=== PATIENT | male | born 1955 | race Caucasian/White ===

== ENCOUNTER → 2019-04-26 00:01 | Outpatient (RCR) | payer SELFPAY | LOC: ONCMED 04-11 09:57 | PROVIDERS: Family Provider Nurse Practitioner Family; Visit Provider Internal Medicine Medical Oncology | DX: Z51.12 Encounter for antineoplastic immunotherapy (principal); C18.4 Malignant neoplasm of transverse colon; C78.7 Secondary malignant neoplasm of liver and intrahepatic bile duct; Z90.49 Acquired absence of other specified parts of digestive tract; E78.5 Hyperlipidemia, unspecified; I25.10 Atherosclerotic heart disease of native coronary artery without angina pectoris; I25.2 Old myocardial infarction; Z95.5 Presence of coronary angioplasty implant and graft; Z95.1 Presence of aortocoronary bypass graft; Z80.0 Family history of malignant neoplasm of digestive organs; R97.0 Elevated carcinoembryonic antigen [CEA]; Z79.899 Other long term (current) drug therapy | CPT/HCPCS: 36591; 80053; 82306; 82378; 82728; 82977; 83615; 84443; 85025; 85651; 86141; 86301; 96367 ×3; 96413 ×3; 96417; 99214; J1642 ×4; J2930 ×3; J3490 ×3; J7050 ×3; J9055 ×2 ==

== ENCOUNTER → 2019-05-02 09:21 | Outpatient (BNVA) | payer SELFPAY | PROVIDERS: Family Provider Nurse Practitioner Family; PCP Nurse Practitioner Family; Visit Provider Internal Medicine Medical Oncology | DX: C18.4 Malignant neoplasm of transverse colon (principal); C78.7 Secondary malignant neoplasm of liver and intrahepatic bile duct | CPT/HCPCS: 36415; 80053; 82306; 82378; 82728; 82977; 83615; 85025; 85651; 86141; 86301 ==

== ENCOUNTER 2019-05-16 07:58 | Outpatient (CLI) | payer SELFPAY ==
--- NOTE | 2019-05-16 08:07 | US_ITS ---
WS: [id number] ULTRASOUND ABDOMEN LIMITED CLINICAL INFORMATION: COLON CANCER/ABNORMAL FINDING ON PET SCAN COMPARISON: PET/CT 05/07/[address] chest abdomen pelvis December 15, 2018 FINDINGS: Liver Size: Multiple hepatic metastatic lesions the largest measuring 4.0 x3.1 cm unchanged since the recen t PET/CT. Craniocaudal length: 17.3 cm. Echogenicity: Coarse Surface nodularity: None. Mass (size and location): None. Bile ducts Intrahepatic ducts: Normal. Common bile duct diameter: 4.2 mm. Gallbladder Normal. Gallstones: None. Gallbladder sludge: None. Gallbladder wall thickening: None. Pericholecystic fluid: None. Sonographic Joshi sign: Absent. Pancreas Enlarged pancreatic head consistent with pancreatitis versus metastatic disease. This is similar in a ppearance to the recent PET/CT. No visualized ductal dilatation. Right kidney: Normal. Hydronephrosis: None. Size: 13.0 cm x 5.7 cm x 6.0 cm. Abdominal aorta and IVC Visualized portions are normal. Ascites: None. US/US gall bladder [id number] IMPRESSION: 1. Multiple hepatic metastatic lesions appear unchanged since the recent PET/C T. 2. Enlarged heterogeneous pancreatic head appears unchanged since the PET/CT. Recommend contrast-enhanced CT abdomen pelvis if further evaluation of this are a is desired 3. No pancreatic ductal dilatation. 4. No hydronephrosis in right kidney.
== END 2019-05-16 07:59 | disposition home or self-care (01) ==
LOC: RAD 08:04
PROVIDERS: Family Provider Nurse Practitioner Family; PCP Nurse Practitioner Family; Visit Provider Internal Medicine Medical Oncology
DX: C18.9 Malignant neoplasm of colon, unspecified (principal); K76.9 Liver disease, unspecified
CPT/HCPCS: 76705

== ENCOUNTER → 2019-05-23 10:13 | Outpatient (BNVA) | payer SELFPAY | PROVIDERS: Family Provider Nurse Practitioner Family; PCP Nurse Practitioner Family; Visit Provider Internal Medicine Medical Oncology | DX: C18.4 Malignant neoplasm of transverse colon (principal) | CPT/HCPCS: 80053; 82306; 82378; 82728; 82977; 83615; 85025; 85651; 86141; 86301 ==

== ENCOUNTER 2019-05-25 05:47 | Outpatient (RCR) | payer SELFPAY ==
[2019-05-04] MEDS: sodium chloride 0.9% 250 ML 75 ML IV (10:46)
--- NOTE | 2019-05-09 10:49 | ONC FU_ITS ---
Steven Amador Patient Note Patient: Steven Arellano Unit #: [id number]: 1955 Dictated By: Efrain McintoshDate of Visit: May 04, 2019 Onc MED Follow-Up/Prog Note Chief Complaint: Colon cancer. 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 In February 2018 he was referred to Dr. Jay with a one-month history of hematochezia. His colonoscopy showed a mass in the transverse colon. Biopsy showed tubular adenoma with high-grade dysplasia, but the mass did appear malignant. Other findings were limited to an inflammatory type polyp in the proximal descending colon and hyperplastic polyps in the rectum. CT of the abdomen and pelvis showed circumferential thickening in the distal transverse colon proximal to the splenic flexure, suspicious for neoplasm. There were multiple low-attenuation lesions noted in the liver, the largest in the left hepatic lobe measuring 3.2 cm. An additional prominent lesion near the dome measured 2.8 cm. There were numerous low-attenuation circumferential lesions in the right hepatic lobe measuring 1-2 cm. The findings were consistent with metastatic disease. On 03/25/2018 he underwent exploratory laparotomy with partial transverse colectomy and biopsy of a right hepatic lobe lesion. Pathology showed grade 1-2/4 infiltrating adenocarcinoma measuring 3.0 x 2.7 cm. There was penetration through the muscularis propria into serosal connective tissues. There was involvement in one of 12 mesenteric lymph nodes. The liver biopsy showed metastatic adenocarcinoma. Dr Rabago had seen him initially on 04/13/2018. We had discussed the possibility of a trial of palliative chemotherapy with a FOLFOX-based regimen. He subsequently underwent evaluation at [facility] in [facility]. His evaluation there included a next generation sequencing study by liquid biopsy. 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 The KRAS, NRAS, and BRAF mutations were not detected. A trial of palliative chemotherapy was again recommended. Instead, he sought treatment through [facility] in [facility]. Based on their in vitro studies, he apparently then began initial course of chemotherapy with cyclophosphamide, epirubicin, and irinotecan dosed at 2-week intervals for 8 weeks. He also was administered a variety of vitamin and herbal supplements. On 06/11/2018 he underwent a chemoembolization procedure with Quadraspheres loaded with epirubicin. He received a dosage of 60 mg to the right hepatic lobe and 50 mg to the left hepatic lobe. In June he began treatment with pembrolizumab 200 mg by IV infusion every 3 weeks together with cetuximab 500 mg by IV infusion weekly. Thus far he has received only 2 infusions of cetuximab, which he completed with only minimal reaction. He received his most recent infusion of pembrolizumab on 08/27/2018. In addition, from 08/03/2018 through 08/05/2018 he underwent AAIT therapy in [place]. His follow-up laboratory studies have shown decline in the CEA level from 178.6 ng/mL on 05/07/2018 to 60.9 ng/mL on 07/26/2018. His restaging PET/CT on 07/28/2018 showed interval significant response to treatment with resolution of multiple foci of increased metabolic activity in the liver. His other medical illnesses have been limited to coronary artery disease and dyslipidemia. He had suffered an inferior wall myocardial infarction in February 2017, at which time he underwent angioplasty with stent placement of the right coronary artery. He had no further cardiac problems. He has had no other prior medical illnesses. He had smoked cigars in the past, but only for a few years. He had chewed tobacco for 20 years, but he quit at least 15 years ago. He does not drink alcohol. His family history is significant in that his mother and a brother have also been treated for colon cancer. INTERIM HISTORY: On 08/27/2018 he restarted treatment with pembrolizumab 200 mg IV every 3 weeks together with cetuximab 500 mg IV weekly. He returned here on 08/30/2018 so that he could continue his pembrolizumab and cetuximab infusions closer to home. He had experienced no adverse effects with the initial infusions, and he continued with his day 8 and day 15 cetuximab infusions, also with no adverse effects. His repeat CEA level on 09/08/2018 was down to 9.1 ng/mL compared to 60.9 ng/mL on 07/26/2018. During subsequent follow-up his CEA level continued to decline. As of 12/06/2018 it had stabilized at 1.0 ng/mL. Restaging CT scans of the chest, abdomen, and pelvis on 12/15/2018 showed no evidence of metastatic disease the lungs. A 4 mm left perifussural nodule appeared stable. Numerous hepatic metastatic lesions appeared stable compared to the PET/CT from 10/23/2018. The largest in the left hepatic lobe measured 2.7 x 3.8 cmwith those findings he continued treatment with cetuximab in combination with pembrolizumab. Restaging PET/CT on 02/05/2019 showed improved bilateral hilar lymph nodes compared to the prior PET/CT studies. Multiple hepatic lesions appeared to have resolved, but with unchanged left and right hepatic dome lesions. Overall the findings were consistent with a positive metabolic response. He continued treatment with cetuximab in combination with pembrolizumab. As of 03/23/2019 he began his 11th cycle of treatment. At that point there was a significant increase in the CEA level, 13.9 ng/mL compared to 10.7 ng/mL on 03/02/2019 and to 3.9 ng/mL on 01/17/2019. With that increased and with evidence of residual hepatic involvement in the liver by PET/CT, he was recommended to have a repeat TACE procedure, and that was just done last week. Mr. Arellano is here today for follow-up. He is due for cycle 13 cetuximab and pembrolizumab. He states overall he is feeling better since the TACE procedure that was performed early March 2019. He had some abdominal soreness following the procedure but that has greatly improved. His activity is back to his normal. 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 His appetite is good. He states overall he feels that he is doing well. He has had significant pustular like rash eruption since last visit. That would be to due to the cetuximab most likely. He is using his normal medications at home which consist of herbal solutions. He denies any fever or chills. He said no mouth sores, sore throat or difficulty swallowing. He denies any diarrhea or constipation. He has had no new pain. His ECOG is 0. Mr Arellano reports he had followup with Dr Gorman recently and his ultrasound did not report any changes. Mr. Arellano had DCGL Exacta Liquid Biopsy Panel via [employer] in [place], [place] on 04/06/2019. The purpose of this liquid biopsy panel was for comprehensive exosomal gene expression study, cell free nuclear acid analysis, Copy Number Variations (CNV's), micro-RNA expression profile, Circulating Tumor Cells (CTC's)detection, pharmacogenetics and chemosensitivity analysis. This was requested by his healthcare team to identify any potential benefit with FDA approved therapies in cancers and possible nonconventional drugs or clinical trials. The results are available in his chart and are too detailed to include in this followup visit documentation. Past Medical History: Coronary artery disease Dyslipidemia Past Surgical History: Portacather placement dr. gurrola in 2019 Exploratory laparotomy with partial transverse colectomy and liver biopsy in 2018 Colonoscopy in 2018 - performed by Dr. Jay Coronary angioplasty/stent placement in 2016 Amputation of the distal phalanx of the right middle finger in 2013 Allergies: No Known Allergies. Medications: Aspirin 1 Tablet (of 81 mg) Oral daily Nitroglycerin 1 (0.4 mg) Tablet, sublingual Sublingual PRN Family History: Mr. Arellano's mother is alive: colon cancer. Mr. Arellano's father at age 83: alzheimers, and colon mass, and myocardial infarction. His father had dementia and coronary artery disease. He at age 83, apparently from complications of bowel obstruction. His mother still living at age 83. She has been treated for colon cancer in one brother has also been treated for colon cancer. Another brother has coronary artery disease. 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 Mr. Arellano no longer smokes but had smoked for 15 years. He has no history of drinking. Mr. Arellano reports the following support systems: lives with spouse, significant other, family, or friends. He had smoked cigars in the past, but only for a few years. He chewed tobacco for 20 years, but quit at least 15 years ago. He does not drink alcohol. Review Of Symptoms: Constitutional Denies fevers, chills, night sweats, excessive fatigue or weight loss. Allergic/Immunologic No reactions. Eyes Denies significant visual changes. No diplopia. No amaurosis. ENMT Denies changes in hearing, sore throat, mouth sores, difficulty or changes in swallowing ability, and/or sinus drainage. Endocrine No diabetes, thyroid disease or hormone replacement. Denies hot flashes or night sweats. Hematologic/Lymphatic Denies easy bruising or bleeding. The patient denies any tender or palpable lymph nodes. Respiratory Denies dyspnea on exertion, chest pain, cough or hemoptysis. Denies orthopnea. Cardiovascular Denies anginal chest pain, palpitations or orthopnea. Gastrointestinal Denies nausea, vomiting, diarrhea, GI bleeding, or constipation. Denies change in bowel habits and/or stool color, no heartburn or early satiety. Genitourinary (M) Denies hematuria, dysuria, increased frequency, urgency, hesitancy or incontinence. Musculoskeletal Denies joint pain, swelling or redness. No decreased range of motion. Integumentary Has recurrent Erbitux rash but no inflammation, ulcerations or skin changes. Neurologic Denies headache, blurred vision, and no areas of focal weakness or numbness. Normal gait. No sensory problems. Psychiatric Denies insomnia, depression, becky or mood swings. Vital Signs: Performed on May 04, 2019 09:31 Height - 70.00 in Weight - 182.2 lbs (HIGH) BSA - 2.01 sq.m BMI - 26.14 Temperature - 98.4 F Pulse - 81 /min Respiration - 16 /min BP - 128/72 mm(hg) O2 Sat - 99 % Pain - 0 Fatigue - 2,0 - Fully active, able to carry on all predisease activities without restrictions. (ECOG) Physical Examination: Constitutional Alert, oriented, no acute distress. Skin pink, warm and dry. Head Normocephalic; atraumatic. Eyes Conjunctivae and sclerae are clear and without icterus. Pupils are reactive and equal. Neck Supple without masses or thyromegaly. No jugular venous distension. Hematologic/Lymphatic No petechiae or purpura. No tender or palpable lymph nodes in the cervical or supraclavicular areas. Respiratory Lungs are clear to auscultation without rhonchi or wheezing. Cardiovascular Regular rate and rhythm of heart without murmurs,clicks, gallops or rubs. Chest Left subclavian venous access device is unremarkable. Abdomen Non-tender, non-distended, no masses, ascites. Good bowel sounds noted in all quads. No guarding or rebound tenderness. No pulsatile masses. Back/Spine Non-tender to palpation. Extremities No visible deformities, no cyanosis, clubbing or edema. Pulses 4+ and equal bilaterally. Musculoskeletal No tenderness or swelling, normal range of motion without obvious weakness. Integumentary Classic Erbitux moderate rash on forehead, upper chest and back. Papules scattered with several showing pustules, but no signs of infection. Neurologic No sensory or motor deficits, normal cerebellar function, normal gait. Psychiatric Alert and oriented times three. Coherent speech. Verbalizes understanding of our discussions today. Laboratory:Test performed on May 02, 2019 10:34 Ferritin 216 ng/mL Glucose 85 mg/dL LDH, Total 235 IU/L Vitamin D (25-Hydroxy) 44 ng/mL BUN 15 mg/dL Creatinine 1.1 mg/dL Cr Clearance (Est) 75.48 mL/min Sodium 140 mmol/L Potassium 4.7 mmol/L Chloride 100 mmol/L CO2 26 mmol/L Calcium 10.3 mg/dL Protein, Total 6.4 g/dL Albumin 4.1 g/dL Globulin 2.3 g/dL Bilirubin, Total 0.2 mg/dL Alkaline Phosphatase 125 IU/L AST (SGOT) 26 IU/L ALT (SGPT) 26 IU/L WBC 10.8 10^9/L RBC 4.68 10^12/L HGB 13.1 g/dL HCT 41.4 % MCV 88.5 fl MCH 28.0 pg MCHC 31.6 g/dL RDW 12.6 % Platelet Count 327 10^9/L MPV 10.8 fL Neutrophils (Gran) 7.4 10^9/L Lymphocytes 1.5 10^9/L Monocytes 0.8 10^9/L Eosinophils 1.0 10^9/L Basophils 0.0 10^9/L Manual Lymphocytes 14.0 % Manual Monocytes 7.4 % Manual Eosinophils 9.1 % Manual Basophils 0.1 % C-Reactive Protein (mg/dL) 3.150 mg/dL CA 19-9 27.25 Units/mL CEA 13.1 ng/mL Impression: 1. 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 An extended K-sheila mutation analysis and MMR testing are in progress at this time. 2. He underwent exploratory laparotomy with partial transverse colectomy and liver biopsy on 03/25/2018. His other medical illnesses include: 3. Dyslipidemia. 4. Coronary artery disease with previous myocardial infarction and angioplasty/stent placement. 5. He has a significant family history of colon cancer. While in his initial visit here he was seen at [facility] and his next generation sequencing study did confirm that he had a wild-type KRAS mutation status. He then sought treatment through the [facility] in [facility]. Based on their and philipp studies he apparently began initial chemotherapy with cyclophosphamide, epirubicin, and irinotecan dosed every 2 weeks. On 06/11/2017 he underwent chemoembolization to both hepatic lobes utilizing Quadraspheres loaded with epirubicin. In June he began further treatment with pembrolizumab 200 mg by IV infusion every 3 weeks together with cetuximab 500 mg by IV infusion weekly. His follow-up laboratory studies had shown decline in the CEA level from 178.6 ng/mL on 05/07/2018 to 60.9 ng/mL on 07/26/2018. His restaging PET/CT on 07/28/2018 showed interval significant response to treatment with resolution of multiple foci of increased metabolic activity in the liver. He resumed the pembrolizumab/cetuximab infusions on 08/27/2018. He tolerated the treatment with no significant toxicity. He returned for day 8 and day 15 cetuximab infusions, which he also tolerated well. As of 09/08/2018 there was further decrease in the CEA level to 9.1 ng/mL. His restaging CT abdomen/pelvis did show residual metastatic lesions in the liver. During subsequent follow-up there was further decline in the CEA level. As of 12/06/2018 it had stabilized at 1.0 ng/mL. His restaging CT scans on 12/15/2018 showed numerous hepatic metastatic lesions, the largest in the left hepatic lobe measuring 2.7 x 3.8 cm. They appeared stable compared to the PET/CT from 10/23/2018. He has been showing gradual gradual worsening of his skin eruption, but he is not symptomatic with it, and he has otherwise been tolerating treatment well. Overall he has been feeling better generally. He has had a good response to his treatment, though he did have residual disease in the liver by CT scan. He then continued treatment with cetuximab in combination with pembrolizumab. His restaging PET/CT on 02/05/2019 showed evidence of positive metabolic response, though with residual involvement in the liver. During subsequent follow-up there was a continued increase in his CEA level, consistent with disease progression, and in conjunction with the PET/CT findings, he was recommended to have a repeat TACE procedure. It was done last month (March 2019). He has had some soreness in the upper abdomen following the procedure, but he has otherwise tolerated well. The abdominal soreness has now resolved. His CEA is stable at 13.1 today, but it is too early to evaluate for any response to the TACE procedure. He is scheduled for followup PET/CT later this month for followup evaluation. Plan: 1. Proceed with cycle 13 day 1 pembrolizumab and cetuximab today. He will proceed with weekly Cetuximab day 8 & 15 as well unless contraindications arise in the interim. 2. Supportive care as needed. 3. Labs from were reviewed in detail and discussed with and Mrs. Arellano and a copy was given to them. WBC 10.8, hemoglobin 13.1, platelets 327,000, absolute neutrophils are 7400. vitamin D 25 is normal at 44, creatinine 1.1 LFTs are normal potassium 4.3 ferritin 216 CEA is 13.1. 4. We will plan for repeat labs and followup in 3 weeks for consideration of cycle 14 cetuximab and pembrolizumab. 5. Mr Arellano was instructed to call us in the interim if questions or problems arise. 6. Encouraged sunscreen/protection to help control Erbitux rash. We may call in antibiotics if rash warrants further treatment. 7. Mr. Arellano had DCGL Exacta Liquid Biopsy Panel via [employer] [facility] in [place], [place] on 04/06/2019. The purpose of this liquid biopsy panel was for comprehensive exosomal gene expression study, cell free nuclear acid analysis, Copy Number Variations (CNV's), micro-RNA expression profile, Circulating Tumor Cells (CTC's)detection, pharmacogenetics and chemosensitivity analysis. This was requested by his healthcare team to identify any potential benefit with FDA approved therapies in cancers and possible nonconventional drugs or clinical trials. The results are available in his chart and are too detailed to include in this followup visit documentation. Signed By: Efrain Mcintosh-, AOCNP George Rabago MD <<Signature on File>>
[2019-05-11] MEDS: sodium chloride 0.9% 250 ML 75 ML IV (09:42)
[2019-05-18] MEDS: sodium chloride 0.9% 250 ML 75 ML IV (09:28)
[2019-05-25] MEDS: sodium chloride 0.9% 250 ML 75 ML IV (09:47)
== END 2019-05-27 23:59 | disposition home or self-care (01) ==
LOC: ONCMED 05:47
PROVIDERS: Family Provider Nurse Practitioner Family; PCP Nurse Practitioner Family; Visit Provider Nurse Practitioner
DX: Z51.12 Encounter for antineoplastic immunotherapy (principal); C18.4 Malignant neoplasm of transverse colon; C78.7 Secondary malignant neoplasm of liver and intrahepatic bile duct; C77.2 Secondary and unspecified malignant neoplasm of intra-abdominal lymph nodes; I25.10 Atherosclerotic heart disease of native coronary artery without angina pectoris; E78.5 Hyperlipidemia, unspecified; I25.2 Old myocardial infarction; Z79.82 Long term (current) use of aspirin; Z95.5 Presence of coronary angioplasty implant and graft; Z87.891 Personal history of nicotine dependence; Z90.49 Acquired absence of other specified parts of digestive tract; Z89.021 Acquired absence of right finger(s); Z80.0 Family history of malignant neoplasm of digestive organs
CPT/HCPCS: 96367; 96413; 96417; 99214; A4222; J1200; J2930; J3490; J7050; J9055; J9271

== ENCOUNTER 2019-05-27 13:26 | Inpatient (IN) | payer SELFPAY ==
[2019-05-27] VITALS (7 sets, daily range): BP systolic 161–168; BP diastolic 95–100; PULSE 66–87; RESP 16–18; TEMP 36.5–36.9; O2SAT 94–99; BMI 24.3
--- NOTE | 2019-05-27 13:51 | ED_ITS ---
Entered by Catherine Hightower, acting as scribe for Flaco Chandler MD, [facility] [place] - Abdominal Pain General: Chief Complaint: Abdominal Pain Stated Complaint: cancer pt n/v Time Seen by Provider: 05/27/19 13:50 Source: patient Mode of arrival: ambulatory Limitations: no limitations History of Present Illness: HPI narrative: 64 yo Male presents to ED with complaint of abdominal pain, nausea and vomiting. Pt states that he hasn't been able to hold anything down. Pt states that this has been going on since Thursday. Pt states that [facility] Pt is receiving immunotherapy treatments. Pt has colon cancer that has spread to his liver. MD elicited complaint: abdominal pain Onset (ago): day(s) Pain Consistency: intermittent Location: RUQ Pain scale (0-10): 1 Radiation: none Migration to: no migration Exacerbating factors: eating Relieving factors: vomiting Associated Symptoms: Reports belching, diarrhea, fever(s), nausea and vomiting; Denies dysuria Review of Systems General: Reports: 10 or more systems reviewed and unremarkable except in HPI and below Const: Reports: fever Eyes: Reports: blind spots; Denies: change in vision or blurry vision ENMT: Denies: throat pain, enlarged tonsils, painful swallowing, hoarseness, mouth pain or swelling of lips/tongue Card: Reports: chest pain; Denies: palpitations, irregular heart rhythm, edema or swelling of feet/ankles Resp: Denies: shortness of breath, productive cough or non-productive cough GI: Reports: nausea, vomiting, diarrhea and belching : Denies: flank pain, painful urination, urinary frequency, urinary urgency or urinary hesitancy Musc: Reports: extremity pain (left shoulder), joint pain (left shoulder) and limited range of motion; Denies: neck pain, back pain or extremity swelling Skin/Breast: Denies: rash, itching or redness Neuro: Denies: headache, numbness in extremities or weakness in extremities Endo: Denies: excessive urination, excessive thirst or tired all the time PFSH ED PFSH: Statuses (acute, chronic, etc) shown below reflect problem list status as previously entered and may not be historically accurate Social History Smoking and tobacco status: former smoker Physical Exam Const: COMMON NORMALS: no apparent distress, average body habitus, oriented x3, no limitations, healthy appearing, alert and well nourished HENMT: COMMON NORMALS: normocephalic, head/scalp atraumatic and moist oral mucous membranes HEAD & SCALP: normocephalic and atraumatic Eye: COMMON NORMALS: PERRL, EOMs intact bilaterally, conjunctivae normal and no scleral icterus CONJUNCTIVA: Yes conjunctivae normal PUPIL: Yes PERRL Neck/C-Spine: COMMON NORMALS: full ROM, supple, no meningeal signs, no JVD and no carotid bruits Chest: COMMONS NORMALS: inspection of chest normal and palpation of chest normal Resp: COMMON NORMALS: normal respiratory effort, no retractions, no use of accessory muscles, clear to auscultation bilaterally and percussion normal AUSCULTATION: clear to auscultation bilaterally PERCUSSION: percussion normal Cardio: COMMON NORMALS: no JVD, regular rate, regular rhythm, S1 normal heart sound, S2 normal heart sound, no gallops, no clicks, no murmurs, no rub and peripheral pulses 2+ throughout RATE: regular rate RHYTHM: regular rhythm HEART SOUNDS: S1 normal and S2 normal PERIPHERAL PULSES: pulses 2+ throughout GI: COMMON NORMALS: normal to inspection, nondistended, normoactive bowel sounds, soft to palpation, no hepatosplenomegaly, no masses and no bruits; negative for non-tender PALPATION: Yes soft, Yes tender (Epigastric), Yes guarding, No rigid and Yes no hepatosplenomegaly : COMMON NORMALS: Yes no CVA tenderness BLADDER/KIDNEY EXAM: Yes no CVA tenderness Back/Pelvis: COMMON NORMALS: no CVA tenderness Extremity: COMMON NORMALS: normal to inspection, full ROM, normal capillary refill, no calf tenderness and no pedal edema Neuro: COMMON NORMALS: oriented x3 SENSORIUM/ORIENTATION: Yes alert MENINGEAL SIGNS: Yes no meningeal signs Skin: COMMON NORMALS: no rashes or lesions noted, no wounds, skin turgor normal, no jaundice, no petechiae and no mottling GENERAL SKIN EXAM: no rashes or lesions noted and turgor normal Course Consultations: Consultation #1: Dr. Murguia, hospitalist. He kindly accepted the patient to his service. Vital Signs: Vital signs: Vital Signs Temperature 98.4 F 05/27/19 18:13 Pulse Rate 87 05/27/19 18:13 Respiratory Rate 18 05/27/19 18:13 Blood Pressure 163/100 05/27/19 18:13 Pulse Oximetry 97 05/27/19 18:07 MDM - Abdominal Pain MDM Narrative: Medical decision making narrative: 64-year-old gentleman with metastatic colon cancer. He presents to the emergency department with nausea vomiting and unable to keep anything down. He had epigastric pain and on evaluation he has acute pancreatitis. He is admitted to the hospital for further management and evaluation. Medical Records: Attestation: I reviewed the patient's medical records. Lab Data: Attestation: I reviewed the patient's lab results. Labs: Lab Results 05/27/19 05/27/19 05/27/19 Range/Units 14:36 14:36 14:42 WBC 11.9 H (4.0-10.0) 10^3/ uL RBC 5.70 H (4.1-5.3) 10^6/u L Hgb 15.3 (11.7-16.6) g/dL Hct 47.4 (42.0-52.0) % MCV 83.2 (80-94) fL MCH 26.8 L (28.0-34.0) pg MCHC 32.3 (30.0-36.0) g/dL RDW 13.1 (12.1-15.1) % Plt Count 344 (130-400) 10^3/c mm MPV 10.8 H (7.4-10.4) fL Neut % (Auto) 76.6 % Lymph % (Auto) 13.7 % Hinds % (Auto) 8.8 % Eos % (Auto) 0.4 % Baso % (Auto) 0.2 % Neut # (Auto) 9.1 H (1.8-7.7) 10^3/u L Lymph # (Auto) 1.6 (0.8-4.8) 10^3/u L Hinds # (Auto) 1.0 H (0.2-0.9) 10^3/u L Eos # (Auto) 0.1 (0.0-0.8) 10^3/u L Baso # (Auto) 0.0 (0.0-0.1) 10^3/u L Nucleated RBC % (a uto) 0 % Nucleated RBCs # 0.0 /100WBC Sodium 140 (136-145) mmol/L Potassium 3.7 (3.5-5.1) mmol/L Chloride 100 (98-107) mmol/L Carbon Dioxide 26 (22-29) mmol/L Anion Gap 17.7 (5-19) BUN 14 (8-23) mg/dL Creatinine 0.7 (0.7-1.2) mg/dL GFR Calculation 113.5 (90-130) mL/min Glucose 133 H (74-106) mg/dL Calcium 10.5 (8.5-10.5) mg/dL Total Bilirubin 0.6 (0.15-1.2) mg/dL AST 25 (0-40) U/L ALT 23 (0-41) U/L Alkaline Phosphata se 140 H (40-130) IU/L Total Protein 7.9 (6.6-8.7) g/dL Albumin 4.4 (3.5-5.2) g/dL Globulin 3.5 (1.3-4.6) g/dL Lipase 624 H (13-60) U/L Urine Color Yellow (Yellow) Urine Appearance Cloudy (CLEAR) Urine pH 7.0 (5-7) Ur Specific Gravit y 1.015 (1.005-1.030) Urine Protein Neg (Negative) Urine Glucose (UA) Norm (Normal) Urine Ketones 2+ H (Negative) Urine Occult Blood Neg (Negative) Urine Nitrate Negative (Negative) Urine Bilirubin Neg (NEGATIVE) Urine Urobilinogen 1 H (Negative) mg/dL Ur Leukocyte Krystal ase Negative (Negative) Urine RBC None (0-2) /hpf Urine WBC None (0-5) /hpf Ur Squamous Epith Cells 0-4 H (0-5) Amorphous Sediment 1+ Urine Bacteria 1+ H (NONE) Urine Mucus 1+ Influenza Type A A g (Negative) POC Influenza B Ag (Negative) 05/27/19 Range/Units 14:47 WBC (4.0-10.0) 10^3/ uL RBC (4.1-5.3) 10^6/u L Hgb (11.7-16.6) g/dL Hct (42.0-52.0) % MCV (80-94) fL MCH (28.0-34.0) pg MCHC (30.0-36.0) g/dL RDW (12.1-15.1) % Plt Count (130-400) 10^3/c mm MPV (7.4-10.4) fL Neut % (Auto) % Lymph % (Auto) % Hinds % (Auto) % Eos % (Auto) % Baso % (Auto) % Neut # (Auto) (1.8-7.7) 10^3/u L Lymph # (Auto) (0.8-4.8) 10^3/u L Hinds # (Auto) (0.2-0.9) 10^3/u L Eos # (Auto) (0.0-0.8) 10^3/u L Baso # (Auto) (0.0-0.1) 10^3/u L Nucleated RBC % (a uto) % Nucleated RBCs # /100WBC Sodium (136-145) mmol/L Potassium (3.5-5.1) mmol/L Chloride (98-107) mmol/L Carbon Dioxide (22-29) mmol/L Anion Gap (5-19) BUN (8-23) mg/dL Creatinine (0.7-1.2) mg/dL GFR Calculation (90-130) mL/min Glucose (74-106) mg/dL Calcium (8.5-10.5) mg/dL Total Bilirubin (0.15-1.2) mg/dL AST (0-40) U/L ALT (0-41) U/L Alkaline Phosphata se (40-130) IU/L Total Protein (6.6-8.7) g/dL Albumin (3.5-5.2) g/dL Globulin (1.3-4.6) g/dL Lipase (13-60) U/L Urine Color (Yellow) Urine Appearance (CLEAR) Urine pH (5-7) Ur Specific Gravit y (1.005-1.030) Urine Protein (Negative) Urine Glucose (UA) (Normal) Urine Ketones (Negative) Urine Occult Blood (Negative) Urine Nitrate (Negative) Urine Bilirubin (NEGATIVE) Urine Urobilinogen (Negative) mg/dL Ur Leukocyte Krystal ase (Negative) Urine RBC (0-2) /hpf Urine WBC (0-5) /hpf Ur Squamous Epith Cells (0-5) Amorphous Sediment Urine Bacteria (NONE) Urine Mucus Influenza Type A A g Negative (Negative) POC Influenza B Ag Negative (Negative) Imaging Data ^: CT Abd/Pel: Radiologist's impression: [facility] [address] [place] [address] CT Scan Report Signed Patient: Jaqueline Arellano #: [id number] : 5Acct#:[id number] Age/Sex: 64 / MADM Date: 05/27/19 Loc: ERRoom/Bed: Attending Dr: Ordering Provider/Ordering MD: Flaco Chandler MD, [facility] [place] Date of Service: 05/27/19 Procedure(s): CT abdomen pelvis w con* [id number] Accession Number(s): [id number] Report Number: [id number] WS: [id number] CT scan of the abdomen and pelvis with IV contrast. Additional two-dimensional coronal and sagittal reconstruction was performed. 05/27/2019 Clinical Data: Pancreatitis Comparison: CT abdomen and pelvis, 02/05/2019, gallbladder ultrasound, 05/16/2019. DLP: 676.[address] scans at [facility] use at least one of these dose optimization techniques: automated exposure control; mA and/or kV adjustment per patient size (includes targeted exams where dose is matched to clinical indication); or iterative reconstruction. Findings: The lower lungs show no nodules, masses or effusions. The liver demonstrates an increased number of low-density metastatic lesions. The previously noted lesions are also larger. The gallbladder is shrunken with calcification in the wall. The adrenal glands and spleen are unremarkable. The pancreas shows an increase in the size of the head of the pancreas with numerous low-density lesions. This could represent acute pancreatitis of the he ad of the pancreas. The body and tail of pancreas appear to be normal. The kidneys show equal bilateral contrast excretion with no cyst or masses. The abdominal aorta is normal in size with minimal calcification in the wall.. No appendicitis or diverticulitis is seen. Stomach is dilated. The small bowel demonstrates moderate fluid within but there is no dilatation. No abscess, adenopathy, ascites, mass, obstruction or free air is seen. The bladder is unremarkable. The prostate is enlarged with calcification in the gland. No inguinal hernia is seen. The the bones of the lower thorax, lumbar spine, pelvis, hips and sacrum show only osteoarthritic change.. CT/CT abdomen pelvis w con* [id number] Impression: 1. Increase in size of the head of the pancreas with multiple low density lesions which could represent acute pancreatitis in the head of the pancreas. 2. Multiple low-density lesions of the liver which have increased in size and number and may represent worsening metastatic disease. 3. Dilated stomach which may represent acute gastric retention. 4. Fluid within the small bowel which may represent a severe ileus. 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
[2019-05-27 14:41] LABS: Basophils % 0.2 %; Eosinophils # 0.1 10^3/uL (0.0-0.8); Eosinophils % 0.4 %; Hematocrit 47.4 % (42.0-52.0); Hemoglobin 15.3 g/dL (11.7-16.6); Lymphocytes # 1.6 10^3/uL (0.8-4.8); Lymphocytes % 13.7 %; Mean Corpuscular HGB Conc 32.3 g/dL (30.0-36.0); Mean Corpuscular Hemoglobin 26.8 pg (28.0-34.0); Mean Corpuscular Volume 83.2 fL (80-94); Mean Platelet Volume 10.8 fL (7.4-10.4); Monocytes % 8.8 %; Neutrophils # 9.1 10^3/uL (1.8-7.7); Neutrophils % 76.6 %; Nucleated Red Blood Cells % 0 %; Platelet Count 344 10^3/cmm (130-400); Red Cell Distribution Width 13.1 % (12.1-15.1); White Blood Count 11.9 10^3/uL (4.0-10.0)
[2019-05-27 14:59] LABS: Add Urine Microscopic? YES; Bilirubin Urine Neg (NEGATIVE); Blood Urine Neg (Negative); Glucose Urine UA Norm (Normal); Ketones Urine 2+ (Negative); Leukocyte Esterase Urine Negative (Negative); Nitrate Urine Negative (Negative); Protein Urine Neg (Negative); Specific Gravity, Urine 1.015 (1.005-1.030); Urine Appearance Cloudy (CLEAR); Urine Color Yellow (Yellow); Urobilinogen Urine 1 mg/dL (Negative)
[2019-05-27 15:09] LABS: Alanine Aminotransferase 23 U/L (0-41); Albumin Level 4.4 g/dL (3.5-5.2); Alkaline Phosphatase 140 IU/L (40-130); Anion Gap 17.7 (5-19); Aspartate Amino Transferase 25 U/L (0-40); Blood Urea Nitrogen 14 mg/dL (8-23); Calcium 10.5 mg/dL (8.5-10.5); Carbon Dioxide 26 mmol/L (22-29); Chloride 100 mmol/L (98-107); Globulin 3.5 g/dL (1.3-4.6); Glomerular Filtration Rate 113.5 mL/min (90-130); Glucose 133 mg/dL (74-106); Potassium 3.7 mmol/L (3.5-5.1); Sodium 140 mmol/L (136-145); Total Bilirubin 0.6 mg/dL (0.15-1.2); Total Protein 7.9 g/dL (6.6-8.7)
[2019-05-27 15:15] LABS: Influenza A by IFA Negative (Negative); Influenza B by IFA Negative (Negative)
[2019-05-27 15:16] LABS: Add Urine Culture? No; Amorphous Sediment Urine 1+; Bacteria Urine 1+; Mucus Urine 1+; Squamous Epithelial Cell Urine 0-4 (0-5)
[2019-05-27 15:24] LABS: Lipase 624 U/L (13-60)
--- NOTE | 2019-05-27 15:38 | CT_ITS ---
WS: [id number] CT scan of the abdomen and pelvis with IV contrast. Additional two-dimensional coronal and sagittal reconstruction was performed. 05/27/2019 Clinical Data: Pancreatitis Comparison: CT abdomen and pelvis, 02/05/2019, gallbladder ultrasound, 05/16/2019. DLP: 676.[address] scans at [facility] use at least one of these dose optimization techniques: automat ed exposure control; mA and/or kV adjustment per patient size (includes targeted exams where dose is matched to clinical indication); or iterative reconstruction. Findings: The lower lungs show no nodules, masses or effusions. The liver demonstrates an increased number of low-density metastatic lesions. The previously noted le sions are also larger. The gallbladder is shrunken with calcification in the wall. The adrenal glands and spleen are unremarkable. The pancreas shows an increase in the size of the head of the pancreas with numerous low-density lesi ons. This could represent acute pancreatitis of the head of the pancreas. The body and tail of pancre as appear to be normal. The kidneys show equal bilateral contrast excretion with no cyst or masses. The abdominal aorta is normal in size with minimal calcification in the wall.. No appendicitis or diverticulitis is seen. Stomach is dilated. The small bowel demonstrates moderate fluid within but there is no dilatation. No abscess, adenopathy, ascites, mass, obstruction or free a ir is seen. The bladder is unremarkable. The prostate is enlarged with calcification in the gland. No inguinal hernia is seen. The the bones of the lower thorax, lumbar spine, pelvis, hips and sacrum show only osteoarthritic thao nge.. CT/CT abdomen pelvis w con* [id number] Impression: 1. Increase in size of the head of the pancreas with multiple low density lesio ns which could represent acute pancreatitis in the head of the pancreas. 2. Multiple low-density lesions of the liver which have increased in size and n umber and may represent worsening metastatic disease. 3. Dilated stomach which may represent acute gastric retention. 4. Fluid within the small bowel which may represent a severe ileus.
[2019-05-27] MEDS: iohexol 300 mg/mL 100 mL Btl IV (15:57)
[2019-05-27] MEDS: ondansetron 2 mg/ML SDV 2 mL 4 MG IVP (17:29)
[2019-05-27] MEDS: sodium chloride 0.9% 1,000 ML 999 ML IV (17:30)
[2019-05-27 18:52] LABS: Lipase 683 U/L (13-60)
--- NOTE | 2019-05-27 19:51 | PM.HP ---
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 He initially sought treatment through [facility] in [facility] and began initial course of chemotherapy with cyclophosphamide, epirubicin, and irinotecan with chemoembolization procedure with Quadraspheres loaded with epirubicin into hepatic metastasis in 05/2018. He has since been on treatment with pembrolizumab every 3 weeks together with cetuximab. While he had good response until 01/2019 with reducing CEA level and reducing disease burden on restaging PETs, in Feb 2019 he again had increased CEA level and evidence of residual hepatic involvement in the liver. In March 2019, he returned to [place] to receive intrahepatic chemo with cyclophosphamide, gemcitabine and vinorelbine hepatospheres. He had a PET/CT recently in April after returning from [place] which showed evidence of pancreatic inflammation. It was thought that this may have resulted from some leak of chemotherapy into the pancreas at that time. However patient was asymptomatic. I do not see a lipase from this time. I am unable to find records of this PET/CT in our EMR at this time. 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 An ultrasound of the gallbladder was performed which showed enlarged heterogeneous pancreatic head multiple hepatic metastatic lesions no pancreatic ductal dilatation and no evidence of gallstones. This report compared to a PET/CT performed on 05/07/2019. Patient presented to the ER today with chief complaints of nausea vomiting poor appetite and one episode of diarrhea this morning. He states that all of the symptoms started on Thursday (today is Thursday.) He received his last immunotherapy on Thursday. He also reports that he has a dull achy type pain in the epigastric area which has somewhat worsened since Thursday. At this point he is unable to keep anything down. His symptoms have not significantly worsened since Thursday, however it is the persistence of symptoms that has brought him in this morning. This morning he was also unable to take any of his medications or keep even clear liquids down. He has previously tolerated his cycles of chemo well without any untoward side effects. He is not currently neutropenic. An abdomen pelvis CT was performed upon arrival in the ED which showed increase in the size of head of pancreas with multiple low-density lesions which could represent acute pancreatitis in the head of pancreas. Multiple low-density lesions of the liver were noted and noted to have increased in size consistent with worsening metastatic disease. Dilated stomach was also noted which presents acute gastric retention and fluid within the small bowel which may represent a severe ileus. Gallbladder is noted to be shrunken with calcification in the wall. He denies any complaints of fever. Labs notable for white blood cell count of 11.9. Review of prior labs show his white blood cell count to be ranging between 10.8-11.1. Lipase is elevated at greater than 600. Liver function is stable. Alkaline phosphatase is mildly elevated at 140. Blood sugar is currently at 133. Creatinine is at 0.7. Review of Systems General: Reports: 10 or more systems reviewed and unremarkable except in HPI and below Const: Denies: fever, chills or body aches Eyes: Denies: change in vision, blurry vision or photophobia ENMT: Reports: hoarseness; Denies: throat pain, enlarged tonsils, painful swallowing or nasal congestion Card: Denies: chest pain, palpitations, irregular heart rhythm, edema, swelling of feet/ankles, lightheadedness, pre-syncope, shortness of breath on exertion or shortness of breath when lying down Resp: Denies: shortness of breath, productive cough, non-productive cough, wheezing, stridor, pain on inspiration, change in phlegm color, coughing up blood or chest congestion GI: Reports: abdominal pain, nausea, vomiting and diarrhea; Denies: vomiting blood, coffee grounds in vomit, difficulty swallowing, heartburn/indigestion, constipation, cramping, change in stool character, blood in stool or black tarry stool : Denies: flank pain, painful urination, urinary frequency, urinary urgency, urinary hesitancy or blood in urine Musc: Denies: neck pain, back pain, extremity pain, joint swelling, joint warmth or deformity Neuro: Denies: headache, numbness in extremities, weakness in extremities, changes in sensation, difficulty walking, frequent falls, dizziness, vertigo, behavioral changes, slurred speech or seizure-like activity Psych: Denies: anxiety, depression, suicidal ideation or homicidal ideation Endo: Denies: excessive urination, excessive thirst, tired all the time, cold intolerance or hot flashes Jigar/Lymph: Denies: easy bruising or easy bleeding Medications/Allergies Home Medications Medication Instructions Recorded Confirmed Last Taken Type aspirin 81 mg PO DAILY 05/27/19 05/27/19 05/27/19 History Allergies Allergy/AdvReac Type Severity Reaction Status Date / Time No Known Allergies Allergy Verified 05/02/19 09:54 PFSH Acute PFSH: Statuses (acute, chronic, etc) shown below reflect problem list status as previously entered and may not be historically accurate Medical History (Updated 05/27/19 @ 20:12 by Becca Baires MD) CAD (coronary artery disease) (Acute) Ileus (Acute) Surgical History (Updated 05/27/19 @ 19:58 by Becca Baires MD) H/O colectomy (Acute) History of heart artery stent (Acute) Family History (Updated 05/27/19 @ 19:58 by Becca Baires MD) Other Cancer Social History (Updated 05/27/19 @ 19:58 by Becca Baires MD) Smoking and tobacco status: former smoker Alcohol intake: never Substance/Drug Use: never Vitals/I&O/Wt Last Vital Signs Temp 98.4 F 05/27/19 18:54 Pulse 80 05/27/19 19:28 Resp 17 05/27/19 19:28 BP 168/95 05/27/19 18:54 Pulse Ox 94 05/27/19 19:28 05/27/19 05/27/19 05/27/19 06:59 14:59 22:59 Intake Total 1000 / 1000 Balance 1000 / 1000 Weight last 48 hrs Weight 77.111 kg Physical Exam Narrative: EXAM NARRATIVE: GEN: Awake, alert and oriented, no acute distress CVS: S1S2 N RS: CTA B/L Abd: Soft, bowel sounds sluggish, no abdominal distention, mild tenderness to palpation in the epigastric area and right upper quadrant. PHARMACEUTICAL SERVICE REPRESENTATIVE: no focal neuro deficits Data : 05/27/19 14:36 05/27/19 14:36 A&P Assessment and plan (1) Pancreatitis: Status: Acute Qualifiers: Acute pancreatitis complication: no infection or necrosis Chronicity: acute Pancreatitis type: unspecified pancreatitis type Qualified Code(s): K85.90 - Acute pancreatitis without necrosis or infection, unspecified Code(s): K85.90 - Acute pancreatitis without necrosis or infection, unspecified (2) Metastatic colon cancer to liver: Status: Acute Code(s): C18.9 - Malignant neoplasm of colon, unspecified; C78.7 - Secondary malignant neoplasm of liver and intrahepatic bile duct (3) Ileus: Status: Acute Code(s): K56.7 - Ileus, unspecified Additional A&P Information Admit patient to MedSurg unit. Currently hemodynamically stable Keep patient NPO. IVF hydration with NS at a rate of 150 cc/hr Will use dilaudid prn for pain control PRN Zofran for nausea. strict I/O monitoring Check blood culture at baseline and repeat if fever >100.4F Accuchekcs q4h Hold off on antibiotics for now as no signs of sepsis currently, afebrile, leukocytosis appears to be at baseline. No signs of necrotizing pancreatitis or pancreatic abscess on CT scan performed today. Check triglycerides and ionized calcium. Patient does not report a history of alcohol intake. Will order MRCP for further evaluation of biliary tract. Possibility of gallstone pancreatitis is low given normal alkaline phosphatase and no noted biliary dilatation. Based on patient history it appears that the pancreatic head inflammation has been persisting at least since his last chemo and may in fact be related to his intrahepatic chemo recently. May be a progression of the same inflammatory process that has made him now symptomatic. I do not see a lipase from the time the original PET/CT was performed to see comparatively if it is trending up or down. Small bowel ileus. For now will require conservative management is likely result of pancreatitis. Conservative measures as above. Will hold off on NGT at the moment unless symptoms worsen. 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
[2019-05-27] MEDS: sodium chloride 0.9% 1,000 ML 150 ML IV (20:37)
[2019-05-27] MEDS: enoxaparin 40 mg/0.4 mL Syringe SUBCUT (20:37)
[2019-05-27 20:47] LABS: Thyroid Stimulating Hormone 1.54 uIU/mL (0.27-4.20)
[2019-05-27 21:10] LABS: Iron 44 ug/dL (59-158); Percent Saturation 14.7 % (20-50); Total Iron Binding Capacity 299 mcg/dl; Unsaturated Iron Binding 255 ug/dL (112-347)
[2019-05-27 21:35] LABS: Chol HDL Ratio 6.14 mg/dL (1.0-5.00); Cholesterol 172 mg/dL (0-200); HDL Cholesterol 28 mg/dL (60-100); LDL Cholesterol Calculated 132 mg/dL (50-129); LDL HDL Ratio 4.71 RATIO (0.00-3.22); Triglycerides 61 mg/dL (0-150)
[2019-05-28] VITALS: BP 133/88; PULSE 79; RESP 24; TEMP 37.2; O2SAT 97
[2019-05-28] MEDS: sodium chloride 0.9% 1,000 ML 150 ML IV ×3 (03:44→19:11)
[2019-05-28 04:00] VITALS: BP 129/80; PULSE 72; RESP 24; TEMP 37; O2SAT 97
[2019-05-28 05:26] LABS: Ionized Calcium 1.1 mmol/L (1.1-1.4)
[2019-05-28 06:33] LABS: Basophils % 0.2 %; Eosinophils # 0.1 10^3/uL (0.0-0.8); Eosinophils % 0.7 %; Hematocrit 43.3 % (42.0-52.0); Hemoglobin 13.6 g/dL (11.7-16.6); Lymphocytes # 1.6 10^3/uL (0.8-4.8); Lymphocytes % 14.2 %; Mean Corpuscular HGB Conc 31.4 g/dL (30.0-36.0); Mean Corpuscular Volume 89.3 fL (80-94); Mean Platelet Volume 11.5 fL (7.4-10.4); Monocytes % 8.9 %; Neutrophils # 8.7 10^3/uL (1.8-7.7); Neutrophils % 75.6 %; Nucleated Red Blood Cells % 0 %; Platelet Count 272 10^3/cmm (130-400); Red Blood Count 4.85 10^6/uL (4.1-5.3); Red Cell Distribution Width 13.3 % (12.1-15.1); White Blood Count 11.5 10^3/uL (4.0-10.0)
[2019-05-28 06:57] LABS: Estmated Average Glucose 117; Hemoglobin A1C 5.7 % (4.0-6.0)
[2019-05-28 07:02] LABS: Alanine Aminotransferase 19 U/L (0-41); Albumin Level 3.4 g/dL (3.5-5.2); Alkaline Phosphatase 111 IU/L (40-130); Anion Gap 16.2 (5-19); Blood Urea Nitrogen 14 mg/dL (8-23); Calcium 8.9 mg/dL (8.5-10.5); Carbon Dioxide 19 mmol/L (22-29); Chloride 109 mmol/L (98-107); Globulin 2.8 g/dL (1.3-4.6); Glomerular Filtration Rate 135.6 mL/min (90-130); Glucose 99 mg/dL (74-106); Lipase 291 U/L (13-60); Potassium 4.2 mmol/L (3.5-5.1); Sodium 140 mmol/L (136-145); Total Bilirubin 0.4 mg/dL (0.15-1.2); Total Protein 6.2 g/dL (6.6-8.7)
[2019-05-28 07:03] LABS: Aspartate Amino Transferase 28 U/L (0-40)
[2019-05-28 07:30] VITALS: BP 144/73; PULSE 56; RESP 18; TEMP 37.3; O2SAT 97
[2019-05-28 11:20] VITALS: BP 141/83; PULSE 68; RESP 18; TEMP 37; O2SAT 97
[2019-05-28 15:10] VITALS: BP 154/86; PULSE 78; RESP 18; TEMP 37.2; O2SAT 97
--- NOTE | 2019-05-28 15:16 | PC.CHAP ---
Pastoral Care Encounter/Spiritual Assessment Type of Contact [] Declined fish bin tender visit [] Patient/Family/Request visit [] Outpatient visit [] Follow-up visit [] Physician referral [] Code/Alert [x] Routine visit [] Staff referral [] Actively dying [] Patient sleeping [] Family support [] [] Out of room [] Palliative care [] [] Receiving care in room [] Pre-surgical visit [] Trauma [] Long length of stay [] ICU visit [] Other: Relational/Emotional Strength [] Patient feels connected with others/family/visitors/staff [] Distress [] Loneliness/isolation [] Abandonment Spirituality of Patient [] Person of Lillian [] Attends Uatsdin of their Lillian [] Believes in Prayer [] Reads Bible or Sikhism materials [] There are Spiritual issues to be addressed Repeat Chief Interventions [] Prayer [] Active listening [] Non-anxious presence [] Spiritual/emotional support [] Crisis/trauma care [] Spiritual counseling [] Bereavement support [] Provided bereavement packet [] Provided Bible/devotional materials [] Provided toy/stuffed animal, coloring book to patient or family member [] Provided Communion [] Anointing/[place] [] Salvation [] Completed spiritual assessment [] Other: Impact on Illness or Injury [] Angry [] Fearful [] Anxious [] Often cries [] Exhaustion [] Unable to work [] Unable to attend congregation [] Unable to walk/stand [] Unable to read [] Unable to drive [] Unable to eat/drink [] Unable to sleep [] Unable to be with family [] Patient intubated [] Other: Summary Time spent with patient
--- NOTE | 2019-05-28 16:38 | PM.PN ---
Subjective Subjective: Interval history: Feels improved. No c/o nausea, vomiting, diarrhea today. Mild soreness persisting in epigastric area, but improved Medications: Reviewed: Yes Vitals/I&O/Wt Last Vital Signs Temp 98.9 F 05/28/19 15:10 Pulse 78 05/28/19 15:10 Resp 18 05/28/19 15:10 BP 154/86 05/28/19 15:10 Pulse Ox 97 05/28/19 15:10 05/28/19 05/28/19 05/28/19 06:59 14:59 22:59 Intake Total 1000 / 2000 1000 / 1000 Output Total 600 / 1000 Balance 400 / 1000 1000 / 1000 Weight last 48 hrs Weight 79.107 kg Weight 77.111 kg Physical Exam Narrative: EXAM NARRATIVE: GEN: Awake, alert and oriented, no acute distress CVS: S1S2 N RS: CTA B/L Abd: Soft, non distended, mild discomfort to palpation epigastric area , bs+ 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 CARD WRITER: no focal neuro deficits Data : 05/28/19 04:51 05/28/19 04:51 A&P Assessment and plan (1) Pancreatitis: Status: Acute Qualifiers: Acute pancreatitis complication: no infection or necrosis Chronicity: acute Pancreatitis type: unspecified pancreatitis type Qualified Code(s): K85.90 - Acute pancreatitis without necrosis or infection, unspecified Code(s): K85.90 - Acute pancreatitis without necrosis or infection, unspecified (2) Metastatic colon cancer to liver: Status: Acute Code(s): C18.9 - Malignant neoplasm of colon, unspecified; C78.7 - Secondary malignant neoplasm of liver and intrahepatic bile duct (3) Ileus: Status: Acute Code(s): K56.7 - Ileus, unspecified Additional A&P Information Clinically improving. He looks better hydrated, no further episodes of nausea, reports that appetite is returning. Start on clear liquid diet given clinical improvement If tolerated, will advance to full liquid tomorrow Reduce NS to 100cc/hr Will use dilaudid prn for pain control PRN Zofran for nausea. Hold off on antibiotics for now as no signs of sepsis currently, afebrile, leukocytosis appears to be at baseline. No signs of necrotizing pancreatitis or pancreatic abscess on CT scan. triglycerides and ionized calcium WNL. Patient does not report a history of alcohol intake. MRCP was ordered yesterday. Possibility of gallstone pancreatitis is low given normal liver function and no noted biliary dilatation. 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 It is unlikely to happen over the weekend unfortunately. Based on patient history it appears that the pancreatic head inflammation has been persisting at least since his last chemo and may in fact be related to his intrahepatic chemo recently. May be a progression of the same inflammatory process that has made him now symptomatic. Small bowel ileus. For now will require conservative management is likely result of pancreatitis. Will hold off on NGT at the moment unless symptoms worsen. start clear liquid diet. 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
[2019-05-28 20:00] VITALS: BP 112/67; PULSE 72; RESP 18; TEMP 37.2; O2SAT 96
[2019-05-28] MEDS: enoxaparin 40 mg/0.4 mL Syringe SUBCUT (20:33)
[2019-05-29] VITALS (7 sets, daily range): BP systolic 106–157; BP diastolic 59–81; PULSE 56–61; RESP 18–20; TEMP 36.8–37.3; O2SAT 95–98
[2019-05-29] MEDS: sodium chloride 0.9% 1,000 ML 150 ML IV (05:08)
[2019-05-29 06:01] LABS: Basophils % 0.3 %; Eosinophils # 0.5 10^3/uL (0.0-0.8); Eosinophils % 6.5 %; Hematocrit 48.8 % (42.0-52.0); Hemoglobin 14.3 g/dL (11.7-16.6); Lymphocytes # 1.3 10^3/uL (0.8-4.8); Lymphocytes % 17.3 %; Mean Corpuscular HGB Conc 29.3 g/dL (30.0-36.0); Mean Corpuscular Hemoglobin 28.3 pg (28.0-34.0); Mean Corpuscular Volume 96.6 fL (80-94); Mean Platelet Volume 11.4 fL (7.4-10.4); Monocytes # 0.6 10^3/uL (0.2-0.9); Monocytes % 7.9 %; Neutrophils # 5.1 10^3/uL (1.8-7.7); Neutrophils % 67.7 %; Nucleated Red Blood Cells % 0 %; Platelet Count 184 10^3/cmm (130-400); Red Blood Count 5.05 10^6/uL (4.1-5.3); White Blood Count 7.6 10^3/uL (4.0-10.0)
[2019-05-29 06:14] LABS: Alanine Aminotransferase 18 U/L (0-41); Albumin Level 2.8 g/dL (3.5-5.2); Alkaline Phosphatase 105 IU/L (40-130); Anion Gap 16.1 (5-19); Aspartate Amino Transferase 30 U/L (0-40); Blood Urea Nitrogen 9 mg/dL (8-23); Calcium 8.8 mg/dL (8.5-10.5); Carbon Dioxide 16 mmol/L (22-29); Chloride 106 mmol/L (98-107); Globulin 3.1 g/dL (1.3-4.6); Glomerular Filtration Rate 167.4 mL/min (90-130); Glucose 79 mg/dL (74-106); Magnesium 2.3 mg/dL (1.7-2.3); Potassium 4.1 mmol/L (3.5-5.1); Sodium 134 mmol/L (136-145); Total Bilirubin 0.5 mg/dL (0.15-1.2); Total Protein 5.9 g/dL (6.6-8.7)
--- NOTE | 2019-05-29 14:31 | PM.DCS ---
Discharge Providers Date of Admission: 05/27/19 17:40 Date of Discharge: Date of Discharge: May 29, 2019 Attending Provider at Admission: Cody Petty MD Attending Provider at Discharge: Chandan Lee MD Primary Care Provider: ANKIT Smith Diagnoses at Discharge Discharge Diagnosis (1) Pancreatitis: Status: Acute Problem details: This suspected to be secondary to cancer related pancreatic duct obstruction. Immunotherapy could also play a role but felt unlikely. Qualifiers: Acute pancreatitis complication: no infection or necrosis Chronicity: acute Pancreatitis type: unspecified pancreatitis type Qualified Code(s): K85.90 - Acute pancreatitis without necrosis or infection, unspecified (2) Metastatic colon cancer to liver: Status: Acute (3) Ileus: Status: Acute (4) GERD (gastroesophageal reflux disease): Status: Acute Reason for Visit Reason for Visit: Reason For Visit: ACUTE PANCREATITIS Hospital Course Discharge Summary: Patient with metastatic colon cancer to liver and also suspected to pancreas presented with acute epigastric area abdominal pain secondary to acute pancreatitis. Pancreatitis felt to be related to obstruction by cancer. There was no evidence of acute cholecystitis or common bile duct obstruction on imaging or lab work. Patient is taking high-dose vitamin C and aspirin and reports that lately he has been having more heartburn. Small dose Protonix will be started. Patient was treated with fluids and tolerated clear liquid diet well. Today his diet was advanced to soft mechanical and patient did well. Patient is very adamant that he is going to leave today as he has court day tomorrow morning which he absolutely cannot miss. We have discussed that patient's symptoms potentially related to malignancy and that he needs to be further evaluated with EUS/EGD. Patient will try to arrange outpatient appointment to see GI specialist who performs procedures and was told to present back should his condition worsen. Patient voiced understanding. He is currently pain-free. I will give patient 7 tablets of Dilaudid to use as needed. Patient to hold any immunotherapy medications at this point until seen by Dr. Rabago. Physical Exam Resp: COMMON NORMALS: normal respiratory effort and clear to auscultation bilaterally AUSCULTATION: clear to auscultation bilaterally Cardio: COMMON NORMALS: regular rate, regular rhythm and S2 normal heart sound RATE: regular rate RHYTHM: regular rhythm HEART SOUNDS: S2 normal OTHER: No lower extremity swelling bilaterally. GI: COMMON NORMALS: normal to inspection, nondistended, normoactive bowel sounds, soft to palpation and non-tender PALPATION: Yes soft Discharge Data Data Completed and Pending: Completed Studies During Hospitalization Category Date Time Status CT abdomen pelvis w con* [id number] Stat Cat Scan 05/27/19 15:38 Completed Pending at discharge Category Date Time Status MR MRCP [id number] Laila you MRI 05/27/19 20:29 Ordered Labs from last 24 hours 05/29/19 05/29/19 05:15 05:15 WBC 7.6 RBC 5.05 Hgb 14.3 Hct 48.8 MCV 96.6 H MCH 28.3 MCHC 29.3 L RDW 13.0 Plt Count 184 MPV 11.4 H Neut % (Auto) 67.7 Lymph % (Auto) 17.3 Gregory % (Auto) 7.9 Eos % (Auto) 6.5 Baso % (Auto) 0.3 Neut # (Auto) 5.1 Lymph # (Auto) 1.3 Gregory # (Auto) 0.6 Eos # (Auto) 0.5 Baso # (Auto) 0.0 Nucleated RBC % (a uto) 0 Nucleated RBCs # 0.0 Sodium 134 L Potassium 4.1 Chloride 106 Carbon Dioxide 16 L Anion Gap 16.1 BUN 9 Creatinine 0.5 L GFR Calculation 167.4 H Glucose 79 Calcium 8.8 Magnesium 2.3 Total Bilirubin 0.5 AST 30 ALT 18 Alkaline Phosphata se 105 Total Protein 5.9 L Albumin 2.8 L Globulin 3.1 Vitals: Last Vital Signs Temp 99.0 F 05/29/19 11:10 Pulse 56 L 05/29/19 11:10 Resp 20 H 05/29/19 11:10 BP 129/73 05/29/19 11:10 Pulse Ox 98 05/29/19 11:10 Discharge Plan Discharge Patient Disposition: Home, Self-Care Condition: Stable Prescriptions: New Dilaudid 2 mg tablet 2 mg PO Q6H PRN (Reason: pain) Qty: 7 RF: 0 pantoprazole [Protonix] 20 mg tablet,delayed release (DR/EC) 20 mg PO DAILY Qty: 30 RF: 0 Continued aspirin 81 mg tablet,delayed release (DR/EC) 81 mg PO DAILY RF: 0 Referrals: Shiloh Sparks FNP [Primary Care Provider] - George Rabago MD [Hospitalist] - (Earliest possible) Discharge Diet: GI Soft Activity Restrictions/Additional Instructions: Please call your doctor or present to emergency department if your condition worsens or you develop diarrhea, lightheadedness, fatigue or see blood in your stool or black stool. Please discuss with your doctor to arrange outpatient follow-up with GI specialist for EUS procedure for further evaluation of pancreatitis which is suspected to be secondary to cancer related pancreatic duct obstruction. Discharge Attestations Time Spent in Discharge Care*: greater than 30 min Quality Metrics Clinical Quality Measures During this hospital stay, did patient experience: None Coding Level of Care Code Acute Combination Presser for [facility] Fwd Diagnoses Pancreatitis K85.90 Acute pancreatitis complication: no infection or necrosis Chronicity: acute Pancreatitis type: unspecified pancreatitis type Metastatic colon cancer to liver C18.9; C78.7 Ileus K56.7 GERD (gastroesophageal reflux disease) K21.9
== END 2019-05-29 16:33 | disposition home or self-care (01) | DRG 439 ==
LOC: ER 18:10 → MEDSURG 18:12
PROVIDERS: Student in an Organized Health Care Education/Training Program; Admitting Provider Student in an Organized Health Care Education/Training Program; Emergency Provider Family Medicine; Family Provider Nurse Practitioner Family; PCP Nurse Practitioner Family; Visit Provider Internal Medicine
DX: K85.90 Acute pancreatitis without necrosis or infection, unspecified (principal); K56.7 Ileus, unspecified; C78.7 Secondary malignant neoplasm of liver and intrahepatic bile duct; C78.89 Secondary malignant neoplasm of other digestive organs; C18.4 Malignant neoplasm of transverse colon; K21.9 Gastro-esophageal reflux disease without esophagitis; Z90.49 Acquired absence of other specified parts of digestive tract; Z79.82 Long term (current) use of aspirin; I25.10 Atherosclerotic heart disease of native coronary artery without angina pectoris; Z95.5 Presence of coronary angioplasty implant and graft; Z87.891 Personal history of nicotine dependence
CPT/HCPCS: 12345; 36415; 74177; 80053; 80061; 81001; 82330; 83036; 83540; 83550; 83690; 83735; 84443; 85025; 87804; 94664; 96372; 96374; 99283; J1650; J2405; J7030; Q9967

== ENCOUNTER → 2019-06-20 08:15 | Outpatient (BNVA) | payer SELFPAY | PROVIDERS: Family Provider Nurse Practitioner Family; PCP Nurse Practitioner Family; Visit Provider Internal Medicine Medical Oncology | DX: C18.9 Malignant neoplasm of colon, unspecified (principal); C78.7 Secondary malignant neoplasm of liver and intrahepatic bile duct | CPT/HCPCS: 80053; 82306; 82378; 82977; 83615; 84100; 85025; 85651; 86141; 86301 ==

== ENCOUNTER 2019-06-23 06:00 | Outpatient (RCR) | payer SELFPAY ==
--- NOTE | 2019-06-24 15:27 | ONC FU_ITS ---
Dr. Rabago Patient Follow-Up Note Patient: Steven Arellano Unit #: [id number]: 1955 Dicatated By: George Rabago M.D.Date of Visit:Jun 23, 2019 Onc Med Follow-up/Prog Note Chief Complaint: Colon cancer. 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 In February 2018 he was referred to Dr. Jay with a one-month history of hematochezia. His colonoscopy showed a mass in the transverse colon. Biopsy showed tubular adenoma with high-grade dysplasia, but the mass did appear malignant. Other findings were limited to an inflammatory type polyp in the proximal descending colon and hyperplastic polyps in the rectum. CT of the abdomen and pelvis showed circumferential thickening in the distal transverse colon proximal to the splenic flexure, suspicious for neoplasm. There were multiple low-attenuation lesions noted in the liver, the largest in the left hepatic lobe measuring 3.2 cm. An additional prominent lesion near the dome measured 2.8 cm. There were numerous low-attenuation circumferential lesions in the right hepatic lobe measuring 1-2 cm. The findings were consistent with metastatic disease. On 03/25/2018 he underwent exploratory laparotomy with partial transverse colectomy and biopsy of a right hepatic lobe lesion. Pathology showed grade 1-2/4 infiltrating adenocarcinoma measuring 3.0 x 2.7 cm. There was penetration through the muscularis propria into serosal connective tissues. There was involvement in one of 12 mesenteric lymph nodes. The liver biopsy showed metastatic adenocarcinoma. I had seen him initially on 04/13/2018. We had discussed the possibility of a trial of palliative chemotherapy with a FOLFOX-based regimen. He subsequently underwent evaluation at [facility] in [facility]. His evaluation there included a next generation sequencing study by liquid biopsy. 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 The KRAS, NRAS, and BRAF mutations were not detected. A trial of palliative chemotherapy was again recommended. Instead, he sought treatment through [facility] in [facility]. Based on their in vitro studies, he apparently then began initial course of chemotherapy with cyclophosphamide, epirubicin, and irinotecan dosed at 2-week intervals for 8 weeks. He also was administered a variety of vitamin and herbal supplements. On 06/11/2018 he underwent a chemoembolization procedure with Quadraspheres loaded with epirubicin. He received a dosage of 60 mg to the right hepatic lobe and 50 mg to the left hepatic lobe. In June he began treatment with pembrolizumab 200 mg by IV infusion every 3 weeks together with cetuximab 500 mg by IV infusion weekly. Thus far he has received only 2 infusions of cetuximab, which he completed with only minimal reaction. He received his most recent infusion of pembrolizumab on 08/27/2018. In addition, from 08/03/2018 through 08/05/2018 he underwent AAIT therapy in [place]. His follow-up laboratory studies have shown decline in the CEA level from 178.6 ng/mL on 05/07/2018 to 60.9 ng/mL on 07/26/2018. His restaging PET/CT on 07/28/2018 showed interval significant response to treatment with resolution of multiple foci of increased metabolic activity in the liver. His other medical illnesses have been limited to coronary artery disease and dyslipidemia. He had suffered an inferior wall myocardial infarction in February 2017, at which time he underwent angioplasty with stent placement of the right coronary artery. He had no further cardiac problems. He has had no other prior medical illnesses. He had smoked cigars in the past, but only for a few years. He had chewed tobacco for 20 years, but he quit at least 15 years ago. He does not drink alcohol. His family history is significant in that his mother and a brother have also been treated for colon cancer. INTERIM HISTORY: On 08/27/2018 he restarted treatment with pembrolizumab 200 mg IV every 3 weeks together with cetuximab 500 mg IV weekly. He returned here on 08/30/2018 so that he could continue his pembrolizumab and cetuximab infusions closer to home. He had experienced no adverse effects with the initial infusions, and he continued with his day 8 and day 15 cetuximab infusions, also with no adverse effects. His repeat CEA level on 09/08/2018 was down to 9.1 ng/mL compared to 60.9 ng/mL on 07/26/2018. During subsequent follow-up his CEA level continued to decline. As of 12/06/2018 it had stabilized at 1.0 ng/mL. Restaging CT scans of the chest, abdomen, and pelvis on 12/15/2018 showed no evidence of metastatic disease the lungs. A 4 mm left perifussural nodule appeared stable. Numerous hepatic metastatic lesions appeared stable compared to the PET/CT from 10/23/2018. The largest in the left hepatic lobe measured 2.7 x 3.8 cmwith those findings he continued treatment with cetuximab in combination with pembrolizumab. Restaging PET/CT on 02/05/2019 showed improved bilateral hilar lymph nodes compared to the prior PET/CT studies. Multiple hepatic lesions appeared to have resolved, but with unchanged left and right hepatic dome lesions. Overall the findings were consistent with a positive metabolic response. He continued treatment with cetuximab in combination with pembrolizumab. As of 03/23/2019 he began his 11th cycle of treatment. At that point there was a significant increase in the CEA level, 13.9 ng/mL compared to 10.7 ng/mL on 03/02/2019 and to 3.9 ng/mL on 01/17/2019. With that increase and with evidence of residual hepatic involvement in the liver by PET/CT, he yañez a repeat TACE procedure in March. He was then seen for a follow-up visit on 04/13/2019. At that point he continued treatment with pembrolizumab in combination with cetuximab. A restaging PET/CT on 05/07/2019 reported worsening of hepatic metastatic disease with a central left hepatic lobe lesion measuring 3.6 x 6.7 with SUV 7.2. A lesion in the medial left hepatic lobe showed increased SUV to 4.5. Other subcentimeter lesions appeared unchanged. Also noted was new enlargement of the head of the pancreas with mild FDG uptake, possibly representing pancreatitis. On 05/27/2019 he was admitted to the hospital with a presumptive diagnosis of acute pancreatitis, having presented to the emergency room with nausea/vomiting in association with a dull achy pain in the epigastric area. His serum lipase was elevated at 683 U/L. CT abdomen/pelvis showed increase in the size of the head of the pancreas with numerous low-density lesions, possibly representing acute pancreatitis. Multiple low-density lesions in the liver were noted to have increased in size and number, consistent with worsening metastatic disease. There appeared to be acute gastric retention. Fluid within the small bowel was suggestive of a severe ileus. His symptoms improved with supportive treatment measures. He was discharged home on 05/29/2019. He had further evaluation with MRI of the abdomen at [facility] on 06/01/2019. It showed multiple lesions throughout the bilateral lobes of the liver consistent with hepatic metastases. An additional lesion within the left lobe of the liver appeared to be consistent with a cavernous hemangioma. A mixed cystic and solid mass was noted within the head and uncinate process of the pancreas measuring 3.2 x 4.5 cm. It had indeterminate features by MRI, possibly representing a primary pancreatic neoplasm versus metastatic lesion. We had then made arrangements for an EUS procedure, but he opted instead to return to [place] for a biopsy. When he arrived there, he was told that a would not be able to do the biopsy, so he returned home and he requested a follow-up visit here. In the meantime, his recent studies done through [facility] had included a K-sheila mutation analysis, which detected a G12C KRAS mutation. With that finding, he was recommended to stop treatment with cetuximab. He continues to have some abdominal pain at times, but he still feels good generally. He has normal activity. ECOG score is 0. He says he is eating too much. He has no fever or night sweats. He has no shortness of breath, cough, or chest pain. He has not been having nausea/vomiting, and he has no problems with bowel or bladder function. He has no significant joint or bone pain. He has no focal neurologic symptoms. Medications: Aspirin 1 Tablet (of 81 mg) Oral daily, Nitroglycerin 1 (0.4 mg) Tablet, sublingual Sublingual PRN Allergies: No Known Allergies. Vital Signs: Performed on Jun 23, 2019 10:14 Height - 70.00 in Weight - 172.0 lbs (LOW) BSA - 1.96 sq.m BMI - 24.68 Temperature - 98.8 F Pulse - 90 /min Respiration - 18 /min BP - 104/73 mm(hg) O2 Sat - 99 % Pain - 1 Physical Examination: Constitutional - He still looks pretty good generally, Eyes - Sclerae nonicteric. Conjunctivae clear, ENMT - No lesions noted in the oral cavity, Hematologic/Lymphatic - No cervical, clavicular, or axillary adenopathy, Respiratory - Lungs are clear with good air movement bilaterally, Cardiovascular - Heart rhythm is regular. There is no murmur, gallop, or rub noted, Abdomen - Soft. There is mild tenderness in the epigastric area. Liver and spleen are not enlarged. There is no abdominal mass or ascites noted and there is no inguinal adenopathy, Extremities - No edema, Neurologic - No focal neurologic deficits noted. Lab/Imaging: Test performed on Jun 13, 2019 09:22 DHEA-S 213 mmol/L Estradiol 13 pg/mL Ferritin 309 ng/mL Homocysteine 6.9 umol/L T4, Free 0.98 ng/dL Testosterone 324 ng/dL Uric Acid 4.2 mg/dL Cholesterol, Total 181 mg/dL C-Reactive Protein (mg/L) 51.2 mg/L Glucose 97 mg/dL LDH, Total 418 IU/L Phosphorous 3.0 mg/dL T3, Free 2.6 pg/mL T4 5.8 mcg/dL Vitamin D (25-Hydroxy) 33.5 ng/mL BUN 10 mg/dL Creatinine 0.68 mg/dL Cr Clearance (Est) 121.11 mL/min TSH 2.430 uU/mL BUN/Creatinine Ratio 15 Absolute Value Triglycerides 67 mg/dL Sodium 139 mmol/L Potassium 3.9 mmol/L Chloride 103 mmol/L CO2 22 mmol/L Calcium 8.9 mg/dL Protein, Total 6.1 g/dL Albumin 3.6 g/dL Globulin 2.5 g/dL A/G Ratio 1.4 Absolute Value Bilirubin, Total 0.2 mg/dL Alkaline Phosphatase 122 IU/L AST (SGOT) 35 IU/L ALT (SGPT) 52 IU/L Hemoglobin A1C 5.6 % Sed Rate 18 mm/hr WBC 15.3 10^9/L RBC 4.63 10^12/L HGB 12.9 g/dL HCT 40.1 % MCV 87 fl MCH 27.9 pg MCHC 32.2 g/dL RDW 15.2 % Platelet Count 245 10^9/L Neutrophils (Gran) 12.546 10^9/L Lymphocytes 1.53 10^9/L Monocytes 0.765 10^9/L Eosinophils 0.459 10^9/L Basophils 0 10^9/L PSA 6.0 ng/mL Impression: 1. 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 An extended K-sheila mutation analysis and MMR testing are in progress at this time. 2. He underwent exploratory laparotomy with partial transverse colectomy and liver biopsy on 03/25/2018. His other medical illnesses include: 3. Dyslipidemia. 4. Coronary artery disease with previous myocardial infarction and angioplasty/stent placement. 5. He has a significant family history of colon cancer. While in his initial visit here [facility] [place] and his next generation sequencing study did confirm that he had a wild-type KRAS mutation status. He then sought treatment through the [facility] in [facility]. Based on their and philipp studies he apparently began initial chemotherapy with cyclophosphamide, epirubicin, and irinotecan dosed every 2 weeks. On 06/11/2017 he underwent chemoembolization to both hepatic lobes utilizing Quadraspheres loaded with epirubicin. In June he began further treatment with pembrolizumab 200 mg by IV infusion every 3 weeks together with cetuximab 500 mg by IV infusion weekly. His follow-up laboratory studies had shown decline in the CEA level from 178.6 ng/mL on 05/07/2018 to 60.9 ng/mL on 07/26/2018. His restaging PET/CT on 07/28/2018 showed interval significant response to treatment with resolution of multiple foci of increased metabolic activity in the liver. He resumed the pembrolizumab/cetuximab infusions on 08/27/2018. He tolerated the treatment with no significant toxicity. He returned for day 8 and day 15 cetuximab infusions, which he also tolerated well. As of 09/08/2018 there was further decrease in the CEA level to 9.1 ng/mL. His restaging CT abdomen/pelvis did show residual metastatic lesions in the liver. During subsequent follow-up there was further decline in the CEA level. As of 12/06/2018 it had stabilized at 1.0 ng/mL. His restaging CT scans on 12/15/2018 showed numerous hepatic metastatic lesions, the largest in the left hepatic lobe measuring 2.7 x 3.8 cm. They appeared stable compared to the PET/CT from 10/23/2018. He has been showing gradual gradual worsening of his skin eruption, but he is not symptomatic with it, and he has otherwise been tolerating treatment well. Overall he has been feeling better generally. He has had a good response to his treatment, though he did have residual disease in the liver by CT scan. He then continued treatment with cetuximab in combination with pembrolizumab. His restaging PET/CT on 02/05/2019 showed evidence of positive metabolic response, though with residual involvement in the liver. During subsequent follow-up there was a continued increase in his CEA level, consistent with disease progression, and in conjunction with the PET/CT findings, he underwent a repeat TACE procedure in March. At his follow-up visit here on 04/13/2019 he continued treatment with pembrolizumab and cetuximab. A restaging PET/CT on 05/07/2019 reported worsening of hepatic metastatic disease with a central left hepatic lobe lesion measuring 3.6 x 6.7 with SUV 7.2. A lesion in the medial left hepatic lobe showed increased SUV to 4.5. Other subcentimeter lesions appeared unchanged. Also noted was new enlargement of the head of the pancreas with mild FDG uptake, possibly representing pancreatitis. On 05/27/2019 he was admitted to the hospital with acute pancreatitis. His CT abdomen/pelvis showed increase in size of the head of the pancreas. Further evaluation with MRI of the abdomen at [facility] on 06/01/2019 showed a mixed cystic and solid mass within the head and uncinate process of the pancreas measuring 3.2 x 4.5 cm. As yet he has not had any further evaluation. He has had improvement in his abdominal pain and other GI symptoms. His current laboratory studies show a significant increase in the CEA level, now to 50.8 ng/mL. The CA-19-9 level is also elevated at 108.0 U/mL. In the meantime, a KRAS mutation analysis which was done through [facility] [employer] reported the presence of a KRAS G12C mutation. Plan: We are rescheduling his appointment in [place] for the EUS procedure. He will have further evaluation as indicated. In the meantime, his treatment remains on hold. Signed By: George Rabago M.D. <<Signature on File>>
== END 2019-06-25 23:59 | disposition home or self-care (01) ==
LOC: ONCMED 06:00
PROVIDERS: Family Provider Nurse Practitioner Family; PCP Nurse Practitioner Family; Visit Provider Nurse Practitioner
DX: C78.7 Secondary malignant neoplasm of liver and intrahepatic bile duct (principal); C18.4 Malignant neoplasm of transverse colon; K86.9 Disease of pancreas, unspecified; I25.10 Atherosclerotic heart disease of native coronary artery without angina pectoris; E78.5 Hyperlipidemia, unspecified; I25.2 Old myocardial infarction; Z79.82 Long term (current) use of aspirin; Z79.899 Other long term (current) drug therapy; Z95.5 Presence of coronary angioplasty implant and graft; Z87.891 Personal history of nicotine dependence; Z80.0 Family history of malignant neoplasm of digestive organs; Z90.49 Acquired absence of other specified parts of digestive tract
CPT/HCPCS: G0463

== ENCOUNTER → 2019-07-04 10:27 | Outpatient (BNVA) | payer SELFPAY | PROVIDERS: Family Provider Nurse Practitioner Family; PCP Nurse Practitioner Family; Visit Provider Internal Medicine Medical Oncology | DX: C18.9 Malignant neoplasm of colon, unspecified (principal); C78.7 Secondary malignant neoplasm of liver and intrahepatic bile duct | CPT/HCPCS: 80053; 82306; 82378; 82728; 82977; 83615; 84100; 85025; 85651; 86141 ==

== ENCOUNTER 2019-08-12 09:44 | Outpatient (CLI) | payer SELFPAY | END 2019-08-12 09:45 | disposition home or self-care (01) | LOC: ONCMED 09:45 | PROVIDERS: Family Provider Nurse Practitioner Family; PCP Nurse Practitioner Family; Visit Provider Nurse Practitioner | DX: Z51.12 Encounter for antineoplastic immunotherapy (principal); C18.4 Malignant neoplasm of transverse colon; C78.7 Secondary malignant neoplasm of liver and intrahepatic bile duct | CPT/HCPCS: J7050; J9271 ==

== ENCOUNTER → 2019-08-24 10:21 | Outpatient (BNVA) | payer SELFPAY | PROVIDERS: Family Provider Nurse Practitioner Family; PCP Nurse Practitioner Family; Visit Provider Nurse Practitioner Family | DX: R19.7 Diarrhea, unspecified (principal) | CPT/HCPCS: 80053; 82150; 83690; 85025; 87506 ==

== ENCOUNTER → 2019-08-31 16:13 | Outpatient (BNVA) | payer SELFPAY | PROVIDERS: Family Provider Nurse Practitioner Family; PCP Nurse Practitioner Family; Visit Provider Internal Medicine Medical Oncology | DX: K85.90 Acute pancreatitis without necrosis or infection, unspecified (principal); C18.9 Malignant neoplasm of colon, unspecified; C78.7 Secondary malignant neoplasm of liver and intrahepatic bile duct; R11.2 Nausea with vomiting, unspecified; I25.10 Atherosclerotic heart disease of native coronary artery without angina pectoris; K56.7 Ileus, unspecified | CPT/HCPCS: 82728; 83550; 83615; 84466; 85025; 86304 ==

== ENCOUNTER 2019-09-02 08:24 | Outpatient (CLI) | payer SELFPAY ==
[2019-09-02 08:57] LABS: Basophils % 0.2 %; Eosinophils # 0.2 10^3/uL (0.0-0.8); Eosinophils % 3.2 %; Hematocrit 41.1 % (42.0-52.0); Hemoglobin 13.3 g/dL (11.7-16.6); Lymphocytes # 1.4 10^3/uL (0.8-4.8); Lymphocytes % 23.3 %; Mean Corpuscular HGB Conc 32.4 g/dL (30.0-36.0); Mean Corpuscular Hemoglobin 26.7 pg (28.0-34.0); Mean Corpuscular Volume 82.4 fL (80-94); Mean Platelet Volume 11.4 fL (7.4-10.4); Monocytes # 0.9 10^3/uL (0.2-0.9); Monocytes % 15.6 %; Neutrophils # 3.5 10^3/uL (1.8-7.7); Neutrophils % 57.5 %; Nucleated Red Blood Cells % 0 %; Platelet Count 166 10^3/cmm (130-400); Red Blood Count 4.99 10^6/uL (4.1-5.3); Red Cell Distribution Width 14.2 % (12.1-15.1)
[2019-09-02 09:09] LABS: Cancer Antigen 19 9 149.1 U/mL (0-35)
[2019-09-02 09:10] LABS: Carcinoembryonic Antigen 101.6 ng/mL (0.0-4.7)
[2019-09-02 09:23] LABS: 25 Hydroxy Vitamin D 28 ng/mL (30-100); Alanine Aminotransferase 380 U/L (0-41); Albumin Level 3.4 g/dL (3.5-5.2); Alkaline Phosphatase 202 IU/L (40-130); Anion Gap 14.9 (5-19); Aspartate Amino Transferase 176 U/L (0-40); Blood Urea Nitrogen 11 mg/dL (8-23); Calcium 9.1 mg/dL (8.5-10.5); Carbon Dioxide 24 mmol/L (22-29); Chloride 101 mmol/L (98-107); Ferritin 382 ng/mL (30-400); Gamma Glutamyl Transferase 180 U/L (8-61); Glomerular Filtration Rate 113.5 mL/min (90-130); Glucose 113 mg/dL (65-115); Lactate Dehydrogenase 279 U/L (135-225); Osmolality Calculated 279 mOsm/kg (285-295); Potassium 3.9 mmol/L (3.5-5.1); Sodium 136 mmol/L (136-145); Total Bilirubin 0.5 mg/dL (0.15-1.2); Total Protein 6.4 g/dL (6.6-8.7)
[2019-09-02 10:16] LABS: Erythrocyte Sedimentation Rate 16 mm/hr (0-10)
--- NOTE | 2019-09-03 18:01 | ONC FU_ITS ---
Dr. Rabago Patient Follow-Up Note Patient: Steven Arellano Unit #: [id number]: 1955 Dicatated By: George Rabago M.D.Date of Visit:September 02, 2019 Onc Med Follow-up/Prog Note Chief Complaint: Colon cancer. 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 In February 2018 he was referred to Dr. Jay with a one-month history of hematochezia. His colonoscopy showed a mass in the transverse colon. Biopsy showed tubular adenoma with high-grade dysplasia, but the mass did appear malignant. Other findings were limited to an inflammatory type polyp in the proximal descending colon and hyperplastic polyps in the rectum. CT of the abdomen and pelvis showed circumferential thickening in the distal transverse colon proximal to the splenic flexure, suspicious for neoplasm. There were multiple low-attenuation lesions noted in the liver, the largest in the left hepatic lobe measuring 3.2 cm. An additional prominent lesion near the dome measured 2.8 cm. There were numerous low-attenuation circumferential lesions in the right hepatic lobe measuring 1-2 cm. The findings were consistent with metastatic disease. On 03/25/2018 he underwent exploratory laparotomy with partial transverse colectomy and biopsy of a right hepatic lobe lesion. Pathology showed grade 1-2/4 infiltrating adenocarcinoma measuring 3.0 x 2.7 cm. There was penetration through the muscularis propria into serosal connective tissues. There was involvement in one of 12 mesenteric lymph nodes. The liver biopsy showed metastatic adenocarcinoma. I had seen him initially on 04/13/2018. We had discussed the possibility of a trial of palliative chemotherapy with a FOLFOX-based regimen. He subsequently underwent evaluation at [facility] in [facility]. His evaluation there included a next generation sequencing study by liquid biopsy. 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 The KRAS, NRAS, and BRAF mutations were not detected. A trial of palliative chemotherapy was again recommended. Instead, he sought treatment through [facility] in [facility]. Based on their in vitro studies, he apparently then began initial course of chemotherapy with cyclophosphamide, epirubicin, and irinotecan dosed at 2-week intervals for 8 weeks. He also was administered a variety of vitamin and herbal supplements. On 06/11/2018 he underwent a chemoembolization procedure with Quadraspheres loaded with epirubicin. He received a dosage of 60 mg to the right hepatic lobe and 50 mg to the left hepatic lobe. In June he began treatment with pembrolizumab 200 mg by IV infusion every 3 weeks together with cetuximab 500 mg by IV infusion weekly. Thus far he has received only 2 infusions of cetuximab, which he completed with only minimal reaction. He received his most recent infusion of pembrolizumab on 08/27/2018. In addition, from 08/03/2018 through 08/05/2018 he underwent AAIT therapy in [place]. His follow-up laboratory studies have shown decline in the CEA level from 178.6 ng/mL on 05/07/2018 to 60.9 ng/mL on 07/26/2018. His restaging PET/CT on 07/28/2018 showed interval significant response to treatment with resolution of multiple foci of increased metabolic activity in the liver. His other medical illnesses have been limited to coronary artery disease and dyslipidemia. He had suffered an inferior wall myocardial infarction in February 2017, at which time he underwent angioplasty with stent placement of the right coronary artery. He had no further cardiac problems. He has had no other prior medical illnesses. He had smoked cigars in the past, but only for a few years. He had chewed tobacco for 20 years, but he quit at least 15 years ago. He does not drink alcohol. His family history is significant in that his mother and a brother have also been treated for colon cancer. INTERIM HISTORY: On 08/27/2018 he restarted treatment with pembrolizumab 200 mg IV every 3 weeks together with cetuximab 500 mg IV weekly. He returned here on 08/30/2018 so that he could continue his pembrolizumab and cetuximab infusions closer to home. He had experienced no adverse effects with the initial infusions, and he continued with his day 8 and day 15 cetuximab infusions, also with no adverse effects. His repeat CEA level on 09/08/2018 was down to 9.1 ng/mL compared to 60.9 ng/mL on 07/26/2018. During subsequent follow-up his CEA level continued to decline. As of 12/06/2018 it had stabilized at 1.0 ng/mL. Restaging CT scans of the chest, abdomen, and pelvis on 12/15/2018 showed no evidence of metastatic disease the lungs. A 4 mm left perifussural nodule appeared stable. Numerous hepatic metastatic lesions appeared stable compared to the PET/CT from 10/23/2018. The largest in the left hepatic lobe measured 2.7 x 3.8 cmwith those findings he continued treatment with cetuximab in combination with pembrolizumab. Restaging PET/CT on 02/05/2019 showed improved bilateral hilar lymph nodes compared to the prior PET/CT studies. Multiple hepatic lesions appeared to have resolved, but with unchanged left and right hepatic dome lesions. Overall the findings were consistent with a positive metabolic response. He continued treatment with cetuximab in combination with pembrolizumab. As of 03/23/2019 he began his 11th cycle of treatment. At that point there was a significant increase in the CEA level, 13.9 ng/mL compared to 10.7 ng/mL on 03/02/2019 and to 3.9 ng/mL on 01/17/2019. With that increase and with evidence of residual hepatic involvement in the liver by PET/CT, he yañez a repeat TACE procedure in March. He was then seen for a follow-up visit on 04/13/2019. At that point he continued treatment with pembrolizumab in combination with cetuximab. A restaging PET/CT on 05/07/2019 reported worsening of hepatic metastatic disease with a central left hepatic lobe lesion measuring 3.6 x 6.7 with SUV 7.2. A lesion in the medial left hepatic lobe showed increased SUV to 4.5. Other subcentimeter lesions appeared unchanged. Also noted was new enlargement of the head of the pancreas with mild FDG uptake, possibly representing pancreatitis. On 05/27/2019 he was admitted to the hospital with a presumptive diagnosis of acute pancreatitis, having presented to the emergency room with nausea/vomiting in association with a dull achy pain in the epigastric area. His serum lipase was elevated at 683 U/L. CT abdomen/pelvis showed increase in the size of the head of the pancreas with numerous low-density lesions, possibly representing acute pancreatitis. Multiple low-density lesions in the liver were noted to have increased in size and number, consistent with worsening metastatic disease. There appeared to be acute gastric retention. Fluid within the small bowel was suggestive of a severe ileus. His symptoms improved with supportive treatment measures. He was discharged home on 05/29/2019. He had further evaluation with MRI of the abdomen at [facility] on 06/01/2019. It showed multiple lesions throughout the bilateral lobes of the liver consistent with hepatic metastases. An additional lesion within the left lobe of the liver appeared to be consistent with a cavernous hemangioma. A mixed cystic and solid mass was noted within the head and uncinate process of the pancreas measuring 3.2 x 4.5 cm. It had indeterminate features by MRI, possibly representing a primary pancreatic neoplasm versus metastatic lesion. We had then made arrangements for an EUS procedure, but he opted instead to return to [place] for a biopsy. When he arrived there, he was told that a would not be able to do the biopsy, so he returned home and he requested a follow-up visit here. In the meantime, his recent studies done through [facility] had included a K-sheila mutation analysis, which detected a G12C KRAS mutation. With that finding, he was recommended to stop treatment with cetuximab. He continued treatment here with pembrolizumab at the standard dosage of 200 mg by IV infusion every 3 weeks. He then had further liver directed therapy in [place] on 08/03/2019. He also had restaging PET/CT which showed multiple FDG avid liver lesions showing significant interval increase in extent and metabolic activity. New FDG avid lesions were compatible with progression of metastatic malignancy. A left upper lobe pulmonary nodule had increased from 0.3 to 0.5 cm, but with no associated FDG activity. At that time he also started treatment with regorafenib at 160 mg daily. He is seen for a follow-up visit. He unfortunately had developed significant side effects with the regorafenib, including diarrhea and vomiting. He also had significant decline in his energy/activity tolerance. He did stop taking it, and since then he has felt a little better. He is still able to do light work. ECOG score is 1. His appetite is not good, but he says he can eat. He has not had fever or night sweats. He occasionally gets clammy. He has had no mouth sores. He has no shortness of breath, cough, or chest pain. He currently is not having nausea, and his bowel function is back to normal. He has no complaints. He has no significant joint or bone pain. He occasionally has a little headache. He has no focal neurologic symptoms. Medications: Aspirin 1 Tablet (of 81 mg) Oral daily, Atorvastatin Calcium 1 Tablet (of 40 mg) Oral at bedtime, Nitroglycerin 1 (0.4 mg) Tablet, sublingual Sublingual PRN, Stivarga 1 Tablet (of 40 mg) Oral Allergies: No Known Allergies. Review of Systems: Constitutional - His energy is poor. He says he feels bad. His appetite is fair and his weight is stable. No fever, chills, hot flashes. Occasional night sweats. ECOG score is 1, ENMT - No sinus congestion/drainage. No mouth sores. No sore throat or difficulty swallowing, Hematologic/Lymphatic - No abnormal bruising or bleeding, Respiratory - No shortness of breath. No cough. No pleuritic pain or hemoptysis, Cardiovascular - No angina pain. No palpitations, Gastrointestinal - He was having diarrhea and vomiting on the regorafenib, but those symptoms have improved now. His bowel function is back to normal. No blood in the stool or black stools, Genitourinary (M) - No dysuria or hematuria. He has urinary frequency. No urgency or incontinence, Musculoskeletal - No joint or bone pain, Integumentary - No skin rash, Neurologic - Slight, occasional headaches. No dizziness. No numbness/paresthesias or other focal neurologic symptoms, Psychiatric - No anxiety or depression. No insomnia. Vital Signs: Performed on September 02, 2019 09:36 Height - 70.00 in Weight - 173.2 lbs (HIGH) BSA - 1.96 sq.m BMI - 24.85 Temperature - 98.2 F (LOW) Pulse - 73 /min Respiration - 20 /min BP - 110/60 mm(hg) O2 Sat - 99 % Pain - 0 Physical Examination: Constitutional - He appears somewhat weak generally, Eyes - Sclerae nonicteric. Conjunctivae clear, ENMT - No lesions noted in the oral cavity, Hematologic/Lymphatic - No cervical, clavicular, or axillary adenopathy, Respiratory - Lungs are clear with good air movement bilaterally, Cardiovascular - Heart rhythm is regular. There is no murmur, gallop, or rub noted, Abdomen - Soft and nontender. Liver and spleen are not enlarged. There is no abdominal mass or ascites noted and there is no inguinal adenopathy, Extremities - No edema, Integumentary - There is no evidence of skin eruption, Neurologic - No focal neurologic deficits noted. Lab/Imaging: Test performed on September 02, 2019 08:25 Ferritin 382 ng/mL GGT 180 U/L LDH (Total) 279 U/L Sodium 136 mmol/L Vitamin D (25-Hydroxy), Total 28 ng/mL Potassium 3.9 mmol/L Chloride 101 mmol/L CO2 24 mmol/L Anion Gap 14.9 BUN 11 mg/dL Creatinine 0.7 mg/dL Cr Clearance (Est) 118.47 mL/min eGFR 113.5 mL/min Glucose 113 mg/dL Calcium 9.1 mg/dL Protein, Total 6.4 g/dL Albumin 3.4 g/dL Globulin 3.0 g/dL Bilirubin, Total 0.5 mg/dL ALT (SGPT) 380 U/L AST (SGOT) 176 U/L Alkaline Phosphatase 202 IU/L ESR (Sed Rate) 16 mm/hr WBC 6.0 10 3/uL RBC 4.99 10 6/uL HGB 13.3 g/dL HCT 41.1 % MCV 82.4 fL MCH 26.7 pg MCHC 32.4 g/dL RDW 14.2 % Platelet Count 166 10 3/cmm MPV 11.4 fL Neutrophils 3.5 10 3/uL Lymphocytes 1.4 10 3/uL Monocytes 0.9 10 3/uL Eosinophils 0.2 10 3/uL Basophils 0.0 10 3/uL Neutrophil % 57.5 % Lymphocyte % 23.3 % Monocyte % 15.6 % Eosinophil % 3.2 % Basophils % 0.2 % CA 19-9 149.1 U/mL CEA 101.6 ng/mL Impression: 1. 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 An extended K-sheila mutation analysis and MMR testing are in progress at this time. 2. He underwent exploratory laparotomy with partial transverse colectomy and liver biopsy on 03/25/2018. His other medical illnesses include: 3. Dyslipidemia. 4. Coronary artery disease with previous myocardial infarction and angioplasty/stent placement. 5. He has a significant family history of colon cancer. While in his initial visit here he was seen at [facility] [place] and his next generation sequencing study did confirm that he had a wild-type KRAS mutation status. He then sought treatment through the [facility] in [facility]. Based on their and philipp studies he apparently began initial chemotherapy with cyclophosphamide, epirubicin, and irinotecan dosed every 2 weeks. On 06/11/2017 he underwent chemoembolization to both hepatic lobes utilizing Quadraspheres loaded with epirubicin. In June he began further treatment with pembrolizumab 200 mg by IV infusion every 3 weeks together with cetuximab 500 mg by IV infusion weekly. His follow-up laboratory studies had shown decline in the CEA level from 178.6 ng/mL on 05/07/2018 to 60.9 ng/mL on 07/26/2018. His restaging PET/CT on 07/28/2018 showed interval significant response to treatment with resolution of multiple foci of increased metabolic activity in the liver. He resumed the pembrolizumab/cetuximab infusions on 08/27/2018. He tolerated the treatment with no significant toxicity. He returned for day 8 and day 15 cetuximab infusions, which he also tolerated well. As of 09/08/2018 there was further decrease in the CEA level to 9.1 ng/mL. His restaging CT abdomen/pelvis did show residual metastatic lesions in the liver. During subsequent follow-up there was further decline in the CEA level. As of 12/06/2018 it had stabilized at 1.0 ng/mL. His restaging CT scans on 12/15/2018 showed numerous hepatic metastatic lesions, the largest in the left hepatic lobe measuring 2.7 x 3.8 cm. They appeared stable compared to the PET/CT from 10/23/2018. He has been showing gradual gradual worsening of his skin eruption, but he is not symptomatic with it, and he has otherwise been tolerating treatment well. Overall he has been feeling better generally. He has had a good response to his treatment, though he did have residual disease in the liver by CT scan. He then continued treatment with cetuximab in combination with pembrolizumab. His restaging PET/CT on 02/05/2019 showed evidence of positive metabolic response, though with residual involvement in the liver. During subsequent follow-up there was a continued increase in his CEA level, consistent with disease progression, and in conjunction with the PET/CT findings, he underwent a repeat TACE procedure in March. At his follow-up visit here on 04/13/2019 he continued treatment with pembrolizumab and cetuximab. A restaging PET/CT on 05/07/2019 reported worsening of hepatic metastatic disease with a central left hepatic lobe lesion measuring 3.6 x 6.7 with SUV 7.2. A lesion in the medial left hepatic lobe showed increased SUV to 4.5. Other subcentimeter lesions appeared unchanged. Also noted was new enlargement of the head of the pancreas with mild FDG uptake, possibly representing pancreatitis. On 05/27/2019 he was admitted to the hospital with acute pancreatitis. His CT abdomen/pelvis showed increase in size of the head of the pancreas. Further evaluation with MRI of the abdomen at [facility] on 06/01/2019 showed a mixed cystic and solid mass within the head and uncinate process of the pancreas measuring 3.2 x 4.5 cm. As yet he has not had any further evaluation. He has had improvement in his abdominal pain and other GI symptoms. His current laboratory studies show a significant increase in the CEA level, now to 50.8 ng/mL. The CA-19-9 level is also elevated at 108.0 U/mL. In the meantime, a KRAS mutation analysis which was done through [facility] reported the presence of a KRAS G12C mutation. With that finding, he was advised to stop the cetuximab. He continued treatment with pembrolizumab 200 mg by IV infusion every 3 weeks. He then had further liver directed therapy in [place] on 08/03/2019. His restaging PET/CT did show evidence of disease progression in the liver. A left upper lobe pulmonary nodule had increased from 0.3 to 0.5 cm, but with no associated FDG activity. At that time he also started treatment with regorafenib at 160 mg daily. He developed significant side effects with the regorafenib, including vomiting, diarrhea, and fatigue. Those symptoms have improved since he stopped taking it. Plan: He will continue treatment with pembrolizumab 200 mg by IV infusion. He will restart regorafenib 80 mg daily on a 21/28-day schedule. If he is able to tolerate it at that dosage, he will increase to 120 mg daily beginning with cycle 3. Signed By: George Rabago M.D. <<Signature on File>>
== END 2019-09-02 08:25 | disposition home or self-care (01) ==
LOC: ONCMED 08:24
PROVIDERS: PCP Nurse Practitioner Family; Visit Provider Internal Medicine Medical Oncology
DX: Z51.12 Encounter for antineoplastic immunotherapy (principal); C18.4 Malignant neoplasm of transverse colon; C78.7 Secondary malignant neoplasm of liver and intrahepatic bile duct; E78.5 Hyperlipidemia, unspecified; I25.10 Atherosclerotic heart disease of native coronary artery without angina pectoris; I25.2 Old myocardial infarction; Z95.5 Presence of coronary angioplasty implant and graft; Z80.0 Family history of malignant neoplasm of digestive organs; Z92.21 Personal history of antineoplastic chemotherapy; Z79.899 Other long term (current) drug therapy
CPT/HCPCS: 80053; 82306; 82378; 82728; 82977; 83615; 85025; 85651; 86140; 86301; 96413; 99214; J7050; J9271

== ENCOUNTER → 2019-09-20 10:58 | Outpatient (BNVA) | payer SELFPAY | PROVIDERS: PCP Nurse Practitioner Family; Visit Provider Internal Medicine Medical Oncology | DX: C18.9 Malignant neoplasm of colon, unspecified (principal); C78.7 Secondary malignant neoplasm of liver and intrahepatic bile duct | CPT/HCPCS: 80053; 82306; 82378; 82728; 82977; 83615; 85025; 85651; 86141; 86301 ==

== ENCOUNTER 2019-09-22 09:43 | Outpatient (CLI) | payer SELFPAY ==
--- NOTE | 2019-09-26 12:08 | ONC FU_ITS ---
Steven Amador Patient Note Patient: Steven Arellano Unit #: [id number]: 1955 Dictated By: Efrain McintoshDate of Visit: September 22, 2019 Onc MED Follow-Up/Prog Note Chief Complaint: Colon cancer. 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 In February 2018 he was referred to Dr. Jay with a one-month history of hematochezia. His colonoscopy showed a mass in the transverse colon. Biopsy showed tubular adenoma with high-grade dysplasia, but the mass did appear malignant. Other findings were limited to an inflammatory type polyp in the proximal descending colon and hyperplastic polyps in the rectum. CT of the abdomen and pelvis showed circumferential thickening in the distal transverse colon proximal to the splenic flexure, suspicious for neoplasm. There were multiple low-attenuation lesions noted in the liver, the largest in the left hepatic lobe measuring 3.2 cm. An additional prominent lesion near the dome measured 2.8 cm. There were numerous low-attenuation circumferential lesions in the right hepatic lobe measuring 1-2 cm. The findings were consistent with metastatic disease. On 03/25/2018 he underwent exploratory laparotomy with partial transverse colectomy and biopsy of a right hepatic lobe lesion. Pathology showed grade 1-2/4 infiltrating adenocarcinoma measuring 3.0 x 2.7 cm. There was penetration through the muscularis propria into serosal connective tissues. There was involvement in one of 12 mesenteric lymph nodes. The liver biopsy showed metastatic adenocarcinoma. Dr Rabago had seen him initially on 04/13/2018. We had discussed the possibility of a trial of palliative chemotherapy with a FOLFOX-based regimen. He subsequently underwent evaluation at [facility] in [facility]. His evaluation there included a next generation sequencing study by liquid biopsy. 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 The KRAS, NRAS, and BRAF mutations were not detected. A trial of palliative chemotherapy was again recommended. Instead, he sought treatment through [facility] in [facility]. Based on their in vitro studies, he apparently then began initial course of chemotherapy with cyclophosphamide, epirubicin, and irinotecan dosed at 2-week intervals for 8 weeks. He also was administered a variety of vitamin and herbal supplements. On 06/11/2018 he underwent a chemoembolization procedure with Quadraspheres loaded with epirubicin. He received a dosage of 60 mg to the right hepatic lobe and 50 mg to the left hepatic lobe. In June he began treatment with pembrolizumab 200 mg by IV infusion every 3 weeks together with cetuximab 500 mg by IV infusion weekly. Thus far he has received only 2 infusions of cetuximab, which he completed with only minimal reaction. He received his most recent infusion of pembrolizumab on 08/27/2018. In addition, from 08/03/2018 through 08/05/2018 he underwent AAIT therapy in [place]. His follow-up laboratory studies have shown decline in the CEA level from 178.6 ng/mL on 05/07/2018 to 60.9 ng/mL on 07/26/2018. His restaging PET/CT on 07/28/2018 showed interval significant response to treatment with resolution of multiple foci of increased metabolic activity in the liver. His other medical illnesses have been limited to coronary artery disease and dyslipidemia. He had suffered an inferior wall myocardial infarction in February 2017, at which time he underwent angioplasty with stent placement of the right coronary artery. He had no further cardiac problems. He has had no other prior medical illnesses. He had smoked cigars in the past, but only for a few years. He had chewed tobacco for 20 years, but he quit at least 15 years ago. He does not drink alcohol. His family history is significant in that his mother and a brother have also been treated for colon cancer. INTERIM HISTORY: On 08/27/2018 he restarted treatment with pembrolizumab 200 mg IV every 3 weeks together with cetuximab 500 mg IV weekly. He returned here on 08/30/2018 so that he could continue his pembrolizumab and cetuximab infusions closer to home. He had experienced no adverse effects with the initial infusions, and he continued with his day 8 and day 15 cetuximab infusions, also with no adverse effects. His repeat CEA level on 09/08/2018 was down to 9.1 ng/mL compared to 60.9 ng/mL on 07/26/2018. During subsequent follow-up his CEA level continued to decline. As of 12/06/2018 it had stabilized at 1.0 ng/mL. Restaging CT scans of the chest, abdomen, and pelvis on 12/15/2018 showed no evidence of metastatic disease the lungs. A 4 mm left perifussural nodule appeared stable. Numerous hepatic metastatic lesions appeared stable compared to the PET/CT from 10/23/2018. The largest in the left hepatic lobe measured 2.7 x 3.8 cmwith those findings he continued treatment with cetuximab in combination with pembrolizumab. Restaging PET/CT on 02/05/2019 showed improved bilateral hilar lymph nodes compared to the prior PET/CT studies. Multiple hepatic lesions appeared to have resolved, but with unchanged left and right hepatic dome lesions. Overall the findings were consistent with a positive metabolic response. He continued treatment with cetuximab in combination with pembrolizumab. As of 03/23/2019 he began his 11th cycle of treatment. At that point there was a significant increase in the CEA level, 13.9 ng/mL compared to 10.7 ng/mL on 03/02/2019 and to 3.9 ng/mL on 01/17/2019. With that increase and with evidence of residual hepatic involvement in the liver by PET/CT, he yañez a repeat TACE procedure in March. He was then seen for a follow-up visit on 04/13/2019. At that point he continued treatment with pembrolizumab in combination with cetuximab. A restaging PET/CT on 05/07/2019 reported worsening of hepatic metastatic disease with a central left hepatic lobe lesion measuring 3.6 x 6.7 with SUV 7.2. A lesion in the medial left hepatic lobe showed increased SUV to 4.5. Other subcentimeter lesions appeared unchanged. Also noted was new enlargement of the head of the pancreas with mild FDG uptake, possibly representing pancreatitis. On 05/27/2019 he was admitted to the hospital with a presumptive diagnosis of acute pancreatitis, having presented to the emergency room with nausea/vomiting in association with a dull achy pain in the epigastric area. His serum lipase was elevated at 683 U/L. CT abdomen/pelvis showed increase in the size of the head of the pancreas with numerous low-density lesions, possibly representing acute pancreatitis. Multiple low-density lesions in the liver were noted to have increased in size and number, consistent with worsening metastatic disease. There appeared to be acute gastric retention. Fluid within the small bowel was suggestive of a severe ileus. His symptoms improved with supportive treatment measures. He was discharged home on 05/29/2019. He had further evaluation with MRI of the abdomen at [facility] on 06/01/2019. It showed multiple lesions throughout the bilateral lobes of the liver consistent with hepatic metastases. An additional lesion within the left lobe of the liver appeared to be consistent with a cavernous hemangioma. A mixed cystic and solid mass was noted within the head and uncinate process of the pancreas measuring 3.2 x 4.5 cm. It had indeterminate features by MRI, possibly representing a primary pancreatic neoplasm versus metastatic lesion. We had then made arrangements for an EUS procedure, but he opted instead to return to [place] for a biopsy. When he arrived there, he was told that a would not be able to do the biopsy, so he returned home and he requested a follow-up visit here. In the meantime, his recent studies done through [employer] had included a K-sheila mutation analysis, which detected a G12C KRAS mutation. With that finding, he was recommended to stop treatment with cetuximab. He continued treatment here with pembrolizumab at the standard dosage of 200 mg by IV infusion every 3 weeks. He then had further liver directed therapy in [place] on 08/03/2019. He also had restaging PET/CT which showed multiple FDG avid liver lesions showing significant interval increase in extent and metabolic activity. New FDG avid lesions were compatible with progression of metastatic malignancy. A left upper lobe pulmonary nodule had increased from 0.3 to 0.5 cm, but with no associated FDG activity. At that time he also started treatment with regorafenib at 160 mg daily. Mr Arellano is here today for followup. He continues the regorafenib and Keytruda. He has no new concerns today. He states overall he feels he is doing pretty good. He does not have the energy that he used to but states he still able to get things done around the house. He denies any pain. He denies any rash. He said no mouth sores, sore throat or difficulty swallowing. He denies any changes in his breathing. He states his bowel and bladder have been normal for him. His ECOG is 1. Past Medical History: Coronary artery disease Dyslipidemia Past Surgical History: Portacather placement dr. gurrola in 2019 Exploratory laparotomy with partial transverse colectomy and liver biopsy in 2018 Colonoscopy in 2018 - performed by Dr. Jay Coronary angioplasty/stent placement in 2016 Amputation of the distal phalanx of the right middle finger in 2013 Allergies: No Known Allergies. Medications: Cholecalciferol 1 Capsule (of 100 mcg ) Oral daily Keytruda Intravenous Multivitamin Adults 1 Tablet Oral daily Nitroglycerin 1 (0.4 mg) Tablet, sublingual Sublingual PRN Stivarga 1 Tablet (of 40 mg) Oral Family History: Mr. Hazels mother is alive: colon cancer. Mr. Arellano's father at age 83: alzheimers, and colon mass, and myocardial infarction. His father had dementia and coronary artery disease. He at age 83, apparently from complications of bowel obstruction. His mother still living at age 83. She has been treated for colon cancer in one brother has also been treated for colon cancer. Another brother has coronary artery disease. 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 Mr. Arellano no longer smokes but had smoked for 15 years. He has no history of drinking. Mr. Arellano reports the following support systems: lives with spouse, significant other, family, or friends. He had smoked cigars in the past, but only for a few years. He chewed tobacco for 20 years, but quit at least 15 years ago. He does not drink alcohol. Review Of Symptoms: Constitutional Denies fevers, chills, night sweats, excessive fatigue or weight loss. Allergic/Immunologic No reactions. Eyes Denies significant visual changes. No diplopia. No amaurosis. ENMT Denies changes in hearing, sore throat, mouth sores, difficulty or changes in swallowing ability, and/or sinus drainage. Endocrine No diabetes, thyroid disease or hormone replacement. Denies hot flashes or night sweats. Hematologic/Lymphatic Denies easy bruising or bleeding. The patient denies any tender or palpable lymph nodes. Respiratory Denies dyspnea on exertion, chest pain, cough or hemoptysis. Denies orthopnea. Cardiovascular Denies anginal chest pain, palpitations or orthopnea. Gastrointestinal Denies nausea, vomiting, diarrhea, GI bleeding, or constipation. Denies change in bowel habits and/or stool color, no heartburn or early satiety. Genitourinary (M) Denies hematuria, dysuria, increased frequency, urgency, hesitancy or incontinence. Musculoskeletal Denies joint pain, swelling or redness. No decreased range of motion. Integumentary Has recurrent Erbitux rash but no inflammation, ulcerations or skin changes. Neurologic Denies headache, blurred vision, and no areas of focal weakness or numbness. Normal gait. No sensory problems. Psychiatric Denies insomnia, depression, becky or mood swings. Vital Signs: Performed on September 22, 2019 10:03 Height - 70.00 in Weight - 176.0 lbs (HIGH) BSA - 1.98 sq.m BMI - 25.25 Temperature - 97.3 F (LOW) Pulse - 77 /min Respiration - 19 /min BP - 143/82 mm(hg) (HIGH) O2 Sat - 96 % Pain - 0,1 - No physically strenuous activity, but ambulatory and able to carry out light or sedentary work (e.g. office work, light house work). (ECOG) Physical Examination: Constitutional Alert, oriented, no acute distress. Skin pink, warm and dry. Head Normocephalic; atraumatic. Eyes Conjunctivae and sclerae are clear and without icterus. Pupils are reactive and equal. Neck Supple without masses or thyromegaly. No jugular venous distension. Hematologic/Lymphatic No petechiae or purpura. No tender or palpable lymph nodes in the cervical or supraclavicular areas. Respiratory Lungs are clear to auscultation without rhonchi or wheezing. Cardiovascular Regular rate and rhythm of heart without murmurs,clicks, gallops or rubs. Chest Left subclavian venous access device is unremarkable. Abdomen Non-tender, non-distended, no masses, ascites. No guarding or rebound tenderness. No pulsatile masses. Back/Spine Non-tender to palpation. Extremities No visible deformities, no cyanosis, clubbing or edema. Musculoskeletal No tenderness or swelling, normal range of motion without obvious weakness. Integumentary No rashes or lesions. Neurologic No sensory or motor deficits, normal cerebellar function, normal gait. Psychiatric Alert and oriented times three. Coherent speech. Verbalizes understanding of our discussions today. Laboratory:Test performed on September 20, 2019 11:03 Ferritin 231 ng/mL GGT 224 IU/L Glucose 93 mg/dL LDH, Total 228 IU/L Vitamin D (25-Hydroxy) 22 ng/mL BUN 13 mg/dL Creatinine 0.8 mg/dL Cr Clearance (Est) 105.3400 mL/min Sodium 140 mmol/L Potassium 4.6 mmol/L Chloride 103 mmol/L CO2 24 mmol/L Calcium 10.3 mg/dL Protein, Total 6.9 g/dL Albumin 4.2 g/dL Globulin 2.7 g/dL Bilirubin, Total 0.3 mg/dL Alkaline Phosphatase 182 IU/L AST (SGOT) 79 IU/L ALT (SGPT) 133 IU/L Sed Rate 9 mm/hr WBC 7.0 10^9/L RBC 5.14 10^12/L HGB 13.9 g/dL HCT 44.6 % MCV 86.8 fl MCH 27.0 pg MCHC 31.2 g/dL RDW 15.6 % Platelet Count 244 10^9/L MPV 11.2 fL Neutrophils (Gran) 3.6 10^9/L Lymphocytes 2.0 10^9/L Monocytes 0.8 10^9/L Eosinophils 0.6 10^9/L Basophils 0.0 10^9/L Manual Lymphocytes 27.8 % Manual Monocytes 11.3 % Manual Eosinophils 8.8 % Manual Basophils 0.6 % C-Reactive Protein (mg/dL) 0.300 mg/dL CA 19-9 207.7 Units/mL CEA 133.1 ng/mL Impression: 1. 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 An extended K-sheila mutation analysis and MMR testing are in progress at this time. 2. He underwent exploratory laparotomy with partial transverse colectomy and liver biopsy on 03/25/2018. His other medical illnesses include: 3. Dyslipidemia. 4. Coronary artery disease with previous myocardial infarction and angioplasty/stent placement. 5. He has a significant family history of colon cancer. While in his initial visit here he was seen at [facility] and his next generation sequencing study did confirm that he had a wild-type KRAS mutation status. He then sought treatment through the [facility] in [facility]. Based on their and philipp studies he apparently began initial chemotherapy with cyclophosphamide, epirubicin, and irinotecan dosed every 2 weeks. On 06/11/2017 he underwent chemoembolization to both hepatic lobes utilizing Quadraspheres loaded with epirubicin. In June he began further treatment with pembrolizumab 200 mg by IV infusion every 3 weeks together with cetuximab 500 mg by IV infusion weekly. His follow-up laboratory studies had shown decline in the CEA level from 178.6 ng/mL on 05/07/2018 to 60.9 ng/mL on 07/26/2018. His restaging PET/CT on 07/28/2018 showed interval significant response to treatment with resolution of multiple foci of increased metabolic activity in the liver. He resumed the pembrolizumab/cetuximab infusions on 08/27/2018. He tolerated the treatment with no significant toxicity. He returned for day 8 and day 15 cetuximab infusions, which he also tolerated well. As of 09/08/2018 there was further decrease in the CEA level to 9.1 ng/mL. His restaging CT abdomen/pelvis did show residual metastatic lesions in the liver. During subsequent follow-up there was further decline in the CEA level. As of 12/06/2018 it had stabilized at 1.0 ng/mL. His restaging CT scans on 12/15/2018 showed numerous hepatic metastatic lesions, the largest in the left hepatic lobe measuring 2.7 x 3.8 cm. They appeared stable compared to the PET/CT from 10/23/2018. He has been showing gradual gradual worsening of his skin eruption, but he is not symptomatic with it, and he has otherwise been tolerating treatment well. Overall he has been feeling better generally. He has had a good response to his treatment, though he did have residual disease in the liver by CT scan. He then continued treatment with cetuximab in combination with pembrolizumab. His restaging PET/CT on 02/05/2019 showed evidence of positive metabolic response, though with residual involvement in the liver. During subsequent follow-up there was a continued increase in his CEA level, consistent with disease progression, and in conjunction with the PET/CT findings, he underwent a repeat TACE procedure in March. At his follow-up visit here on 04/13/2019 he continued treatment with pembrolizumab and cetuximab. A restaging PET/CT on 05/07/2019 reported worsening of hepatic metastatic disease with a central left hepatic lobe lesion measuring 3.6 x 6.7 with SUV 7.2. A lesion in the medial left hepatic lobe showed increased SUV to 4.5. Other subcentimeter lesions appeared unchanged. Also noted was new enlargement of the head of the pancreas with mild FDG uptake, possibly representing pancreatitis. On 05/27/2019 he was admitted to the hospital with acute pancreatitis. His CT abdomen/pelvis showed increase in size of the head of the pancreas. Further evaluation with MRI of the abdomen at [facility] on 06/01/2019 showed a mixed cystic and solid mass within the head and uncinate process of the pancreas measuring 3.2 x 4.5 cm. As yet he has not had any further evaluation. He has had improvement in his abdominal pain and other GI symptoms. His current laboratory studies show a significant increase in the CEA level, now to 50.8 ng/mL. The CA-19-9 level is also elevated at 108.0 U/mL. In the meantime, a KRAS mutation analysis which was done through [employer] reported the presence of a KRAS G12C mutation. With that finding, he was advised to stop the cetuximab. He continued treatment with pembrolizumab 200 mg by IV infusion every 3 weeks. He then had further liver directed therapy in [place] on 08/03/2019. His restaging PET/CT did show evidence of disease progression in the liver. A left upper lobe pulmonary nodule had increased from 0.3 to 0.5 cm, but with no associated FDG activity. At that time he also started treatment with regorafenib at 160 mg daily. He developed significant side effects with the regorafenib, including vomiting, diarrhea, and fatigue. Those symptoms have improved since he stopped taking it. Plan: 1. Proceed with pembrolizumab 200 mg by IV infusion. 2. He is currently at regorafenib 80 mg daily on a 21/28-day schedule. He was advised he can try to titrate up to 120 mg daily. This is cycle 3. 3. Labs from 09/20/2019 were reivewed in detail and discussed with Mr & Mrs Arellano and a copy was given to them. WBC 7.0, hemoglobin 13.9, platelets 1 44,000 ANC is 3600. Creatinine 0.8 ALT was 133 down from 380 AST was 79 down from 176 and alk phos is improved at 182 his LDH is normal 228. His CEA was 133 and his CA-19-9 was 207.7. 4. We will plan to see him back in 3 weeks which time he will be due for Keytruda and cycle 4 regorafinib. 5. I have asked for CBC, CMP and CEA at that time. He has other labs requested from his physicians in [place]. 6. Mr. Arellano was encouraged to contact us in the interim should questions or problems arise. Signed By: Efrain Mcintosh-, AOCNP George Rabago MD <<Signature on File>>
== END 2019-09-22 09:44 | disposition home or self-care (01) ==
LOC: ONCMED 09:46
PROVIDERS: PCP Nurse Practitioner Family; Visit Provider Nurse Practitioner
DX: Z51.12 Encounter for antineoplastic immunotherapy (principal); C18.4 Malignant neoplasm of transverse colon; C78.7 Secondary malignant neoplasm of liver and intrahepatic bile duct; Z90.49 Acquired absence of other specified parts of digestive tract; E78.5 Hyperlipidemia, unspecified; I25.10 Atherosclerotic heart disease of native coronary artery without angina pectoris; I25.2 Old myocardial infarction; Z95.1 Presence of aortocoronary bypass graft; Z95.5 Presence of coronary angioplasty implant and graft; Z80.0 Family history of malignant neoplasm of digestive organs; Z79.899 Other long term (current) drug therapy
CPT/HCPCS: 96413; 99214; J7050; J9271

== ENCOUNTER → 2019-10-11 09:37 | Outpatient (BNVA) | payer SELFPAY | PROVIDERS: PCP Nurse Practitioner Family; Visit Provider Internal Medicine Medical Oncology | DX: C18.9 Malignant neoplasm of colon, unspecified (principal); C78.7 Secondary malignant neoplasm of liver and intrahepatic bile duct | CPT/HCPCS: 80053; 82378; 83615; 84443; 85025; 86301 ==

== ENCOUNTER 2019-10-13 09:29 | Outpatient (CLI) | payer SELFPAY ==
[2019-10-13] MEDS: sodium chloride 0.9% 250 ML 75 ML IV (11:27)
--- NOTE | 2019-10-16 18:07 | ONC FU_ITS ---
Steven Amador Patient Note Patient: Steven Arellano Unit #: [id number]: 1955 Dictated By: Efrain McintoshDate of Visit: Oct 13, 2019 Onc MED Follow-Up/Prog Note Chief Complaint: Colon cancer. 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 In February 2018 he was referred to Dr. Jay with a one-month history of hematochezia. His colonoscopy showed a mass in the transverse colon. Biopsy showed tubular adenoma with high-grade dysplasia, but the mass did appear malignant. Other findings were limited to an inflammatory type polyp in the proximal descending colon and hyperplastic polyps in the rectum. CT of the abdomen and pelvis showed circumferential thickening in the distal transverse colon proximal to the splenic flexure, suspicious for neoplasm. There were multiple low-attenuation lesions noted in the liver, the largest in the left hepatic lobe measuring 3.2 cm. An additional prominent lesion near the dome measured 2.8 cm. There were numerous low-attenuation circumferential lesions in the right hepatic lobe measuring 1-2 cm. The findings were consistent with metastatic disease. On 03/25/2018 he underwent exploratory laparotomy with partial transverse colectomy and biopsy of a right hepatic lobe lesion. Pathology showed grade 1-2/4 infiltrating adenocarcinoma measuring 3.0 x 2.7 cm. There was penetration through the muscularis propria into serosal connective tissues. There was involvement in one of 12 mesenteric lymph nodes. The liver biopsy showed metastatic adenocarcinoma. Dr Rabago had seen him initially on 04/13/2018. We had discussed the possibility of a trial of palliative chemotherapy with a FOLFOX-based regimen. He subsequently underwent evaluation at [facility] in [facility]. His evaluation there included a next generation sequencing study by liquid biopsy. 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 The KRAS, NRAS, and BRAF mutations were not detected. A trial of palliative chemotherapy was again recommended. Instead, he sought treatment through [facility] in [facility]. Based on their in vitro studies, he apparently then began initial course of chemotherapy with cyclophosphamide, epirubicin, and irinotecan dosed at 2-week intervals for 8 weeks. He also was administered a variety of vitamin and herbal supplements. On 06/11/2018 he underwent a chemoembolization procedure with Quadraspheres loaded with epirubicin. He received a dosage of 60 mg to the right hepatic lobe and 50 mg to the left hepatic lobe. In June he began treatment with pembrolizumab 200 mg by IV infusion every 3 weeks together with cetuximab 500 mg by IV infusion weekly. Thus far he has received only 2 infusions of cetuximab, which he completed with only minimal reaction. He received his most recent infusion of pembrolizumab on 08/27/2018. In addition, from 08/03/2018 through 08/05/2018 he underwent AAIT therapy in [place]. His follow-up laboratory studies have shown decline in the CEA level from 178.6 ng/mL on 05/07/2018 to 60.9 ng/mL on 07/26/2018. His restaging PET/CT on 07/28/2018 showed interval significant response to treatment with resolution of multiple foci of increased metabolic activity in the liver. His other medical illnesses have been limited to coronary artery disease and dyslipidemia. He had suffered an inferior wall myocardial infarction in February 2017, at which time he underwent angioplasty with stent placement of the right coronary artery. He had no further cardiac problems. He has had no other prior medical illnesses. He had smoked cigars in the past, but only for a few years. He had chewed tobacco for 20 years, but he quit at least 15 years ago. He does not drink alcohol. His family history is significant in that his mother and a brother have also been treated for colon cancer. INTERIM HISTORY: On 08/27/2018 he restarted treatment with pembrolizumab 200 mg IV every 3 weeks together with cetuximab 500 mg IV weekly. He returned here on 08/30/2018 so that he could continue his pembrolizumab and cetuximab infusions closer to home. He had experienced no adverse effects with the initial infusions, and he continued with his day 8 and day 15 cetuximab infusions, also with no adverse effects. His repeat CEA level on 09/08/2018 was down to 9.1 ng/mL compared to 60.9 ng/mL on 07/26/2018. During subsequent follow-up his CEA level continued to decline. As of 12/06/2018 it had stabilized at 1.0 ng/mL. Restaging CT scans of the chest, abdomen, and pelvis on 12/15/2018 showed no evidence of metastatic disease the lungs. A 4 mm left perifussural nodule appeared stable. Numerous hepatic metastatic lesions appeared stable compared to the PET/CT from 10/23/2018. The largest in the left hepatic lobe measured 2.7 x 3.8 cmwith those findings he continued treatment with cetuximab in combination with pembrolizumab. Restaging PET/CT on 02/05/2019 showed improved bilateral hilar lymph nodes compared to the prior PET/CT studies. Multiple hepatic lesions appeared to have resolved, but with unchanged left and right hepatic dome lesions. Overall the findings were consistent with a positive metabolic response. He continued treatment with cetuximab in combination with pembrolizumab. As of 03/23/2019 he began his 11th cycle of treatment. At that point there was a significant increase in the CEA level, 13.9 ng/mL compared to 10.7 ng/mL on 03/02/2019 and to 3.9 ng/mL on 01/17/2019. With that increase and with evidence of residual hepatic involvement in the liver by PET/CT, he yañez a repeat TACE procedure in March. He was then seen for a follow-up visit on 04/13/2019. At that point he continued treatment with pembrolizumab in combination with cetuximab. A restaging PET/CT on 05/07/2019 reported worsening of hepatic metastatic disease with a central left hepatic lobe lesion measuring 3.6 x 6.7 with SUV 7.2. A lesion in the medial left hepatic lobe showed increased SUV to 4.5. Other subcentimeter lesions appeared unchanged. Also noted was new enlargement of the head of the pancreas with mild FDG uptake, possibly representing pancreatitis. On 05/27/2019 he was admitted to the hospital with a presumptive diagnosis of acute pancreatitis, having presented to the emergency room with nausea/vomiting in association with a dull achy pain in the epigastric area. His serum lipase was elevated at 683 U/L. CT abdomen/pelvis showed increase in the size of the head of the pancreas with numerous low-density lesions, possibly representing acute pancreatitis. Multiple low-density lesions in the liver were noted to have increased in size and number, consistent with worsening metastatic disease. There appeared to be acute gastric retention. Fluid within the small bowel was suggestive of a severe ileus. His symptoms improved with supportive treatment measures. He was discharged home on 05/29/2019. He had further evaluation with MRI of the abdomen at [facility] on 06/01/2019. It showed multiple lesions throughout the bilateral lobes of the liver consistent with hepatic metastases. An additional lesion within the left lobe of the liver appeared to be consistent with a cavernous hemangioma. A mixed cystic and solid mass was noted within the head and uncinate process of the pancreas measuring 3.2 x 4.5 cm. It had indeterminate features by MRI, possibly representing a primary pancreatic neoplasm versus metastatic lesion. We had then made arrangements for an EUS procedure, but he opted instead to return to [place] for a biopsy. When he arrived there, he was told that a would not be able to do the biopsy, so he returned home and he requested a follow-up visit here. In the meantime, his recent studies done through [employer] had included a K-sheila mutation analysis, which detected a G12C KRAS mutation. With that finding, he was recommended to stop treatment with cetuximab. He continued treatment here with pembrolizumab at the standard dosage of 200 mg by IV infusion every 3 weeks. He then had further liver directed therapy in [place] on 08/03/2019. He also had restaging PET/CT which showed multiple FDG avid liver lesions showing significant interval increase in extent and metabolic activity. New FDG avid lesions were compatible with progression of metastatic malignancy. A left upper lobe pulmonary nodule had increased from 0.3 to 0.5 cm, but with no associated FDG activity. At that time he also started treatment with regorafenib at 160 mg daily. Mr Arellano is here today for followup. He continues the regorafenib and Keytruda. He has no new concerns today. He states overall he feels he is doing pretty good. He does not have the energy that he used to but states he still able to get things done around the house. He denies any pain. He denies any rash but shows me his hands that are peeling bilaterally. He states this is been going on for the last week probably. He states he did stop the regular after neb about a week ago but his states that he took some this morning. He states his hands have been tender and he had been having to wear gloves to drive or handle the tractor. I suspect the PPE has been going on longer than a week given the extent and severity of the peeling of his hands. He has had no mouth sores, sore throat or difficulty swallowing. He denies any changes in his breathing. He states his bowel and bladder have been normal for him. His ECOG is 1. Past Medical History: Coronary artery disease Dyslipidemia Past Surgical History: Portacather placement dr. gurrola in 2018 Exploratory laparotomy with partial transverse colectomy and liver biopsy in 2017 Colonoscopy in 2018 - performed by Dr. Jay Coronary angioplasty/stent placement in 2016 Amputation of the distal phalanx of the right middle finger in 2013 Allergies: No Known Allergies. Medications: Cholecalciferol 1 Capsule (of 100 mcg ) Oral daily Keytruda Intravenous Multivitamin Adults 1 Tablet Oral daily Nitroglycerin 1 (0.4 mg) Tablet, sublingual Sublingual PRN Stivarga 1 Tablet (of 40 mg) Oral Family History: Mr. Arellano's mother is alive: colon cancer. Mr. Arellano's father at age 83: alzheimers, and colon mass, and myocardial infarction. His father had dementia and coronary artery disease. He at age 83, apparently from complications of bowel obstruction. His mother still living at age 83. She has been treated for colon cancer in one brother has also been treated for colon cancer. Another brother has coronary artery disease. 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 Mr. Arellano no longer smokes but had smoked for 15 years. He has no history of drinking. Mr. Arellano reports the following support systems: lives with spouse, significant other, family, or friends. Review Of Symptoms: Constitutional Denies fevers, chills, night sweats, excessive fatigue or weight loss. Allergic/Immunologic No reactions. Eyes Denies significant visual changes. No diplopia. No amaurosis. ENMT Denies changes in hearing, sore throat, mouth sores, difficulty or changes in swallowing ability, and/or sinus drainage. Endocrine No diabetes, thyroid disease or hormone replacement. Denies hot flashes or night sweats. Hematologic/Lymphatic Denies easy bruising or bleeding. The patient denies any tender or palpable lymph nodes. Respiratory Denies dyspnea on exertion, chest pain, cough or hemoptysis. Denies orthopnea. Cardiovascular Denies anginal chest pain, palpitations or orthopnea. Gastrointestinal Denies nausea, vomiting, diarrhea, GI bleeding, or constipation. Denies change in bowel habits and/or stool color, no heartburn or early satiety. Genitourinary (M) Denies hematuria, dysuria, increased frequency, urgency, hesitancy or incontinence. Musculoskeletal Denies joint pain, swelling or redness. No decreased range of motion. Integumentary Has recurrent Erbitux rash but no inflammation, ulcerations. He states that his hands began peeling a few days maybe a week ago . He states he stopped the Xeloda a week ago but his states that he did take a dose this morning. He denies any involvement in his feet. Neurologic Denies headache, blurred vision, and no areas of focal weakness or numbness. Normal gait. No sensory problems. Psychiatric Denies insomnia, depression, bceky or mood swings. Vital Signs: Performed on Oct 13, 2019 10:14 Height - 70.00 in Weight - 179 lbs (HIGH) BSA - 1.99 sq.m BMI - 25.68 Temperature - 98.0 F (LOW) Pulse - 78 /min Respiration - 16 /min BP - 132/88 mm(hg) O2 Sat - 97 % Pain - 0,1 - No physically strenuous activity, but ambulatory and able to carry out light or sedentary work (e.g. office work, light house work). (ECOG) Physical Examination: Constitutional Alert, oriented, no acute distress. Skin pink, warm and dry. Head Normocephalic; atraumatic. Eyes Conjunctivae and sclerae are clear and without icterus. Pupils are reactive and equal. Neck Supple without masses or thyromegaly. No jugular venous distension. Hematologic/Lymphatic No petechiae or purpura. No tender or palpable lymph nodes in the cervical or supraclavicular areas. Respiratory Lungs are clear to auscultation without rhonchi or wheezing. Cardiovascular Regular rate and rhythm of heart without murmurs,clicks, gallops or rubs. Chest Left subclavian venous access device is unremarkable. Abdomen Non-tender, non-distended, no masses, ascites. No guarding or rebound tenderness. No pulsatile masses. Back/Spine Non-tender to palpation. Extremities No visible deformities, no cyanosis, clubbing or edema. Musculoskeletal No tenderness or swelling, normal range of motion without obvious weakness. Integumentary No rashes or lesions. He has grade 3 sloughing of the skin on his hands bilaterally. There are no active open lesions at current but his skin is pale and dry where it is peeling and skin underneath is bright pink but dry. He states it is very tender. Neurologic No sensory or motor deficits, normal cerebellar function, normal gait. Psychiatric Alert and oriented times three. Coherent speech. Verbalizes understanding of our discussions today. Laboratory:Test performed on Oct 11, 2019 09:37 TSH 2.57 uU/mL Glucose 109 mg/dL LDH, Total 233 IU/L BUN 11 mg/dL Creatinine 0.8 mg/dL Cr Clearance (Est) 107.1300 mL/min Sodium 142 mmol/L Potassium 4.7 mmol/L Chloride 105 mmol/L CO2 24 mmol/L Calcium 9.9 mg/dL Protein, Total 6.8 g/dL Albumin 4.2 g/dL Globulin 2.6 g/dL Bilirubin, Total 0.3 mg/dL Alkaline Phosphatase 142 IU/L AST (SGOT) 43 IU/L ALT (SGPT) 49 IU/L WBC 8.0 10^9/L RBC 4.97 10^12/L HGB 13.5 g/dL HCT 42.2 % MCV 84.9 fl MCH 27.2 pg MCHC 32.0 g/dL RDW 16.1 % Platelet Count 219 10^9/L MPV 11.5 fL Neutrophils (Gran) 4.7 10^9/L Lymphocytes 1.8 10^9/L Monocytes 0.8 10^9/L Eosinophils 0.7 10^9/L Basophils 0.0 10^9/L Manual Lymphocytes 22.1 % Manual Monocytes 10.2 % Manual Eosinophils 8.7 % Manual Basophils 0.2 % CEA 135.1 ng/mL Test performed on September 20, 2019 11:03 Ferritin 231 ng/mL GGT 224 IU/L Vitamin D (25-Hydroxy) 22 ng/mL Sed Rate 9 mm/hr C-Reactive Protein (mg/dL) 0.300 mg/dL CA 19-9 207.7 Units/mL Impression: 1. 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 An extended K-sheila mutation analysis and MMR testing are in progress at this time. 2. He underwent exploratory laparotomy with partial transverse colectomy and liver biopsy on 03/25/2018. His other medical illnesses include: 3. Dyslipidemia. 4. Coronary artery disease with previous myocardial infarction and angioplasty/stent placement. 5. He has a significant family history of colon cancer. While in his initial visit here he was seen at [facility] and his next generation sequencing study did confirm that he had a wild-type KRAS mutation status. He then sought treatment through the [facility] in [facility]. Based on their and philipp studies he apparently began initial chemotherapy with cyclophosphamide, epirubicin, and irinotecan dosed every 2 weeks. On 06/11/2017 he underwent chemoembolization to both hepatic lobes utilizing Quadraspheres loaded with epirubicin. In June he began further treatment with pembrolizumab 200 mg by IV infusion every 3 weeks together with cetuximab 500 mg by IV infusion weekly. His follow-up laboratory studies had shown decline in the CEA level from 178.6 ng/mL on 05/07/2018 to 60.9 ng/mL on 07/26/2018. His restaging PET/CT on 07/28/2018 showed interval significant response to treatment with resolution of multiple foci of increased metabolic activity in the liver. He resumed the pembrolizumab/cetuximab infusions on 08/27/2018. He tolerated the treatment with no significant toxicity. He returned for day 8 and day 15 cetuximab infusions, which he also tolerated well. As of 09/08/2018 there was further decrease in the CEA level to 9.1 ng/mL. His restaging CT abdomen/pelvis did show residual metastatic lesions in the liver. During subsequent follow-up there was further decline in the CEA level. As of 12/06/2018 it had stabilized at 1.0 ng/mL. His restaging CT scans on 12/15/2018 showed numerous hepatic metastatic lesions, the largest in the left hepatic lobe measuring 2.7 x 3.8 cm. They appeared stable compared to the PET/CT from 10/23/2018. He has been showing gradual gradual worsening of his skin eruption, but he is not symptomatic with it, and he has otherwise been tolerating treatment well. Overall he has been feeling better generally. He has had a good response to his treatment, though he did have residual disease in the liver by CT scan. He then continued treatment with cetuximab in combination with pembrolizumab. His restaging PET/CT on 02/05/2019 showed evidence of positive metabolic response, though with residual involvement in the liver. During subsequent follow-up there was a continued increase in his CEA level, consistent with disease progression, and in conjunction with the PET/CT findings, he underwent a repeat TACE procedure in March. At his follow-up visit here on 04/13/2019 he continued treatment with pembrolizumab and cetuximab. A restaging PET/CT on 05/07/2019 reported worsening of hepatic metastatic disease with a central left hepatic lobe lesion measuring 3.6 x 6.7 with SUV 7.2. A lesion in the medial left hepatic lobe showed increased SUV to 4.5. Other subcentimeter lesions appeared unchanged. Also noted was new enlargement of the head of the pancreas with mild FDG uptake, possibly representing pancreatitis. On 05/27/2019 he was admitted to the hospital with acute pancreatitis. His CT abdomen/pelvis showed increase in size of the head of the pancreas. Further evaluation with MRI of the abdomen at [facility] on 06/01/2019 showed a mixed cystic and solid mass within the head and uncinate process of the pancreas measuring 3.2 x 4.5 cm. As yet he has not had any further evaluation. He has had improvement in his abdominal pain and other GI symptoms. His current laboratory studies show a significant increase in the CEA level, now to 50.8 ng/mL. The CA-19-9 level is also elevated at 108.0 U/mL. In the meantime, a KRAS mutation analysis which was done through [employer] reported the presence of a KRAS G12C mutation. With that finding, he was advised to stop the cetuximab. He continued treatment with pembrolizumab 200 mg by IV infusion every 3 weeks. He then had further liver directed therapy in [place] on 08/03/2019. His restaging PET/CT did show evidence of disease progression in the liver. A left upper lobe pulmonary nodule had increased from 0.3 to 0.5 cm, but with no associated FDG activity. At that time he also started treatment with regorafenib at 160 mg daily. He developed significant side effects with the regorafenib, including vomiting, diarrhea, and fatigue. Those symptoms have improved since he stopped taking it. He did resume it and was attempting to titrate it up to 12o mg daily. He developed severe PPE on his hands with the skin sloughing. Once again the Regorafinib was placed on hold. He has been advised he needs to remain on hold until his skin has completely healed. We will pursue treatment with the Keytruda single agent at this time. Plan: 1. Proceed with pembrolizumab 200 mg by IV infusion. 2. He had been taking regorafinib 3 tablets daily. However he has now been instructed to hold that until the skin peeling/PPE resolves. He was advised this will take at least a month. He was advised then we can try going back to 2 tablets daily and titrating back up if possible. 3. Labs from 10/11/2019 were reivewed in detail and discussed with Mr & Mrs Arellano and a copy was given to them. WBC 8.0, hemoglobin 13.5, platelets 219,000 ANC is 4700. Creatinine 0.8 ALT was 49 down from 133 AST was 43 down from 79 and alk phos is improved at 142. his LDH is normal 228. His CEA was 135 and his CA-19-9 was not available at the time of his visit. 4. We will plan to see him back in 3 weeks which time he will be due for Keytruda. He states he is due for followup CTs at that time as well as he will be due to go to [place] soon after that visit. 5. I have asked for CBC, CMP and CEA at that time. He has other labs requested from his physicians in [place]. 6. He has been advised to use heavy emollients such as udder cream/bag balm/derma cell or any other thick lotion. He is advised to use at least 2-3 times daily. He is advised he could also apply heavily at night and wear socks and gloves. His feet are not affected but I am concerned that they may have some dryness that he is not showing us. He is advised to call us if there are skin changes get any worse after the Keytruda. We discussed that it is a slight possibility that it could but we wanted to pursue the Keytruda for now. 7. Mr. Arellano was encouraged to contact us in the interim should questions or problems arise. Signed By: Efrain Mcintosh-, [facility] George Rabago MD <<Signature on File>>
== END 2019-10-13 09:30 | disposition home or self-care (01) ==
LOC: ONCMED 09:33
PROVIDERS: PCP Nurse Practitioner Family; Visit Provider Nurse Practitioner
DX: Z51.12 Encounter for antineoplastic immunotherapy (principal); C18.4 Malignant neoplasm of transverse colon; C78.7 Secondary malignant neoplasm of liver and intrahepatic bile duct; C77.2 Secondary and unspecified malignant neoplasm of intra-abdominal lymph nodes; L27.1 Localized skin eruption due to drugs and medicaments taken internally; T45.1X5A Adverse effect of antineoplastic and immunosuppressive drugs, initial encounter; E78.5 Hyperlipidemia, unspecified; I25.10 Atherosclerotic heart disease of native coronary artery without angina pectoris; I25.2 Old myocardial infarction; Z90.49 Acquired absence of other specified parts of digestive tract; Z87.891 Personal history of nicotine dependence; Z95.1 Presence of aortocoronary bypass graft; Z95.5 Presence of coronary angioplasty implant and graft; Z80.0 Family history of malignant neoplasm of digestive organs
CPT/HCPCS: 96413; 99214; J7050; J9271

== ENCOUNTER 2019-10-17 09:10 | Outpatient (CLI) | payer SELFPAY | END 2019-10-17 09:11 | disposition home or self-care (01) | LOC: ONCMED 09:12 | PROVIDERS: PCP Nurse Practitioner Family; Visit Provider Nurse Practitioner | DX: C18.4 Malignant neoplasm of transverse colon (principal); C78.7 Secondary malignant neoplasm of liver and intrahepatic bile duct | CPT/HCPCS: 36415 ==

== ENCOUNTER 2019-10-18 14:15 | Observation (INO) | payer SELFPAY ==
[2019-10-18 14:27] VITALS: BP 100/67; PULSE 125; RESP 18; TEMP 36.6; O2SAT 96; BMI 25.5
[2019-10-18 16:20] LABS: Basophils # 0.1 10^3/uL (0.0-0.1); Basophils % 0.2 %; Eosinophils % 0.2 %; Hematocrit 54.3 % (42.0-52.0); Hemoglobin 17.1 g/dL (11.7-16.6); Lymphocytes # 0.6 10^3/uL (0.8-4.8); Lymphocytes % 2.8 %; Mean Corpuscular HGB Conc 31.5 g/dL (30.0-36.0); Mean Corpuscular Hemoglobin 27.4 pg (28.0-34.0); Mean Corpuscular Volume 86.9 fL (80-94); Mean Platelet Volume 12.2 fL (7.4-10.4); Monocytes # 1.1 10^3/uL (0.2-0.9); Monocytes % 5.4 %; Neutrophils # 19.2 10^3/uL (1.8-7.7); Neutrophils % 90.8 %; Nucleated Red Blood Cells % 0 %; Platelet Count 248 10^3/cmm (130-400); Red Blood Count 6.25 10^6/uL (4.1-5.3); Red Cell Distribution Width 18.2 % (12.1-15.1); White Blood Count 21.1 10^3/uL (4.0-10.0)
[2019-10-18 16:44] LABS: Alanine Aminotransferase 65 U/L (0-41); Albumin Level 5.4 g/dL (3.5-5.2); Alkaline Phosphatase 155 IU/L (40-130); Anion Gap 24.8 (5-19); Aspartate Amino Transferase 56 U/L (0-40); Blood Urea Nitrogen 29 mg/dL (8-23); Calcium 11.2 mg/dL (8.5-10.5); Carbon Dioxide 17 mmol/L (22-29); Chloride 101 mmol/L (98-107); Globulin 3.4 g/dL (1.3-4.6); Glomerular Filtration Rate 28.8 mL/min (90-130); Glucose 148 mg/dL (65-115); Osmolality Calculated 284 mOsm/kg (285-295); Potassium 5.8 mmol/L (3.5-5.1); Sodium 137 mmol/L (136-145); Total Bilirubin 0.6 mg/dL (0.15-1.2); Total Protein 8.8 g/dL (6.6-8.7)
--- NOTE | 2019-10-18 17:00 | W.ED.NAVMDI ---
HPI - Nausea/Vomiting/Diarrhea General: Chief complaint: Nausea/Vomiting/Diarrhea Stated complaint: cancer pt n/v/d Time Seen by Provider: 10/18/19 15:35 History of Present Illness: HPI Narrative: 64-year-old male comes in complaining of nausea vomiting that he earlier today. It started around 9 AM he vomited multiple times towards the end he had one episode of vomitus. A few small specks of blood in it. He has known liver mets with stage IV: From stage IV colon cancer. He is on several different medications including some oral anti-neoplastic's. He did have some ear discomfort today but he denies any vertigo-like symptoms. The time he arrived emergency room he is taken a glass of water and his nausea has resolved he does have a little bit of a headache. MD elicited complaint: nausea and vomiting Pertinent past history: anorexia and other (Colon cancer with liver metastasis) Onset (ago): hour(s) Description of vomiting: food contents, bilious and other (Small streaks of blood in the vomitus once or twice.) Description of diarrhea: lose Associated nausea: Yes Associated abdominal pain: Yes Location of pain: Diffuse Radiation: diffuse Pain consistency: intermittent and now resolved Severity: moderate Quality: cramping Exacerbating factors: eating and vomiting Relieving factors: none Context: other (Colon cancer with liver metastasis currently under chemotherapy treatment) Associated symtoms: Reports diaphoresis, decreased urine output, dizziness, fatigue, anorexia, malaise, nausea and weakness; Denies chest pain, dysuria, fevers/chills, myalgias, palpitations, short of breath or syncope Treatment prior to arrival: fluids Review of Systems Const: Reports: fatigue, malaise and diaphoresis ENMT: Denies: throat pain, ear or mastoid pain, nasal discharge or nasal congestion Card: Denies: chest pain, palpitations or syncope Resp: Denies: dyspnea, productive cough or non-productive cough GI: Reports: nausea : Denies: dysuria Skin/Breast: Denies: rash or pruritus Neuro: Reports: dizziness PFSH ED PFSH: Medical History (Updated 10/19/19 @ 14:28 by Ladarius Mckeon DO) CAD (coronary artery disease) GERD (gastroesophageal reflux disease) Hyperlipidemia Ileus Metastatic colon cancer to liver Pancreatitis This suspected to be secondary to cancer related pancreatic duct obstruction. Immunotherapy could also play a role but felt unlikely. Surgical History H/O colectomy History of heart artery stent Family History Other Cancer Social History (Updated 10/18/19 @ 18:25 by Stephen Mariscal MD) Smoking and tobacco status: former smoker Alcohol intake: never Physical Exam Const: COMMON NORMALS: no acute distress GENERAL APPEARANCE: cooperative and comfortable ORIENTATION/CONSCIOUSNESS: Yes awake, Yes oriented to person, Yes oriented to place and Yes oriented to time HENMT: COMMON NORMALS: normocephalic, atraumatic, hearing grossly normal bilaterally, external ears normal, EAC's normal, TM's normal bilaterally, Normal nasal mucous membranes and turbinates present, moist oral mucous membranes and oropharynx normal HEAD & SCALP: normocephalic and atraumatic NOSE: Normal nasal mucous membranes and turbinates present EXTERNAL EAR: Yes external ears normal EXTERNAL AUDITORY CANAL: EAC's normal TYMPANIC MEMBRANE: TM's normal bilaterally Eye: COMMON NORMALS: Equal, round and reactive pupils present, EOMs intact bilaterally, conjunctivae normal and no scleral icterus CONJUNCTIVA: Yes conjunctivae normal PUPIL: Yes Equal, round and reactive pupils present Neck/C-Spine: COMMON NORMALS: full ROM, no lymphadenopathy, supple and no JVD Lymph: LYMPHATIC: no lymphadenopathy noted and no lymphedema noted Resp: COMMON NORMALS: normal respiratory effort, No retractions, No use of accessory muscles and clear to auscultation bilaterally AUSCULTATION: clear to auscultation bilaterally Cardio: COMMON NORMALS: no JVD, regular rate, regular rhythm and No murmurs present (Cardio) RATE: regular rate RHYTHM: regular rhythm GI: COMMON NORMALS: Soft to palpation and No hepatosplenomegaly present AUSCULTATION: Yes normoactive bowel sounds PALPATION: Yes Soft to palpation, No Tenderness to palpation present (GI), No Guarding due to palpation present (GI) and Yes No hepatosplenomegaly present Extremity: COMMON NORMALS: normal to inspection, capillary refill normal, no clubbing, cyanosis or edema, no calf tenderness and no pedal edema Neuro: SENSORIUM/ORIENTATION: Yes oriented to person, Yes oriented to place and Yes oriented to time Skin: COMMON NORMALS: no rashes or lesions noted GENERAL SKIN EXAM: no rashes or lesions noted Course Vital Signs: Vital signs: Vital Signs Temperature 98.3 F 10/19/19 11:14 Pulse Rate 77 10/19/19 11:14 Respiratory Rate 18 10/19/19 11:14 Blood Pressure 112/74 10/19/19 11:14 Pulse Oximetry 96 10/19/19 11:14 MDM - Nausea/Vomiting/Diarrhea Lab Data: Labs: Lab Results 10/18/19 10/18/19 10/18/19 Range/Units 15:40 15:40 15:40 WBC 21.1 H (4.0-10.0) 10^3/ uL RBC 6.25 H (4.1-5.3) 10^6/u L Hgb 17.1 H (11.7-16.6) g/dL Hct 54.3 H (42.0-52.0) % MCV 86.9 (80-94) fL MCH 27.4 L (28.0-34.0) pg MCHC 31.5 (30.0-36.0) g/dL RDW 18.2 H (12.1-15.1) % Plt Count 248 (130-400) 10^3/c mm MPV 12.2 H (7.4-10.4) fL Neut % (Auto) 90.8 % Lymph % (Auto) 2.8 % Valencia % (Auto) 5.4 % Eos % (Auto) 0.2 % Baso % (Auto) 0.2 % Neut # (Auto) 19.2 H (1.8-7.7) 10^3/u L Lymph # (Auto) 0.6 L (0.8-4.8) 10^3/u L Valencia # (Auto) 1.1 H (0.2-0.9) 10^3/u L Eos # (Auto) 0.0 (0.0-0.8) 10^3/u L Baso # (Auto) 0.1 (0.0-0.1) 10^3/u L Nucleated RBC % (a uto) 0 % Nucleated RBCs # 0.0 /100WBC Sodium 137 (136-145) mmol/L Potassium 5.8 H (3.5-5.1) mmol/L Chloride 101 (98-107) mmol/L Carbon Dioxide 17 L (22-29) mmol/L Anion Gap 24.8 H (5-19) BUN 29 H (8-23) mg/dL Creatinine 2.3 H (0.7-1.2) mg/dL GFR Calculation 28.8 L (90-130) mL/min Glucose 148 H (65-115) mg/dL Calculated Osmolal ity 284 L (285-295) mOsm/k g Calcium 11.2 H (8.5-10.5) mg/dL Total Bilirubin 0.6 (0.15-1.2) mg/dL AST 56 H (0-40) U/L ALT 65 H (0-41) U/L Alkaline Phosphata se 155 H (40-130) IU/L Total Protein 8.8 H (6.6-8.7) g/dL Albumin 5.4 H (3.5-5.2) g/dL Globulin 3.4 (1.3-4.6) g/dL Lipase 57 (13-60) U/L Urine Color (Yellow) Urine Appearance (CLEAR) Urine pH (5-7) Ur Specific Gravit y (1.005-1.030) Urine Protein (Negative) Urine Glucose (UA) (Normal) Urine Ketones (Negative) Urine Blood (Negative) Urine Nitrate (Negative) Urine Bilirubin (NEGATIVE) Urine Urobilinogen (Negative) mg/dL Ur Leukocyte Krystal ase (Negative) Urine RBC (0-2) /hpf Urine WBC (0-5) /hpf Ur Squamous Epith Cells (0-5) Urine Bacteria (NONE) 10/18/19 Range/Units 17:08 WBC (4.0-10.0) 10^3/ uL RBC (4.1-5.3) 10^6/u L Hgb (11.7-16.6) g/dL Hct (42.0-52.0) % MCV (80-94) fL MCH (28.0-34.0) pg MCHC (30.0-36.0) g/dL RDW (12.1-15.1) % Plt Count (130-400) 10^3/c mm MPV (7.4-10.4) fL Neut % (Auto) % Lymph % (Auto) % Valencia % (Auto) % Eos % (Auto) % Baso % (Auto) % Neut # (Auto) (1.8-7.7) 10^3/u L Lymph # (Auto) (0.8-4.8) 10^3/u L Valencia # (Auto) (0.2-0.9) 10^3/u L Eos # (Auto) (0.0-0.8) 10^3/u L Baso # (Auto) (0.0-0.1) 10^3/u L Nucleated RBC % (a uto) % Nucleated RBCs # /100WBC Sodium (136-145) mmol/L Potassium (3.5-5.1) mmol/L Chloride (98-107) mmol/L Carbon Dioxide (22-29) mmol/L Anion Gap (5-19) BUN (8-23) mg/dL Creatinine (0.7-1.2) mg/dL GFR Calculation (90-130) mL/min Glucose (65-115) mg/dL Calculated Osmolal ity (285-295) mOsm/k g Calcium (8.5-10.5) mg/dL Total Bilirubin (0.15-1.2) mg/dL AST (0-40) U/L ALT (0-41) U/L Alkaline Phosphata se (40-130) IU/L Total Protein (6.6-8.7) g/dL Albumin (3.5-5.2) g/dL Globulin (1.3-4.6) g/dL Lipase (13-60) U/L Urine Color Yellow (Yellow) Urine Appearance Cloudy (CLEAR) Urine pH 5 (5-7) Ur Specific Gravit y 1.020 (1.005-1.030) Urine Protein 1+ H (Negative) Urine Glucose (UA) Norm (Normal) Urine Ketones Negative (Negative) Urine Blood 2+ H (Negative) Urine Nitrate Negative (Negative) Urine Bilirubin Neg (NEGATIVE) Urine Urobilinogen Norm (Negative) mg/dL Ur Leukocyte Krystal ase Trace H (Negative) Urine RBC 0-4 H (0-2) /hpf Urine WBC 25-40 H (0-5) /hpf Ur Squamous Epith Cells 5-10 H (0-5) Urine Bacteria 3+ H (NONE) Discharge Plan Discharge Patient Disposition: Admitted As Inpatient Admit Provider: Stephen Mariscal Clinical Impression: Intractable nausea and vomiting, Metastatic colon cancer to liver, Vomiting, Acute renal failure, Hyperkalemia, Transaminitis Condition: Stable Discharge Orders: Discharge Order (Routine); Ordered 10/19/19 Ordered By: Stephen Mariscal Referrals: Shiloh Sparks FNP [Primary Care Provider] - 11/01/19 10:30 am (BMP on follow-up) George Treviño MD [Hospitalist] - 1 week (KEEP APPOINTMENTS SCHEDULED DR TREVIÑO WILL CALL WITH CHANGES ) Discharge Diet: Advance as tolerated Discharge Activity: Increase activity as tolerated Patient Instructions: Levofloxacin (By mouth), Pantoprazole (By mouth), Urinary Tract Infection in Men (GEN), Acute Nausea and Vomiting (GEN) Additional Instructions: Encourage fluids BMP on follow-up with primary care provider Interventions: ED Discharge Assessment Last Done: 10/18/19 18:57 ED Charges Last Done: 10/18/19 18:57 Discharge Date/Time: 10/18/19 18:58 Coding Level of Care Code ED Solutions Architect for Chg 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
[2019-10-18] MEDS: ondansetron 2 mg/ML SDV 2 mL 4 MG IVP (17:17)
[2019-10-18] MEDS: sodium chloride 0.9% 1,000 ML 999 ML IV (17:18)
[2019-10-18 17:25] LABS: Lipase 57 U/L (13-60)
--- NOTE | 2019-10-18 17:35 | ECG_ITS ---
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 Measurements Intervals [place] Rate: 104 P: 47 VT: 142 QRS: 52 QRSD: 87 T: 44 QT: 324 QTc: 426 Interpretive Statements SINUS TACHYCARDIA Compared to ECG 03/23/2018 08:46:24 Sinus rhythm no longer present Myocardial infarct finding no longer present Electronically Signed On 10-19-2019 17:09:27 CDT by Iliana Yeh M.D. [email or web address]
[2019-10-18] MEDS: sodium bicarbonate 8.4% 1 mEq/mL 50mL Syr 50 MEQ IVP (17:36)
[2019-10-18] MEDS: calcium gluconate 0.1 gm/mL 10% SDV 10mL 1 GM IVP (17:36)
[2019-10-18] MEDS: sodium polystyrene sulfonate 15 gm/60 mL Btl PO ×2 (17:36→23:16)
[2019-10-18 17:39] LABS: Add Urine Microscopic? YES; Bilirubin Urine Neg (NEGATIVE); Blood Urine 2+ (Negative); Glucose Urine UA Norm (Normal); Ketones Urine Negative (Negative); Leukocyte Esterase Urine Trace (Negative); Nitrate Urine Negative (Negative); Protein Urine 1+ (Negative); Urine Appearance Cloudy (CLEAR); Urine Color Yellow (Yellow); Urobilinogen Urine Norm (Negative); pH Urine 5 (5-7)
[2019-10-18 17:41] LABS: Bacteria Urine 3+; RBC Urine 0-4 /hpf (0-2); WBC Urine 25-40 /hpf (0-5)
[2019-10-18 17:42] LABS: Add Urine Culture? Yes
--- NOTE | 2019-10-18 18:20 | P.HP_ITS ---
Providers/Chief Complaint Primary Care Provider: ANKIT Smith Chief Complaint: cancer pt n/v/d History of Present Illness Steven Arellano is a 64 year old male who reported to the emergency department today secondary to nausea, vomiting and diarrhea. He reports he did well yesterday, even [place] but this morning when a regular bowel movement he got nauseated and vomited multiple times. He denied any chest pain, shortness of breath. After vomiting for a while he noticed a little bit of pink tinge to his emesis. He also started having diarrhea and it had at least 6-8 episodes of this. There was no blood in his stool. He denies any history of chronic diarrhea and no recent antibiotics. He reports no fever. After arriving in the emergency department he has been receiving IV fluids, and feels much better. He reports his belly may have been tender at home but it is not tender currently. He denies any cough, headache, or shortness of breath. He reports no COVID exposure. He denies any difficulty with urination. No ill contacts with vomiting or diarrhea. Review of Systems General: Reports: 10 or more systems reviewed and unremarkable except in HPI and below Const: Denies: fever(s) or chills Eyes: Denies: change in vision ENMT: Denies: throat pain Card: Denies: chest pain Resp: Denies: dyspnea GI: Reports: nausea, vomiting and diarrhea : Denies: flank pain Musc: Denies: neck pain Skin/Breast: Denies: rash Neuro: Denies: headache(s) Psych: Denies: anxiety Endo: Denies: polyuria Jigar/Lymph: Denies: easy bruising All/Imm: Denies: urticaria Medications/Allergies Home Medications Medication Instructions Recorded Confirmed Last Taken Type aspirin 81 mg PO DAILY 10/18/19 10/18/19 10/18/19 History Allergies Allergy/AdvReac Type Severity Reaction Status Date / Time No Known Allergies Allergy Verified 08/24/19 09:54 PFSH Acute PFSH: Medical History (Updated 10/18/19 @ 18:27 by Stephen Mariscal MD) CAD (coronary artery disease) GERD (gastroesophageal reflux disease) Hyperlipidemia Ileus Metastatic colon cancer to liver Pancreatitis This suspected to be secondary to cancer related pancreatic duct obstruction. Immunotherapy could also play a role but felt unlikely. Surgical History H/O colectomy History of heart artery stent Family History Other Cancer Social History (Updated 10/18/19 @ 18:25 by Stephen Mariscal MD) Smoking and tobacco status: former smoker Alcohol intake: never Substance/Drug Use: never Vitals/I&O/Wt Last Vital Signs Temp 97.8 F 10/18/19 14:27 Pulse 125 H 10/18/19 14:27 Resp 18 10/18/19 14:27 BP 100/67 10/18/19 14:27 Pulse Ox 96 10/18/19 14:27 Weight last 48 hrs Weight 80.739 kg Physical Exam Narrative: EXAM NARRATIVE: General exam is no apparent distress, conversant and pleasant HEENT: Pupils equally round. Oropharynx clear. Neck is supple no lymphadenopathy or thyromegaly Cardiovascular regular rate and rhythm without murmur. Note that he was tachycardic upon admission but is not currently. Lungs are clear no wheezing or crackles Abdomen is soft nontender with positive bowel sounds. was deferred Extremities no cyanosis clubbing or edema Skin palm are peeling is noted which she reports was secondary to 1 of his chemotherapy medications which has been discontinued Neuro no obvious focal deficits Data : 10/18/19 15:40 10/18/19 15:40 Micro: Microbiology 10/18/19 17:51 Blood Culture - Preliminary Blood SPECIMEN COLLECTED 10/18/19 17:50 Blood Culture - Preliminary Blood SPECIMEN COLLECTED Other data: LFTs are abnormal but consistent with his previous levels with an AST of 56, ALT 65, alkaline phosphatase of 155 Troponin is pending Calcium elevated at 11.2 Urine demonstrates 25-40 whites, 0-4 reds EKG is pending Lipase is normal. A&P Assessment and plan (1) Vomiting: Unknown etiology. Could be viral, food related, secondary to renal failure. Currently he describes no nausea and is feeling better. Supportive care will be performed currently. After multiple episodes of vomiting he noticed some pink emesis. We will give Protonix 40 mg IV twice daily in case early Rossana-Patel tear is present or gastritis Secondary to associated nausea check troponin now as well is around 10 PM. He wants to avoid frequent blood draws. Await EKG. Status: Acute (2) Diarrhea: See notations above. Will check C. difficile, stool culture. He currently has no abdominal pain and no fever so we will hold off on any CT scan currently and manage supportively. Status: Acute (3) Acute renal failure: Continue hydration with IV fluids. Repeat renal function tomorrow. Check bladder scan to rule out any obstruction. Rocephin for possible UTI Status: Acute (4) Leukocytosis: Secondary to possible UTI versus demargination from illness Status: Acute (5) Hyperkalemia: He has received multiple treatments in the ER including calcium gluconate, and Kayexalate. Recheck BMP around 10 PM Status: Acute (6) Hypercalcemia: Suspect this is secondary to dehydration. Recheck after hydration. Status: Acute (7) UTI (urinary tract infection): Rocephin initiated. Await culture. Status: Acute (8) Transaminitis: Secondary to metastatic disease Status: Acute Additional A&P Information Metastatic colon cancer to the liver Coronary artery disease with history of coronary stenting several years ago Past history of hyperlipidemia Full code SCDs for DVT prophylaxis secondary to concern of blood with protracted vomiting. Attestations Medical Necessity Statement*: Will need less than 2 midnight stay for supportive treatment of nausea vomiting diarrhea. Time Spent in Patient Care: Greater than 35 minutes Coding Level of Care Code Acute Finisher Wallboard And Plasterboard for Chg Fwd Diagnoses Vomiting R11.10 Diarrhea R19.7 Acute renal failure N17.9 Leukocytosis D72.829 Hyperkalemia E87.5 Hypercalcemia E83.52 UTI (urinary tract infection) N39.0 Transaminitis R74.0
[2019-10-18] MEDS: cefTRIAXone 1,000 MG in sodium chloride 0.9% (plus) 50 ML 100 MG IV (18:48)
[2019-10-18 18:57] VITALS: BP 91/64; PULSE 78; RESP 14; O2SAT 98
[2019-10-18 19:03] VITALS: BP 90/62; PULSE 93; RESP 16; TEMP 36.8; O2SAT 96
[2019-10-18 19:12] LABS: Troponin T (5th) Once 39 ng/L (0-15)
[2019-10-18 19:18] LABS: Thyroid Stimulating Hormone 4.08 uIU/mL (0.27-4.20)
[2019-10-18] MEDS: sodium chloride 0.9% 1,000 ML 150 ML IV (19:28)
[2019-10-18] MEDS: pantoprazole 40 mg SDV IVP (19:28)
--- NOTE | 2019-10-18 22:42 | PC.NURSE ---
2201: Accessed patient port to left chest using sterile technique. Patient tolerated well.
[2019-10-18 22:46] LABS: Anion Gap 22.6 (5-19); Blood Urea Nitrogen 34 mg/dL (8-23); Calcium 9.6 mg/dL (8.5-10.5); Carbon Dioxide 18 mmol/L (22-29); Chloride 101 mmol/L (98-107); Glucose 130 mg/dL (65-115); Osmolality Calculated 281 mOsm/kg (285-295); Potassium 5.6 mmol/L (3.5-5.1); Sodium 136 mmol/L (136-145)
[2019-10-18 22:48] LABS: Troponin T (5th) Once 30 ng/L (0-15)
[2019-10-18 23:15] VITALS: BP 99/64; PULSE 75; RESP 18; TEMP 36.7; O2SAT 97
[2019-10-19] MEDS: sodium chloride 0.9% 1,000 ML 150 ML IV ×2 (02:11→08:21)
[2019-10-19 03:16] VITALS: BP 100/65; PULSE 76; RESP 16; TEMP 36.6; O2SAT 97
[2019-10-19 04:56] LABS: Basophils % 0.1 %; Eosinophils # 0.2 10^3/uL (0.0-0.8); Eosinophils % 1.3 %; Hematocrit 42.9 % (42.0-52.0); Hemoglobin 13.4 g/dL (11.7-16.6); Lymphocytes # 1.2 10^3/uL (0.8-4.8); Lymphocytes % 9.2 %; Mean Corpuscular HGB Conc 31.2 g/dL (30.0-36.0); Mean Corpuscular Volume 86.3 fL (80-94); Monocytes # 0.7 10^3/uL (0.2-0.9); Monocytes % 5.8 %; Neutrophils # 10.6 10^3/uL (1.8-7.7); Neutrophils % 83.4 %; Nucleated Red Blood Cells % 0 %; Platelet Count 206 10^3/cmm (130-400); Red Blood Count 4.97 10^6/uL (4.1-5.3); Red Cell Distribution Width 16.7 % (12.1-15.1); White Blood Count 12.7 10^3/uL (4.0-10.0)
[2019-10-19 05:28] LABS: Alanine Aminotransferase 208 U/L (0-41); Albumin Level 3.7 g/dL (3.5-5.2); Alkaline Phosphatase 101 IU/L (40-130); Anion Gap 18.9 (5-19); Aspartate Amino Transferase 212 U/L (0-40); Blood Urea Nitrogen 34 mg/dL (8-23); Calcium 8.7 mg/dL (8.5-10.5); Carbon Dioxide 19 mmol/L (22-29); Chloride 104 mmol/L (98-107); Globulin 2.9 g/dL (1.3-4.6); Glucose 110 mg/dL (65-115); Osmolality Calculated 284 mOsm/kg (285-295); Potassium 3.9 mmol/L (3.5-5.1); Sodium 138 mmol/L (136-145); Total Bilirubin 0.6 mg/dL (0.15-1.2); Total Protein 6.6 g/dL (6.6-8.7)
[2019-10-19 07:13] VITALS: BP 112/74; PULSE 77; RESP 18; TEMP 36.8; O2SAT 96
[2019-10-19] MEDS: pantoprazole 40 mg SDV IVP (08:15)
[2019-10-19] MEDS: aspirin 81 mg Chew Tablet PO (08:15)
--- NOTE | 2019-10-19 10:09 | PC.CHAP ---
Pastoral Care Encounter/Spiritual Assessment Type of Contact [] Declined statistical developer visit [] Patient/Family/Request visit [] Outpatient visit [] Follow-up visit [] Physician referral [] Code/Alert [x] Routine visit [] Staff referral [] Actively dying [] Patient sleeping [] Family support [] [] Out of room [] Palliative care [] [] Receiving care in room [] Pre-surgical visit [] Trauma [] Long length of stay [] ICU visit [] Other: Relational/Emotional Strength [] Patient feels connected with others/family/visitors/staff [] Distress [] Loneliness/isolation [] Abandonment Spirituality of Patient [] Person of Lillian [] Attends Presybeterian of their Lillian [] Believes in Prayer [] Reads Bible or Baptist materials [] There are Spiritual issues to be addressed Tripper Interventions [x] Prayer [x] Active listening [x] Non-anxious presence [x] Spiritual/emotional support [] Crisis/trauma care [] Spiritual counseling [] Bereavement support [] Provided bereavement packet [] Provided Bible/devotional materials [] Provided toy/stuffed animal, coloring book to patient or family member [] Provided Communion [] Anointing/[place] [] Salvation [x] Completed spiritual assessment [] Other: Impact on Illness or Injury [] Angry [] Fearful [] Anxious [] Often cries [] Exhaustion [] Unable to work [] Unable to attend baptism [] Unable to walk/stand [] Unable to read [] Unable to drive [] Unable to eat/drink [] Unable to sleep [] Unable to be with family [] Patient intubated [] Other: Summary Patient very quite,feeling better. Time spent with patient 5 min
--- NOTE | 2019-10-19 10:17 | PM.DCS ---
Discharge Providers Date of Admission: 10/18/19 17:41 Date of Discharge: October 19, 2019 Attending Provider at Admission: Stephen Mariscal MD Attending Provider at Discharge: Stephen Mariscal MD Primary Care Provider: ANKIT Smith Diagnoses at Discharge Discharge Diagnosis (1) Vomiting: Status: Acute Problem details: Resolved (2) Diarrhea: Status: Acute Problem details: Still present but not severe. C. difficile negative. No abdominal pain (3) Acute renal failure: Status: Acute Problem details: Resolving (4) Leukocytosis: Status: Acute Problem details: Resolving (5) Hyperkalemia: Status: Acute Problem details: Resolved (6) Hypercalcemia: Status: Acute Problem details: Resolved (7) UTI (urinary tract infection): Status: Acute Problem details: Discharge on 7 days of Levaquin (8) Transaminitis: Status: Acute Reason for Visit Reason for Visit: cancer pt n/v/d Hospital Course Hospital Course: Steven is a 64-year-old white male who presented to the hospital with vomiting and diarrhea. He has colon cancer for which she has been receiving Keytruda. Last dosing was 5 days prior to his acute illness. While in the emergency department he was initially tachycardic, hyperkalemic, with renal failure. He was hydrated overnight, and the following morning his renal function had drastically improved. Hypercalcemia and hyperkalemia had resolved. Stool was negative for C. difficile. Patient had no abdominal discomfort during the whole event so no CT scan was done. He had no further nausea or vomiting was able to take p.o. He still had some loose stool. Possible urinary tract infection was also identified on admission we will furnish 7 days of Levaquin as an outpatient. He will follow-up with his primary for visit and BMP in 3 to 5 days as well as his oncologist. I briefly discussed this case with his oncologist when the patient was admitted. I also added Protonix as after repetitive vomiting he saw slight pink tinge to his emesis. Physical Exam Narrative: EXAM NARRATIVE: General exam is no apparent distress Cardiovascular regular rate and rhythm without murmur Lungs clear Abdomen is soft, positive bowel sounds. Absolutely no tenderness. Extremities no cyanosis clubbing or edema Discharge Data Data Completed and Pending: Pending at discharge Category Date Time Status Blood Culture Sta t Lab 10/18/19 17:51 Results Clostridioides Di fficile PCR Routin e Lab 10/18/19 20:21 Results Enteric Bacterial Panel by PCR Rout ine Lab 10/18/19 20:21 Results Urine Culture Sta t Lab 10/18/19 17:08 Received Labs from last 24 hours 10/19/19 10/19/19 10/18/19 04:26 04:26 21:48 WBC 12.7 H RBC 4.97 Hgb 13.4 Hct 42.9 MCV 86.3 MCH 27.0 L MCHC 31.2 RDW 16.7 H Plt Count 206 MPV 11.0 H Neut % (Auto) 83.4 Lymph % (Auto) 9.2 [place] % (Auto) 5.8 Eos % (Auto) 1.3 Baso % (Auto) 0.1 Neut # (Auto) 10.6 H Lymph # (Auto) 1.2 [place] # (Auto) 0.7 Eos # (Auto) 0.2 Baso # (Auto) 0.0 Nucleated RBC % (a uto) 0 Nucleated RBCs # 0.0 Sodium 138 Potassium 3.9 Chloride 104 Carbon Dioxide 19 L Anion Gap 18.9 BUN 34 H Creatinine 1.4 H GFR Calculation 51.0 L Glucose 110 Calculated Osmolal ity 284 L Calcium 8.7 Total Bilirubin 0.6 AST 212 H ALT 208 H Alkaline Phosphata se 101 Troponin T Gen 5 n g/L 30 H Total Protein 6.6 D Albumin 3.7 Globulin 2.9 Lipase TSH Urine Color Urine Appearance Urine pH Ur Specific Gravit y Urine Protein Urine Glucose (UA) Urine Ketones Urine Blood Urine Nitrate Urine Bilirubin Urine Urobilinogen Ur Leukocyte Krystal ase Urine RBC Urine WBC Ur Squamous Epith Cells Urine Bacteria 10/18/19 10/18/19 10/18/19 21:48 18:22 18:22 WBC RBC Hgb Hct MCV MCH MCHC RDW Plt Count MPV Neut % (Auto) Lymph % (Auto) [place] % (Auto) Eos % (Auto) Baso % (Auto) Neut # (Auto) Lymph # (Auto) [place] # (Auto) Eos # (Auto) Baso # (Auto) Nucleated RBC % (a uto) Nucleated RBCs # Sodium 136 Potassium 5.6 H Chloride 101 Carbon Dioxide 18 L Anion Gap 22.6 H BUN 34 H Creatinine 2.1 H GFR Calculation 32.0 L Glucose 130 H Calculated Osmolal ity 281 L Calcium 9.6 Total Bilirubin AST ALT Alkaline Phosphata se Troponin T Gen 5 n g/L 39 H Total Protein Albumin Globulin Lipase TSH 4.08 Urine Color Urine Appearance Urine pH Ur Specific Gravit y Urine Protein Urine Glucose (UA) Urine Ketones Urine Blood Urine Nitrate Urine Bilirubin Urine Urobilinogen Ur Leukocyte Krystal ase Urine RBC Urine WBC Ur Squamous Epith Cells Urine Bacteria 10/18/19 10/18/19 10/18/19 17:08 15:40 15:40 WBC RBC Hgb Hct MCV MCH MCHC RDW Plt Count MPV Neut % (Auto) Lymph % (Auto) [place] % (Auto) Eos % (Auto) Baso % (Auto) Neut # (Auto) Lymph # (Auto) [place] # (Auto) Eos # (Auto) Baso # (Auto) Nucleated RBC % (a uto) Nucleated RBCs # Sodium 137 Potassium 5.8 H Chloride 101 Carbon Dioxide 17 L Anion Gap 24.8 H BUN 29 H Creatinine 2.3 H GFR Calculation 28.8 L Glucose 148 H Calculated Osmolal ity 284 L Calcium 11.2 H Total Bilirubin 0.6 AST 56 H ALT 65 H Alkaline Phosphata se 155 H Troponin T Gen 5 n g/L Total Protein 8.8 H Albumin 5.4 H Globulin 3.4 Lipase 57 TSH Urine Color Yellow Urine Appearance Cloudy Urine pH 5 Ur Specific Gravit y 1.020 Urine Protein 1+ H Urine Glucose (UA) Norm Urine Ketones Negative Urine Blood 2+ H Urine Nitrate Negative Urine Bilirubin Neg Urine Urobilinogen Norm Ur Leukocyte Krystal ase Trace H Urine RBC 0-4 H Urine WBC 25-40 H Ur Squamous Epith Cells 5-10 H Urine Bacteria 3+ H 10/18/19 15:40 WBC 21.1 H RBC 6.25 H Hgb 17.1 H Hct 54.3 H MCV 86.9 MCH 27.4 L MCHC 31.5 RDW 18.2 H Plt Count 248 MPV 12.2 H Neut % (Auto) 90.8 Lymph % (Auto) 2.8 [place] % (Auto) 5.4 Eos % (Auto) 0.2 Baso % (Auto) 0.2 Neut # (Auto) 19.2 H Lymph # (Auto) 0.6 L [place] # (Auto) 1.1 H Eos # (Auto) 0.0 Baso # (Auto) 0.1 Nucleated RBC % (a uto) 0 Nucleated RBCs # 0.0 Sodium Potassium Chloride Carbon Dioxide Anion Gap BUN Creatinine GFR Calculation Glucose Calculated Osmolal ity Calcium Total Bilirubin AST ALT Alkaline Phosphata se Troponin T Gen 5 n g/L Total Protein Albumin Globulin Lipase TSH Urine Color Urine Appearance Urine pH Ur Specific Gravit y Urine Protein Urine Glucose (UA) Urine Ketones Urine Blood Urine Nitrate Urine Bilirubin Urine Urobilinogen Ur Leukocyte Krystal ase Urine RBC Urine WBC Ur Squamous Epith Cells Urine Bacteria Vitals: Last Vital Signs Temp 98.3 F 10/19/19 07:13 Pulse 77 10/19/19 07:13 Resp 18 10/19/19 07:13 BP 112/74 10/19/19 07:13 Pulse Ox 96 10/19/19 07:13 Discharge Plan Discharge Patient Disposition: Home, Self-Care Condition: Stable Prescriptions: New levofloxacin [Levaquin] 500 mg tablet 500 mg PO DAILY 7 Days Qty: 7 RF: 0 pantoprazole [Protonix] 40 mg tablet,delayed release (DR/EC) 40 mg PO DAILY Qty: 30 RF: 0 Continued aspirin 81 mg Tablet,Chewable 81 mg PO DAILY RF: 0 Referrals: Shiloh Sparks FNP [Primary Care Provider] - 4-7 days (BMP on follow-up) George Rabago MD [Hospitalist] - 1 week Discharge Diet: Advance as tolerated Discharge Activity: Increase activity as tolerated Activity Restrictions/Additional Instructions: Encourage fluids BMP on follow-up with primary care provider Discharge Attestations Time Spent in Discharge Care*: greater than 30 min Quality Metrics Clinical Quality Measures During this hospital stay, did patient experience: None Coding Level of Care Code Acute Kit Planner for Chg Fwd Diagnoses Vomiting R11.10 Diarrhea R19.7 Acute renal failure N17.9 Leukocytosis D72.829 Hyperkalemia E87.5 Hypercalcemia E83.52 UTI (urinary tract infection) N39.0 Transaminitis R74.0
[2019-10-19 11:14] VITALS: BP 112/74; PULSE 77; RESP 18; TEMP 36.8; O2SAT 96
--- NOTE | 2019-10-19 11:56 | PC.NURSE ---
Discharge Note Discharge instructions given. Pt verbalized understanding. Left chest port flushed with NS and heparin and deaccessed, pressure dressing applied. Pt left in private vehicle with .
== END 2019-10-19 12:14 | disposition home or self-care (01) ==
LOC: ER 16:31 → MEDSURG 18:44
PROVIDERS: Family Medicine; Admitting Provider Internal Medicine; PCP Nurse Practitioner Family; Visit Provider Internal Medicine
DX: R11.10 Vomiting, unspecified (principal); R19.7 Diarrhea, unspecified; N17.9 Acute kidney failure, unspecified; D72.829 Elevated white blood cell count, unspecified; E87.5 Hyperkalemia; E83.52 Hypercalcemia; N39.0 Urinary tract infection, site not specified; R74.0 Nonspecific elevation of levels of transaminase and lactic acid dehydrogenase [LDH]; C18.9 Malignant neoplasm of colon, unspecified; C78.7 Secondary malignant neoplasm of liver and intrahepatic bile duct; I25.10 Atherosclerotic heart disease of native coronary artery without angina pectoris; Z95.5 Presence of coronary angioplasty implant and graft; E78.5 Hyperlipidemia, unspecified
CPT/HCPCS: 12345; 36415; 80048; 80053; 81001; 83690; 84443; 84484; 85025; 87040; 87086; 87493; 87506; 93005; 96361; 96365; 96375; 99283; 99285; C9113; G0378; J0610; J0696; J1642; J2405; J7030

== ENCOUNTER 2019-10-31 09:26 | Outpatient (CLI) | payer SELFPAY ==
--- NOTE | 2019-10-31 09:30 | CT_ITS ---
WS: [id number] CT CHEST, ABDOMEN, AND PELVIS TECHNIQUE: Contrast-enhanced CT of the chest, abdomen, and pelvis with coronal and sagittal reformatt ed images. CLINICAL INFORMATION: COLON CANCER AND LUNG NODULES COMPARISON: PET CT August 01, 2019 MRI June 01, 2019 CT May 27, 2019, prior PET/CT February and . CT chest abdomen pelvis and DLP: 2236.[address] scans at [facility] use at least one of these dose optimization techniques: automat ed exposure control; mA and/or kV adjustment per patient size (includes targeted exams where dose is matched to clinical indication); or iterative reconstruction. CT CHEST: Mild chronic emphysematous changes with hyperinflation. Calcified granulomas. Stable nodule measuring 4 mm along the left fissure. Mediastinal and hilar lymphadenopathy is similar to previous. Largest l ymph nodes measure 10 to 12 mm unchanged. No pericardial effusion. No pleural effusions. Subsegmental left thyroid nodule is unchanged. CT ABDOMEN AND PELVIS: Multiple heterogeneously enhancing low-attenuation hepatic metastasis similar to recent PET/CT. Large st lesion in the left lobe of the liver measures 8.1 x 6.1 cm today. Considering differences in techn ique and lack of IV contrast in the prior PET/CT, lesions are similar in size and distribution. Clara l veins and splenic vein appear patent. Pancreatic head appears normal. Pancreas appears normal. Gallbladder is contracted. Splenic granulomas. Normal renal parenchymal enhancement. Adrenal glands are normal. No hydronephrosis. Mild aortic calcification. No visualized abdominal or pelvic lymphadenopathy. Mild prostate enlargement. Normal bladder. No bony metastatic lesions. CT/CT chest abd pel w con* IMPRESSION: 1. No evidence of progressed metastatic disease in the chest. 2. Stable 4 mm nodule along the left fissure unchanged since 2018. 3. Stable mediastinal and hilar lymphadenopathy similar to the prior examinati ons. 4. Multiple hepatic metastasis appear stable since the recent PET/CT the large st in the left hepatic lobe described above. 5. No abdominal or pelvic lymphadenopathy.
[2019-10-31] MEDS: iohexol 300 mg/mL 50 mL Btl PO (10:18)
[2019-10-31] MEDS: iodixanol 320 mg/mL 100mL Btl IV (11:25)
[2019-10-31 12:35] LABS: Basophils % 0.2 %; Eosinophils # 0.8 10^3/uL (0.0-0.8); Eosinophils % 9.3 %; Hematocrit 42.4 % (42.0-52.0); Hemoglobin 13.1 g/dL (11.7-16.6); Lymphocytes # 1.8 10^3/uL (0.8-4.8); Lymphocytes % 21.8 %; Mean Corpuscular HGB Conc 30.9 g/dL (30.0-36.0); Mean Corpuscular Hemoglobin 26.8 pg (28.0-34.0); Mean Corpuscular Volume 86.9 fL (80-94); Mean Platelet Volume 10.8 fL (7.4-10.4); Monocytes # 0.7 10^3/uL (0.2-0.9); Monocytes % 8.8 %; Neutrophils # 4.8 10^3/uL (1.8-7.7); Neutrophils % 59.5 %; Nucleated Red Blood Cells % 0 %; Platelet Count 255 10^3/cmm (130-400); Red Blood Count 4.88 10^6/uL (4.1-5.3); Red Cell Distribution Width 16.6 % (12.1-15.1); White Blood Count 8.1 10^3/uL (4.0-10.0)
[2019-10-31 13:23] LABS: Carcinoembryonic Antigen 179.8 ng/mL (0.0-4.7); Thyroid Stimulating Hormone 2.72 uIU/mL (0.27-4.20)
[2019-10-31 13:24] LABS: Cancer Antigen 19 9 236.4 U/mL (0-35)
[2019-10-31 13:34] LABS: 25 Hydroxy Vitamin D 25 ng/mL (30-100)
[2019-10-31 13:45] LABS: Alanine Aminotransferase 65 U/L (0-41); Alkaline Phosphatase 122 IU/L (40-130); Anion Gap 18.2 (5-19); Aspartate Amino Transferase 53 U/L (0-40); Blood Urea Nitrogen 11 mg/dL (8-23); Calcium 9.5 mg/dL (8.5-10.5); Carbon Dioxide 23 mmol/L (22-29); Chloride 100 mmol/L (98-107); Ferritin 156 ng/mL (30-400); Gamma Glutamyl Transferase 212 U/L (8-61); Glomerular Filtration Rate 113.5 mL/min (90-130); Glucose 93 mg/dL (65-115); Lactate Dehydrogenase 319 U/L (135-225); Osmolality Calculated 280 mOsm/kg (285-295); Potassium 4.2 mmol/L (3.5-5.1); Sodium 137 mmol/L (136-145); Total Bilirubin 0.3 mg/dL (0.15-1.2)
[2019-10-31 14:07] LABS: Erythrocyte Sedimentation Rate 25 mm/hr (0-10)
[2019-10-31 14:13] LABS: Free T4 Free Thyroxine 1.04 ng/dL (0.82-1.77); T3 Free 3.5 PG/ML (2.0-4.4)
[2019-10-31 14:14] LABS: Testosterone Total 777.4 ng/dL (193-740)
== END 2019-10-31 09:27 | disposition home or self-care (01) ==
LOC: RADWPI 09:28 → ONCMED 11:56
PROVIDERS: Internal Medicine Medical Oncology; PCP Nurse Practitioner Family; Visit Provider Nurse Practitioner
DX: C18.4 Malignant neoplasm of transverse colon (principal); C78.7 Secondary malignant neoplasm of liver and intrahepatic bile duct; E78.5 Hyperlipidemia, unspecified; I25.10 Atherosclerotic heart disease of native coronary artery without angina pectoris
CPT/HCPCS: 36415; 71260; 74177; 80053; 82306; 82378; 82728; 82977; 83615; 84402; 84403; 84439; 84443; 84481; 85025; 85651; 86141; 86301; Q9967

== ENCOUNTER 2019-10-31 14:13 | Outpatient (CLI) | payer SELFPAY ==
--- NOTE | 2019-10-31 14:17 | US_ITS ---
WS: [id number] THYROID ULTRASOUND HISTORY: MALIGNANT NEOPLASM OF TRANSVERSE COLON/THYROID NODULE COMPARISON: 11/03/2018 Right lobe: 5.3 cm x 1.2 cm x 1.6 cm. Volume: 5.2 cm3. Normal size and echotexture. No significant are dominant nodules are present. Left lobe: 5.2 cm x 2.0 cm x 2.1 cm. Volume: 11.2 cm3. Dominant mid LEFT thyroid nodule with increased vascularity. There is a hypoechoic rim. There are a f ew cystic areas within the LEFT lobe. Nodule measures 2.5 x 1.5 x 1.8 cm without increase in size. Th ere are additional smaller hypoechoic nodules which may be colloid cyst in the superior gland. Larges t diameter of 3 mm. Isthmus: 0.5 cm. US/US thyroid [id number] IMPRESSION: 1. Dominant LEFT thyroid nodule measures 2.5 x 1.5 x 1.8 cm. Prior PET CTs dem onstrate long-term stability with no evidence for increased metabolic activity. 2. Negative RIGHT thyroid.
== END 2019-10-31 14:14 | disposition home or self-care (01) ==
LOC: RAD 14:15
PROVIDERS: PCP Nurse Practitioner Family; Visit Provider Internal Medicine Medical Oncology
DX: C18.4 Malignant neoplasm of transverse colon (principal); E04.1 Nontoxic single thyroid nodule
CPT/HCPCS: 76536

== ENCOUNTER 2019-11-03 09:33 | Outpatient (CLI) | payer SELFPAY ==
--- NOTE | 2019-11-05 14:46 | ONC FU_ITS ---
Dr. Rabago Patient Follow-Up Note Patient: Steven Arellano Unit #: [id number]: 1955 Dicatated By: George Rabago M.D.Date of Visit:Nov 03, 2019 Onc Med Follow-up/Prog Note Chief Complaint: Colon cancer. 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 In February 2018 he was referred to Dr. Jya with a one-month history of hematochezia. His colonoscopy showed a mass in the transverse colon. Biopsy showed tubular adenoma with high-grade dysplasia, but the mass did appear malignant. Other findings were limited to an inflammatory type polyp in the proximal descending colon and hyperplastic polyps in the rectum. CT of the abdomen and pelvis showed circumferential thickening in the distal transverse colon proximal to the splenic flexure, suspicious for neoplasm. There were multiple low-attenuation lesions noted in the liver, the largest in the left hepatic lobe measuring 3.2 cm. An additional prominent lesion near the dome measured 2.8 cm. There were numerous low-attenuation circumferential lesions in the right hepatic lobe measuring 1-2 cm. The findings were consistent with metastatic disease. On 03/25/2018 he underwent exploratory laparotomy with partial transverse colectomy and biopsy of a right hepatic lobe lesion. Pathology showed grade 1-2/4 infiltrating adenocarcinoma measuring 3.0 x 2.7 cm. There was penetration through the muscularis propria into serosal connective tissues. There was involvement in one of 12 mesenteric lymph nodes. The liver biopsy showed metastatic adenocarcinoma. I had seen him initially on 04/13/2018. We had discussed the possibility of a trial of palliative chemotherapy with a FOLFOX-based regimen. He subsequently underwent evaluation at [facility] in [facility]. His evaluation there included a next generation sequencing study by liquid biopsy. 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 The KRAS, NRAS, and BRAF mutations were not detected. A trial of palliative chemotherapy was again recommended. Instead, he sought treatment through [facility] in [facility]. Based on their in vitro studies, he apparently then began initial course of chemotherapy with cyclophosphamide, epirubicin, and irinotecan dosed at 2-week intervals for 8 weeks. He also was administered a variety of vitamin and herbal supplements. On 06/11/2018 he underwent a chemoembolization procedure with Quadraspheres loaded with epirubicin. He received a dosage of 60 mg to the right hepatic lobe and 50 mg to the left hepatic lobe. In June he began treatment with pembrolizumab 200 mg by IV infusion every 3 weeks together with cetuximab 500 mg by IV infusion weekly. Thus far he has received only 2 infusions of cetuximab, which he completed with only minimal reaction. He received his most recent infusion of pembrolizumab on 08/27/2018. In addition, from 08/03/2018 through 08/05/2018 he underwent AAIT therapy in [place]. His follow-up laboratory studies have shown decline in the CEA level from 178.6 ng/mL on 05/07/2018 to 60.9 ng/mL on 07/26/2018. His restaging PET/CT on 07/28/2018 showed interval significant response to treatment with resolution of multiple foci of increased metabolic activity in the liver. His other medical illnesses have been limited to coronary artery disease and dyslipidemia. He had suffered an inferior wall myocardial infarction in February 2017, at which time he underwent angioplasty with stent placement of the right coronary artery. He had no further cardiac problems. He has had no other prior medical illnesses. He had smoked cigars in the past, but only for a few years. He had chewed tobacco for 20 years, but he quit at least 15 years ago. He does not drink alcohol. His family history is significant in that his mother and a brother have also been treated for colon cancer. INTERIM HISTORY: On 08/27/2018 he restarted treatment with pembrolizumab 200 mg IV every 3 weeks together with cetuximab 500 mg IV weekly. He returned here on 08/30/2018 so that he could continue his pembrolizumab and cetuximab infusions closer to home. He had experienced no adverse effects with the initial infusions, and he continued with his day 8 and day 15 cetuximab infusions, also with no adverse effects. His repeat CEA level on 09/08/2018 was down to 9.1 ng/mL compared to 60.9 ng/mL on 07/26/2018. During subsequent follow-up his CEA level continued to decline. As of 12/06/2018 it had stabilized at 1.0 ng/mL. Restaging CT scans of the chest, abdomen, and pelvis on 12/15/2018 showed no evidence of metastatic disease the lungs. A 4 mm left perifussural nodule appeared stable. Numerous hepatic metastatic lesions appeared stable compared to the PET/CT from 10/23/2018. The largest in the left hepatic lobe measured 2.7 x 3.8 cmwith those findings he continued treatment with cetuximab in combination with pembrolizumab. Restaging PET/CT on 02/05/2019 showed improved bilateral hilar lymph nodes compared to the prior PET/CT studies. Multiple hepatic lesions appeared to have resolved, but with unchanged left and right hepatic dome lesions. Overall the findings were consistent with a positive metabolic response. He continued treatment with cetuximab in combination with pembrolizumab. As of 03/23/2019 he began his 11th cycle of treatment. At that point there was a significant increase in the CEA level, 13.9 ng/mL compared to 10.7 ng/mL on 03/02/2019 and to 3.9 ng/mL on 01/17/2019. With that increase and with evidence of residual hepatic involvement in the liver by PET/CT, he yañez a repeat TACE procedure in March. He was then seen for a follow-up visit on 04/13/2019. At that point he continued treatment with pembrolizumab in combination with cetuximab. A restaging PET/CT on 05/07/2019 reported worsening of hepatic metastatic disease with a central left hepatic lobe lesion measuring 3.6 x 6.7 with SUV 7.2. A lesion in the medial left hepatic lobe showed increased SUV to 4.5. Other subcentimeter lesions appeared unchanged. Also noted was new enlargement of the head of the pancreas with mild FDG uptake, possibly representing pancreatitis. On 05/27/2019 he was admitted to the hospital with a presumptive diagnosis of acute pancreatitis, having presented to the emergency room with nausea/vomiting in association with a dull achy pain in the epigastric area. His serum lipase was elevated at 683 U/L. CT abdomen/pelvis showed increase in the size of the head of the pancreas with numerous low-density lesions, possibly representing acute pancreatitis. Multiple low-density lesions in the liver were noted to have increased in size and number, consistent with worsening metastatic disease. There appeared to be acute gastric retention. Fluid within the small bowel was suggestive of a severe ileus. His symptoms improved with supportive treatment measures. He was discharged home on 05/29/2019. He had further evaluation with MRI of the abdomen at [facility] on 06/01/2019. It showed multiple lesions throughout the bilateral lobes of the liver consistent with hepatic metastases. An additional lesion within the left lobe of the liver appeared to be consistent with a cavernous hemangioma. A mixed cystic and solid mass was noted within the head and uncinate process of the pancreas measuring 3.2 x 4.5 cm. It had indeterminate features by MRI, possibly representing a primary pancreatic neoplasm versus metastatic lesion. We had then made arrangements for an EUS procedure, but he opted instead to return to [place] for a biopsy. When he arrived there, he was told that a would not be able to do the biopsy, so he returned home and he requested a follow-up visit here. In the meantime, his recent studies done through [employer] had included a K-sheila mutation analysis, which detected a G12C KRAS mutation. With that finding, he was recommended to stop treatment with cetuximab. He continued treatment here with pembrolizumab at the standard dosage of 200 mg by IV infusion every 3 weeks. He then had further liver directed therapy in [place] on 08/03/2019. He also had restaging PET/CT which showed multiple FDG avid liver lesions showing significant interval increase in extent and metabolic activity. New FDG avid lesions were compatible with progression of metastatic malignancy. A left upper lobe pulmonary nodule had increased from 0.3 to 0.5 cm, but with no associated FDG activity. At that time he also started treatment with regorafenib at 160 mg daily. At his follow-up visit on 09/02/2019 he reported significant side effects with the regorafenib, and he had stopped taking it. His symptoms were improving, and he was instructed to restart it at a reduced dosage. At his follow-up visit on 10/13/2019 he was again having significant side effects with the regorafenib, but at that time he was back on the full dosage of 160 mg daily. At that point he continued with cycle 17 of pembrolizumab. The regorafenib was put on hold. Restaging CT scans of the chest, abdomen, and pelvis on 10/31/2019 showed stable 4 mm pulmonary nodule along the left fissure. Mediastinal and hilar lymphadenopathy with similar to prior studies. Multiple heterogeneously enhancing low-attenuation hepatic metastatic lesions also appeared similar to the recent PET/CT. The largest lesion was in the left lobe of the liver measuring 8.1 x 6.1 cm. The pancreatic head appeared normal. He is seen for a follow-up visit. He has been feeling fine. He has good energy and he has normal activity. ECOG score 0. His appetite is good. He has gained weight. He has no fever or night sweats. He has a little bit of cough in the mornings. He has no shortness of breath or chest pain. He has no GI complaints. He has urinary frequency and nocturia, but he does drink a lot of water. He has had pain in his little toes, first the left and now more recently on the right. He has no other joint or bone pain. He does have occasional electric pain shooting up his left leg from his foot to the knee. He has no other focal neurologic symptoms. Medications: Cholecalciferol 1 Capsule (of 100 mcg ) Oral daily, Keytruda Intravenous, Multivitamin Adults 1 Tablet Oral daily, Nitroglycerin 1 (0.4 mg) Tablet, sublingual Sublingual PRN Allergies: No Known Allergies. Review of Systems: Constitutional - He is feeling fine. He has good energy and he has normal activity. Appetite is good and weight is stable. No fever, night sweats, or hot flashes. ECOG score is 0, ENMT - No sinus congestion/drainage. No mouth sores. No sore throat or difficulty swallowing, Hematologic/Lymphatic - No abnormal bruising or bleeding, Respiratory - He has no shortness of breath. He has some cough in the mornings. No pleuritic pain or hemoptysis, Cardiovascular - No angina pain. No palpitations, Gastrointestinal - No nausea or vomiting. No heartburn or acid reflux. No diarrhea or constipation. No blood in the stool or black stools, Genitourinary (M) - No dysuria or hematuria. He has some urinary frequency and nocturia. No urgency or incontinence, Musculoskeletal - He has been having some pain in his little toes. He has no other joint or bone pain, Integumentary - No skin rash, Neurologic - No headache or dizziness. He occasional electric pain going from his left foot up to his knee. He has no numbness or tingling, and he has no other focal neurologic symptoms, Psychiatric - No anxiety or depression. No insomnia. Vital Signs: Performed on Nov 03, 2019 09:58 Height - 70.00 in Weight - 187.4 lbs (HIGH) BSA - 2.03 sq.m BMI - 26.89 Temperature - 98.9 F (HIGH) Pulse - 72 /min Respiration - 20 /min BP - 129/66 mm(hg) O2 Sat - 99 % Pain - 0 Physical Examination: Constitutional - He looks pretty good generally, Eyes - Sclerae nonicteric. Conjunctivae clear, ENMT - No lesions noted in the oral cavity, Hematologic/Lymphatic - No cervical, clavicular, or axillary adenopathy, Respiratory - Lungs are clear with good air movement bilaterally, Cardiovascular - Heart rhythm is regular. There is no murmur, gallop, or rub noted, Abdomen - Soft and nontender. Liver and spleen are not enlarged. There is no abdominal mass or ascites noted and there is no inguinal adenopathy, Extremities - No edema, Integumentary - The skin changes on his hands and feet have resolved, Neurologic - No focal neurologic deficits noted. Lab/Imaging: CBC shows hemoglobin 13.1 g, white blood cell count 8100, and platelet count 255,000. Comprehensive metabolic profile shows normal renal function with BUN 11 and creatinine 0.7 mg/dL. The liver enzymes are just mildly elevated with SGOT 53/40 U/L and SGPT 65/41 U/L. The alkaline phosphatase is normal at 122 IU/L and the bilirubin is normal at 0.3 mg/dL. The CEA level has further increased to 179 ng/mL and the CA-19-9 has further increased to 236 U/mL. Impression: 1. 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 An extended K-sheila mutation analysis and MMR testing are in progress at this time. 2. He underwent exploratory laparotomy with partial transverse colectomy and liver biopsy on 03/25/2018. His other medical illnesses include: 3. Dyslipidemia. 4. Coronary artery disease with previous myocardial infarction and angioplasty/stent placement. 5. He has a significant family history of colon cancer. While in his initial visit here [facility] and his next generation sequencing study did confirm that he had a wild-type KRAS mutation status. He then sought treatment through the [facility] in [facility]. Based on their and philipp studies he apparently began initial chemotherapy with cyclophosphamide, epirubicin, and irinotecan dosed every 2 weeks. On 06/11/2017 he underwent chemoembolization to both hepatic lobes utilizing Quadraspheres loaded with epirubicin. In June he began further treatment with pembrolizumab 200 mg by IV infusion every 3 weeks together with cetuximab 500 mg by IV infusion weekly. His follow-up laboratory studies had shown decline in the CEA level from 178.6 ng/mL on 05/07/2018 to 60.9 ng/mL on 07/26/2018. His restaging PET/CT on 07/28/2018 showed interval significant response to treatment with resolution of multiple foci of increased metabolic activity in the liver. He resumed the pembrolizumab/cetuximab infusions on 08/27/2018. He tolerated the treatment with no significant toxicity. He returned for day 8 and day 15 cetuximab infusions, which he also tolerated well. As of 09/08/2018 there was further decrease in the CEA level to 9.1 ng/mL. His restaging CT abdomen/pelvis did show residual metastatic lesions in the liver. During subsequent follow-up there was further decline in the CEA level. As of 12/06/2018 it had stabilized at 1.0 ng/mL. His restaging CT scans on 12/15/2018 showed numerous hepatic metastatic lesions, the largest in the left hepatic lobe measuring 2.7 x 3.8 cm. They appeared stable compared to the PET/CT from 10/23/2018. He has been showing gradual gradual worsening of his skin eruption, but he is not symptomatic with it, and he has otherwise been tolerating treatment well. Overall he has been feeling better generally. He has had a good response to his treatment, though he did have residual disease in the liver by CT scan. He then continued treatment with cetuximab in combination with pembrolizumab. His restaging PET/CT on 02/05/2019 showed evidence of positive metabolic response, though with residual involvement in the liver. During subsequent follow-up there was a continued increase in his CEA level, consistent with disease progression, and in conjunction with the PET/CT findings, he underwent a repeat TACE procedure in March. At his follow-up visit here on 04/13/2019 he continued treatment with pembrolizumab and cetuximab. A restaging PET/CT on 05/07/2019 reported worsening of hepatic metastatic disease with a central left hepatic lobe lesion measuring 3.6 x 6.7 with SUV 7.2. A lesion in the medial left hepatic lobe showed increased SUV to 4.5. Other subcentimeter lesions appeared unchanged. Also noted was new enlargement of the head of the pancreas with mild FDG uptake, possibly representing pancreatitis. On 05/27/2019 he was admitted to the hospital with acute pancreatitis. His CT abdomen/pelvis showed increase in size of the head of the pancreas. Further evaluation with MRI of the abdomen at [facility] on 06/01/2019 showed a mixed cystic and solid mass within the head and uncinate process of the pancreas measuring 3.2 x 4.5 cm. As yet he has not had any further evaluation. He has had improvement in his abdominal pain and other GI symptoms. His current laboratory studies show a significant increase in the CEA level, now to 50.8 ng/mL. The CA-19-9 level is also elevated at 108.0 U/mL. In the meantime, a KRAS mutation analysis which was done through [employer] reported the presence of a KRAS G12C mutation. With that finding, he was advised to stop the cetuximab. He continued treatment with pembrolizumab 200 mg by IV infusion every 3 weeks. He then had further liver directed therapy in [place] on 08/03/2019. His restaging PET/CT did show evidence of disease progression in the liver. A left upper lobe pulmonary nodule had increased from 0.3 to 0.5 cm, but with no associated FDG activity. At that time he also started treatment with regorafenib at 160 mg daily. He developed significant side effects with the regorafenib, including vomiting, diarrhea, and fatigue. Those symptoms improved, and he subsequently restarted it at a reduced dosage. As of his follow-up visit on 10/12/2022 regular after he had was again put on hold due to his severe skin eruption in his hands and feet. At the time he had escalated back up to the full dosage. He has had gradual resolution of the skin eruption. During this time there has been a consistent but gradual increase in the CEA level. His repeat CT scan on 10/31/2019, though, showed no obvious progression of metastatic involvement in the liver. The pancreatic head appeared normal. Plan: He will continue with cycle 18 of pembrolizumab 200 mg by IV infusion. He will restart regorafenib 80 mg daily on a 21/28-day schedule. He will increase to 120 mg daily if he is able to tolerate it without significant toxicity. He returns in 3 weeks. Signed By: George Rabago M.D. <<Signature on File>>
== END 2019-11-03 09:34 | disposition home or self-care (01) ==
PROVIDERS: PCP Nurse Practitioner Family; Visit Provider Internal Medicine Medical Oncology
DX: Z51.12 Encounter for antineoplastic immunotherapy (principal); C18.4 Malignant neoplasm of transverse colon; C78.7 Secondary malignant neoplasm of liver and intrahepatic bile duct; I25.10 Atherosclerotic heart disease of native coronary artery without angina pectoris; E78.5 Hyperlipidemia, unspecified; Z86.010 Personal history of colon polyps; Z79.899 Other long term (current) drug therapy
CPT/HCPCS: 96413; 99214; J7050; J9271

== ENCOUNTER → 2019-11-23 08:47 | Outpatient (BNVA) | payer SELFPAY | PROVIDERS: PCP Nurse Practitioner Family; Visit Provider Internal Medicine Medical Oncology | DX: C18.9 Malignant neoplasm of colon, unspecified (principal); C78.7 Secondary malignant neoplasm of liver and intrahepatic bile duct | CPT/HCPCS: 80053; 82378; 85007; 85027; 86301 ==

== ENCOUNTER 2019-11-24 11:05 | Outpatient (CLI) | payer SELFPAY ==
--- NOTE | 2019-11-30 12:07 | ONC FU_ITS ---
Steven Amador Patient Note Patient: Steven Arellano Unit #: [id number]: 1955 Dictated By: Efrain McintoshDate of Visit: Nov 24, 2019 Onc MED Follow-Up/Prog Note Chief Complaint: Colon cancer. 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 In February 2018 he was referred to Dr. Jay with a one-month history of hematochezia. His colonoscopy showed a mass in the transverse colon. Biopsy showed tubular adenoma with high-grade dysplasia, but the mass did appear malignant. Other findings were limited to an inflammatory type polyp in the proximal descending colon and hyperplastic polyps in the rectum. CT of the abdomen and pelvis showed circumferential thickening in the distal transverse colon proximal to the splenic flexure, suspicious for neoplasm. There were multiple low-attenuation lesions noted in the liver, the largest in the left hepatic lobe measuring 3.2 cm. An additional prominent lesion near the dome measured 2.8 cm. There were numerous low-attenuation circumferential lesions in the right hepatic lobe measuring 1-2 cm. The findings were consistent with metastatic disease. On 03/25/2018 he underwent exploratory laparotomy with partial transverse colectomy and biopsy of a right hepatic lobe lesion. Pathology showed grade 1-2/4 infiltrating adenocarcinoma measuring 3.0 x 2.7 cm. There was penetration through the muscularis propria into serosal connective tissues. There was involvement in one of 12 mesenteric lymph nodes. The liver biopsy showed metastatic adenocarcinoma. Dr Rabago had seen him initially on 04/13/2018. He had discussed the possibility of a trial of palliative chemotherapy with a FOLFOX-based regimen. Mr Arellano subsequently underwent evaluation at [facility] in [facility]. His evaluation there included a next generation sequencing study by liquid biopsy. 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 The KRAS, NRAS, and BRAF mutations were not detected. A trial of palliative chemotherapy was again recommended. Instead, he sought treatment through [facility] in [facility] ([place] Based on their in vitro studies, he apparently then began initial course of chemotherapy with cyclophosphamide, epirubicin, and irinotecan dosed at 2-week intervals for 8 weeks. He also was administered a variety of vitamin and herbal supplements. On 06/11/2018 he underwent a chemoembolization procedure with Quadraspheres loaded with epirubicin. He received a dosage of 60 mg to the right hepatic lobe and 50 mg to the left hepatic lobe. In June 2018 he began treatment with pembrolizumab 200 mg by IV infusion every 3 weeks together with cetuximab 500 mg by IV infusion weekly. In addition, from 08/03/2018 through 08/05/2018 he underwent AAIT therapy in [place]. His follow-up laboratory studies were showing a decline in the CEA level from 178.6 ng/mL on 05/07/2018 to 60.9 ng/mL on 07/26/2018. His restaging PET/CT on 07/28/2018 showed interval significant response to treatment with resolution of multiple foci of increased metabolic activity in the liver. His other medical illnesses have been limited to coronary artery disease and dyslipidemia. He had suffered an inferior wall myocardial infarction in February 2017, at which time he underwent angioplasty with stent placement of the right coronary artery. He had no further cardiac problems. He has had no other prior medical illnesses. He had smoked cigars in the past, but only for a few years. He had chewed tobacco for 20 years, but he quit at least 15 years ago. He does not drink alcohol. His family history is significant in that his mother and a brother have also been treated for colon cancer. INTERIM HISTORY: On 08/27/2018 he restarted treatment with pembrolizumab 200 mg IV every 3 weeks together with cetuximab 500 mg IV weekly. He returned here on 08/30/2018 so that he could continue his pembrolizumab and cetuximab infusions closer to home. He had experienced no adverse effects with the initial infusions, and he continued with his day 8 and day 15 cetuximab infusions, also with no adverse effects. His repeat CEA level on 09/08/2018 was down to 9.1 ng/mL compared to 60.9 ng/mL on 07/26/2018. During subsequent follow-up his CEA level continued to decline. As of 12/06/2018 it had stabilized at 1.0 ng/mL. Restaging CT scans of the chest, abdomen, and pelvis on 12/15/2018 showed no evidence of metastatic disease the lungs. A 4 mm left perifussural nodule appeared stable. Numerous hepatic metastatic lesions appeared stable compared to the PET/CT from 10/23/2018. The largest in the left hepatic lobe measured 2.7 x 3.8 cmwith those findings he continued treatment with cetuximab in combination with pembrolizumab. Restaging PET/CT on 02/05/2019 showed improved bilateral hilar lymph nodes compared to the prior PET/CT studies. Multiple hepatic lesions appeared to have resolved, but with unchanged left and right hepatic dome lesions. Overall the findings were consistent with a positive metabolic response. He continued treatment with cetuximab in combination with pembrolizumab. As of 03/23/2019 he began his 11th cycle of treatment. At that point there was a significant increase in the CEA level, 13.9 ng/mL compared to 10.7 ng/mL on 03/02/2019 and to 3.9 ng/mL on 01/17/2019. With that increase and with evidence of residual hepatic involvement in the liver by PET/CT, he yañez a repeat TACE procedure in March 2019. He was then seen for a follow-up visit on 04/13/2019. At that point he continued treatment with pembrolizumab in combination with cetuximab. A restaging PET/CT on 05/07/2019 reported worsening of hepatic metastatic disease with a central left hepatic lobe lesion measuring 3.6 x 6.7 with SUV 7.2. A lesion in the medial left hepatic lobe showed increased SUV to 4.5. Other subcentimeter lesions appeared unchanged. Also noted was new enlargement of the head of the pancreas with mild FDG uptake, possibly representing pancreatitis. On 05/27/2019 he was admitted to the hospital with a presumptive diagnosis of acute pancreatitis, having presented to the emergency room with nausea/vomiting in association with a dull achy pain in the epigastric area. His serum lipase was elevated at 683 U/L. CT abdomen/pelvis showed increase in the size of the head of the pancreas with numerous low-density lesions, possibly representing acute pancreatitis. Multiple low-density lesions in the liver were noted to have increased in size and number, consistent with worsening metastatic disease. There appeared to be acute gastric retention. Fluid within the small bowel was suggestive of a severe ileus. His symptoms improved with supportive treatment measures. He was discharged home on 05/29/2019. He had further evaluation with MRI of the abdomen at [facility] on 06/01/2019. It showed multiple lesions throughout the bilateral lobes of the liver consistent with hepatic metastases. An additional lesion within the left lobe of the liver appeared to be consistent with a cavernous hemangioma. A mixed cystic and solid mass was noted within the head and uncinate process of the pancreas measuring 3.2 x 4.5 cm. It had indeterminate features by MRI, possibly representing a primary pancreatic neoplasm versus metastatic lesion. We had then made arrangements for an EUS procedure, but he opted instead to return to [place] for a biopsy. When he arrived there, he was told that a would not be able to do the biopsy, so he returned home and he requested a follow-up visit here. In the meantime, his recent studies done through [facility] had included a K-sheila mutation analysis, which detected a G12C KRAS mutation. With that finding, he was recommended to stop treatment with cetuximab. He continued treatment here with pembrolizumab at the standard dosage of 200 mg by IV infusion every 3 weeks. He then had further liver directed therapy in [place] on 08/03/2019. He also had restaging PET/CT which showed multiple FDG avid liver lesions showing significant interval increase in extent and metabolic activity. New FDG avid lesions were compatible with progression of metastatic malignancy. A left upper lobe pulmonary nodule had increased from 0.3 to 0.5 cm, but with no associated FDG activity. At that time he also started treatment with regorafenib at 160 mg daily. At his follow-up visit on 09/02/2019 he reported significant side effects with the regorafenib, and he had stopped taking it. His symptoms were improving, and he was instructed to restart it at a reduced dosage. At his follow-up visit on 10/13/2019 he was again having significant side effects with the regorafenib, but at that time he was back on the full dosage of 160 mg daily. At that point he continued with cycle 17 of pembrolizumab. The regorafenib was put on hold. Restaging CT scans of the chest, abdomen, and pelvis on 10/31/2019 showed stable 4 mm pulmonary nodule along the left fissure. Mediastinal and hilar lymphadenopathy with similar to prior studies. Multiple heterogeneously enhancing low-attenuation hepatic metastatic lesions also appeared similar to the recent PET/CT. The largest lesion was in the left lobe of the liver measuring 8.1 x 6.1 cm. The pancreatic head appeared normal. Mr Arellano returned to [place] for further assessment and followup. Obtained in [place] on November 14, 2019, a followup PET/CT reported left liver lobe medial segment lesion with an SUV max of 19.5, previously 12.4 (shows about a 57.2% increase in FDG activity and is compatible with metabolic progression). To rest of liver lesion shows stable or partial metabolic response. 3 left lower lobe 0.7 cm lung nodule abutting the major fissure with an SUV max of 0.5 previously 0.5 cm with a max SUV of 0.4???shows slight interval increase in size. Right lower lobe posterior juxtapleural 0.4 cm nodule with an SUV max of 0.7 previously about 0.4 cm with a max SUV of 0.7 which is stable. AP window 1.5 to 1.3 cm with an SUV max of 2.4 previously 1.6 x 1.2 lymph node with SUV max of 2.4 is stable. Subtle increased FDG activity in the bilateral hilar region. He did have procedure in [place]. He states that they gave him methylene blue. He was due for another dose but they sent him home instead to return here for his pembrolizumab. He also brings an EXACT[facility] therapy recommendation report with him and his states that the doctors in [place] wanted to do 1 of 2 treatments but apparently we are supposed to pursue that. Choice 1 was 5 if you irinotecan and capmatinib and choice to was 5-FU irinotecan and axitinib. Mrs. Arellano also hands me a sheet of paper with various orders on them which has smart drugs listed and add the axitinib and capmatinib and hold Stivarga. Mr. Arellano has no new complaints today. He states he is just wore out from his trip to [place]. However he has been feeling good prior to that. He is able to take his grandkids camping. He denies any pain. Is had no fever or chills. He has no new concerns today. His ECOG is 1. Past Medical History: Coronary artery disease Dyslipidemia Past Surgical History: Portacather placement dr. gurrola in 2019 Exploratory laparotomy with partial transverse colectomy and liver biopsy in 2018 Colonoscopy in 2018 - performed by Dr. Jay Coronary angioplasty/stent placement in 2016 Amputation of the distal phalanx of the right middle finger in 2013 Allergies: No Known Allergies. Medications: Cholecalciferol 1 Capsule (of 100 mcg ) Oral daily Keytruda Intravenous Multivitamin Adults 1 Tablet Oral daily Nitroglycerin 1 (0.4 mg) Tablet, sublingual Sublingual PRN Family History: Mr. Arellano's mother is alive: colon cancer. Mr. Arellano's father at age 83: alzheimers, and colon mass, and myocardial infarction. His father had dementia and coronary artery disease. He at age 83, apparently from complications of bowel obstruction. His mother still living at age 83. She has been treated for colon cancer in one brother has also been treated for colon cancer. Another brother has coronary artery disease. 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 Mr. Arellano no longer smokes but had smoked for 15 years. He has no history of drinking. Mr. Arellano reports the following support systems: lives with spouse, significant other, family, or friends. Review Of Symptoms: Constitutional Denies fevers, chills, night sweats, excessive fatigue or weight loss. Allergic/Immunologic No reactions. Eyes Denies significant visual changes. No diplopia. No amaurosis. ENMT Denies changes in hearing, sore throat, mouth sores, difficulty or changes in swallowing ability, and/or sinus drainage. Endocrine No diabetes, thyroid disease or hormone replacement. Denies hot flashes or night sweats. Hematologic/Lymphatic Denies easy bruising or bleeding. The patient denies any tender or palpable lymph nodes. Respiratory Denies dyspnea on exertion, chest pain, cough or hemoptysis. Denies orthopnea. Cardiovascular Denies anginal chest pain, palpitations or orthopnea. Gastrointestinal Denies nausea, vomiting, diarrhea, GI bleeding, or constipation. Denies change in bowel habits and/or stool color, no heartburn or early satiety. Genitourinary (M) Denies hematuria, dysuria, increased frequency, urgency, hesitancy or incontinence. Musculoskeletal Denies joint pain, swelling or redness. No decreased range of motion. Integumentary Has recurrent Erbitux rash but no inflammation, ulcerations. He states that his hands began peeling a few days maybe a week ago . He states he stopped the Xeloda a week ago but his states that he did take a dose this morning. He denies any involvement in his feet. Neurologic Denies headache, blurred vision, and no areas of focal weakness or numbness. Normal gait. No sensory problems. Psychiatric Denies insomnia, depression, becky or mood swings. Vital Signs: Performed on Nov 24, 2019 11:33 Height - 70.00 in Weight - 180.8 lbs (LOW) BSA - 2.00 sq.m BMI - 25.94 Temperature - 98.3 F (LOW) Pulse - 90 /min Respiration - 18 /min BP - 114/69 mm(hg) O2 Sat - 94 % (LOW) Pain - 0,1 - No physically strenuous activity, but ambulatory and able to carry out light or sedentary work (e.g. office work, light house work). (ECOG) Physical Examination: Constitutional Alert, oriented, no acute distress. Skin pink, warm and dry. Head Normocephalic; atraumatic. Eyes Conjunctivae and sclerae are clear and without icterus. Pupils are reactive and equal. Neck Supple without masses or thyromegaly. No jugular venous distension. Hematologic/Lymphatic No petechiae or purpura. No tender or palpable lymph nodes in the cervical or supraclavicular areas. Respiratory Lungs are clear to auscultation without rhonchi or wheezing. Cardiovascular Regular rate and rhythm of heart without murmurs,clicks, gallops or rubs. Chest Left subclavian venous access device is unremarkable. Abdomen Non-tender, non-distended, no masses, ascites. No guarding or rebound tenderness. No pulsatile masses. Back/Spine Non-tender to palpation. Extremities No visible deformities, no cyanosis, clubbing or edema. Musculoskeletal No tenderness or swelling, normal range of motion without obvious weakness. Integumentary No rashes or lesions. He has grade 3 sloughing of the skin on his hands bilaterally. There are no active open lesions at current but his skin is pale and dry where it is peeling and skin underneath is bright pink but dry. He states it is very tender. Neurologic No sensory or motor deficits, normal cerebellar function, normal gait. Psychiatric Alert and oriented times three. Coherent speech. Verbalizes understanding of our discussions today. Laboratory:Test performed on Nov 23, 2019 08:47 Glucose 117 mg/dL BUN 14 mg/dL Creatinine 0.9 mg/dL Cr Clearance (Est) 96.19 mL/min Sodium 132 mmol/L Potassium 4.6 mmol/L Chloride 95 mmol/L CO2 21 mmol/L Calcium 9.4 mg/dL Protein, Total 7.3 g/dL Albumin 4.3 g/dL Globulin 3.0 g/dL Bilirubin, Total 0.5 mg/dL Alkaline Phosphatase 159 IU/L AST (SGOT) 181 IU/L ALT (SGPT) 145 IU/L WBC 17.8 10^9/L RBC 5.24 10^12/L HGB 14.8 g/dL HCT 46.6 % MCV 88.9 fl MCH 28.2 pg MCHC 31.8 g/dL RDW 15.8 % Platelet Count 297 10^9/L MPV 11.8 fL Monocytes 1.6 10^9/L Manual Lymphocytes 2 % Manual Monocytes 9.0 % CA 19-9 504.1 Units/mL CEA 362.7 ng/mL Test performed on Oct 31, 2019 12:12 CRP, High Sensitivity 0.280 mg/dL Ferritin 156 ng/mL GGT 212 U/L LDH (Total) 319 U/L T3, Free 3.5 PG/ML T4, Free 1.04 ng/dL Testosterone, Free 57.0 pg/mL Testosterone, Total 777.4 ng/dL TSH 2.72 uIU/mL Vitamin D (25-Hydroxy), Total 25 ng/mL Anion Gap 18.2 eGFR 113.5 mL/min ESR (Sed Rate) 25 mm/hr Neutrophils 4.8 10 3/uL Lymphocytes 1.8 10 3/uL Eosinophils 0.8 10 3/uL Basophils 0.0 10 3/uL Neutrophil % 59.5 % Lymphocyte % 21.8 % Monocyte % 8.8 % Eosinophil % 9.3 % Basophils % 0.2 % NRBC % 0 % Test performed on Oct 11, 2019 09:37 Manual Eosinophils 8.7 % Manual Basophils 0.2 % Test performed on September 20, 2019 11:03 C-Reactive Protein (mg/dL) 0.300 mg/dL Test performed on Jul 04, 2019 10:27 Phosphorous 3.9 mg/dL Test performed on Jun 13, 2019 09:22 DHEA-S 213 mmol/L Estradiol 13 pg/mL Homocysteine 6.9 umol/L Testosterone 324 ng/dL Uric Acid 4.2 mg/dL Cholesterol, Total 181 mg/dL C-Reactive Protein (mg/L) 51.2 mg/L T4 5.8 mcg/dL BUN/Creatinine Ratio 15 Absolute Value Triglycerides 67 mg/dL A/G Ratio 1.4 Absolute Value Hemoglobin A1C 5.6 % PSA 6.0 ng/mL Impression: 1. 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 An extended K-sheila mutation analysis and MMR testing are in progress at this time. 2. He underwent exploratory laparotomy with partial transverse colectomy and liver biopsy on 03/25/2018. His other medical illnesses include: 3. Dyslipidemia. 4. Coronary artery disease with previous myocardial infarction and angioplasty/stent placement. 5. He has a significant family history of colon cancer. While in his initial visit here he was seen at [facility] and his next generation sequencing study did confirm that he had a wild-type KRAS mutation status. He then sought treatment through the [facility] in [facility] Based on their and philipp studies he apparently began initial chemotherapy with cyclophosphamide, epirubicin, and irinotecan dosed every 2 weeks. On 06/11/2017 he underwent chemoembolization to both hepatic lobes utilizing Quadraspheres loaded with epirubicin. In June he began further treatment with pembrolizumab 200 mg by IV infusion every 3 weeks together with cetuximab 500 mg by IV infusion weekly. His follow-up laboratory studies had shown decline in the CEA level from 178.6 ng/mL on 05/07/2018 to 60.9 ng/mL on 07/26/2018. His restaging PET/CT on 07/28/2018 showed interval significant response to treatment with resolution of multiple foci of increased metabolic activity in the liver. He resumed the pembrolizumab/cetuximab infusions on 08/27/2018. He tolerated the treatment with no significant toxicity. He returned for day 8 and day 15 cetuximab infusions, which he also tolerated well. As of 09/08/2018 there was further decrease in the CEA level to 9.1 ng/mL. His restaging CT abdomen/pelvis did show residual metastatic lesions in the liver. During subsequent follow-up there was further decline in the CEA level. As of 12/06/2018 it had stabilized at 1.0 ng/mL. His restaging CT scans on 12/15/2018 showed numerous hepatic metastatic lesions, the largest in the left hepatic lobe measuring 2.7 x 3.8 cm. They appeared stable compared to the PET/CT from 10/23/2018. He has been showing gradual gradual worsening of his skin eruption, but he is not symptomatic with it, and he has otherwise been tolerating treatment well. Overall he has been feeling better generally. He has had a good response to his treatment, though he did have residual disease in the liver by CT scan. He then continued treatment with cetuximab in combination with pembrolizumab. His restaging PET/CT on 02/05/2019 showed evidence of positive metabolic response, though with residual involvement in the liver. During subsequent follow-up there was a continued increase in his CEA level, consistent with disease progression, and in conjunction with the PET/CT findings, he underwent a repeat TACE procedure in March. At his follow-up visit here on 04/13/2019 he continued treatment with pembrolizumab and cetuximab. A restaging PET/CT on 05/07/2019 reported worsening of hepatic metastatic disease with a central left hepatic lobe lesion measuring 3.6 x 6.7 with SUV 7.2. A lesion in the medial left hepatic lobe showed increased SUV to 4.5. Other subcentimeter lesions appeared unchanged. Also noted was new enlargement of the head of the pancreas with mild FDG uptake, possibly representing pancreatitis. On 05/27/2019 he was admitted to the hospital with acute pancreatitis. His CT abdomen/pelvis showed increase in size of the head of the pancreas. Further evaluation with MRI of the abdomen at [facility] on 06/01/2019 showed a mixed cystic and solid mass within the head and uncinate process of the pancreas measuring 3.2 x 4.5 cm. As yet he has not had any further evaluation. He has had improvement in his abdominal pain and other GI symptoms. His current laboratory studies show a significant increase in the CEA level, now to 50.8 ng/mL. The CA-19-9 level is also elevated at 108.0 U/mL. In the meantime, a KRAS mutation analysis which was done through [facility] reported the presence of a KRAS G12C mutation. With that finding, he was advised to stop the cetuximab. He continued treatment with pembrolizumab 200 mg by IV infusion every 3 weeks. He then had further liver directed therapy in [place] on 08/03/2019. His restaging PET/CT did show evidence of disease progression in the liver. A left upper lobe pulmonary nodule had increased from 0.3 to 0.5 cm, but with no associated FDG activity. At that time he also started treatment with regorafenib at 160 mg daily. He developed significant side effects with the regorafenib, including vomiting, diarrhea, and fatigue. Those symptoms improved, and he subsequently restarted it at a reduced dosage. As of his follow-up visit on 10/12/2022 regular after he had was again put on hold due to his severe skin eruption in his hands and feet. At the time he had escalated back up to the full dosage. He has had gradual resolution of the skin eruption. During this time there has been a consistent but gradual increase in the CEA level. His repeat CT scan on 10/31/2019, though, showed no obvious progression of metastatic involvement in the liver. The pancreatic head appeared normal. Obtained in [place] on November 14, 2019, a followup PET/CT reported left liver lobe medial segment lesion with an SUV max of 19.5, previously 12.4 (shows about a 57.2% increase in FDG activity and is compatible with metabolic progression). To rest of liver lesion shows stable or partial metabolic response. 3 left lower lobe 0.7 cm lung nodule abutting the major fissure with an SUV max of 0.5 previously 0.5 cm with a max SUV of 0.4???shows slight interval increase in size. Right lower lobe posterior juxtapleural 0.4 cm nodule with an SUV max of 0.7 previously about 0.4 cm with a max SUV of 0.7 which is stable. AP window 1.5 to 1.3 cm with an SUV max of 2.4 previously 1.6 x 1.2 lymph node with SUV max of 2.4 is stable. Subtle increased FDG activity in the bilateral hilar region. He did have procedure in [place]. He states that they gave him methylene blue. He was due for another dose but they sent him home instead to return here for his pembrolizumab. He also brings an EXACTA therapy recommendation report with him and his states that the doctors in [place] wanted to do 1 of 2 treatments but apparently we are supposed to pursue that. Choice 1 was 5 if you irinotecan and capmatinib and choice to was 5-FU irinotecan and axitinib. Mrs. Arellano also hands me a sheet of paper with various orders on them which has smart drugs listed and add the axitinib and capmatinib and hold Stivarga. Plan: 1. Proceed with cycle 20 of pembrolizumab 200 mg by IV infusion. 2. His regorafinib is on hold per [place]. 3. Labs from 11/23/2019 were reviewed in detail and discussed with Mr & Mrs Arellano and a copy was given to them. His LFT's are elevated-resumably due to whatever procedure was performed on his liver in [place]. We have no actual records from the physician treating him in [place]. 4. Mrs Arellano states that [place] wants us to get him started on axitinib and/or capamatinib. There are no clear orders from his treating physician in [place]. I have not pursued attempting to obtain either drug, as they are off label for metastatic colon cancer, until we have actual physician records from the treating physician in [place]. 5. Mr Arellano is due back in 3 weeks for pembrolizumab. Signed By: Efrain Mcintosh-, CN George Rabago MD <<Signature on File>>
== END 2019-11-24 11:06 | disposition home or self-care (01) ==
LOC: ONCMED 11:07
PROVIDERS: PCP Nurse Practitioner Family; Visit Provider Nurse Practitioner
DX: Z51.12 Encounter for antineoplastic immunotherapy (principal); C18.4 Malignant neoplasm of transverse colon; C78.7 Secondary malignant neoplasm of liver and intrahepatic bile duct; E78.5 Hyperlipidemia, unspecified; I25.10 Atherosclerotic heart disease of native coronary artery without angina pectoris; I25.2 Old myocardial infarction; Z90.49 Acquired absence of other specified parts of digestive tract; Z95.5 Presence of coronary angioplasty implant and graft; Z87.891 Personal history of nicotine dependence; Z80.0 Family history of malignant neoplasm of digestive organs; Z79.899 Other long term (current) drug therapy
CPT/HCPCS: 96413; 99214; J7050; J9271

== ENCOUNTER → 2019-12-13 08:38 | Outpatient (BNVA) | payer SELFPAY | PROVIDERS: PCP Nurse Practitioner Family; Visit Provider Internal Medicine Medical Oncology | DX: C18.9 Malignant neoplasm of colon, unspecified (principal); C78.7 Secondary malignant neoplasm of liver and intrahepatic bile duct; R74.0 Nonspecific elevation of levels of transaminase and lactic acid dehydrogenase [LDH] | CPT/HCPCS: 80053; 82378; 84443; 85025; 86301 ==

== ENCOUNTER 2019-12-15 08:40 | Outpatient (CLI) | payer SELFPAY ==
[2019-12-15] MEDS: sodium chloride 0.9% 250 ML IV (10:10)
[2019-12-15 10:36] LABS: Estmated Average Glucose 111; Hemoglobin A1C 5.5 % (4.0-6.0)
--- NOTE | 2019-12-15 19:30 | ONC FU_ITS ---
Dr. Rabago Patient Follow-Up Note Patient: Steven Arellano Unit #: [id number]: 1955 Dicatated By: George Rabago M.D.Date of Visit:Dec 15, 2019 Onc Med Follow-up/Prog Note Chief Complaint: Colon cancer. 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 In February 2018 he was referred to Dr. Jay with a one-month history of hematochezia. His colonoscopy showed a mass in the transverse colon. Biopsy showed tubular adenoma with high-grade dysplasia, but the mass did appear malignant. Other findings were limited to an inflammatory type polyp in the proximal descending colon and hyperplastic polyps in the rectum. CT of the abdomen and pelvis showed circumferential thickening in the distal transverse colon proximal to the splenic flexure, suspicious for neoplasm. There were multiple low-attenuation lesions noted in the liver, the largest in the left hepatic lobe measuring 3.2 cm. An additional prominent lesion near the dome measured 2.8 cm. There were numerous low-attenuation circumferential lesions in the right hepatic lobe measuring 1-2 cm. The findings were consistent with metastatic disease. On 03/25/2018 he underwent exploratory laparotomy with partial transverse colectomy and biopsy of a right hepatic lobe lesion. Pathology showed grade 1-2/4 infiltrating adenocarcinoma measuring 3.0 x 2.7 cm. There was penetration through the muscularis propria into serosal connective tissues. There was involvement in one of 12 mesenteric lymph nodes. The liver biopsy showed metastatic adenocarcinoma. I had seen him initially on 04/13/2018. We had discussed the possibility of a trial of palliative chemotherapy with a FOLFOX-based regimen. He subsequently underwent evaluation at [facility] in [facility]. His evaluation there included a next generation sequencing study by liquid biopsy. 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 The KRAS, NRAS, and BRAF mutations were not detected. A trial of palliative chemotherapy was again recommended. Instead, he sought treatment through [facility] in [facility]. Based on their in vitro studies, he apparently then began initial course of chemotherapy with cyclophosphamide, epirubicin, and irinotecan dosed at 2-week intervals for 8 weeks. He also was administered a variety of vitamin and herbal supplements. On 06/11/2018 he underwent a chemoembolization procedure with Quadraspheres loaded with epirubicin. He received a dosage of 60 mg to the right hepatic lobe and 50 mg to the left hepatic lobe. In June he began treatment with pembrolizumab 200 mg by IV infusion every 3 weeks together with cetuximab 500 mg by IV infusion weekly. Thus far he has received only 2 infusions of cetuximab, which he completed with only minimal reaction. He received his most recent infusion of pembrolizumab on 08/27/2018. In addition, from 08/03/2018 through 08/05/2018 he underwent AAIT therapy in [place]. His follow-up laboratory studies have shown decline in the CEA level from 178.6 ng/mL on 05/07/2018 to 60.9 ng/mL on 07/26/2018. His restaging PET/CT on 07/28/2018 showed interval significant response to treatment with resolution of multiple foci of increased metabolic activity in the liver. His other medical illnesses have been limited to coronary artery disease and dyslipidemia. He had suffered an inferior wall myocardial infarction in February 2017, at which time he underwent angioplasty with stent placement of the right coronary artery. He had no further cardiac problems. He has had no other prior medical illnesses. He had smoked cigars in the past, but only for a few years. He had chewed tobacco for 20 years, but he quit at least 15 years ago. He does not drink alcohol. His family history is significant in that his mother and a brother have also been treated for colon cancer. INTERIM HISTORY: On 08/27/2018 he restarted treatment with pembrolizumab 200 mg IV every 3 weeks together with cetuximab 500 mg IV weekly. He returned here on 08/30/2018 so that he could continue his pembrolizumab and cetuximab infusions closer to home. He had experienced no adverse effects with the initial infusions, and he continued with his day 8 and day 15 cetuximab infusions, also with no adverse effects. His repeat CEA level on 09/08/2018 was down to 9.1 ng/mL compared to 60.9 ng/mL on 07/26/2018. During subsequent follow-up his CEA level continued to decline. As of 12/06/2018 it had stabilized at 1.0 ng/mL. Restaging CT scans of the chest, abdomen, and pelvis on 12/15/2018 showed no evidence of metastatic disease the lungs. A 4 mm left perifussural nodule appeared stable. Numerous hepatic metastatic lesions appeared stable compared to the PET/CT from 10/23/2018. The largest in the left hepatic lobe measured 2.7 x 3.8 cmwith those findings he continued treatment with cetuximab in combination with pembrolizumab. Restaging PET/CT on 02/05/2019 showed improved bilateral hilar lymph nodes compared to the prior PET/CT studies. Multiple hepatic lesions appeared to have resolved, but with unchanged left and right hepatic dome lesions. Overall the findings were consistent with a positive metabolic response. He continued treatment with cetuximab in combination with pembrolizumab. As of 03/23/2019 he began his 11th cycle of treatment. At that point there was a significant increase in the CEA level, 13.9 ng/mL compared to 10.7 ng/mL on 03/02/2019 and to 3.9 ng/mL on 01/17/2019. With that increase and with evidence of residual hepatic involvement in the liver by PET/CT, he yañez a repeat TACE procedure in March. He was then seen for a follow-up visit on 04/13/2019. At that point he continued treatment with pembrolizumab in combination with cetuximab. A restaging PET/CT on 05/07/2019 reported worsening of hepatic metastatic disease with a central left hepatic lobe lesion measuring 3.6 x 6.7 with SUV 7.2. A lesion in the medial left hepatic lobe showed increased SUV to 4.5. Other subcentimeter lesions appeared unchanged. Also noted was new enlargement of the head of the pancreas with mild FDG uptake, possibly representing pancreatitis. On 05/27/2019 he was admitted to the hospital with a presumptive diagnosis of acute pancreatitis, having presented to the emergency room with nausea/vomiting in association with a dull achy pain in the epigastric area. His serum lipase was elevated at 683 U/L. CT abdomen/pelvis showed increase in the size of the head of the pancreas with numerous low-density lesions, possibly representing acute pancreatitis. Multiple low-density lesions in the liver were noted to have increased in size and number, consistent with worsening metastatic disease. There appeared to be acute gastric retention. Fluid within the small bowel was suggestive of a severe ileus. His symptoms improved with supportive treatment measures. He was discharged home on 05/29/2019. He had further evaluation with MRI of the abdomen at [facility] on 06/01/2019. It showed multiple lesions throughout the bilateral lobes of the liver consistent with hepatic metastases. An additional lesion within the left lobe of the liver appeared to be consistent with a cavernous hemangioma. A mixed cystic and solid mass was noted within the head and uncinate process of the pancreas measuring 3.2 x 4.5 cm. It had indeterminate features by MRI, possibly representing a primary pancreatic neoplasm versus metastatic lesion. We had then made arrangements for an EUS procedure, but he opted instead to return to [place] for a biopsy. When he arrived there, he was told that a would not be able to do the biopsy, so he returned home and he requested a follow-up visit here. In the meantime, his recent studies done through [facility] had included a K-sheila mutation analysis, which detected a G12C KRAS mutation. With that finding, he was recommended to stop treatment with cetuximab. He continued treatment here with pembrolizumab at the standard dosage of 200 mg by IV infusion every 3 weeks. He then had further liver directed therapy in [place] on 08/03/2019. He also had restaging PET/CT which showed multiple FDG avid liver lesions showing significant interval increase in extent and metabolic activity. New FDG avid lesions were compatible with progression of metastatic malignancy. A left upper lobe pulmonary nodule had increased from 0.3 to 0.5 cm, but with no associated FDG activity. At that time he also started treatment with regorafenib at 160 mg daily. At his follow-up visit on 09/02/2019 he reported significant side effects with the regorafenib, and he had stopped taking it. His symptoms were improving, and he was instructed to restart it at a reduced dosage. At his follow-up visit on 10/13/2019 he was again having significant side effects with the regorafenib, but at that time he was back on the full dosage of 160 mg daily. The regorafenib was put on hold, but he continued treatment with pembrolizumab. Restaging CT scans of the chest, abdomen, and pelvis on 10/31/2019 showed stable 4 mm pulmonary nodule along the left fissure. Mediastinal and hilar lymphadenopathy with similar to prior studies. Multiple heterogeneously enhancing low-attenuation hepatic metastatic lesions also appeared similar to the recent PET/CT. The largest lesion was in the left lobe of the liver measuring 8.1 x 6.1 cm. The pancreatic head appeared normal. He continued with cycle 19 of pembrolizumab on 11/03/2019. He then returned to [place] where he underwent a CI PI procedure to the liver and lung lesions on 11/21/2019. He returned here for cycle 20 of pembrolizumab on 11/24/2019. He is seen for a follow-up visit. He has been feeling a little better generally since he has been off the regorafenib. Is back to pretty much normal energy and activity tolerance. His ECOG score is 0. He has good appetite. His weight is down 7 pounds. He does not have fever or night sweats. He had some chest pain for the first couple of weeks after his CIPI he does not complain of shortness of breath or cough. Treatment. He has no GI/ complaints other than a little bit of acid reflux. He continues to have some pain in his right little toe. He has no other joint or bone pain. He has no focal neurologic symptoms. Medications: Aspirin 1 Tablet (of 81 mg) Tablet, enteric coated Oral daily, Atorvastatin Calcium 1 Tablet (of 40 mg) Oral at bedtime, Keytruda Intravenous, metFORMIN HCl 1 Tablet (of 1000 mg) Oral daily, Multivitamin Adults 1 Tablet Oral daily, Nitroglycerin 1 (0.4 mg) Tablet, sublingual Sublingual PRN, Sheffield-3 Complex 1 Capsule (of 192-251-11 mg - mg - Units) Oral daily Allergies: No Known Allergies. Review of Systems: Constitutional - He has good energy and activity tolerance. Appetite is good, but he has lost weight. No fever, night sweats, or hot flashes. ECOG score is 0, ENMT - He has very little sinus drainage. No mouth sores. No sore throat or difficulty swallowing, Hematologic/Lymphatic - No abnormal bruising or bleeding, Respiratory - No shortness of breath. No cough. No pleuritic pain or hemoptysis, Cardiovascular - He had some chest pain for the 1st couple of weeks following his SIPI treatment. No palpitations, Gastrointestinal - No nausea or vomiting. He has very little acid reflux. No diarrhea or constipation. No blood in the stool or black stools, Genitourinary (M) - No dysuria or hematuria. No urinary frequency. No urgency or incontinence, Musculoskeletal - He has pain in his right little toe. No other joint or bone pain, Integumentary - No skin rash, Neurologic - No headache or dizziness. No numbness or tingling. No other focal neurologic symptoms, Psychiatric - No anxiety or depression. No insomnia. Vital Signs: Performed on Dec 15, 2019 08:48 Height - 70.00 in Weight - 180.0 lbs (LOW) BSA - 2.00 sq.m BMI - 25.83 Temperature - 97.4 F (LOW) Pulse - 72 /min Respiration - 18 /min BP - 126/71 mm(hg) O2 Sat - 97 % Pain - 0 Fatigue - 0 Physical Examination: Constitutional - He looks pretty good generally, Eyes - Sclerae nonicteric. Conjunctivae clear, ENMT - No lesions noted in the oral cavity, Hematologic/Lymphatic - No cervical, clavicular, or axillary adenopathy, Respiratory - Lungs are clear with good air movement bilaterally, Cardiovascular - Heart rhythm is regular. There is no murmur, gallop, or rub noted, Abdomen - Nontender. There is some firmness in the right upper quadrant. Liver does not appear enlarged. Spleen is not palpable. There is no abdominal mass or ascites noted and there is no inguinal adenopathy, Extremities - No edema, Integumentary - No skin eruption, Neurologic - No focal neurologic deficits noted. Lab/Imaging: CBC shows hemoglobin 12.7 g, white blood cell count 7800, and platelet count 291,000. Comprehensive metabolic profile is unremarkable. The bilirubin and liver enzymes are normal. The CEA level has come down to 189.4 ng/mL and the CA-19-9 level has come down to 221.6 U/mL. Impression: 1. 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 The tumor was found to be MSI stable. 2. He underwent exploratory laparotomy with partial transverse colectomy and liver biopsy on 03/25/2018. His other medical illnesses include: 3. Dyslipidemia. 4. Coronary artery disease with previous myocardial infarction and angioplasty/stent placement. 5. He has a significant family history of colon cancer. Subsequent to his initial visit here he was [facility] and his next generation sequencing study showed a wild-type KRAS mutation status. He then sought treatment through the [facility] in [facility]. His subsequent [employer] studies have shown presence of a G12C KRAS mutation, but a BRAF mutation was not detected. He then began initial chemotherapy with cyclophosphamide, epirubicin, and irinotecan dosed every 2 weeks. On 06/11/2017 he underwent chemoembolization to both hepatic lobes utilizing Quadraspheres loaded with epirubicin. In June 2017 he began further treatment with pembrolizumab 200 mg by IV infusion every 3 weeks together with cetuximab 500 mg by IV infusion weekly. His follow-up laboratory studies had shown decline in the CEA level from 178.6 ng/mL on 05/07/2018 to 60.9 ng/mL on 07/26/2018. His restaging PET/CT on 07/28/2018 showed interval significant response to treatment with resolution of multiple foci of increased metabolic activity in the liver. He resumed the pembrolizumab/cetuximab infusions on 08/27/2018. He tolerated the treatment with no significant toxicity. He returned for day 8 and day 15 cetuximab infusions, which he also tolerated well. As of 09/08/2018 there was further decrease in the CEA level to 9.1 ng/mL. His restaging CT abdomen/pelvis did show residual metastatic lesions in the liver. During subsequent follow-up there was further decline in the CEA level. As of 12/06/2018 it had stabilized at 1.0 ng/mL. His restaging CT scans on 12/15/2018 showed numerous hepatic metastatic lesions, the largest in the left hepatic lobe measuring 2.7 x 3.8 cm. They appeared stable compared to the PET/CT from 10/23/2018. He has been showing gradual gradual worsening of his skin eruption, but he is not symptomatic with it, and he has otherwise been tolerating treatment well. Overall he has been feeling better generally. He has had a good response to his treatment, though he did have residual disease in the liver by CT scan. He then continued treatment with cetuximab in combination with pembrolizumab. His restaging PET/CT on 02/05/2019 showed evidence of positive metabolic response, though with residual involvement in the liver. During subsequent follow-up there was a continued increase in his CEA level, consistent with disease progression, and in conjunction with the PET/CT findings, he underwent a repeat TACE procedure in March. At his follow-up visit here on 04/13/2019 he continued treatment with pembrolizumab and cetuximab. A restaging PET/CT on 05/07/2019 reported worsening of hepatic metastatic disease with a central left hepatic lobe lesion measuring 3.6 x 6.7 with SUV 7.2. A lesion in the medial left hepatic lobe showed increased SUV to 4.5. Other subcentimeter lesions appeared unchanged. Also noted was new enlargement of the head of the pancreas with mild FDG uptake, possibly representing pancreatitis. On 05/27/2019 he was admitted to the hospital with acute pancreatitis. His CT abdomen/pelvis showed increase in size of the head of the pancreas. Further evaluation with MRI of the abdomen at [facility] on 06/01/2019 showed a mixed cystic and solid mass within the head and uncinate process of the pancreas measuring 3.2 x 4.5 cm. As yet he has not had any further evaluation. He has had improvement in his abdominal pain and other GI symptoms. His current laboratory studies show a significant increase in the CEA level, now to 50.8 ng/mL. The CA-19-9 level is also elevated at 108.0 U/mL. In the meantime, a KRAS mutation analysis which was done through [facility] reported the presence of a KRAS G12C mutation. With that finding, he was advised to stop the cetuximab. He continued treatment with pembrolizumab 200 mg by IV infusion every 3 weeks. He then had further liver directed therapy in [place] on 08/03/2019. His restaging PET/CT did show evidence of disease progression in the liver. A left upper lobe pulmonary nodule had increased from 0.3 to 0.5 cm, but with no associated FDG activity. At that time he also started treatment with regorafenib at 160 mg daily. He developed significant side effects with the regorafenib, including vomiting, diarrhea, and fatigue. Those symptoms improved, and he subsequently restarted it at a reduced dosage. As of his follow-up visit on 10/12/2022 regular after he had was again put on hold due to his severe skin eruption in his hands and feet. At the time he had escalated back up to the full dosage. He has had gradual resolution of the skin eruption. During this time there has been a consistent but gradual increase in the CEA level. His repeat CT scan on 10/31/2019, though, showed no obvious progression of metastatic involvement in the liver. The pancreatic head appeared normal. He has continued treatment with pembrolizumab. He also returned to [place] where he underwent another CIPI treatment to the liver and lung lesions on 11/21/2019. Since then there has been a significant decline in the CEA and CA-19-9 levels. There has been improvement in his clinical status since he stopped taking the regorafenib. Plan: He will continue with cycle 21 of pembrolizumab 200 mg by IV infusion. He has been recommended to add additional medications to his regimen including axitinib 5 mg every 12 hours and capmatinib 400 mg every 12 hours. Both of these would be off label indications, and they would have to be provided on a compassionate use basis by the worm farmer. He also admits now that he has been taking dog wormer. He will be scheduled to return for treatment in 3 weeks and for a follow-up visit in 6 weeks. Signed By: George Rabago M.D. <<Signature on File>>
== END 2019-12-15 08:41 | disposition home or self-care (01) ==
LOC: ONCMED 08:42
PROVIDERS: PCP Nurse Practitioner Family; Visit Provider Internal Medicine Medical Oncology
DX: Z51.12 Encounter for antineoplastic immunotherapy (principal); C18.4 Malignant neoplasm of transverse colon; C78.7 Secondary malignant neoplasm of liver and intrahepatic bile duct; E78.5 Hyperlipidemia, unspecified; I25.10 Atherosclerotic heart disease of native coronary artery without angina pectoris
CPT/HCPCS: 83036; 96413; 99214; J7050; J9271

== ENCOUNTER 2020-01-03 10:09 | Outpatient (CLI) | payer SELFPAY ==
[2020-01-03 10:43] LABS: Basophils % 0.2 %; Eosinophils # 0.7 10^3/uL (0.0-0.8); Eosinophils % 8.2 %; Lymphocytes # 1.6 10^3/uL (0.8-4.8); Lymphocytes % 19.7 %; Mean Corpuscular HGB Conc 31.7 g/dL (30.0-36.0); Mean Corpuscular Hemoglobin 28.3 pg (28.0-34.0); Mean Corpuscular Volume 89.1 fL (80-94); Mean Platelet Volume 11.1 fL (7.4-10.4); Monocytes # 0.8 10^3/uL (0.2-0.9); Monocytes % 9.4 %; Neutrophils # 4.99 10^3/uL (1.8-7.7); Neutrophils % 62.4 %; Nucleated Red Blood Cells % 0 %; Platelet Count 244 10^3/cmm (130-400); Red Cell Distribution Width 14.3 % (12.1-15.1)
[2020-01-03 11:09] LABS: Cancer Antigen 19 9 336.9 U/mL (0-35); Carcinoembryonic Antigen 283.3 ng/mL (0.0-4.7)
[2020-01-03 11:20] LABS: Alanine Aminotransferase 44 U/L (0-41); Albumin Level 4.5 g/dL (3.5-5.2); Alkaline Phosphatase 120 IU/L (40-130); Anion Gap 15.5 (5-19); Aspartate Amino Transferase 51 U/L (0-40); Blood Urea Nitrogen 17 mg/dL (8-23); Calcium 9.5 mg/dL (8.5-10.5); Carbon Dioxide 22 mmol/L (22-29); Chloride 104 mmol/L (98-107); Globulin 3.1 g/dL (1.3-4.6); Glomerular Filtration Rate 97.3 mL/min (90-130); Glucose 107 mg/dL (65-115); Osmolality Calculated 281 mOsm/kg (285-295); Potassium 4.5 mmol/L (3.5-5.1); Sodium 137 mmol/L (136-145); Total Bilirubin 0.4 mg/dL (0.15-1.2); Total Protein 7.6 g/dL (6.6-8.7)
== END 2020-01-03 10:10 | disposition home or self-care (01) ==
LOC: ONCMED 10:09
PROVIDERS: PCP Nurse Practitioner Family; Visit Provider Internal Medicine Medical Oncology
DX: C18.4 Malignant neoplasm of transverse colon (principal); C78.7 Secondary malignant neoplasm of liver and intrahepatic bile duct; I25.10 Atherosclerotic heart disease of native coronary artery without angina pectoris; E78.5 Hyperlipidemia, unspecified
CPT/HCPCS: 36415; 80053; 82378; 85025; 86301

== ENCOUNTER 2020-01-05 08:59 | Outpatient (CLI) | payer SELFPAY | END 2020-01-05 09:00 | disposition home or self-care (01) | LOC: ONCMED 08:59 | PROVIDERS: PCP Nurse Practitioner Family; Visit Provider Internal Medicine Medical Oncology | DX: Z51.12 Encounter for antineoplastic immunotherapy (principal); C18.4 Malignant neoplasm of transverse colon; C78.7 Secondary malignant neoplasm of liver and intrahepatic bile duct | CPT/HCPCS: 96413; J7050; J9271 ==

== ENCOUNTER → 2020-01-23 08:34 | Outpatient (BNVA) | payer SELFPAY | PROVIDERS: PCP Nurse Practitioner Family; Visit Provider Nurse Practitioner Family | DX: C18.9 Malignant neoplasm of colon, unspecified (principal); C78.7 Secondary malignant neoplasm of liver and intrahepatic bile duct | CPT/HCPCS: 80053; 82378; 85025; 86301 ==

== ENCOUNTER 2020-01-26 08:21 | Outpatient (CLI) | payer SELFPAY ==
--- NOTE | 2020-01-30 07:38 | ONC FU_ITS ---
Dr. Rabago Patient Follow-Up Note Patient: Steven Arellano Unit #: [id number]: 1955 Dicatated By: George Rabago M.D.Date of Visit:Jan 26, 2020 Onc Med Follow-up/Prog Note Chief Complaint: Colon cancer. 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 In February 2018 he was referred to Dr. Jay with a one-month history of hematochezia. His colonoscopy showed a mass in the transverse colon. Biopsy showed tubular adenoma with high-grade dysplasia, but the mass did appear malignant. Other findings were limited to an inflammatory type polyp in the proximal descending colon and hyperplastic polyps in the rectum. CT of the abdomen and pelvis showed circumferential thickening in the distal transverse colon proximal to the splenic flexure, suspicious for neoplasm. There were multiple low-attenuation lesions noted in the liver, the largest in the left hepatic lobe measuring 3.2 cm. An additional prominent lesion near the dome measured 2.8 cm. There were numerous low-attenuation circumferential lesions in the right hepatic lobe measuring 1-2 cm. The findings were consistent with metastatic disease. On 03/25/2018 he underwent exploratory laparotomy with partial transverse colectomy and biopsy of a right hepatic lobe lesion. Pathology showed grade 1-2/4 infiltrating adenocarcinoma measuring 3.0 x 2.7 cm. There was penetration through the muscularis propria into serosal connective tissues. There was involvement in one of 12 mesenteric lymph nodes. The liver biopsy showed metastatic adenocarcinoma. I had seen him initially on 04/13/2018. We had discussed the possibility of a trial of palliative chemotherapy with a FOLFOX-based regimen. He subsequently underwent evaluation at [facility] in [facility]. His evaluation there included a next generation sequencing study by liquid biopsy. 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 The KRAS, NRAS, and BRAF mutations were not detected. A trial of palliative chemotherapy was again recommended. Instead, he sought treatment through [facility] in [facility]. Based on their in vitro studies, he apparently then began initial course of chemotherapy with cyclophosphamide, epirubicin, and irinotecan dosed at 2-week intervals for 8 weeks. He also was administered a variety of vitamin and herbal supplements. On 06/11/2018 he underwent a chemoembolization procedure with Quadraspheres loaded with epirubicin. He received a dosage of 60 mg to the right hepatic lobe and 50 mg to the left hepatic lobe. In June he began treatment with pembrolizumab 200 mg by IV infusion every 3 weeks together with cetuximab 500 mg by IV infusion weekly. Thus far he has received only 2 infusions of cetuximab, which he completed with only minimal reaction. He received his most recent infusion of pembrolizumab on 08/27/2018. In addition, from 08/03/2018 through 08/05/2018 he underwent AAIT therapy in [place]. His follow-up laboratory studies have shown decline in the CEA level from 178.6 ng/mL on 05/07/2018 to 60.9 ng/mL on 07/26/2018. His restaging PET/CT on 07/28/2018 showed interval significant response to treatment with resolution of multiple foci of increased metabolic activity in the liver. His other medical illnesses have been limited to coronary artery disease and dyslipidemia. He had suffered an inferior wall myocardial infarction in February 2017, at which time he underwent angioplasty with stent placement of the right coronary artery. He had no further cardiac problems. He has had no other prior medical illnesses. He had smoked cigars in the past, but only for a few years. He had chewed tobacco for 20 years, but he quit at least 15 years ago. He does not drink alcohol. His family history is significant in that his mother and a brother have also been treated for colon cancer. INTERIM HISTORY: On 08/27/2018 he restarted treatment with pembrolizumab 200 mg IV every 3 weeks together with cetuximab 500 mg IV weekly. He returned here on 08/30/2018 so that he could continue his pembrolizumab and cetuximab infusions closer to home. He had experienced no adverse effects with the initial infusions, and he continued with his day 8 and day 15 cetuximab infusions, also with no adverse effects. His repeat CEA level on 09/08/2018 was down to 9.1 ng/mL compared to 60.9 ng/mL on 07/26/2018. During subsequent follow-up his CEA level continued to decline. As of 12/06/2018 it had stabilized at 1.0 ng/mL. Restaging CT scans of the chest, abdomen, and pelvis on 12/15/2018 showed no evidence of metastatic disease the lungs. A 4 mm left perifussural nodule appeared stable. Numerous hepatic metastatic lesions appeared stable compared to the PET/CT from 10/23/2018. The largest in the left hepatic lobe measured 2.7 x 3.8 cmwith those findings he continued treatment with cetuximab in combination with pembrolizumab. Restaging PET/CT on 02/05/2019 showed improved bilateral hilar lymph nodes compared to the prior PET/CT studies. Multiple hepatic lesions appeared to have resolved, but with unchanged left and right hepatic dome lesions. Overall the findings were consistent with a positive metabolic response. He continued treatment with cetuximab in combination with pembrolizumab. As of 03/23/2019 he began his 11th cycle of treatment. At that point there was a significant increase in the CEA level, 13.9 ng/mL compared to 10.7 ng/mL on 03/02/2019 and to 3.9 ng/mL on 01/17/2019. With that increase and with evidence of residual hepatic involvement in the liver by PET/CT, he yañez a repeat TACE procedure in March. He was then seen for a follow-up visit on 04/13/2019. At that point he continued treatment with pembrolizumab in combination with cetuximab. A restaging PET/CT on 05/07/2019 reported worsening of hepatic metastatic disease with a central left hepatic lobe lesion measuring 3.6 x 6.7 with SUV 7.2. A lesion in the medial left hepatic lobe showed increased SUV to 4.5. Other subcentimeter lesions appeared unchanged. Also noted was new enlargement of the head of the pancreas with mild FDG uptake, possibly representing pancreatitis. On 05/27/2019 he was admitted to the hospital with a presumptive diagnosis of acute pancreatitis, having presented to the emergency room with nausea/vomiting in association with a dull achy pain in the epigastric area. His serum lipase was elevated at 683 U/L. CT abdomen/pelvis showed increase in the size of the head of the pancreas with numerous low-density lesions, possibly representing acute pancreatitis. Multiple low-density lesions in the liver were noted to have increased in size and number, consistent with worsening metastatic disease. There appeared to be acute gastric retention. Fluid within the small bowel was suggestive of a severe ileus. His symptoms improved with supportive treatment measures. He was discharged home on 05/29/2019. He had further evaluation with MRI of the abdomen at [facility] on 06/01/2019. It showed multiple lesions throughout the bilateral lobes of the liver consistent with hepatic metastases. An additional lesion within the left lobe of the liver appeared to be consistent with a cavernous hemangioma. A mixed cystic and solid mass was noted within the head and uncinate process of the pancreas measuring 3.2 x 4.5 cm. It had indeterminate features by MRI, possibly representing a primary pancreatic neoplasm versus metastatic lesion. We had then made arrangements for an EUS procedure, but he opted instead to return to [place] for a biopsy. When he arrived there, he was told that a would not be able to do the biopsy, so he returned home and he requested a follow-up visit here. In the meantime, his recent studies done through [facility] had included a K-sheila mutation analysis, which detected a G12C KRAS mutation. With that finding, he was recommended to stop treatment with cetuximab. He continued treatment here with pembrolizumab at the standard dosage of 200 mg by IV infusion every 3 weeks. He then had further liver directed therapy in [place] on 08/03/2019. He also had restaging PET/CT which showed multiple FDG avid liver lesions showing significant interval increase in extent and metabolic activity. New FDG avid lesions were compatible with progression of metastatic malignancy. A left upper lobe pulmonary nodule had increased from 0.3 to 0.5 cm, but with no associated FDG activity. At that time he also started treatment with regorafenib at 160 mg daily. At his follow-up visit on 09/02/2019 he reported significant side effects with the regorafenib, and he had stopped taking it. His symptoms were improving, and he was instructed to restart it at a reduced dosage. At his follow-up visit on 10/13/2019 he was again having significant side effects with the regorafenib, but at that time he was back on the full dosage of 160 mg daily. The regorafenib was then stopped permanently, but he continued treatment with pembrolizumab. Restaging CT scans of the chest, abdomen, and pelvis on 10/31/2019 showed stable 4 mm pulmonary nodule along the left fissure. Mediastinal and hilar lymphadenopathy with similar to prior studies. Multiple heterogeneously enhancing low-attenuation hepatic metastatic lesions also appeared similar to the recent PET/CT. The largest lesion was in the left lobe of the liver measuring 8.1 x 6.1 cm. The pancreatic head appeared normal. He continued with cycle 19 of pembrolizumab on 11/03/2019. He then returned to [place] where he underwent a CI PI procedure to the liver and lung lesions on 11/21/2019. At that time he also was recommended to add axitinib 5 mg every 12 hours together with capmatinib 400 mg every 12 hours to his treatment regimen. He returned here for cycle 20 of pembrolizumab on 11/24/2019 and he then continued treatment at 3-week intervals.. He is seen for a follow-up visit. He has been feeling good generally. He has good energy and he has normal activity. ECOG score is 0. Appetite also is good. He has no fever or night sweats. He has had no mouth sores. He has no shortness of breath, cough, or chest pain. He currently has no GI or complaints. He has pain intermittently in his right little toe. He has no other joint or bone pain. He does not complain of headache or dizziness. He has no focal neurologic symptoms. He has had no recurrence of skin eruption. Medications: Aspirin 1 Tablet (of 81 mg) Tablet, enteric coated Oral daily, Atorvastatin Calcium 1 Tablet (of 40 mg) Oral at bedtime, Keytruda Intravenous, metFORMIN HCl 1 Tablet (of 1000 mg) Oral daily, Multivitamin Adults 1 Tablet Oral daily, Nitroglycerin 1 (0.4 mg) Tablet, sublingual Sublingual PRN, [place]-3 Complex 1 Capsule (of 192-251-11 mg - mg - Units) Oral daily Allergies: No Known Allergies. Review of Systems: Constitutional - He has been feeling good. He has good energy and he has normal activity. Appetite is good and weight is stable. No fever, night sweats, or hot flashes. ECOG score is 0, ENMT - No sinus congestion/drainage. No mouth sores. No sore throat or difficulty swallowing, Hematologic/Lymphatic - He has some bruising, Respiratory - No shortness of breath. No cough. No pleuritic pain or hemoptysis, Cardiovascular - No angina pain. No palpitations, Gastrointestinal - No nausea or vomiting. No heartburn or acid reflux. No diarrhea or constipation. No blood in the stool or black stools, Genitourinary (M) - No dysuria or hematuria. No urinary frequency. No urgency or incontinence, Musculoskeletal - He has pain in his right little toe. He has no other joint or bone pain, Integumentary - No skin rash, Neurologic - No headache or dizziness. No numbness or tingling. No other focal neurologic symptoms, Psychiatric - No anxiety or depression. No insomnia. Vital Signs: Performed on Jan 26, 2020 09:05 Height - 70.00 in Weight - 183.8 lbs (HIGH) BSA - 2.01 sq.m BMI - 26.37 Temperature - 98.1 F (LOW) Pulse - 64 /min Respiration - 22 /min BP - 121/75 mm(hg) O2 Sat - 100 % Pain - 0 Physical Examination: Constitutional - He looks pretty good generally, Eyes - Sclerae nonicteric. Conjunctivae clear, ENMT - No lesions noted in the oral cavity, Hematologic/Lymphatic - No cervical, clavicular, or axillary adenopathy, Respiratory - Lungs are clear with good air movement bilaterally, Cardiovascular - Heart rhythm is regular. There is no murmur, gallop, or rub noted, Abdomen - Soft. Liver is not enlarged or tender. Spleen is not palpable. There is no abdominal mass or ascites noted and there is no inguinal adenopathy, Extremities - No edema, Integumentary - No skin eruption, Neurologic - No focal neurologic deficits noted. Lab/Imaging: CBC shows hemoglobin 14.2 g, white blood cell count 8400, and platelet count 256,000. Comprehensive metabolic profile shows normal renal function with BUN 20 and creatinine 0.8 mg/dL. Bilirubin is normal at 0.3 mg/dL. Liver enzymes are elevated with SGOT 66/40 U/L, SGPT 59/41 U/L, and alkaline phosphatase 155/130 IU/L. The CEA level has increased to 558 ng/mL. Impression: 1. 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 The tumor was found to be MSI stable. 2. He underwent exploratory laparotomy with partial transverse colectomy and liver biopsy on 03/25/2018. His other medical illnesses include: 3. Dyslipidemia. 4. Coronary artery disease with previous myocardial infarction and angioplasty/stent placement. 5. He has a significant family history of colon cancer. Subsequent to his initial visit here he was seen at [facility] and his next generation sequencing study showed a wild-type KRAS mutation status. He then sought treatment through the [facility] in [facility]. His subsequent [employer] studies have shown presence of a G12C KRAS mutation, but a BRAF mutation was not detected. He then began initial chemotherapy with cyclophosphamide, epirubicin, and irinotecan dosed every 2 weeks. On 06/11/2017 he underwent chemoembolization to both hepatic lobes utilizing Quadraspheres loaded with epirubicin. In June 2017 he began further treatment with pembrolizumab 200 mg by IV infusion every 3 weeks together with cetuximab 500 mg by IV infusion weekly. His follow-up laboratory studies had shown decline in the CEA level from 178.6 ng/mL on 05/07/2018 to 60.9 ng/mL on 07/26/2018. His restaging PET/CT on 07/28/2018 showed interval significant response to treatment with resolution of multiple foci of increased metabolic activity in the liver. He resumed the pembrolizumab/cetuximab infusions on 08/27/2018. He tolerated the treatment with no significant toxicity. He returned for day 8 and day 15 cetuximab infusions, which he also tolerated well. As of 09/08/2018 there was further decrease in the CEA level to 9.1 ng/mL. His restaging CT abdomen/pelvis did show residual metastatic lesions in the liver. During subsequent follow-up there was further decline in the CEA level. As of 12/06/2018 it had stabilized at 1.0 ng/mL. His restaging CT scans on 12/15/2018 showed numerous hepatic metastatic lesions, the largest in the left hepatic lobe measuring 2.7 x 3.8 cm. They appeared stable compared to the PET/CT from 10/23/2018. He has been showing gradual gradual worsening of his skin eruption, but he is not symptomatic with it, and he has otherwise been tolerating treatment well. Overall he has been feeling better generally. He has had a good response to his treatment, though he did have residual disease in the liver by CT scan. He then continued treatment with cetuximab in combination with pembrolizumab. His restaging PET/CT on 02/05/2019 showed evidence of positive metabolic response, though with residual involvement in the liver. During subsequent follow-up there was a continued increase in his CEA level, consistent with disease progression, and in conjunction with the PET/CT findings, he underwent a repeat TACE procedure in March. At his follow-up visit here on 04/13/2019 he continued treatment with pembrolizumab and cetuximab. A restaging PET/CT on 05/07/2019 reported worsening of hepatic metastatic disease with a central left hepatic lobe lesion measuring 3.6 x 6.7 with SUV 7.2. A lesion in the medial left hepatic lobe showed increased SUV to 4.5. Other subcentimeter lesions appeared unchanged. Also noted was new enlargement of the head of the pancreas with mild FDG uptake, possibly representing pancreatitis. On 05/27/2019 he was admitted to the hospital with acute pancreatitis. His CT abdomen/pelvis showed increase in size of the head of the pancreas. Further evaluation with MRI of the abdomen at [facility] on 06/01/2019 showed a mixed cystic and solid mass within the head and uncinate process of the pancreas measuring 3.2 x 4.5 cm. As yet he has not had any further evaluation. He has had improvement in his abdominal pain and other GI symptoms. His current laboratory studies show a significant increase in the CEA level, now to 50.8 ng/mL. The CA-19-9 level is also elevated at 108.0 U/mL. In the meantime, a KRAS mutation analysis which was done through [facility] reported the presence of a KRAS G12C mutation. With that finding, he was advised to stop the cetuximab. He continued treatment with pembrolizumab 200 mg by IV infusion every 3 weeks. He then had further liver directed therapy in [place] on 08/03/2019. His restaging PET/CT did show evidence of disease progression in the liver. A left upper lobe pulmonary nodule had increased from 0.3 to 0.5 cm, but with no associated FDG activity. At that time he also started treatment with regorafenib at 160 mg daily. He developed significant side effects with the regorafenib, including vomiting, diarrhea, and fatigue. Those symptoms improved, and he subsequently restarted it at a reduced dosage. As of his follow-up visit on 10/12/2022 regular after he had was again put on hold due to his severe skin eruption in his hands and feet. At the time he had escalated back up to the full dosage. He has had gradual resolution of the skin eruption. During this time there has been a consistent but gradual increase in the CEA level. His repeat CT scan on 10/31/2019, though, showed no obvious progression of metastatic involvement in the liver. The pancreatic head appeared normal. He then continued treatment with pembrolizumab. He also returned to [place] where he underwent another CIPI treatment to the liver and lung lesions on 11/21/2019. Initially he did show some decline in his CEA level following that procedure, but it has since then increased significantly. His clinical status, though, remains stable. Plan: He will continue with cycle 23 of pembrolizumab 200 mg by IV infusion. He will now begin axitinib 5 mg every 12 hours together with capmatinib 400 mg every 12 hours. He is reminded that the use of both of these agents and metastatic colon cancer is off label and that I am not aware of any data to suggest that it will be beneficial. He is aware that there are potential side effects with both medications, and those were reviewed with him by the pharmacist today. He will be scheduled for a follow-up visit in 3 weeks. Signed By: George Rabago M.D. <<Signature on File>>
== END 2020-01-26 08:22 | disposition home or self-care (01) ==
LOC: ONCMED 08:23
PROVIDERS: PCP Nurse Practitioner Family; Visit Provider Internal Medicine Medical Oncology
DX: Z51.12 Encounter for antineoplastic immunotherapy (principal); C18.4 Malignant neoplasm of transverse colon; C78.7 Secondary malignant neoplasm of liver and intrahepatic bile duct; E78.5 Hyperlipidemia, unspecified; I25.10 Atherosclerotic heart disease of native coronary artery without angina pectoris; I25.2 Old myocardial infarction; Z95.5 Presence of coronary angioplasty implant and graft; Z80.0 Family history of malignant neoplasm of digestive organs; Z79.899 Other long term (current) drug therapy
CPT/HCPCS: 96413; 99214; J7050; J9271

== ENCOUNTER 2020-02-03 07:45 | Outpatient (CLI) | payer SELFPAY | END 2020-02-03 07:46 | disposition home or self-care (01) | LOC: ONCMED 07:45 | PROVIDERS: PCP Nurse Practitioner Family; Visit Provider Nurse Practitioner | DX: Z53.9 Procedure and treatment not carried out, unspecified reason (principal) | CPT/HCPCS: 36415 ==

== ENCOUNTER 2020-02-08 07:53 | Outpatient (CLI) | payer SELFPAY | END 2020-02-08 07:54 | disposition home or self-care (01) | LOC: ONCMED 07:54 | PROVIDERS: PCP Nurse Practitioner Family; Visit Provider Nurse Practitioner | DX: Z53.9 Procedure and treatment not carried out, unspecified reason (principal) | CPT/HCPCS: 36415 ==

== ENCOUNTER 2020-02-13 17:31 | Emergency (ER) | payer OTHER, SELFPAY ==
[2020-02-13 17:56] VITALS: BP 103/66; PULSE 81; RESP 18; TEMP 36.8; O2SAT 98; BMI 25.8
--- NOTE | 2020-02-13 18:00 | XRR_ITS ---
PROCEDURE INFORMATION: Exam: XR Chest, 1 View Exam date and time: 02/13/2020 8:27 PM Age: 64 years old Clinical indication: Fever; Patient HX: Increased fatigue, cp/sob a couple of days ago TECHNIQUE: Imaging protocol: XR of the chest Views: 1 view. COMPARISON: CT chest abd pel w con* 10/31/2019 11:16 AM FINDINGS: Lungs: Lungs are well aerated without a focal area of consolidation. Pleural space: Unremarkable. No pleural effusion. No pneumothorax. Heart/Mediastinum: Unremarkable. No cardiomegaly. Vasculature: Central venous catheter via the left subclavian approach with the tip projecting over the superior vena cava. Bones/joints: Unremarkable. XR/XR chest 1V portable [id number] IMPRESSION: Lungs are well aerated without a focal area of consolidation.
--- NOTE | 2020-02-13 20:50 | W.ED.FEVER ---
HPI - Fever General: Chief Complaint: Fever Stated Complaint: fever/weakness/low o2 Time Seen by Provider: 02/13/20 20:19 Source: patient Mode of arrival: ambulatory Limitations: no limitations History of Present Illness: HPI Narrative: 64-year-old male who is currently on chemotherapy for colon cancer states he had a cough and fever over the last 2 to 3 days. He started Levaquin at home but states he had a temperature of 103 today. Patient is afebrile here and in no respiratory distress. His pulse ox is 97% on room air. He denies any vomiting or diarrhea. Denies any chest pain. Associated symptoms: Deny abdominal pain, chest pain, diarrhea, dysuria, headache(s), nausea or vomiting Review of Systems Const: Reports: fever(s) Eyes: Denies: blurry vision or eye discomfort ENMT: Denies: throat pain or dental pain Card: Denies: chest pain Resp: Reports: non-productive cough GI: Denies: abdominal pain, nausea, vomiting or diarrhea : Denies: dysuria Musc: Denies: neck pain or back pain Skin/Breast: Denies: rash Neuro: Denies: headache(s) Psych: Denies: depression Jigar/Lymph: Denies: easy bruising All/Imm: Denies: urticaria PFSH ED PFSH: Medical History (Updated 02/13/20 @ 23:17 by Kira Eugene MD) CAD (coronary artery disease) GERD (gastroesophageal reflux disease) Hyperlipidemia Ileus Metastatic colon cancer to liver Pancreatitis This suspected to be secondary to cancer related pancreatic duct obstruction. Immunotherapy could also play a role but felt unlikely. Surgical History H/O colectomy History of heart artery stent Family History Other Cancer Social History Smoking and tobacco status: former smoker Alcohol intake: never Course Vital Signs: Vital signs: Vital Signs Temperature 99.2 F 02/13/20 23:36 Pulse Rate 81 02/13/20 23:36 Respiratory Rate 16 02/13/20 23:36 Blood Pressure 109/74 02/13/20 23:36 Pulse Oximetry 94 02/13/20 23:36 MDM - Fever MDM Narrative: Medical decision making narrative: Patient presents here with fever earlier today. Patient's been afebrile here vital signs have been normal. Patient's blood work has no acute abnormalities and chest x-ray shows no signs of pneumonia. Will test him for coronavirus. He is to follow-up with his oncologist as scheduled. He is return to the ER if he has worsening or any more fevers. He understands and agrees to the plan. Lab Data: Labs: Lab Results 02/13/20 02/13/20 02/13/20 Range/Units 21:15 21:15 21:15 WBC 3.8 L (4.0-10.0) 10^3/ uL RBC 5.40 H (4.1-5.3) 10^6/u L Hgb 15.3 (11.7-16.6) g/dL Hct 46.6 (42.0-52.0) % MCV 86.3 (80-94) fL MCH 28.3 (28.0-34.0) pg MCHC 32.8 (30.0-36.0) g/dL RDW 13.1 (12.1-15.1) % Plt Count 108 L (130-400) 10^3/c mm MPV 12.4 H (7.4-10.4) fL Neut % (Auto) 68.2 % Lymph % (Auto) 18.5 % [place] % (Auto) 10.7 % Eos % (Auto) 2.3 % Baso % (Auto) 0.0 % Neut # (Auto) 2.62 (1.8-7.7) 10^3/u L Lymph # (Auto) 0.7 L (0.8-4.8) 10^3/u L [place] # (Auto) 0.4 (0.2-0.9) 10^3/u L Eos # (Auto) 0.1 (0.0-0.8) 10^3/u L Baso # (Auto) 0.0 (0.0-0.1) 10^3/u L Nucleated RBC % (a uto) 0 % Nucleated RBCs # 0.0 /100WBC Sodium 133 L (136-145) mmol/L Potassium 4.1 (3.5-5.1) mmol/L Chloride 96 L (98-107) mmol/L Carbon Dioxide 24 (22-29) mmol/L Anion Gap 17.1 (5-19) BUN 18 (8-23) mg/dL Creatinine 1.1 (0.7-1.2) mg/dL GFR Calculation 67.4 L (90-130) mL/min Glucose 104 (65-115) mg/dL Calculated Osmolal ity 278 L (285-295) mOsm/k g Lactate 1.5 (0.5-2.2) mmol/L Calcium 9.1 (8.5-10.5) mg/dL Total Bilirubin 0.5 (0.15-1.2) mg/dL AST 73 H (0-40) U/L ALT 49 H (0-41) U/L Alkaline Phosphata se 164 H (40-130) IU/L Total Protein 6.7 (6.6-8.7) g/dL Albumin 3.7 (3.5-5.2) g/dL Globulin 3.0 (1.3-4.6) g/dL Urine Color (Yellow) Urine Appearance (CLEAR) Urine pH (5-7) Ur Specific Gravit y (1.005-1.030) Urine Protein (Negative) Urine Glucose (UA) (Normal) Urine Ketones (Negative) Urine Blood (Negative) Urine Nitrate (Negative) Urine Bilirubin (Negative) Urine Urobilinogen (Negative) mg/dL Ur Leukocyte Krystal ase (Negative) 02/13/20 Range/Units 21:15 WBC (4.0-10.0) 10^3/ uL RBC (4.1-5.3) 10^6/u L Hgb (11.7-16.6) g/dL Hct (42.0-52.0) % MCV (80-94) fL MCH (28.0-34.0) pg MCHC (30.0-36.0) g/dL RDW (12.1-15.1) % Plt Count (130-400) 10^3/c mm MPV (7.4-10.4) fL Neut % (Auto) % Lymph % (Auto) % [place] % (Auto) % Eos % (Auto) % Baso % (Auto) % Neut # (Auto) (1.8-7.7) 10^3/u L Lymph # (Auto) (0.8-4.8) 10^3/u L [place] # (Auto) (0.2-0.9) 10^3/u L Eos # (Auto) (0.0-0.8) 10^3/u L Baso # (Auto) (0.0-0.1) 10^3/u L Nucleated RBC % (a uto) % Nucleated RBCs # /100WBC Sodium (136-145) mmol/L Potassium (3.5-5.1) mmol/L Chloride (98-107) mmol/L Carbon Dioxide (22-29) mmol/L Anion Gap (5-19) BUN (8-23) mg/dL Creatinine (0.7-1.2) mg/dL GFR Calculation (90-130) mL/min Glucose (65-115) mg/dL Calculated Osmolal ity (285-295) mOsm/k g Lactate (0.5-2.2) mmol/L Calcium (8.5-10.5) mg/dL Total Bilirubin (0.15-1.2) mg/dL AST (0-40) U/L ALT (0-41) U/L Alkaline Phosphata se (40-130) IU/L Total Protein (6.6-8.7) g/dL Albumin (3.5-5.2) g/dL Globulin (1.3-4.6) g/dL Urine Color Yellow (Yellow) Urine Appearance Clear (CLEAR) Urine pH 5.0 (5-7) Ur Specific Gravit y 1.020 (1.005-1.030) Urine Protein Neg (Negative) Urine Glucose (UA) Norm (Normal) Urine Ketones Negative (Negative) Urine Blood Neg (Negative) Urine Nitrate Negative (Negative) Urine Bilirubin Neg (Negative) Urine Urobilinogen Norm (Negative) mg/dL Ur Leukocyte Krystal ase Negative (Negative) Imaging Data^: CXR: Attestation: I personally reviewed and interpreted this imaging study as follows: My impression: No acute abnormality Discharge Plan Discharge Patient Disposition: Home Clinical Impression: Fever Qualifiers: Fever type: unspecified Qualified Code(s): R50.9 - Fever, unspecified Condition: Stable Prescriptions: No Action aspirin 81 mg Tablet,Chewable 81 mg PO DAILY RF: 0 Protonix 40 mg tablet,delayed release (DR/EC) 40 mg PO DAILY Qty: 30 RF: 0 Discharge Orders: Discharge Order (Routine); Ordered 02/13/20 Ordered By: Kira Eugene Referrals: Shiloh Sparks FNP [Primary Care Provider] - 1-3 days Discharge Diet: Advance as tolerated Discharge Activity: Resume usual activity Discharge Date/Time: 02/13/20 23:37 Coding Level of Care Code ED Digital Media Coordinator for Amelia Floyd
--- NOTE | 2020-02-13 21:34 | CTR_ITS ---
PROCEDURE INFORMATION: Exam: CT Head Without Contrast Exam date and time: 02/13/2020 9:46 PM Age: 64 years old Clinical indication: Pain; Headache not specified; Additional info: SANDOVAL TECHNIQUE: Imaging protocol: Computed tomography of the head without contrast. Radiation optimization: All CT scans at this facility use at least one of these dose optimization techniques: automated exposure control; mA and/or kV adjustment per patient size (includes targeted exams where dose is matched to clinical indication); or iterative reconstruction. COMPARISON: No relevant prior studies available. RADIATION DOSE METRICS: Total DLP (mGy-cm): 910.77 FINDINGS: Brain: Normal. No hemorrhage. Unremarkable white matter. No mass effect. Cerebral ventricles: No ventriculomegaly. Bones/joints: Unremarkable. No acute fracture. Paranasal sinuses: Visualized sinuses are unremarkable. No fluid levels. Mastoid air cells: Visualized mastoid air cells are well aerated. Soft tissues: Unremarkable. CT/CT head wo con* [id number] IMPRESSION: No acute intracranial abnormality. Radiation Dose CTDIVOL = (mGy): DLP = 910.77 (mGy-cm)
[2020-02-13 21:42] LABS: Add Urine Microscopic? NO
[2020-02-13 21:58] LABS: Eosinophils # 0.1 10^3/uL (0.0-0.8); Eosinophils % 2.3 %; Hematocrit 46.6 % (42.0-52.0); Hemoglobin 15.3 g/dL (11.7-16.6); Lymphocytes # 0.7 10^3/uL (0.8-4.8); Lymphocytes % 18.5 %; Mean Corpuscular HGB Conc 32.8 g/dL (30.0-36.0); Mean Corpuscular Hemoglobin 28.3 pg (28.0-34.0); Mean Corpuscular Volume 86.3 fL (80-94); Mean Platelet Volume 12.4 fL (7.4-10.4); Monocytes # 0.4 10^3/uL (0.2-0.9); Monocytes % 10.7 %; Neutrophils # 2.62 10^3/uL (1.8-7.7); Neutrophils % 68.2 %; Nucleated Red Blood Cells % 0 %; Platelet Count 108 10^3/cmm (130-400); Red Cell Distribution Width 13.1 % (12.1-15.1); White Blood Count 3.8 10^3/uL (4.0-10.0)
[2020-02-13 22:24] LABS: Bilirubin Urine Neg (Negative); Blood Urine Neg (Negative); Glucose Urine UA Norm (Normal); Ketones Urine Negative (Negative); Leukocyte Esterase Urine Negative (Negative); Nitrate Urine Negative (Negative); Protein Urine Neg (Negative); Urine Appearance Clear (CLEAR); Urine Color Yellow (Yellow); Urobilinogen Urine Norm (Negative)
[2020-02-13 22:25] LABS: Lactate (Lactic Acid level) 1.5 mmol/L (0.5-2.2)
[2020-02-13 22:27] LABS: Alanine Aminotransferase 49 U/L (0-41); Albumin Level 3.7 g/dL (3.5-5.2); Alkaline Phosphatase 164 IU/L (40-130); Anion Gap 17.1 (5-19); Aspartate Amino Transferase 73 U/L (0-40); Blood Urea Nitrogen 18 mg/dL (8-23); Calcium 9.1 mg/dL (8.5-10.5); Carbon Dioxide 24 mmol/L (22-29); Chloride 96 mmol/L (98-107); Glomerular Filtration Rate 67.4 mL/min (90-130); Glucose 104 mg/dL (65-115); Osmolality Calculated 278 mOsm/kg (285-295); Potassium 4.1 mmol/L (3.5-5.1); Sodium 133 mmol/L (136-145); Total Bilirubin 0.5 mg/dL (0.15-1.2); Total Protein 6.7 g/dL (6.6-8.7)
[2020-02-13 23:36] VITALS: BP 109/74; PULSE 81; RESP 16; TEMP 37.3; O2SAT 94
[2020-02-13] MEDS: ketorolac 30 mg/mL INJ 15 MG IVP (23:36)
[2020-02-14 00:07] LABS: Influenza A by IFA Negative (Negative); Influenza B by IFA Negative (Negative)
[2020-02-14 14:57] LABS: Cancer Antigen 19 9 526.9 U/mL (0-35); Carcinoembryonic Antigen 596.1 ng/mL (0.0-4.7)
[2020-02-15 19:46] LABS: Quest SARS-CoV-2 RNA DETECTED (NOT DETECTED)
== END 2020-02-13 23:37 | disposition home or self-care (01) ==
PROVIDERS: Internal Medicine Medical Oncology; Emergency Provider Emergency Medicine; PCP Nurse Practitioner Family
DX: U07.1 COVID-19 (principal); R50.9 Fever, unspecified; Z79.82 Long term (current) use of aspirin; Z79.899 Other long term (current) drug therapy; I25.10 Atherosclerotic heart disease of native coronary artery without angina pectoris; E78.5 Hyperlipidemia, unspecified; Z85.038 Personal history of other malignant neoplasm of large intestine; Z85.05 Personal history of malignant neoplasm of liver; Z87.891 Personal history of nicotine dependence
CPT/HCPCS: 12345; 70450; 71045; 80053; 81003; 82378; 83605; 85025; 86301; 87040; 87635; 87804; 96374; 99283; J1885

== ENCOUNTER → 2020-02-14 08:31 | Outpatient (BNVA) | payer SELFPAY | PROVIDERS: PCP Nurse Practitioner Family; Visit Provider Internal Medicine Medical Oncology | DX: C18.9 Malignant neoplasm of colon, unspecified (principal); C78.7 Secondary malignant neoplasm of liver and intrahepatic bile duct | CPT/HCPCS: 80053; 82378; 85025; 86301 ==

== ENCOUNTER 2020-02-21 09:57 | Inpatient (IN) | payer OTHER, SELFPAY ==
[2020-02-21] VITALS (20 sets, daily range): BP systolic 83–131; BP diastolic 52–71; PULSE 69–126; RESP 17–32; TEMP 37.1–38.6; O2SAT 94–99; BMI 20.7
--- NOTE | 2020-02-21 10:11 | XR_ITS ---
WS: [id number] Exam: XR chest 1V portable [id number] Date/Time of Exam: 02/21/2020 10:27 AM Reason For Exam: dyspnea/cough Findings: Comparison 02/13/2020. Small infiltrate in the left lower lobe suspicious for pneumonia. Remaining lung valladares are clear. Th e lungs are fully inflated. No pleural effusions. Normal cardiomediastinal structures and bony elemen ts. A left subclavian port appears to end in the lower one third of the SVC. Small battery pack super imposes the left lower lung zone. XR/XR chest 1V portable [id number] IMPRESSION: 1. Small infiltrate in the left lung base suspicious for pneumonia. 2. No other significant finding.
--- NOTE | 2020-02-21 10:11 | ECG_ITS ---
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
[2020-02-21 10:34] LABS: Add Urine Microscopic? NO
[2020-02-21 10:39] LABS: Basophils % 0.1 %; Eosinophils % 0.2 %; Hematocrit 33.8 % (42.0-52.0); Hemoglobin 10.5 g/dL (11.7-16.6); Lymphocytes # 0.4 10^3/uL (0.8-4.8); Lymphocytes % 3.4 %; Mean Corpuscular HGB Conc 31.1 g/dL (30.0-36.0); Mean Corpuscular Hemoglobin 27.9 pg (28.0-34.0); Mean Corpuscular Volume 89.7 fL (80-94); Mean Platelet Volume 10.6 fL (7.4-10.4); Monocytes # 0.4 10^3/uL (0.2-0.9); Monocytes % 3.9 %; Neutrophils # 9.84 10^3/uL (1.8-7.7); Neutrophils % 91.2 %; Nucleated Red Blood Cells % 0 %; Platelet Count 294 10^3/cmm (130-400); Red Blood Count 3.77 10^6/uL (4.1-5.3); Red Cell Distribution Width 13.7 % (12.1-15.1); White Blood Count 10.8 10^3/uL (4.0-10.0)
[2020-02-21 10:40] LABS: Bilirubin Urine Neg (Negative); Blood Urine Neg (Negative); Glucose Urine UA Norm (Normal); Ketones Urine Negative (Negative); Leukocyte Esterase Urine Negative (Negative); Nitrate Urine Negative (Negative); Protein Urine Neg (Negative); Specific Gravity, Urine 1.015 (1.005-1.030); Urine Appearance Clear (CLEAR); Urine Color Yellow (Yellow); Urobilinogen Urine Norm (Negative)
--- NOTE | 2020-02-21 10:42 | ED_ITS ---
HPI - Nausea/Vomiting/Diarrhea General: Chief complaint: Nausea/Vomiting/Diarrhea Stated complaint: COVID +, N/V Time Seen by Provider: 02/21/20 10:01 History of Present Illness: HPI Narrative: 64-year-old male presents emergency room with nausea vomiting and diarrhea he also had some mild hypoxia. He tested positive on 02/12 however he had reported having symptoms well before that so he was told he could be off quarantine as of today. He has a history of colon cancer with a previous colon resection with mets to the liver he says chemo ongoing. Her chemo is today had some nausea vomiting and generally not feeling well. No documentation of his room air O2 sat in the field. He came in on 4 L/min. He is reporting had a fever at home up to 102 MD elicited complaint: nausea, vomiting and diarrhea Pertinent past history: abdominal surgery and other (History of colon cancer) Onset (ago): hour(s) Description of vomiting: watery and bilious Associated nausea: Yes Severity: mild Quality: cramping Exacerbating factors: vomiting and movement Relieving factors: rest Context: other (covid-19) Associated symtoms: Reports anxiety, cough, diaphoresis, decreased urine output, dizziness, dysuria, fatigue, fevers/chills, headache(s), anorexia, malaise, myalgias, nausea and weakness; Denies chest pain Review of Systems Const: Reports: fatigue, malaise and diaphoresis ENMT: Denies: throat pain, ear or mastoid pain, nasal discharge or nasal congestion Card: Denies: chest pain, edema, dyspnea on exertion or orthopnea Resp: Denies: dyspnea, productive cough or non-productive cough GI: Reports: nausea : Reports: dysuria Skin/Breast: Denies: rash or pruritus Neuro: Reports: headache(s) and dizziness Psych: Reports: anxiety PFSH ED PFSH: Medical History (Updated 02/21/20 @ 15:29 by Ladarius Mckeon DO) CAD (coronary artery disease) GERD (gastroesophageal reflux disease) Hyperlipidemia Ileus Metastatic colon cancer to liver Pancreatitis This suspected to be secondary to cancer related pancreatic duct obstruction. Immunotherapy could also play a role but felt unlikely. Surgical History H/O colectomy History of heart artery stent Family History Other Cancer Social History Smoking and tobacco status: former smoker Alcohol intake: never Physical Exam Const: COMMON NORMALS: no acute distress GENERAL APPEARANCE: cooperative and comfortable ORIENTATION/CONSCIOUSNESS: Yes awake, Yes oriented to person, Yes oriented to place and Yes oriented to time HENMT: COMMON NORMALS: normocephalic, atraumatic and hearing grossly normal bilaterally HEAD & SCALP: normocephalic and atraumatic Neck/C-Spine: COMMON NORMALS: no JVD Resp: COMMON NORMALS: normal respiratory effort, No retractions, No use of accessory muscles and clear to auscultation bilaterally AUSCULTATION: clear to auscultation bilaterally Cardio: COMMON NORMALS: no JVD, regular rate, regular rhythm and No murmurs present (Cardio) RATE: regular rate RHYTHM: regular rhythm GI: COMMON NORMALS: Soft to palpation AUSCULTATION: Yes normoactive bowel sounds PALPATION: Yes Soft to palpation, No Tenderness to palpation present (GI), No Guarding due to palpation present (GI) and Yes Hepatomegaly present Extremity: COMMON NORMALS: normal to inspection, capillary refill normal, no clubbing, cyanosis or edema, no calf tenderness and no pedal edema Neuro: SENSORIUM/ORIENTATION: Yes oriented to person, Yes oriented to place and Yes oriented to time Skin: COMMON NORMALS: no rashes or lesions noted GENERAL SKIN EXAM: no rashes or lesions noted Course Vital Signs: Vital signs: Vital Signs Temperature 101 F H 02/21/20 10:50 Pulse Rate 97 02/21/20 13:52 Respiratory Rate 20 H 02/21/20 13:52 Blood Pressure 91/57 02/21/20 13:52 Pulse Oximetry 95 02/21/20 13:52 MDM - Nausea/Vomiting/Diarrhea MDM Narrative: Medical decision making narrative: Discussed with Dr. Paul Shea We will place him in the VQ. He has multiple issues going on including pulmonary emboli pneumonia COVID-19 infection I suspect this COVID-19 infection is more recent than may be his reported history would indicate. Additionally he has a cystitis and advancing metastasis of his lung cancer. We have given him Lovenox here. Dr. Miller we will call Dr. Ramos for consultation and she is added further evaluation including echocardiogram and venous duplex. Lab Data: Labs: Lab Results 02/21/20 02/21/20 02/21/20 Range/Units 10:06 10:28 10:28 WBC 10.8 H (4.0-10.0) 10^3/ uL RBC 3.77 L (4.1-5.3) 10^6/u L Hgb 10.5 L (11.7-16.6) g/dL Hct 33.8 L (42.0-52.0) % MCV 89.7 (80-94) fL MCH 27.9 L (28.0-34.0) pg MCHC 31.1 (30.0-36.0) g/dL RDW 13.7 (12.1-15.1) % Plt Count 294 (130-400) 10^3/c mm MPV 10.6 H (7.4-10.4) fL Neut % (Auto) 91.2 % Lymph % (Auto) 3.4 % [place] % (Auto) 3.9 % Eos % (Auto) 0.2 % Baso % (Auto) 0.1 % Neut # (Auto) 9.84 H (1.8-7.7) 10^3/u L Lymph # (Auto) 0.4 L (0.8-4.8) 10^3/u L [place] # (Auto) 0.4 (0.2-0.9) 10^3/u L Eos # (Auto) 0.0 (0.0-0.8) 10^3/u L Baso # (Auto) 0.0 (0.0-0.1) 10^3/u L Nucleated RBC % (a uto) 0 % Nucleated RBCs # 0.0 /100WBC Fibrinogen (174-498) mg/dL D-Dimer (0-0.59) ug/mIFE U Specimen Type Sample Site ABG pH (7.35-7.45) ABG pCO2 (35-45) mmHg ABG pO2 (80.0-100.0) mmH g ABG HCO3 (22-26) mmol/L ABG Base Excess (-2.0-2.0) mmol/ L José Miguel Test Hematocrit (42-52) % O2 Delivery Device FiO2 % Advertising Sales Associate ID Sodium 140 (136-145) mmol/L Potassium 3.7 (3.5-5.1) mmol/L Chloride 107 (98-107) mmol/L Carbon Dioxide 22 (22-29) mmol/L Anion Gap 14.7 (5-19) BUN 16 (8-23) mg/dL Creatinine 0.7 (0.7-1.2) mg/dL GFR Calculation 113.5 (90-130) mL/min Glucose 90 (65-115) mg/dL Calculated Osmolal ity 291 (285-295) mOsm/k g Lactic Acid (0.5-2.2) mmol/L Calcium 8.5 (8.5-10.5) mg/dL Ferritin (30-400) ng/mL Total Bilirubin 0.4 (0.15-1.2) mg/dL AST 70 H (0-40) U/L ALT 62 H (0-41) U/L Alkaline Phosphata se 311 H (40-130) IU/L Lactate Dehydrogen ase (135-225) U/L C-Reactive Protein (0.0-4.9) mg/L Total Protein 6.2 L (6.6-8.7) g/dL Albumin 3.6 (3.5-5.2) g/dL Globulin 2.6 (1.3-4.6) g/dL Lipase 56 (13-60) U/L Procalcitonin (0-0.5) ng/mL Urine Color Yellow (Yellow) Urine Appearance Clear (CLEAR) Urine pH 5.0 (5-7) Ur Specific Gravit y 1.015 (1.005-1.030) Urine Protein Neg (Negative) Urine Glucose (UA) Norm (Normal) Urine Ketones Negative (Negative) Urine Blood Neg (Negative) Urine Nitrate Negative (Negative) Urine Bilirubin Neg (Negative) Urine Urobilinogen Norm (Negative) mg/dL Ur Leukocyte Krystal ase Negative (Negative) Influenza Type A A g (Negative) Influenza Type B A g (Negative) 02/21/20 02/21/20 02/21/20 Range/Units 10:28 10:28 10:28 WBC (4.0-10.0) 10^3/ uL RBC (4.1-5.3) 10^6/u L Hgb (11.7-16.6) g/dL Hct (42.0-52.0) % MCV (80-94) fL MCH (28.0-34.0) pg MCHC (30.0-36.0) g/dL RDW (12.1-15.1) % Plt Count (130-400) 10^3/c mm MPV (7.4-10.4) fL Neut % (Auto) % Lymph % (Auto) % [place] % (Auto) % Eos % (Auto) % Baso % (Auto) % Neut # (Auto) (1.8-7.7) 10^3/u L Lymph # (Auto) (0.8-4.8) 10^3/u L [place] # (Auto) (0.2-0.9) 10^3/u L Eos # (Auto) (0.0-0.8) 10^3/u L Baso # (Auto) (0.0-0.1) 10^3/u L Nucleated RBC % (a uto) % Nucleated RBCs # /100WBC Fibrinogen 408 (174-498) mg/dL D-Dimer 6.92 H (0-0.59) ug/mIFE U Specimen Type Sample Site ABG pH (7.35-7.45) ABG pCO2 (35-45) mmHg ABG pO2 (80.0-100.0) mmH g ABG HCO3 (22-26) mmol/L ABG Base Excess (-2.0-2.0) mmol/ L José Miguel Test Hematocrit (42-52) % O2 Delivery Device FiO2 % Advertising Sales Associate ID Sodium (136-145) mmol/L Potassium (3.5-5.1) mmol/L Chloride (98-107) mmol/L Carbon Dioxide (22-29) mmol/L Anion Gap (5-19) BUN (8-23) mg/dL Creatinine (0.7-1.2) mg/dL GFR Calculation (90-130) mL/min Glucose (65-115) mg/dL Calculated Osmolal ity (285-295) mOsm/k g Lactic Acid 2.7 H (0.5-2.2) mmol/L Calcium (8.5-10.5) mg/dL Ferritin 406 H (30-400) ng/mL Total Bilirubin (0.15-1.2) mg/dL AST (0-40) U/L ALT (0-41) U/L Alkaline Phosphata se (40-130) IU/L Lactate Dehydrogen ase 405 H (135-225) U/L C-Reactive Protein 13.8 H (0.0-4.9) mg/L Total Protein (6.6-8.7) g/dL Albumin (3.5-5.2) g/dL Globulin (1.3-4.6) g/dL Lipase (13-60) U/L Procalcitonin 0.39 (0-0.5) ng/mL Urine Color (Yellow) Urine Appearance (CLEAR) Urine pH (5-7) Ur Specific Gravit y (1.005-1.030) Urine Protein (Negative) Urine Glucose (UA) (Normal) Urine Ketones (Negative) Urine Blood (Negative) Urine Nitrate (Negative) Urine Bilirubin (Negative) Urine Urobilinogen (Negative) mg/dL Ur Leukocyte Krystal ase (Negative) Influenza Type A A g (Negative) Influenza Type B A g (Negative) 02/21/20 02/21/20 Range/Units 10:53 11:28 WBC (4.0-10.0) 10^3/ uL RBC (4.1-5.3) 10^6/u L Hgb (11.7-16.6) g/dL Hct (42.0-52.0) % MCV (80-94) fL MCH (28.0-34.0) pg MCHC (30.0-36.0) g/dL RDW (12.1-15.1) % Plt Count (130-400) 10^3/c mm MPV (7.4-10.4) fL Neut % (Auto) % Lymph % (Auto) % [place] % (Auto) % Eos % (Auto) % Baso % (Auto) % Neut # (Auto) (1.8-7.7) 10^3/u L Lymph # (Auto) (0.8-4.8) 10^3/u L [place] # (Auto) (0.2-0.9) 10^3/u L Eos # (Auto) (0.0-0.8) 10^3/u L Baso # (Auto) (0.0-0.1) 10^3/u L Nucleated RBC % (a uto) % Nucleated RBCs # /100WBC Fibrinogen (174-498) mg/dL D-Dimer (0-0.59) ug/mIFE U Specimen Type Arterial Sample Site Radial, left ABG pH 7.52 H (7.35-7.45) ABG pCO2 27.8 L (35-45) mmHg ABG pO2 53.2 L (80.0-100.0) mmH g ABG HCO3 22.8 (22-26) mmol/L ABG Base Excess 1.1 (-2.0-2.0) mmol/ L José Miguel Test Pos Hematocrit 41.1 L (42-52) % O2 Delivery Device Room air FiO2 21.0 % Advertising Sales Associate ID Cak Sodium (136-145) mmol/L Potassium (3.5-5.1) mmol/L Chloride (98-107) mmol/L Carbon Dioxide (22-29) mmol/L Anion Gap (5-19) BUN (8-23) mg/dL Creatinine (0.7-1.2) mg/dL GFR Calculation (90-130) mL/min Glucose (65-115) mg/dL Calculated Osmolal ity (285-295) mOsm/k g Lactic Acid (0.5-2.2) mmol/L Calcium (8.5-10.5) mg/dL Ferritin (30-400) ng/mL Total Bilirubin (0.15-1.2) mg/dL AST (0-40) U/L ALT (0-41) U/L Alkaline Phosphata se (40-130) IU/L Lactate Dehydrogen ase (135-225) U/L C-Reactive Protein (0.0-4.9) mg/L Total Protein (6.6-8.7) g/dL Albumin (3.5-5.2) g/dL Globulin (1.3-4.6) g/dL Lipase (13-60) U/L Procalcitonin (0-0.5) ng/mL Urine Color (Yellow) Urine Appearance (CLEAR) Urine pH (5-7) Ur Specific Gravit y (1.005-1.030) Urine Protein (Negative) Urine Glucose (UA) (Normal) Urine Ketones (Negative) Urine Blood (Negative) Urine Nitrate (Negative) Urine Bilirubin (Negative) Urine Urobilinogen (Negative) mg/dL Ur Leukocyte Krystal ase (Negative) Influenza Type A A g Negative (Negative) Influenza Type B A g Negative (Negative) Discharge Plan Discharge Patient Disposition: Admitted As Inpatient Admit Provider: Berta Currie Clinical Impression: Pulmonary emboli, Intractable nausea and vomiting, Metastatic colon cancer to liver, UTI (urinary tract infection), COVID-19 virus infection, Pneumonia Condition: Stable Coding Level of Care Code 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
[2020-02-21 10:52] LABS: Alanine Aminotransferase 62 U/L (0-41); Albumin Level 3.6 g/dL (3.5-5.2); Alkaline Phosphatase 311 IU/L (40-130); Anion Gap 14.7 (5-19); Aspartate Amino Transferase 70 U/L (0-40); Blood Urea Nitrogen 16 mg/dL (8-23); Calcium 8.5 mg/dL (8.5-10.5); Carbon Dioxide 22 mmol/L (22-29); Chloride 107 mmol/L (98-107); Globulin 2.6 g/dL (1.3-4.6); Glomerular Filtration Rate 113.5 mL/min (90-130); Glucose 90 mg/dL (65-115); Lipase 56 U/L (13-60); Osmolality Calculated 291 mOsm/kg (285-295); Potassium 3.7 mmol/L (3.5-5.1); Sodium 140 mmol/L (136-145); Total Bilirubin 0.4 mg/dL (0.15-1.2); Total Protein 6.2 g/dL (6.6-8.7)
[2020-02-21] MEDS: sodium chloride 0.9% 500 ML 999 ML IV ×2 (10:53→13:57)
[2020-02-21] MEDS: ondansetron 2 mg/ML SDV 2 mL 4 MG IVP (10:53)
[2020-02-21 11:02] LABS: Fibrinogen 408 mg/dL (174-498)
[2020-02-21 11:04] LABS: ABG PCO2 27.8 mmHg (35-45); ABG PH Result 7.52 (7.35-7.45); Arterial Blood Gas Hematocrit 41.1 % (42-52); Base Excess ABG 1.1 mmol/L (-2.0-2.0); Blood Gas Allen Test Pos; Blood Gas Operator Identificat CAK; Blood Gas Sample Site Radial, left; Blood Gas Sample Type Arterial; HCO3 ABG 22.8 mmol/L (22-26); Oxygen Device ROOM AIR; PO2 ABG 53.2 mmHg (80.0-100.0)
[2020-02-21 11:11] LABS: D Dimer 6.92 ug/mIFEU (0-0.59); Lactic Sepsis W/Reflex 2.7 mmol/L (0.5-2.2)
--- NOTE | 2020-02-21 11:22 | CT_ITS ---
WS: [id number] CTA CHEST WITH CT ABDOMEN AND PELVIS. HISTORY: Positive Covid, nausea and vomiting. History of colon cancer. TECHNIQUE: CT angiogram is performed through the chest. Additional imaging is performed through the a bdomen and pelvis with IV contrast. Sagittal and coronal reformats have been submitted. MIP imaging also reviewed. All CT scans at [facility] use at least one of these dose optimization tech niques: automated exposure control; mA and/or kV adjustment per patient size (includes targeted exams where dose is matched to clinical indication); or iterative reconstruction. Contrast: Omnipaque 350; 95 cc IV. DLP: 1401.6 mGy.cm COMPARISON: 10/31/2019 Chest CTA: LEFT subclavian Port-A-Cath with tip in the distal SVC. Lungs are hyperexpanded. New bilat eral nodules and opacifications. 5 mm noncalcified nodule in the periphery of the RIGHT lower lobe is new. There are multiple small nodules with adjacent groundglass attenuation in the periphery of the LEFT lower lobe measuring up to 2.5 cm. Increasing nodule measuring 5 mm along the LEFT major fissure . Ill-defined nodule measures 10 mm in the LEFT upper lobe adjacent to the fissure. Normal size pulmonary artery. Opacification is limited due to contrast bolus injection there are fill ing defects in the segmental branches of the upper lobes bilaterally and also in the subsegmental bra nches of the LEFT lower lobes bilaterally. No central pulmonary embolism. Mild atherosclerosis aorta. Increase in size and number of the mediastinal and bilateral hilar lymph nodes since 10/31/2019. RIGHT hilar lymph node with a maximum diameter of 17 mm. LEFT paratracheal lymph node maximum diameter 15 m m. Lymphadenopathy extends inferiorly along the pulmonary ligaments. No pericardial or pleural effusi on. Abdomen CT: Small hiatal hernia. There are numerous metastatic lesions within the liver. Largest confluent lesion extends between the RIGHT and LEFT lobes measuring 10.0 x 6.8 cm. There has been a moderate increase in size and number o f the metastatic lesions within the liver. Portal vein is patent. Normal size spleen. There is a smal l cyst measuring 1.0 cm in the pancreatic head which has slightly increased in size since the prior s tudy. No bile duct dilatation. Atherosclerosis aorta. No renal obstruction. No adenopathy or ascites. Pelvic CT: No free fluid or adenopathy. Urinary bladder is well distended. No osteoblastic or osteoly tic bone lesions. CT/CT angio chest w abd pel w con IMPRESSION: 1. Segmental and subsegmental pulmonary emboli, bilateral. 2. New nodules and scattered opacifications bilaterally but greatest throughou t the LEFT lung since 10/31/2019. Suspect combination of metastatic lesions and p neumonia. Anticipate follow-up CT in 2-3 months. 3. Progression of metastatic disease throughout the liver. 4. Progression of mediastinal and hilar lymphadenopathy.
[2020-02-21] MEDS: cefTAZidime 2,000 MG in sodium chloride 0.9% (plus) 50 ML 150 MG IV (11:40)
[2020-02-21 12:08] LABS: Influenza A by IFA Negative (Negative); Influenza B by IFA Negative (Negative)
[2020-02-21 12:42] LABS: Reflex Lactate Order REFLEX LACTIC ORDERD
[2020-02-21 13:02] LABS: Procalcitonin 0.39 ng/mL (0-0.5)
[2020-02-21 13:23] LABS: C Reactive Protein 13.8 mg/L (0.0-4.9); Ferritin 406 ng/mL (30-400); Lactate Dehydrogenase 405 U/L (135-225)
[2020-02-21] MEDS: enoxaparin 80 mg/0.8 mL Syringe 70 MG SUBCUT (13:57)
--- NOTE | 2020-02-21 14:23 | USCV_ITS ---
Steven Arellano Age: 64 Gender: M : 1955 Exam Date: 02/21/2020 16:43 Ordering Phys: Berta Currie MD Technologist: Daria Puentes Exam Location: [facility] [place] Indication: COVID WITH PE HISTORY: Covid with PE PROCEDURES: Venous duplex imaging was performed in bilateral lower extremities. The following venous structures were evaluated: common femoral vein, profunda vein, proximal portion of the greater saphenous vein, superficial femoral vein, and the popliteal vein. In addition, the posterior tibial and peroneal trunk were evaluated. Serial compression, augmentation maneuvers, and spectral Doppler flow evaluation were performed. FINDINGS: No DVT seen in any vessel examained CONCLUSIONS No evidence of DVT in the above-mentioned identifiable veins. Dr Rhonda Parra MD [facility] (Electronically Signed) Final Date: 21 February 2020 21:42 S
--- NOTE | 2020-02-21 14:23 | USCV_ITS ---
Steven Arellano Age: 64 Gender: M : 1955 Exam Date: 02/21/2020 16:23 Ordering Phys: Berta Currie MD Technologist: Daria Puentes Exam Location: [facility] [place]ication: COVID WITH PE BP: 107 / 61 HR: 89 Rhythm: Sinus Technical Quality: Adequate MEASUREMENTS (Male / Female) Normal Values 2D ECHO LV Diastolic Diameter PLAX 3.9 cm 4.2 - 5.9 / 3.9 - 5.3 cm LV Systolic Diameter PLAX 3.5 cm LV Chamber Size 3.2 cm IVS Diastolic Thickness 1.5 cm 0.6 - 1.0 / 0.6 - 0.9 cm IVS Systolic Thickness 1.9 cm LVPW Diastolic Thickness 1.2 cm 0.6 - 1.0 / 0.6 - 0.9 cm LVPW Systolic Thickness 1.5 cm RV Chamber Size 3.3 cm LVOT Diameter 2.0 cm LV Ejection Fraction 2D Teich 17.8 % LV Ejection Fraction MOD 2C 35.1 % LV Ejection Fraction 2C AL 36.2 % LA Diameter 3.1 cm LA Width 2.5 cm LA Height 3.5 cm RA Width 2.4 cm RA Height 3.5 cm Aorta at Sinotubular Diameter 3.3 cm M-MODE LV Diastolic Diameter MM 3.6 cm 4.2 - 5.9 / 3.9 - 5.3 cm LV Systolic Diameter MM 1.5 cm LV Ejection Fraction MM Teich 87.9 % IVS Diastolic Thickness MM 0.8 cm 0.6 - 1.0 / 0.6 - 0.9 cm IVS Systolic Thickness MM 1.3 cm LVPW Diastolic Thickness MM 1.1 cm 0.6 - 1.0 / 0.6 - 0.9 cm LVPW Systolic Thickness MM 1.1 cm RV Diastolic Diameter MM 0.6 cm Aortic Annulus Diameter 3.6 cm LA Ao Ratio MM 0.9 MV E Point Septal Separation 0.3 cm DOPPLER AV Peak Velocity 117.0 cm/s LVOT Peak Velocity 79.0 cm/s AV Area Cont Eq vti 2.1 cm squared AV Area Cont Eq pk 2.1 cm squared MV Area PHT 3.0 cm squared Mitral E to A Ratio 1.1 MV E' Velocity 31.6 cm/s Mitral E to MV E' Ratio 6.5 Mitral E to LV E' Lateral Ratio 5.6 Mitral E to LV E' Septal Ratio 7.8 TR Peak Velocity 178.8 cm/s TR Peak Gradient 12.8 mmHg TR Mean Velocity 120.7 cm/s TR Mean Gradient 7.0 mmHg TR Velocity Time Integral 30.2 cm TV Peak E Velocity 75.0 cm/s Right Atrial Pressure 5.0 mmHg Pulmonary Artery Systolic Pressu 17.8 mmHg PV Peak Velocity 91.0 cm/s RV Acceleration Time 0.1 s RV Ejection Time 0.2 s RV AcT/ET 0.4 FINDINGS Left Ventricle Normal in LV size and ejection fraction of 55%. Mild hypokinesia of the apical septum. Mild left ventricular hypertrophy. Grade I/IV diastolic dysfunction (abnormal relaxation filling pattern), normal to mildly elevated filling pressures. Right Ventricle The right ventricle is normal in size and function. Right Atrium The right atrium is normal in size. Left Atrium The left atrium is normal in size. Mitral Valve Minimally thickened mitral valve Aortic Valve No gross abnormalities noted Tricuspid Valve No gross abnormalities noted.trace tricuspid valve regurgitation. Pulmonic Valve No gross abnormalities noted Pericardium Normal pericardium without effusion. Echogenic lesions in the liver were noted Aorta Normal ascending aorta dimension. CONCLUSIONS Normal in LV size and ejection fraction of 55%. Mild hypokinesia of the apical septum. Mild left ventricular hypertrophy. Grade I/IV diastolic dysfunction (abnormal relaxation filling pattern), normal to mildly elevated filling pressures. There is no pericardial effusion. There are no intracardiac masses. Echogenic lesions were noted in the liver, consider further work-up Dr Rhonda Parra MD FACC (Electronically Signed) Final Date: 21 February 2020 21:40 S
--- NOTE | 2020-02-21 16:09 | P.HP_ITS ---
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 He had previously been diagnosed with COVID-19 infection on 02/12 though reports feeling poorly even prior to that formal diagnosis and has been self isolating at home. He has been using supplemental oxygen, 2 L nasal cannula for approximately 1 week. He is generally quite active and was doing his normal activity around his property today when he started to feel quite unwell, with noted palpitations, diaphoresis, dizziness and lightheadedness at which point he stopped working and headed back to the house. It was a struggle to get home on his own, once he got there he called his who then called for an ambulance for him. He checked his vital signs and noticed that his heart rate was quite high, he remembers it being in the 190s for which he took a dose of nitroglycerin and aspirin. He already had his oxygen on by the time EMS arrived, the increased 2 to 4 L and he also recalls having had an episode of increased nausea and one episode of NBNB emesis after which he felt slightly better. He is on active chemotherapy treatment secondary to known history of metastatic colon cancer. He denies a previous history of having high blood clots and is not on any blood thinners other than baby aspirin. He follows up with Dr. Rabago for his cancer treatments. Further work-up in the ER indicates a white count of 10.8, hemoglobin of 10.5, normal chemistry, lactic acid of 2.7, procalcitonin of 0.39, slight elevation in ferritin and LDH, slight elevation in LFTs, D-dimer of 6.[address] scan which indicates multiple bilateral PEs, pneumonia, lymphadenopathy and metastatic lesions. Urinalysis is unremarkable, he currently has a temperature of 101.4 F, is mildly tachypneic but otherwise hemodynamically stable. He has already received a therapeutic dose of Lovenox in addition to a dose of ceftazidime, normal saline bolus and Zofran. I have briefly reviewed the case with Dr. Ramos who recommends empiric antibiotic treatment and therapeutic anticoagulation. Venous duplex and echo are currently pending. Patient will be admitted to the VICU as he is a known COVID-19 positive patient. Review of Systems Const: Reports: fatigue and malaise; Denies: fever(s) or chills Eyes: Denies: change in vision ENMT: Reports: dry mouth Card: Reports: palpitations, lightheadedness and dyspnea on exertion; Denies: chest pain or swelling of feet/ankles Resp: Reports: dyspnea and non-productive cough GI: Denies: abdominal pain, nausea, vomiting, hematemesis or hematochezia : Denies: dysuria or hematuria Musc: Denies: back pain Skin/Breast: Denies: rash Neuro: Reports: weakness in extremities; Denies: numbness in extremities Psych: Denies: anxiety Medications/Allergies Home Medications Medication Instructions Recorded Confirmed Last Taken Type aspirin 81 mg PO DAILY 10/18/19 02/21/20 10/18/19 History Doterra Vitamin E,A,D Complex 1 cap PO DAILY 02/21/20 02/21/20 Unknown History Fenbendazole See Rx Instructions .ROUTE .COMPLEX 02/21/20 02/21/20 02/21/20 History Keytruda See Rx Instructions .ROUTE .COMPLEX 02/21/20 02/21/20 Unknown History Quercetin 1 tab PO DAILY 02/21/20 02/21/20 Unknown History Safe Cell Tabs 1 tab PO DAILY 02/21/20 02/21/20 Unknown History Turmeric Curcumin 1 tab PO DAILY 02/21/20 02/21/20 Unknown History Vitamin C 1 tab PO DAILY 02/21/20 02/21/20 Unknown History atorvastatin 40 mg PO DAILY 02/21/20 02/21/20 Unknown History axitinib [Inlyta] 5 mg PO BID 02/21/20 02/21/20 02/21/20 History capmatinib [Tabrecta] 200 mg PO BID 02/21/20 02/21/20 02/21/20 History metformin 1,000 mg PO DAILY 02/21/20 02/21/20 Unknown History multivitamin [Multiple Vitamins] 1 tab PO DAILY 02/21/20 02/21/20 Unknown History nitroglycerin [Nitrostat] 0.4 mg SUBLINGUAL Q5M PRN 02/21/20 02/21/20 02/21/20 History Allergies Allergy/AdvReac Type Severity Reaction Status Date / Time No Known Allergies Allergy Verified 02/21/20 11:35 PFSH Acute PFSH: Medical History (Updated 02/21/20 @ 16:51 by Berta Currie MD) CAD (coronary artery disease) GERD (gastroesophageal reflux disease) Hyperlipidemia Ileus Metastatic colon cancer to liver Pancreatitis This suspected to be secondary to cancer related pancreatic duct obstruction. Immunotherapy could also play a role but felt unlikely. Surgical History (Updated 02/21/20 @ 16:24 by Berta Currie MD) H/O colectomy -partial transverse colectomy History of heart artery stent -in RCA secondary to inferior wall [place] S/P exploratory laparotomy Family History (Updated 02/21/20 @ 16:25 by Berta Currie MD) Family/Other Cancer -hx of colon cancer Social History (Updated 02/21/20 @ 16:25 by Berta Currie MD) Smoking and tobacco status: former smoker Alcohol intake: never Substance/Drug Use: never Household members: spouse Marital status: Vitals/I&O/Wt Last Vital Signs Temp 101 F H 02/21/20 10:50 Pulse 100 02/21/20 15:38 Resp 21 H 02/21/20 15:38 BP 96/52 02/21/20 15:38 Pulse Ox 94 02/21/20 15:38 Weight last 48 hrs Weight 65.771 kg Physical Exam Const: COMMON NORMALS: no acute distress and patient oriented x3 GENERAL APPEARANCE: cooperative and comfortable; not ill appearing ORIENTATION/CONSCIOUSNESS: Yes awake OTHER: -looks appropriate for age HENMT: COMMON NORMALS: normocephalic, atraumatic, hearing grossly normal bila terally and moist oral mucous membranes HEAD & SCALP: normocephalic and a traumatic Eye: COMMON NORMALS: Equal, round and reactive pupils present, EOMs intact bilaterally and conjunctivae normal CONJUNCTIVA: Yes conjunctivae normal PUPIL: Yes Equal, round and reactive pupils present Neck/C-Spine: COMMON NORMALS: full ROM GENERAL: Yes normal visual inspection and Yes trachea midline Resp: COMMON NORMALS: normal respiratory effort, No retractions, No use of accessory muscles and clear to auscultation bilaterally EFFORT & INSPECTION: Yes able to speak in complete sentences, Yes symmetric chest movement and No tachypneic AUSCULTATION: clear to auscultation bilaterally OTHER: -on 2 L NC; symmetrical air entry bilaterally Cardio: COMMON NORMALS: regular rate, regular rhythm, S1 normal heart sound present, S2 normal heart sound present and No murmurs present (Cardio) RATE: regular rate RHYTHM: regular rhythm HEART SOUNDS: S1 normal heart sound present and S2 normal heart sound present GI: COMMON NORMALS: Normal to inspection, nondistended, normoactive bowel soun ds present, Soft to palpation and non-tender PALPATION: Yes Soft to palpation Extremity: COMMON NORMALS: normal to inspection, full ROM and no clubbing, cyanosis or edema; negative for no pedal edema Neuro: COMMON NORMALS: patient oriented x3, moves all extremities, no focal motor deficits, no sensory deficits noted and gait normal Psych: COMMON NORMALS: mental status grossly normal, Normal thought process present, cooperative, normal affect and speech normal SPEECH: Yes normal speech THOUGHT PROCESS: Normal thought process present Skin: COMMON NORMALS: no rashes or lesions noted, no jaundice, no petechiae and no mottling GENERAL SKIN EXAM: no rashes or lesions noted Data : 02/21/20 10:28 02/21/20 10:28 A&P Assessment and plan (1) Pulmonary emboli: -noted bilateral PE on CT scan of the chest done following elevated D- dimer -Order echo to evaluate for right heart strain -Order venous duplex to rule out DVT -Has received a therapeutic dose of Lovenox, will continue this for now -No prior history of PE; biggest risk factor is likely underlying malignancy -Monitor vital signs and respiratory status -Noted hypoxia on ABG Status: Acute Qualifiers: Pulmonary embolism type: multiple subsegmental (without acute cor pulmonale) Qualified Code(s): I26.94 - Multiple subsegmental pulmonary emboli without acute cor pulmonale (2) COVID-19 virus infection: -Previously diagnosed with COVID-19 infection on 02/12 -Has been on supplemental oxygen, 2 L at home for approximately 1 week -Imaging seems to be more consistent with PE and metastatic disease with some evidence of pneumonia; rather than primarily viral pneumonia from underlying COVID-19 infection; cannot exclude bacterial process so we will treat with empiric antibiotics at this time -Monitor respiratory status, supplemental oxygen as needed -Isolation precautions -Supportive care including pulmonary toilet, zinc, vitamin C, breathing treatments as needed -Inflammatory markers noted though not significantly elevated -would not initiate remdesevir as stable; start on IV steroids Status: Acute (3) Pneumonia: -Noted evidence of pneumonia on CT scan of the chest -We will start on empiric Levaquin -Currently on 2 L nasal cannula -Noted fever with temperature of 101.4F, some tachypnea, minimal leukocytosis with white count of 10.8; normal procalcitonin, lactic acid of 2.7 -Influenza negative Status: Acute Qualifiers: Pneumonia type: due to unspecified organism Laterality: left Lung location: unspecified part of lung Qualified Code(s): J18.9 - Pneumonia, unspecified organism (4) Transaminitis: -Known metastatic disease to the liver Status: Chronic (5) Metastatic colon cancer to liver: -Known metastatic disease to the liver -s/p chemo immunotherapy percutaneous injection (CIPI) to the liver and lung lesions on 11/21/19 Status: Chronic (6) GERD (gastroesophageal reflux disease): Status: Chronic Qualifiers: Esophagitis presence: esophagitis presence not specified Qualified Code(s): K21.9 - Gastro-esophageal reflux disease without esophagitis (7) CAD (coronary artery disease): -with hx of inferior wall [place] s/p stenting of RCA Status: Chronic Qualifiers: Coronary Disease-Associated Artery/Lesion type: [place] artery [place] vs. transplanted heart: [place] heart Associated angina: angina presence unspecified Qualified Code(s): I25.10 - Atherosclerotic heart disease of [place] coronary artery without angina pectoris (8) Hyperlipidemia: -resume statin Status: Chronic Qualifiers: Hyperlipidemia type: unspecified Qualified Code(s): E78.5 - Hyperlipidemia, unspecified Additional A&P Information -regular diet as tolerated -GI ppx with famotidine -DVT ppx not needed as on therapeutic lovenox -Dispo: home -Code stats: FULL code -Admit to [facility] Medical Necessity Statement*: Steven Arellano's hospital stay will require greater than 2 midnights for management of bilateral PE, pneumonia, COVID-19 infection in a patient with underlying immunocompromise secondary to metastatic colon cancer. Time Spent in Patient Care: Greater than 35 minutes (>than 50% of time spent in counselling and/or direct pt care on unit) . Coding Level of Care Code Acute Towel Inspector for Amelia Floyd Diagnoses Pulmonary emboli I26.94 Pulmonary embolism type: multiple subsegmental (without acute cor pulmo nale) COVID-19 virus infection U07.1 Pneumonia J18.9 Pneumonia type: due to unspecified organism Laterality: left Lung location: unspecified part of lung Transaminitis R74.0 Metastatic colon cancer to liver C18.9; C78.7 GERD (gastroesophageal reflux disease) K21.9 Esophagitis presence: esophagitis presence not specified CAD (coronary artery disease) I25.10 Coronary Disease-Associated Artery/Lesion type: [place] artery [place] vs. transplanted heart: [place] heart Associated angina: angina presence unspecified Hyperlipidemia E78.5 Hyperlipidemia type: unspecified
[2020-02-21] MEDS: famotidine 20 mg Tablet PO (17:32)
[2020-02-21] MEDS: levofloxacin-dextrose 5 % 750 MG/150 ML PREMIX 100 MG IV (17:32)
[2020-02-21] MEDS: dexamethasone 4 mg/mL INJ 6 MG IVP (17:32)
--- NOTE | 2020-02-21 18:34 | PC.NURSE ---
Patient came from ER with a Port accessed on his left chest. This was not charted in the Invasive line management of the charting. I called ER to request the RN who accessed the port to chart on it so we know the time and date. This still has not been done. Port remains accessed and has ABX infusing at this time.
[2020-02-21] MEDS: sodium chloride 0.9% (100 ml) 100 ML 10 ML (18:38)
[2020-02-22] VITALS (20 sets, daily range): BP systolic 85–109; BP diastolic 52–72; PULSE 53–84; RESP 15–23; TEMP 36.4–37.2; O2SAT 93–98
[2020-02-22] MEDS: enoxaparin 60 mg/0.6 mL Syringe SUBCUT (01:49)
--- NOTE | 2020-02-22 04:57 | PC.NURSE ---
Pts blood pressure remained lower this evening. I notified Dr Quinn and was advised to watch it and if the MAP dropped below 60 or the systolic dropped below 80 a bolus would be given. However if the pressure dropped below those parameters it was rechecked and found to be above them again. Pt remained alert and oriented, just sleeping hard. Will continue to monitor and notify the physician if they drop below the parameters and stay
[2020-02-22 06:38] LABS: Basophils % 0.1 %; Hematocrit 34.4 % (42.0-52.0); Hemoglobin 10.7 g/dL (11.7-16.6); Lymphocytes # 0.9 10^3/uL (0.8-4.8); Lymphocytes % 12.8 %; Mean Corpuscular HGB Conc 31.1 g/dL (30.0-36.0); Mean Corpuscular Hemoglobin 27.9 pg (28.0-34.0); Mean Corpuscular Volume 89.8 fL (80-94); Mean Platelet Volume 11.6 fL (7.4-10.4); Monocytes # 0.3 10^3/uL (0.2-0.9); Monocytes % 5.1 %; Neutrophils # 5.48 10^3/uL (1.8-7.7); Neutrophils % 81.6 %; Nucleated Red Blood Cells % 0 %; Platelet Count 167 10^3/cmm (130-400); Red Blood Count 3.83 10^6/uL (4.1-5.3); Red Cell Distribution Width 13.9 % (12.1-15.1); White Blood Count 6.7 10^3/uL (4.0-10.0)
[2020-02-22 06:50] LABS: Blood Urea Nitrogen 18 mg/dL (8-23); Calcium 8.4 mg/dL (8.5-10.5); Carbon Dioxide 23 mmol/L (22-29); Chloride 101 mmol/L (98-107); Creatinine Clr Calc Pharmacy 101.0267; Glomerular Filtration Rate 97.3 mL/min (90-130); Glucose 118 mg/dL (65-115); Osmolality Calculated 281 mOsm/kg (285-295); Sodium 134 mmol/L (136-145)
[2020-02-22 06:51] LABS: Alanine Aminotransferase 56 U/L (0-41); Albumin Level 3.2 g/dL (3.5-5.2); Alkaline Phosphatase 226 IU/L (40-130); Aspartate Amino Transferase 65 U/L (0-40); Globulin 2.6 g/dL (1.3-4.6); Total Bilirubin 0.5 mg/dL (0.15-1.2); Total Protein 5.8 g/dL (6.6-8.7)
--- NOTE | 2020-02-22 07:04 | P.DS_ITS ---
Discharge Providers Date of Admission: 02/21/20 14:09 Date of Discharge: February 23, 2020 Attending Provider at Admission: Berta Currie MD Attending Provider at Discharge: Berta Currie MD Consults: None Primary Care Provider: ANKIT Smith Diagnoses at Discharge Discharge Diagnosis (1) Pulmonary emboli: Status: Acute Problem details: -noted bilateral PE on CT scan of the chest done following elevated D-dimer -Echo: EF=55%, mild LVH, G1DD, no evidence of R heart strain -venous duplex negative for DVT -ontherapeutic dose of Lovenox, switched to Eliquis -No prior history of PE; biggest risk factor is likely underlying malignancy -stable vital signs and respiratory status -Noted hypoxia on ABG Qualifiers: Pulmonary embolism type: multiple subsegmental (without acute cor pulmonale) Qualified Code(s): I26.94 - Multiple subsegmental pulmonary emboli without acute cor pulmonale (2) COVID-19 virus infection: Status: Acute Problem details: -Previously diagnosed with COVID-19 infection on 02/12 -Has been on supplemental oxygen, 2 L at home for approximately 1 week -Imaging seems to be more consistent with PE and metastatic disease with some evidence of pneumonia; rather than primarily viral pneumonia from underlying COVID-19 infection; cannot exclude bacterial process so we will treat with empiric antibiotics at this time -stable respiratory status, supplemental oxygen as needed -Isolation precautions -Supportive care including pulmonary toilet, zinc, vitamin C, breathing treatments as needed -Inflammatory markers noted though not significantly elevated -would not initiate remdesevir as stable; on IV steroids (3) Pneumonia: Status: Acute Problem details: -Noted evidence of pneumonia on CT scan of the chest -on empiric Levaquin -Currently on 2 L nasal cannula -Noted fever with temperature of 101.4F, some tachypnea, minimal leukocytosis with white count of 10.8; normal procalcitonin, lactic acid of 2.7. Leukocytosis resolved, afebrile overnight -Influenza negative Qualifiers: Laterality: left Lung location: unspecified part of lung Pneumonia type: due to unspecified organism Qualified Code(s): J18.9 - Pneumonia, unspecified organism (4) Transaminitis: Status: Chronic Problem details: -Known metastatic disease to the liver (5) Metastatic colon cancer to liver: Status: Chronic Problem details: -Known metastatic disease to the liver and lung -s/p chemo immunotherapy percutaneous injection (CIPI) to the liver and lung lesions on 11/21/19 (6) GERD (gastroesophageal reflux disease): Status: Chronic Qualifiers: Esophagitis presence: esophagitis presence not specified Qualified Code(s): K21.9 - Gastro-esophageal reflux disease without esophagitis (7) CAD (coronary artery disease): Status: Chronic Problem details: -with hx of inferior wall WI s/p stenting of RCA Qualifiers: Associated angina: angina presence unspecified Coronary Disease- Associated Artery/Lesion type: [place] artery [place] vs. transplanted heart: [place] heart Qualified Code(s): I25.10 - Atherosclerotic heart disease of [place] coronary artery without angina pectoris (8) Hyperlipidemia: Status: Chronic Problem details: -continue statin Qualifiers: Hyperlipidemia type: unspecified Qualified Code(s): E78.5 - Hyperlipidemia, unspecified Reason for Visit Reason for Visit: COVID +, N/V Hospital Course Hospital Course: Patient was admitted to the viral ICU secondary to having been found positive for COVID-19 previously. He was found to have bilateral multiple PE on imaging for which he was started on therapeutic anticoagulation. Echo showed no evidence of right heart strain and venous duplex was negative for any DVT. He was initially treated with therapeutic Lovenox which was then switched to Eliquis to allow for anticoagulation to be continued on discharge. Patient had already been on home oxygen, 2 L nasal cannula for approximately 1 week prior to this admission secondary to COVID-19 infection. There was some noted evidence of infection on imaging and minimal leukocytosis as well as a fever on admission so he was started on antibiotic treatment empirically. Antineoplastic agents were held and will need to be held until he has appropriate follow-up with his oncologist in light of acute infection. He does have noted transaminitis which is likely reflective of liver metastasis. He has been hemodynamically stable, afebrile throughout the night. He is more comfortable going home today vs. yesterday as he wanted to see how well he could ambulate and maintain his oxygenation. Discharge Summary: -Patient to follow up with primary care provider within 1 week -Patient to continue to follow up with oncology Physical Exam Const: COMMON NORMALS: no acute distress and patient oriented x3 GENERAL APPEARANCE: cooperative and comfortable; not ill appearing ORIENTATION/CONSCIOUSNESS: Yes awake OTHER: -looks appropriate for age HENMT: COMMON NORMALS: normocephalic, atraumatic, hearing grossly normal bilaterally and moist oral mucous membranes HEAD & SCALP: normocephalic and atraumatic Eye: COMMON NORMALS: Equal, round and reactive pupils present, EOMs intact bilaterally and conjunctivae normal CONJUNCTIVA: Yes conjunctivae normal PUPIL: Yes Equal, round and reactive pupils present Neck/C-Spine: COMMON NORMALS: full ROM GENERAL: Yes normal visual inspection and Yes trachea midline Resp: COMMON NORMALS: normal respiratory effort, No retractions, No use of accessory muscles and clear to auscultation bilaterally EFFORT & INSPECTION: Yes able to speak in complete sentences, Yes symmetric chest movement and No tachypneic AUSCULTATION: clear to auscultation bilaterally OTHER: -on RA; symmetrical air entry bilaterally Cardio: COMMON NORMALS: regular rate, regular rhythm, S1 normal heart sound present, S2 normal heart sound present and No murmurs present (Cardio) RATE: regular rate RHYTHM: regular rhythm HEART SOUNDS: S1 normal heart sound present and S2 normal heart sound present GI: COMMON NORMALS: Normal to inspection, nondistended, normoactive bowel sounds present, Soft to palpation and non-tender PALPATION: Yes Soft to palpation Extremity: COMMON NORMALS: normal to inspection, full ROM and no clubbing, cyanosis or edema; negative for no pedal edema Neuro: COMMON NORMALS: patient oriented x3, moves all extremities, no focal motor deficits, no sensory deficits noted and gait normal Psych: COMMON NORMALS: mental status grossly normal, Normal thought process present, cooperative, normal affect and speech normal SPEECH: Yes normal speech THOUGHT PROCESS: Normal thought process present Skin: COMMON NORMALS: no rashes or lesions noted, no jaundice, no petechiae and no mottling GENERAL SKIN EXAM: no rashes or lesions noted Discharge Data Data Completed and Pending: Completed Studies During Hospitalization Category Date Time Status CT angio chest w abd pel w con Stat Cat Scan 02/21/20 11:22 Completed XR chest 1V araceli ble [id number] Stat Exams 02/21/20 10:11 Completed CV echo complete* [id number] Urgent Ultrasound 02/21/20 14:23 [place] [id number] Urgent Ultrasound 02/21/20 14:23 Completed Pending at discharge Category Date Time Status Basic Metabolic P patel AM LABS Lab 02/22/20 04:10 Received Blood Culture Sta t Lab 02/21/20 17:49 Results Liver Panel AM LA BS Lab 02/22/20 04:10 Received Sputum Culture an d Gram Stain Stat Lab 02/21/20 10:38 Uncollected Labs from last 24 hours 02/22/20 02/22/20 02/22/20 04:10 04:10 04:10 WBC 6.7 RBC 3.83 L Hgb 10.7 L Hct 34.4 L MCV 89.8 MCH 27.9 L MCHC 31.1 RDW 13.9 Plt Count 167 MPV 11.6 H Neut % (Auto) 81.6 Lymph % (Auto) 12.8 Sullivan % (Auto) 5.1 Eos % (Auto) 0.0 Baso % (Auto) 0.1 Neut # (Auto) 5.48 Lymph # (Auto) 0.9 Sullivan # (Auto) 0.3 Eos # (Auto) 0.0 Baso # (Auto) 0.0 Nucleated RBC % (a uto) 0 Nucleated RBCs # 0.0 Fibrinogen D-Dimer Specimen Type Sample Site ABG pH ABG pCO2 ABG pO2 ABG HCO3 ABG Base Excess José Miguel Test Hematocrit O2 Delivery Device FiO2 Sewing Machine Operator Paper Bags ID Sodium Pending Potassium 4.0 Chloride 101 Carbon Dioxide 23 Anion Gap 14.0 BUN 18 Creatinine 0.8 GFR Calculation 97.3 Glucose Pending Calculated Osmolal ity Pending Lactic Acid Calcium Pending Ferritin Total Bilirubin 0.5 Direct Bilirubin 0.20 AST Pending ALT Pending Alkaline Phosphata se Pending Lactate Dehydrogen ase C-Reactive Protein Total Protein Pending Albumin Pending Globulin 2.6 Lipase Procalcitonin Urine Color Urine Appearance Urine pH Ur Specific Gravit y Urine Protein Urine Glucose (UA) Urine Ketones Urine Blood Urine Nitrate Urine Bilirubin Urine Urobilinogen Ur Leukocyte Krystal ase Influenza Type A A g Influenza Type B A g 02/21/20 02/21/20 02/21/20 11:28 10:53 10:28 WBC RBC Hgb Hct MCV MCH MCHC RDW Plt Count MPV Neut % (Auto) Lymph % (Auto) Sullivan % (Auto) Eos % (Auto) Baso % (Auto) Neut # (Auto) Lymph # (Auto) Sullivan # (Auto) Eos # (Auto) Baso # (Auto) Nucleated RBC % (a uto) Nucleated RBCs # Fibrinogen D-Dimer Specimen Type Arterial Sample Site Radial, left ABG pH 7.52 H ABG pCO2 27.8 L ABG pO2 53.2 L ABG HCO3 22.8 ABG Base Excess 1.1 José Miguel Test Pos Hematocrit 41.1 L O2 Delivery Device Room air FiO2 21.0 Sewing Machine Operator Paper Bags ID Cak Sodium Potassium Chloride Carbon Dioxide Anion Gap BUN Creatinine GFR Calculation Glucose Calculated Osmolal ity Lactic Acid Calcium Ferritin 406 H Total Bilirubin Direct Bilirubin AST ALT Alkaline Phosphata se Lactate Dehydrogen ase 405 H C-Reactive Protein 13.8 H Total Protein Albumin Globulin Lipase Procalcitonin 0.39 Urine Color Urine Appearance Urine pH Ur Specific Gravit y Urine Protein Urine Glucose (UA) Urine Ketones Urine Blood Urine Nitrate Urine Bilirubin Urine Urobilinogen Ur Leukocyte Krystal ase Influenza Type A A g Negative Influenza Type B A g Negative 02/21/20 02/21/20 02/21/20 10:28 10:28 10:28 WBC RBC Hgb Hct MCV MCH MCHC RDW Plt Count MPV Neut % (Auto) Lymph % (Auto) Sullivan % (Auto) Eos % (Auto) Baso % (Auto) Neut # (Auto) Lymph # (Auto) Sullivan # (Auto) Eos # (Auto) Baso # (Auto) Nucleated RBC % (a uto) Nucleated RBCs # Fibrinogen 408 D-Dimer 6.92 H Specimen Type Sample Site ABG pH ABG pCO2 ABG pO2 ABG HCO3 ABG Base Excess José Miguel Test Hematocrit O2 Delivery Device FiO2 Sewing Machine Operator Paper Bags ID Sodium 140 Potassium 3.7 Chloride 107 Carbon Dioxide 22 Anion Gap 14.7 BUN 16 Creatinine 0.7 GFR Calculation 113.5 Glucose 90 Calculated Osmolal ity 291 Lactic Acid 2.7 H Calcium 8.5 Ferritin Total Bilirubin 0.4 Direct Bilirubin AST 70 H ALT 62 H Alkaline Phosphata se 311 H Lactate Dehydrogen ase C-Reactive Protein Total Protein 6.2 L Albumin 3.6 Globulin 2.6 Lipase 56 Procalcitonin Urine Color Urine Appearance Urine pH Ur Specific Gravit y Urine Protein Urine Glucose (UA) Urine Ketones Urine Blood Urine Nitrate Urine Bilirubin Urine Urobilinogen Ur Leukocyte Krystal ase Influenza Type A A g Influenza Type B A g 02/21/20 02/21/20 10:28 10:06 WBC 10.8 H RBC 3.77 L Hgb 10.5 L Hct 33.8 L MCV 89.7 MCH 27.9 L MCHC 31.1 RDW 13.7 Plt Count 294 MPV 10.6 H Neut % (Auto) 91.2 Lymph % (Auto) 3.4 Sullivan % (Auto) 3.9 Eos % (Auto) 0.2 Baso % (Auto) 0.1 Neut # (Auto) 9.84 H Lymph # (Auto) 0.4 L Sullivan # (Auto) 0.4 Eos # (Auto) 0.0 Baso # (Auto) 0.0 Nucleated RBC % (a uto) 0 Nucleated RBCs # 0.0 Fibrinogen D-Dimer Specimen Type Sample Site ABG pH ABG pCO2 ABG pO2 ABG HCO3 ABG Base Excess José Miguel Test Hematocrit O2 Delivery Device FiO2 Sewing Machine Operator Paper Bags ID Sodium Potassium Chloride Carbon Dioxide Anion Gap BUN Creatinine GFR Calculation Glucose Calculated Osmolal ity Lactic Acid Calcium Ferritin Total Bilirubin Direct Bilirubin AST ALT Alkaline Phosphata se Lactate Dehydrogen ase C-Reactive Protein Total Protein Albumin Globulin Lipase Procalcitonin Urine Color Yellow Urine Appearance Clear Urine pH 5.0 Ur Specific Gravit y 1.015 Urine Protein Neg Urine Glucose (UA) Norm Urine Ketones Negative Urine Blood Neg Urine Nitrate Negative Urine Bilirubin Neg Urine Urobilinogen Norm Ur Leukocyte Krystal ase Negative Influenza Type A A g Influenza Type B A g Vitals: Last Vital Signs Temp 97.6 F 02/22/20 02:00 Pulse 67 02/22/20 06:00 Resp 21 H 02/22/20 06:00 BP 94/62 02/22/20 06:00 Pulse Ox 97 02/22/20 06:00 Discharge Plan Discharge Patient Disposition: Home Condition: Stable Prescriptions: New zinc gluconate 50 mg Tablet 50 mg PO DAILY Qty: 30 RF: 0 levofloxacin 750 mg tablet 750 mg PO DAILY 7 Days Qty: 7 RF: 0 Eliquis DVT-PE Treat 30D Start 5 mg (74 tabs) tablets,dose pack See Rx Instructions .ROUTE .COMPLEX Qty: 74 RF: 0 Continued aspirin 81 mg Tablet,Chewable 81 mg PO DAILY RF: 0 Multiple Vitamins Tablet 1 tab PO DAILY RF: 0 atorvastatin 40 mg tablet 40 mg PO DAILY RF: 0 metformin 1,000 mg Tablet 1,000 mg PO DAILY RF: 0 Nitrostat 0.4 mg Tablet, Sublingual 0.4 mg SUBLINGUAL Q5M PRN (Reason: Chest Pain) RF: 0 Doterra Vitamin E,A,D Complex 1 cap PO DAILY RF: 0 Quercetin 1 tab PO DAILY RF: 0 Safe Cell Tabs 1 tab PO DAILY RF: 0 Turmeric Curcumin 1 tab PO DAILY RF: 0 Vitamin C 1 tab PO DAILY RF: 0 Held Inlyta 5 mg Tablet 5 mg PO BID RF: 0 Hold Instructions: Please hold off on resuming this until you follow up with oncology Tabrecta 200 mg Tablet 200 mg PO BID RF: 0 Hold Instructions: Please hold off on continuing this medication until you follow up with oncology Keytruda See Rx Instructions .ROUTE .COMPLEX RF: 0 Hold Instructions: Please follow up with oncology before resuming medication Discontinued Fenbendazole See Rx Instructions .ROUTE .COMPLEX RF: 0 Discharge Orders: Discharge Order (Routine); Ordered 02/23/20 Ordered By: Berta Currie Referrals: [facility] [Outside] Shiloh Sparks FNP [Primary Care Provider] - 02/28/20 9:30 am (Post hospital discharge follow up) George Rabago MD [Hospitalist] - 1 week (Please call [facility] and schedule and appointment within one week [facility] Dr. Rabago. [phone]) Discharge Diet: Regular Discharge Activity: Resume usual activity and Oxygen as instructed Patient Instructions: Pulmonary Embolism Activity Restrictions/Additional Instructions: -Please continue to use supplemental oxygen as previously instructed -Please continue to practice proper and frequent hand washing, mask wearing and social distancing especially while out in the community Discharge Attestations Time Spent in Discharge Care*: greater than 30 min Specific Discharge Activities: Specific discharge activities: educating patient, discussing with case assistant/social workers/dc planners, documenting/other paperwork and evaluating patient/reviewing data Status at Discharge: Cognitive status at discharge: cognitively intact , Behavioral status at discharge: cooperative and independent in ADL's , Functional status at discharge: independent ambulation Overall status at discharge: patient is progressing back to baseline Quality Metrics Clinical Quality Measures During this hospital stay, did patient experience: VTE Contraindication to Overlap Therapy: Overlap treatment not indicated VTE Discharge Education: Education about anticoagulant therapy/Care Notes given, Education about treatment options/disease process and Follow-up arranged Deep Vein Thrombosis/Pulmonary Embolism Present on Admission: Yes Coding Level of Care Code Acute Labor Arbitrator Hearing Office for [facility] 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 Diagnoses Pulmonary emboli I26.94 Pulmonary embolism type: multiple subsegmental (without acute cor pulmonale) COVID-19 virus infection U07.1 Pneumonia J18.9 Laterality: left Lung location: unspecified part of lung Pneumonia type: due to unspecified organism Transaminitis R74.0 Metastatic colon cancer to liver C18.9; C78.7 GERD (gastroesophageal reflux disease) K21.9 Esophagitis presence: esophagitis presence not specified CAD (coronary artery disease) I25.10 Associated angina: angina presence unspecified Coronary Disease-Associated Artery/Lesion type: [place] artery [place] vs. transplanted heart: [place] heart Hyperlipidemia E78.5 Hyperlipidemia type: unspecified
[2020-02-22] MEDS: apixaban 5 mg Tablet 10 MG PO ×2 (08:33→17:03)
[2020-02-22] MEDS: ascorbic acid 500 mg Tablet PO (08:33)
[2020-02-22] MEDS: famotidine 20 mg Tablet PO ×2 (08:33→17:03)
[2020-02-22] MEDS: atorvastatin 40 mg Tablet PO (08:33)
[2020-02-22] MEDS: zinc gluconate 50 mg Tablet PO (08:34)
[2020-02-22] MEDS: aspirin 81 mg Chew Tablet PO (08:34)
[2020-02-22] MEDS: multivitamin therapeutic Tablet 1 TAB PO (08:34)
--- NOTE | 2020-02-22 15:01 | PM.PN ---
Subjective Subjective: Interval history: Patient seen and examined, hemodynamically stable, on 2 L nasal cannula, has been afebrile since yesterday afternoon, switched to Eliquis this morning. No acute overnight events reported. Would like to get up and walk around some and see how he feels before making a decision on going home. Medications: Reviewed: Yes Medication Review Details: Active Medications Generic Name Dose Route Start Last Admin Trade Name Freq PRN Reason Stop Dose Admin Acetaminophen 650 mg 02/21/20 16:56 Tylenol PO Q6H PRN MILD PAIN OR INCR EASE TEMP Albuterol Sulfate 2 puff 02/21/20 16:56 Ventolin INHALATION Q4H.RESPIRATORY P RN SHORTNESS OF KARISHMA TH Apixaban 10 mg 02/22/20 09:00 02/22/20 08:33 Eliquis PO 10 mg BID JUAN JOSE Administration Ascorbic Acid 500 mg 02/22/20 09:00 02/22/20 08:33 Vitamin C PO 500 mg DAILY JUAN JOSE Administration Aspirin 81 mg 02/22/20 09:00 02/22/20 08:34 Aspirin Chewable PO 81 mg DAILY JUAN JOSE Administration Atorvastatin Calci um 40 mg 02/22/20 09:00 02/22/20 08:33 Lipitor PO 40 mg DAILY JUAN JOSE Administration Dexamethasone 6 mg 02/21/20 18:00 02/21/20 17:32 Decadron IVP 6 mg Q24H JUAN JOSE Administration Famotidine 20 mg 02/21/20 18:00 02/22/20 08:33 Pepcid Tab PO 20 mg BID JUAN JOSE Administration Levofloxacin/Dextr ose 750 mg in 150 mls @ 100 mls/hr 02/21/20 18:00 02/21/20 17:32 Levaquin-D5w IV 100 mls/hr Q24H JUAN JOSE Administration Protocol Multivitamins Ther apeutic 1 tab 02/22/20 09:00 02/22/20 08:34 Multivitamin Tab PO 1 tab DAILY JUAN JOSE Administration Nitroglycerin 0.4 mg 02/21/20 16:56 Nitrostat SUBLINGUAL Q5M PRN Chest Pain Ondansetron HCl 4 mg 02/21/20 16:56 Zofran IVP Q6H PRN NAUSEA AND VOMITI NG Zinc Gluconate 50 mg 02/22/20 09:00 02/22/20 08:34 Zinc Gluconate PO 50 mg DAILY JUAN JOSE Administration No Known Allergies Allergy (Verified 02/21/20 11:35) Vitals/I&O/Wt Last Vital Signs Temp 97.7 F 02/22/20 12:00 Pulse 70 02/22/20 12:00 Resp 23 H 02/22/20 12:00 BP 103/72 02/22/20 12:00 Pulse Ox 97 02/22/20 12:00 02/22/20 02/22/20 02/22/20 06:59 14:59 22:59 Intake Total 550 / 1350 720 / 720 Output Total 900 / 1100 900 / 900 Balance -350 / 250 -180 / -180 Weight last 48 hrs Weight 81.919 kg Weight 65.771 kg Physical Exam Const: COMMON NORMALS: no acute distress and patient oriented x3 GENERAL APPEARANCE: cooperative and comfortable; not ill appearing ORIENTATION/CONSCIOUSNESS: Yes awake OTHER: -looks appropriate for age HENMT: COMMON NORMALS: normocephalic, atraumatic, hearing grossly normal bilaterally and moist oral mucous membranes HEAD & SCALP: normocephalic and atraumatic Eye: COMMON NORMALS: Equal, round and reactive pupils present, EOMs intact bilaterally and conjunctivae normal CONJUNCTIVA: Yes conjunctivae normal PUPIL: Yes Equal, round and reactive pupils present Neck/C-Spine: COMMON NORMALS: full ROM GENERAL: Yes normal visual inspection and Yes trachea midline Resp: COMMON NORMALS: normal respiratory effort, No retractions, No use of accessory muscles and clear to auscultation bilaterally EFFORT & INSPECTION: Yes able to speak in complete sentences, Yes symmetric chest movement and No tachypneic AUSCULTATION: clear to auscultation bilaterally OTHER: -on 2 L NC; symmetrical air entry bilaterally Cardio: COMMON NORMALS: regular rate, regular rhythm, S1 normal heart sound present, S2 normal heart sound present and No murmurs present (Cardio) RATE: regular rate RHYTHM: regular rhythm HEART SOUNDS: S1 normal heart sound present and S2 normal heart sound present GI: COMMON NORMALS: Normal to inspection, nondistended, normoactive bowel sounds present, Soft to palpation and non-tender PALPATION: Yes Soft to palpation Extremity: COMMON NORMALS: normal to inspection, full ROM and no clubbing, cyanosis or edema; negative for no pedal edema Neuro: COMMON NORMALS: patient oriented x3, moves all extremities, no focal motor deficits, no sensory deficits noted and gait normal Psych: COMMON NORMALS: mental status grossly normal, Normal thought process present, cooperative, normal affect and speech normal SPEECH: Yes normal speech THOUGHT PROCESS: Normal thought process present Skin: COMMON NORMALS: no rashes or lesions noted, no jaundice, no petechiae and no mottling GENERAL SKIN EXAM: no rashes or lesions noted Data : 02/22/20 04:10 02/22/20 04:10 Micro: Microbiology 02/21/20 17:49 Blood Culture - Preliminary Blood Gram positive cocci 02/21/20 17:49 Blood Culture - Preliminary Blood SPECIMEN COLLECTED A&P Assessment and plan (1) Pulmonary emboli: -noted bilateral PE on CT scan of the chest done following elevated D-dimer -Echo: EF=55%, mild LVH, G1DD, no evidence of R heart strain -venous duplex negative for DVT -ontherapeutic dose of Lovenox, switched to Eliquis -No prior history of PE; biggest risk factor is likely underlying malignancy -stable vital signs and respiratory status -Noted hypoxia on ABG Status: Acute Qualifiers: Pulmonary embolism type: multiple subsegmental (without acute cor pulmonale) Qualified Code(s): I26.94 - Multiple subsegmental pulmonary emboli without acute cor pulmonale (2) COVID-19 virus infection: -Previously diagnosed with COVID-19 infection on 02/12 -Has been on supplemental oxygen, 2 L at home for approximately 1 week -Imaging seems to be more consistent with PE and metastatic disease with some evidence of pneumonia; rather than primarily viral pneumonia from underlying COVID-19 infection; cannot exclude bacterial process so we will treat with empiric antibiotics at this time -stable respiratory status, supplemental oxygen as needed -Isolation precautions -Supportive care including pulmonary toilet, zinc, vitamin C, breathing treatments as needed -Inflammatory markers noted though not significantly elevated -would not initiate remdesevir as stable; on IV steroids Status: Acute (3) Pneumonia: -Noted evidence of pneumonia on CT scan of the chest -on empiric Levaquin -Currently on 2 L nasal cannula -Noted fever with temperature of 101.4F, some tachypnea, minimal leukocytosis with white count of 10.8; normal procalcitonin, lactic acid of 2.7. Leukocytosis resolved, afebrile -Influenza negative Status: Acute Qualifiers: Laterality: left Lung location: unspecified part of lung Pneumonia type: due to unspecified organism Qualified Code(s): J18.9 - Pneumonia, unspecified organism (4) Transaminitis: -Known metastatic disease to the liver Status: Chronic (5) Metastatic colon cancer to liver: -Known metastatic disease to the liver -s/p chemo immunotherapy percutaneous injection (CIPI) to the liver and lung lesions on 11/21/19 Status: Chronic (6) GERD (gastroesophageal reflux disease): Status: Chronic Qualifiers: Esophagitis presence: esophagitis presence not specified Qualified Code(s): K21.9 - Gastro-esophageal reflux disease without esophagitis (7) CAD (coronary artery disease): -with hx of inferior wall [place] s/p stenting of RCA Status: Chronic Qualifiers: Coronary Disease-Associated Artery/Lesion type: [place] artery [place] vs. transplanted heart: [place] heart Associated angina: angina presence unspecified Qualified Code(s): I25.10 - Atherosclerotic heart disease of [place] coronary artery without angina pectoris (8) Hyperlipidemia: -resume statin Status: Chronic Qualifiers: Hyperlipidemia type: unspecified Qualified Code(s): E78.5 - Hyperlipidemia, unspecified Additional A&P Information -regular diet as tolerated -GI ppx with famotidine -DVT ppx not needed as on therapeutic lovenox -Dispo: home -Code stats: FULL code Attestations Medical Necessity Statement*: Patient requires hospitalization for continued management of pneumonia, COVID-19 infection, new onset acute PE. Time Spent in Patient Care: Greater than 35 minutes (>than 50% of time spent in counselling and/or direct pt care on unit). Coding Level of Care Code Acute Portfolio Assistant for g Fwd Diagnoses Pulmonary emboli I26.94 Pulmonary embolism type: multiple subsegmental (without acute cor pulmonale) COVID-19 virus infection U07.1 Pneumonia J18.9 Laterality: left Lung location: unspecified part of lung Pneumonia type: due to unspecified organism Transaminitis R74.0 Metastatic colon cancer to liver C18.9; C78.7 GERD (gastroesophageal reflux disease) K21.9 Esophagitis presence: esophagitis presence not specified CAD (coronary artery disease) I25.10 Coronary Disease-Associated Artery/Lesion type: [place] artery [place] vs. transplanted heart: [place] heart Associated angina: angina presence unspecified Hyperlipidemia E78.5 Hyperlipidemia type: unspecified
[2020-02-22] MEDS: levofloxacin-dextrose 5 % 750 MG/150 ML PREMIX 100 MG IV (17:04)
[2020-02-22] MEDS: dexamethasone 4 mg/mL INJ 6 MG IVP (17:04)
--- NOTE | 2020-02-22 18:01 | PC.NURSE ---
pt arrived on [facility] unit at [id number]
[2020-02-23 04:00] VITALS: BP 127/79; PULSE 77; RESP 20; TEMP 36.5; O2SAT 98
--- NOTE | 2020-02-23 07:49 | PM.PN ---
Subjective Subjective: Interval history: Hemodynamically stable, afebrile, no acute overnight events reported, no apparent distress, reports having had a good night, quite eager to go home this AM. Medications: Reviewed: Yes Medication Review Details: Active Medications Generic Name Dose Route Start Last Admin Trade Name Freq PRN Reason Stop Dose Admin Acetaminophen 650 mg 02/21/20 16:56 Tylenol PO Q6H PRN MILD PAIN OR INCR EASE TEMP Albuterol Sulfate 2 puff 02/21/20 16:56 Ventolin INHALATION Q4H.RESPIRATORY P RN SHORTNESS OF KARISHMA TH Apixaban 10 mg 02/22/20 09:00 02/22/20 17:03 Eliquis PO 10 mg BID JUAN JOSE Administration Ascorbic Acid 500 mg 02/22/20 09:00 02/22/20 08:33 Vitamin C PO 500 mg DAILY JUAN JOSE Administration Aspirin 81 mg 02/22/20 09:00 02/22/20 08:34 Aspirin Chewable PO 81 mg DAILY JUAN JOSE Administration Atorvastatin Calci um 40 mg 02/22/20 09:00 02/22/20 08:33 Lipitor PO 40 mg DAILY JUAN JOSE Administration Dexamethasone 6 mg 02/21/20 18:00 02/22/20 17:04 Decadron IVP 6 mg Q24H JUAN JOSE Administration Famotidine 20 mg 02/21/20 18:00 02/22/20 17:03 Pepcid Tab PO 20 mg BID JUAN JOSE Administration Levofloxacin/Dextr ose 750 mg in 150 mls @ 100 mls/hr 02/21/20 18:00 02/22/20 17:04 Levaquin-D5w IV 100 mls/hr Q24H JUAN JOSE Administration Protocol Multivitamins Ther apeutic 1 tab 02/22/20 09:00 02/22/20 08:34 Multivitamin Tab PO 1 tab DAILY JUAN JOSE Administration Nitroglycerin 0.4 mg 02/21/20 16:56 Nitrostat SUBLINGUAL Q5M PRN Chest Pain Ondansetron HCl 4 mg 02/21/20 16:56 Zofran IVP Q6H PRN NAUSEA AND VOMITI NG Zinc Gluconate 50 mg 02/22/20 09:00 02/22/20 08:34 Zinc Gluconate PO 50 mg DAILY JUAN JOSE Administration No Known Allergies Allergy (Verified 02/21/20 11:35) Vitals/I&O/Wt Last Vital Signs Temp 97.7 F 02/23/20 04:00 Pulse 77 02/23/20 04:00 Resp 20 H 02/23/20 04:00 BP 127/79 02/23/20 04:00 Pulse Ox 98 02/23/20 04:00 Weight last 48 hrs Weight 81.919 kg Weight 65.771 kg Physical Exam Const: COMMON NORMALS: no acute distress and patient oriented x3 GENERAL APPEARANCE: cooperative and comfortable; not ill appearing ORIENTATION/CONSCIOUSNESS: Yes awake OTHER: -looks appropriate for age HENMT: COMMON NORMALS: normocephalic, atraumatic, hearing grossly normal bilaterally and moist oral mucous membranes HEAD & SCALP: normocephalic and atraumatic Eye: COMMON NORMALS: Equal, round and reactive pupils present, EOMs intact bilaterally and conjunctivae normal CONJUNCTIVA: Yes conjunctivae normal PUPIL: Yes Equal, round and reactive pupils present Neck/C-Spine: COMMON NORMALS: full ROM GENERAL: Yes normal visual inspection and Yes trachea midline Resp: COMMON NORMALS: normal respiratory effort, No retractions, No use of accessory muscles and clear to auscultation bilaterally EFFORT & INSPECTION: Yes able to speak in complete sentences, Yes symmetric chest movement and No tachypneic AUSCULTATION: clear to auscultation bilaterally OTHER: -on RA; symmetrical air entry bilaterally Cardio: COMMON NORMALS: regular rate, regular rhythm, S1 normal heart sound present, S2 normal heart sound present and No murmurs present (Cardio) RATE: regular rate RHYTHM: regular rhythm HEART SOUNDS: S1 normal heart sound present and S2 normal heart sound present GI: COMMON NORMALS: Normal to inspection, nondistended, normoactive bowel sounds present, Soft to palpation and non-tender PALPATION: Yes Soft to palpation Extremity: COMMON NORMALS: normal to inspection, full ROM and no clubbing, cyanosis or edema; negative for no pedal edema Neuro: COMMON NORMALS: patient oriented x3, moves all extremities, no focal motor deficits, no sensory deficits noted and gait normal Psych: COMMON NORMALS: mental status grossly normal, Normal thought process present, cooperative, normal affect and speech normal SPEECH: Yes normal speech THOUGHT PROCESS: Normal thought process present Skin: COMMON NORMALS: no rashes or lesions noted, no jaundice, no petechiae and no mottling GENERAL SKIN EXAM: no rashes or lesions noted Data : 02/22/20 04:10 02/22/20 04:10 Micro: Microbiology 02/21/20 17:49 Blood Culture - Preliminary Blood NEGATIVE TO DATE 02/21/20 17:49 Blood Culture - Preliminary Blood Gram positive cocci A&P Assessment and plan (1) Pulmonary emboli: -noted bilateral PE on CT scan of the chest done following elevated D-dimer -Echo: EF=55%, mild LVH, G1DD, no evidence of R heart strain -venous duplex negative for DVT -ontherapeutic dose of Lovenox, switched to Eliquis -No prior history of PE; biggest risk factor is likely underlying malignancy -stable vital signs and respiratory status -Noted hypoxia on ABG Status: Acute Qualifiers: Pulmonary embolism type: multiple subsegmental (without acute cor pulmonale) Qualified Code(s): I26.94 - Multiple subsegmental pulmonary emboli without acute cor pulmonale (2) COVID-19 virus infection: -Previously diagnosed with COVID-19 infection on 02/12 -Has been on supplemental oxygen, 2 L at home for approximately 1 week -Imaging seems to be more consistent with PE and metastatic disease with some evidence of pneumonia; rather than primarily viral pneumonia from underlying COVID-19 infection; cannot exclude bacterial process so we will treat with empiric antibiotics at this time -stable respiratory status, supplemental oxygen as needed -Isolation precautions -Supportive care including pulmonary toilet, zinc, vitamin C, breathing treatments as needed -Inflammatory markers noted though not significantly elevated -would not initiate remdesevir as stable; on IV steroids Status: Acute (3) Pneumonia: -Noted evidence of pneumonia on CT scan of the chest -on empiric Levaquin -Currently on 2 L nasal cannula -Noted fever with temperature of 101.4F, some tachypnea, minimal leukocytosis with white count of 10.8; normal procalcitonin, lactic acid of 2.7. Leukocytosis resolved, afebrile -Influenza negative Status: Acute Qualifiers: Laterality: left Lung location: unspecified part of lung Pneumonia type: due to unspecified organism Qualified Code(s): J18.9 - Pneumonia, unspecified organism (4) Transaminitis: -Known metastatic disease to the liver Status: Chronic (5) Metastatic colon cancer to liver: -Known metastatic disease to the liver -s/p chemo immunotherapy percutaneous injection (CIPI) to the liver and lung lesions on 11/21/19 Status: Chronic (6) GERD (gastroesophageal reflux disease): Status: Chronic Qualifiers: Esophagitis presence: esophagitis presence not specified Qualified Code(s): K21.9 - Gastro-esophageal reflux disease without esophagitis (7) CAD (coronary artery disease): -with hx of inferior wall [place] s/p stenting of RCA Status: Chronic Qualifiers: Associated angina: angina presence unspecified Coronary Disease-Associated Artery/Lesion type: [place] artery [place] vs. transplanted heart: [place] heart Qualified Code(s): I25.10 - Atherosclerotic heart disease of [place] coronary artery without angina pectoris (8) Hyperlipidemia: -resume statin Status: Chronic Qualifiers: Hyperlipidemia type: unspecified Qualified Code(s): E78.5 - Hyperlipidemia, unspecified Additional A&P Information -regular diet as tolerated -GI ppx with famotidine -DVT ppx not needed as on therapeutic lovenox -Dispo: home -Code stats: FULL code Attestations Medical Necessity Statement*: Discharge home today. Time Spent in Patient Care: less than 15 minutes (>than 50% of time spent in counselling and/or direct pt care on unit). Coding Level of Care Code Acute Account Service Associate for Chg 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 Diagnoses Pulmonary emboli I26.94 Pulmonary embolism type: multiple subsegmental (without acute cor pulmonale) COVID-19 virus infection U07.1 Pneumonia J18.9 Laterality: left Lung location: unspecified part of lung Pneumonia type: due to unspecified organism Transaminitis R74.0 Metastatic colon cancer to liver C18.9; C78.7 GERD (gastroesophageal reflux disease) K21.9 Esophagitis presence: esophagitis presence not specified CAD (coronary artery disease) I25.10 Associated angina: angina presence unspecified Coronary Disease-Associated Artery/Lesion type: [place] artery [place] vs. transplanted heart: [place] heart Hyperlipidemia E78.5 Hyperlipidemia type: unspecified
[2020-02-23 08:00] VITALS: BP 122/70; PULSE 58; RESP 18; TEMP 36.4; O2SAT 97
[2020-02-23] MEDS: apixaban 5 mg Tablet 10 MG PO (08:00)
[2020-02-23] MEDS: atorvastatin 40 mg Tablet PO (08:00)
[2020-02-23] MEDS: multivitamin therapeutic Tablet 1 TAB PO (08:00)
[2020-02-23] MEDS: ascorbic acid 500 mg Tablet PO (08:00)
[2020-02-23] MEDS: zinc gluconate 50 mg Tablet PO (08:00)
[2020-02-23] MEDS: aspirin 81 mg Chew Tablet PO (08:00)
[2020-02-23] MEDS: famotidine 20 mg Tablet PO (08:00)
[2020-02-23 10:00] VITALS: BMI 25.9
[2020-02-23 11:28] VITALS: BP 122/70; PULSE 58; RESP 18; TEMP 36.4; O2SAT 97
--- NOTE | 2020-02-24 14:21 | PC.SOCIAL ---
Spoke with patient post discharge. He indicates I feel like a spring chicken . He is enjoying the sunshine outside. He is not having to wear his O2. We have reviewed the Eliquis medication and the risk of bleeding. He is aware to discuss whether this med and zinc will continue after 30 days but may be that provider does not reorder this. He verbalized understanding. He does have appt and plans to attend with [facility]. He is not sob and has no cough. He is afebrile as well. We discussed precautions such as good handwashing, sanitizing highly utlized areas and overall sanitize home. We discussed importance of masking, adhering to social distancing and limiting contact with others. Patient verbalized understanding. He is eating and drinking well and indicates he is not significantly weak now and is glad to be home. He has no questions or concerns about his stay in the hospital. He was satisfied with the care. He is interested in plasma donation so this will be mailed out to him. Address was confirmed by patient. He has no questions or concerns and appreciates the call.
== END 2020-02-23 11:29 | disposition home or self-care (01) | DRG 177 ==
LOC: ER 13:42 → ICU 15:07 → MEDSURG 02-22 19:45
PROVIDERS: Family Medicine; Admitting Provider Family Medicine; PCP Nurse Practitioner Family; Visit Provider Family Medicine
DX: U07.1 COVID-19 (principal); I26.94 Multiple subsegmental thrombotic pulmonary emboli without acute cor pulmonale; J18.9 Pneumonia, unspecified organism; C18.9 Malignant neoplasm of colon, unspecified; C78.7 Secondary malignant neoplasm of liver and intrahepatic bile duct; D84.821 Immunodeficiency due to drugs; Z79.899 Other long term (current) drug therapy; I25.10 Atherosclerotic heart disease of native coronary artery without angina pectoris; Z95.5 Presence of coronary angioplasty implant and graft; K21.9 Gastro-esophageal reflux disease without esophagitis; E78.5 Hyperlipidemia, unspecified; Z90.49 Acquired absence of other specified parts of digestive tract; Z87.891 Personal history of nicotine dependence; R09.02 Hypoxemia; T45.1X5A Adverse effect of antineoplastic and immunosuppressive drugs, initial encounter; Z99.81 Dependence on supplemental oxygen; Z79.82 Long term (current) use of aspirin
CPT/HCPCS: 12345; 36415; 36591; 36600; 71045; 71275; 74177; 80048; 80053; 80076; 81003; 82728; 82803; 83605; 83615; 83690; 84145; 85025; 85378; 85384; 86140; 87040; 87205; 87804; 93005; 93306; 93970; 96372; 96375; 99283; J0713; J1100; J1650; J1956; J2405; J7040; Q9967

== ENCOUNTER → 2020-03-05 08:38 | Outpatient (BNVA) | payer SELFPAY | PROVIDERS: PCP Nurse Practitioner Family; Visit Provider Internal Medicine Medical Oncology | DX: C18.4 Malignant neoplasm of transverse colon (principal) | CPT/HCPCS: 80053; 82378; 85025; 86301 ==

== ENCOUNTER 2020-03-08 05:49 | Outpatient (CLI) | payer SELFPAY ==
[2020-03-08] MEDS: alteplase 1 mg/mL SDV 2 mL 2 MG INTRACATH (10:26)
--- NOTE | 2020-03-15 22:25 | ONC FU_ITS ---
Steven Amador Patient Note Patient: Steven Arellano Unit #: [id number]: 1955 Dictated By: Efrain McintoshDate of Visit: Mar 08, 2020 Onc MED Follow-Up/Prog Note Chief Complaint: Colon cancer. 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 In February 2018 he was referred to Dr. Jay with a one-month history of hematochezia. His colonoscopy showed a mass in the transverse colon. Biopsy showed tubular adenoma with high-grade dysplasia, but the mass did appear malignant. Other findings were limited to an inflammatory type polyp in the proximal descending colon and hyperplastic polyps in the rectum. CT of the abdomen and pelvis showed circumferential thickening in the distal transverse colon proximal to the splenic flexure, suspicious for neoplasm. There were multiple low-attenuation lesions noted in the liver, the largest in the left hepatic lobe measuring 3.2 cm. An additional prominent lesion near the dome measured 2.8 cm. There were numerous low-attenuation circumferential lesions in the right hepatic lobe measuring 1-2 cm. The findings were consistent with metastatic disease. On 03/25/2018 he underwent exploratory laparotomy with partial transverse colectomy and biopsy of a right hepatic lobe lesion. Pathology showed grade 1-2/4 infiltrating adenocarcinoma measuring 3.0 x 2.7 cm. There was penetration through the muscularis propria into serosal connective tissues. There was involvement in one of 12 mesenteric lymph nodes. The liver biopsy showed metastatic adenocarcinoma. Dr Rabago had seen him initially on 04/13/2018. We had discussed the possibility of a trial of palliative chemotherapy with a FOLFOX-based regimen. He subsequently underwent evaluation at [facility] in [facility]. His evaluation there included a next generation sequencing study by liquid biopsy. 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 The KRAS, NRAS, and BRAF mutations were not detected. A trial of palliative chemotherapy was again recommended. Instead, he sought treatment through [facility] in [facility]. Based on their in vitro studies, he apparently then began initial course of chemotherapy with cyclophosphamide, epirubicin, and irinotecan dosed at 2-week intervals for 8 weeks. He also was administered a variety of vitamin and herbal supplements. On 06/11/2018 he underwent a chemoembolization procedure with Quadraspheres loaded with epirubicin. He received a dosage of 60 mg to the right hepatic lobe and 50 mg to the left hepatic lobe. In June 2018, he began treatment with pembrolizumab 200 mg by IV infusion every 3 weeks together with cetuximab 500 mg by IV infusion weekly. He received 2 infusions of cetuximab, which he completed with only minimal reaction. He received pembrolizumab on 08/27/2018. In addition, from 08/03/2018 through 08/05/2018 he underwent AAIT therapy in [place]. His follow-up laboratory studies did show decline in the CEA level from 178.6 ng/mL on 05/07/2018 to 60.9 ng/mL on 07/26/2018. His restaging PET/CT on 07/28/2018 showed interval significant response to treatment with resolution of multiple foci of increased metabolic activity in the liver. His other medical illnesses have been limited to coronary artery disease and dyslipidemia. He had suffered an inferior wall myocardial infarction in February 2017, at which time he underwent angioplasty with stent placement of the right coronary artery. He had no further cardiac problems. He has had no other prior medical illnesses. He had smoked cigars in the past, but only for a few years. He had chewed tobacco for 20 years, but he quit at least 15 years ago. He does not drink alcohol. His family history is significant in that his mother and a brother have also been treated for colon cancer. INTERIM HISTORY: On 08/27/2018 he restarted treatment with pembrolizumab 200 mg IV every 3 weeks together with cetuximab 500 mg IV weekly. He returned here on 08/30/2018 so that he could continue his pembrolizumab and cetuximab infusions closer to home. He had experienced no adverse effects with the initial infusions, and he continued with his day 8 and day 15 cetuximab infusions, also with no adverse effects. His repeat CEA level on 09/08/2018 was down to 9.1 ng/mL compared to 60.9 ng/mL on 07/26/2018. During subsequent follow-up his CEA level continued to decline. As of 12/06/2018 it had stabilized at 1.0 ng/mL. Restaging CT scans of the chest, abdomen, and pelvis on 12/15/2018 showed no evidence of metastatic disease the lungs. A 4 mm left perifussural nodule appeared stable. Numerous hepatic metastatic lesions appeared stable compared to the PET/CT from 10/23/2018. The largest in the left hepatic lobe measured 2.7 x 3.8 cmwith those findings he continued treatment with cetuximab in combination with pembrolizumab. Restaging PET/CT on 02/05/2019 showed improved bilateral hilar lymph nodes compared to the prior PET/CT studies. Multiple hepatic lesions appeared to have resolved, but with unchanged left and right hepatic dome lesions. Overall the findings were consistent with a positive metabolic response. He continued treatment with cetuximab in combination with pembrolizumab. As of 03/23/2019 he began his 11th cycle of treatment. At that point there was a significant increase in the CEA level, 13.9 ng/mL compared to 10.7 ng/mL on 03/02/2019 and to 3.9 ng/mL on 01/17/2019. With that increase and with evidence of residual hepatic involvement in the liver by PET/CT, he had a repeat TACE procedure in March 2019. He was then seen for a follow-up visit on 04/13/2019. At that point he continued treatment with pembrolizumab in combination with cetuximab. A restaging PET/CT on 05/07/2019 reported worsening of hepatic metastatic disease with a central left hepatic lobe lesion measuring 3.6 x 6.7 with SUV 7.2. A lesion in the medial left hepatic lobe showed increased SUV to 4.5. Other subcentimeter lesions appeared unchanged. Also noted was new enlargement of the head of the pancreas with mild FDG uptake, possibly representing pancreatitis. On 05/27/2019 he was admitted to the hospital with a presumptive diagnosis of acute pancreatitis, having presented to the emergency room with nausea/vomiting in association with a dull achy pain in the epigastric area. His serum lipase was elevated at 683 U/L. CT abdomen/pelvis showed increase in the size of the head of the pancreas with numerous low-density lesions, possibly representing acute pancreatitis. Multiple low-density lesions in the liver were noted to have increased in size and number, consistent with worsening metastatic disease. There appeared to be acute gastric retention. Fluid within the small bowel was suggestive of a severe ileus. His symptoms improved with supportive treatment measures. He was discharged home on 05/29/2019. He had further evaluation with MRI of the abdomen at [facility] on 06/01/2019. It showed multiple lesions throughout the bilateral lobes of the liver consistent with hepatic metastases. An additional lesion within the left lobe of the liver appeared to be consistent with a cavernous hemangioma. A mixed cystic and solid mass was noted within the head and uncinate process of the pancreas measuring 3.2 x 4.5 cm. It had indeterminate features by MRI, possibly representing a primary pancreatic neoplasm versus metastatic lesion. We had then made arrangements for an EUS procedure, but he opted instead to return to [place] for a biopsy. When he arrived there, he was told that a would not be able to do the biopsy, so he returned home and he requested a follow-up visit here. In the meantime, his recent studies done [facility] had included a K-sheila mutation analysis, which detected a G12C KRAS mutation. With that finding, he was recommended to stop treatment with cetuximab. He continued treatment here with pembrolizumab at the standard dosage of 200 mg by IV infusion every 3 weeks. He then had further liver directed therapy in [place] on 08/03/2019. He also had restaging PET/CT which showed multiple FDG avid liver lesions showing significant interval increase in extent and metabolic activity. New FDG avid lesions were compatible with progression of metastatic malignancy. A left upper lobe pulmonary nodule had increased from 0.3 to 0.5 cm, but with no associated FDG activity. At that time he also started treatment with regorafenib at 160 mg daily. At his follow-up visit on 09/02/2019 he reported significant side effects with the regorafenib, and he had stopped taking it. His symptoms were improving, and he was instructed to restart it at a reduced dosage. At his follow-up visit on 10/13/2019 he was again having significant side effects with the regorafenib, but at that time he was back on the full dosage of 160 mg daily. The regorafenib was then stopped permanently, but he continued treatment with pembrolizumab. Restaging CT scans of the chest, abdomen, and pelvis on 10/31/2019 showed stable 4 mm pulmonary nodule along the left fissure. Mediastinal and hilar lymphadenopathy with similar to prior studies. Multiple heterogeneously enhancing low-attenuation hepatic metastatic lesions also appeared similar to the recent PET/CT. The largest lesion was in the left lobe of the liver measuring 8.1 x 6.1 cm. The pancreatic head appeared normal. He continued with cycle 19 of pembrolizumab on 11/03/2019. He then returned to [place] where he underwent a CI PI procedure to the liver and lung lesions on 11/21/2019. At that time he also was recommended to add axitinib 5 mg every 12 hours together with capmatinib 400 mg every 12 hours to his treatment regimen. He returned here for cycle 20 of pembrolizumab on 11/24/2019 and he then continued treatment at 3-week intervals.. Mr. Arellano has continued the pembrolizumab, axitinib and capmatinib. He was found to be COVID-19 positive on 02/13/2020. His last pembrolizumab dose was on 01/26/2020. He was found to have segmental and subsegmental pulmonary emboli bilaterally. CT angiogram chest with abdomen pelvis CT from 02/21/2020 also reported new nodules and scattered opacifications bilaterally with the greatest throughout the left lung since October 31, 2019 which was suspected to be a combination of metastatic lesions and pneumonia. There was also noted to be progression of disease throughout the liver progression of the mediastinal and hilar lymphadenopathy. He was admitted to the viral ICU and started on therapeutic anticoagulation with Lovenox and then transition to Eliquis for discharge. He also had an echocardiogram which reported no evidence of right heart strain and venous duplex was negative for any further DVT. He did have transaminitis which was felt to be reflective of the liver disease. He was discharged from [facility] on 02/23/2020. Mr. Arellano is here today for follow-up. He is also scheduled for pembrolizumab. He states he is gradually recovering from the Covid. He states he does not have his full strength back yet although he feels better overall. He states his breathing has not been an issue. He has had no diarrhea or constipation he denies any nausea or vomiting. He states he is scheduled to go back to [place] in the next couple of weeks but wants to make sure and schedule his next Keytruda here for when they will be home we will work with him to coordinate that. He states he is not quite as active as he has been in the past but is trying to build up a little bit every day. He has no new concerns today. His ECOG is 1. Past Medical History: Coronary artery disease Dyslipidemia Covid-19 in 2019 Past Surgical History: Portacather placement dr. gurrola in 2018 Exploratory laparotomy with partial transverse colectomy and liver biopsy in 2018 Colonoscopy in 2018 - performed by Dr. Jay Coronary angioplasty/stent placement in 2016 Amputation of the distal phalanx of the right middle finger in 2013 Allergies: No Known Allergies. Medications: Aspirin 1 Tablet (of 81 mg) Tablet, enteric coated Oral daily Atorvastatin Calcium 1 Tablet (of 40 mg) Oral at bedtime Curcumin 95 1 Capsule (of 500 mg) Oral daily Eliquis 1 Tablet (of 5 mg) Oral b.i.d. fendendozol Capsule Oral Take as Directed Glutathione 1 Tablet Oral daily Keytruda Intravenous metFORMIN HCl 1 Tablet (of 1000 mg) Oral daily Multivitamin Adults 1 Tablet Oral daily Nitroglycerin 1 (0.4 mg) Tablet, sublingual Sublingual PRN [place]-3 Complex 1 Capsule (of 192-251-11 mg - mg - Units) Oral daily querisorb 2 Capsule Oral daily Vitamin C 2 Capsule (of 500 mg) Oral daily Vitamin D 2 Tablet (of 25 mcg) Oral daily Zinc 1 CA 125 Units/mL (of 50 mg) Capsule Oral daily Family History: Mr. Arellano's mother is alive: colon cancer. Mr. Arellano's father at age 83: alzheimers, and colon mass, and myocardial infarction. His father had dementia and coronary artery disease. He at age 83, apparently from complications of bowel obstruction. His mother still living at age 83. She has been treated for colon cancer in one brother has also been treated for colon cancer. Another brother has coronary artery disease. 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 Mr. Arellano no longer smokes but had smoked for 16 years. He has no history of drinking. Mr. Arellano reports the following support systems: lives with spouse, significant other, family, or friends. Review Of Symptoms: Constitutional Denies fevers, chills, night sweats, excessive fatigue or weight loss. He has had more fatigue since kristie the COVID-19 virus but states he is getting better-a little every day. Allergic/Immunologic No reactions. Eyes Denies significant visual changes. No diplopia. No amaurosis. ENMT Denies changes in hearing, sore throat, mouth sores, difficulty or changes in swallowing ability, and/or sinus drainage. Hematologic/Lymphatic Denies easy bruising or bleeding. The patient denies any tender or palpable lymph nodes. Respiratory Denies dyspnea on exertion, chest pain, cough or hemoptysis. Denies orthopnea. Cardiovascular Denies anginal chest pain, palpitations or orthopnea. Gastrointestinal Denies nausea, vomiting, diarrhea, GI bleeding, or constipation. Denies change in bowel habits and/or stool color, no heartburn or early satiety. Genitourinary (M) Denies hematuria, dysuria, increased frequency, urgency, hesitancy or incontinence. Musculoskeletal Denies joint pain, swelling or redness. No decreased range of motion. Integumentary Has recurrent Erbitux rash but no inflammation, ulcerations. He states that his hands began peeling a few days maybe a week ago . He states he stopped the Xeloda a week ago but his states that he did take a dose this morning. He denies any involvement in his feet. Neurologic Denies headache, blurred vision, and no areas of focal weakness or numbness. Normal gait. No sensory problems. Psychiatric Denies insomnia, depression, becky or mood swings. Vital Signs: Performed on Mar 08, 2020 08:58 Height - 70.00 in Weight - 174.0 lbs (LOW) BSA - 1.97 sq.m BMI - 24.97 Temperature - 98.0 F (LOW) Pulse - 74 /min Respiration - 18 /min BP - 114/66 mm(hg) O2 Sat - 97 % Pain - 0,1 - No physically strenuous activity, but ambulatory and able to carry out light or sedentary work (e.g. office work, light house work). (ECOG) Physical Examination: Constitutional Alert, oriented, no acute distress. Skin pink, warm and dry. Head Normocephalic; atraumatic. Eyes Conjunctivae and sclerae are clear and without icterus. Pupils are reactive and equal. Neck Supple without masses or thyromegaly. No jugular venous distension. Hematologic/Lymphatic No petechiae or purpura. No tender or palpable lymph nodes in the cervical or supraclavicular areas. Respiratory Lungs are clear to auscultation without rhonchi or wheezing. Cardiovascular Regular rate and rhythm of heart without murmurs,clicks, gallops or rubs. Chest Left subclavian venous access device is unremarkable. Abdomen Non-tender, non-distended, no masses, ascites. No guarding or rebound tenderness. No pulsatile masses. Back/Spine Non-tender to palpation. Extremities No visible deformities, no cyanosis, clubbing or edema. Musculoskeletal No tenderness or swelling, normal range of motion without obvious weakness. Integumentary No rashes or lesions. He has grade 3 sloughing of the skin on his hands bilaterally. There are no active open lesions at current but his skin is pale and dry where it is peeling and skin underneath is bright pink but dry. He states it is very tender. Neurologic No sensory or motor deficits, normal cerebellar function, normal gait. Psychiatric Alert and oriented times three. Coherent speech. Verbalizes understanding of our discussions today. Laboratory:Test performed on Mar 06, 2020 11:44 WBC 8.7 10^9/L RBC 4.31 10^12/L HGB 12.2 g/dL HCT 37.4 % MCV 86.8 fl MCH 28.4 pg MCHC 32.8 g/dL RDW 16.9 % Platelet Count 172 10^9/L Lymphocytes 2.2794 10^9/L Monocytes 0.5829 10^9/L Test performed on Mar 06, 2020 10:45 Glucose 92 mg/dL BUN 20 mg/dL Creatinine 1.0 mg/dL Cr Clearance (Est) 88.00 mL/min Sodium 140 mmol/L Potassium 4.4 mmol/L Chloride 104 mmol/L CO2 24 mmol/L Protein, Total 6.5 g/dL Albumin 4.0 g/dL Globulin 2.5 g/dL Bilirubin, Total 0.3 mg/dL Alkaline Phosphatase 274 IU/L AST (SGOT) 114 IU/L ALT (SGPT) 108 IU/L CA 19-9 763.1 Units/mL CEA 478.2 ng/mL Test performed on Feb 14, 2020 08:31 Calcium 9.1 mg/dL MPV 12.9 fL Neutrophils (Gran) 3.54 10^9/L Eosinophils 0.1 10^9/L Basophils 0.0 10^9/L Manual Lymphocytes 15.8 % Manual Monocytes 8.2 % Manual Eosinophils 2.9 % Manual Basophils 0.2 % Test performed on Jan 03, 2020 10:22 Anion Gap 15.5 eGFR 97.3 mL/min Osmolality - Calculated 281 mOsm/kg Neutrophil % 62.4 % Lymphocyte % 19.7 % Monocyte % 9.4 % Eosinophil % 8.2 % Basophils % 0.2 % NRBC % 0 % Test performed on Dec 15, 2019 09:43 Est Avg Glucose (eAG) 111 mg/dL Hemoglobin A1C % 5.5 % Test performed on Oct 31, 2019 12:12 CRP, High Sensitivity 0.280 mg/dL Ferritin 156 ng/mL GGT 212 U/L LDH (Total) 319 U/L T3, Free 3.5 PG/ML T4, Free 1.04 ng/dL Testosterone, Free 57.0 pg/mL Testosterone, Total 777.4 ng/dL TSH 2.72 uIU/mL Vitamin D (25-Hydroxy), Total 25 ng/mL ESR (Sed Rate) 25 mm/hr Test performed on September 20, 2019 11:03 C-Reactive Protein (mg/dL) 0.300 mg/dL Impression: 1. 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 The tumor was found to be MSI stable. 2. He underwent exploratory laparotomy with partial transverse colectomy and liver biopsy on 03/25/2018. His other medical illnesses include: 3. Dyslipidemia. 4. Coronary artery disease with previous myocardial infarction and angioplasty/stent placement. 5. He has a significant family history of colon cancer. 6. COVID-19 + 02/13/2020 7. Bilateral pulmonary emboli: 02/21/2020 on Eliquis. Subsequent to his initial visit here [facility] and his next generation sequencing study showed a wild-type KRAS mutation status. He then sought treatment through the [facility] in [facility]. His subsequent Biocept studies have shown presence of a G12C KRAS mutation, but a BRAF mutation was not detected. He then began initial chemotherapy with cyclophosphamide, epirubicin, and irinotecan dosed every 2 weeks. On 06/11/2017 he underwent chemoembolization to both hepatic lobes utilizing Quadraspheres loaded with epirubicin. In June 2017 he began further treatment with pembrolizumab 200 mg by IV infusion every 3 weeks together with cetuximab 500 mg by IV infusion weekly. His follow-up laboratory studies had shown decline in the CEA level from 178.6 ng/mL on 05/07/2018 to 60.9 ng/mL on 07/26/2018. His restaging PET/CT on 07/28/2018 showed interval significant response to treatment with resolution of multiple foci of increased metabolic activity in the liver. He resumed the pembrolizumab/cetuximab infusions on 08/27/2018. He tolerated the treatment with no significant toxicity. He returned for day 8 and day 15 cetuximab infusions, which he also tolerated well. As of 09/08/2018 there was further decrease in the CEA level to 9.1 ng/mL. His restaging CT abdomen/pelvis did show residual metastatic lesions in the liver. During subsequent follow-up there was further decline in the CEA level. As of 12/06/2018 it had stabilized at 1.0 ng/mL. His restaging CT scans on 12/15/2018 showed numerous hepatic metastatic lesions, the largest in the left hepatic lobe measuring 2.7 x 3.8 cm. They appeared stable compared to the PET/CT from 10/23/2018. He has been showing gradual gradual worsening of his skin eruption, but he is not symptomatic with it, and he has otherwise been tolerating treatment well. Overall he has been feeling better generally. He has had a good response to his treatment, though he did have residual disease in the liver by CT scan. He then continued treatment with cetuximab in combination with pembrolizumab. His restaging PET/CT on 02/05/2019 showed evidence of positive metabolic response, though with residual involvement in the liver. During subsequent follow-up there was a continued increase in his CEA level, consistent with disease progression, and in conjunction with the PET/CT findings, he underwent a repeat TACE procedure in March. At his follow-up visit here on 04/13/2019 he continued treatment with pembrolizumab and cetuximab. A restaging PET/CT on 05/07/2019 reported worsening of hepatic metastatic disease with a central left hepatic lobe lesion measuring 3.6 x 6.7 with SUV 7.2. A lesion in the medial left hepatic lobe showed increased SUV to 4.5. Other subcentimeter lesions appeared unchanged. Also noted was new enlargement of the head of the pancreas with mild FDG uptake, possibly representing pancreatitis. On 05/27/2019 he was admitted to the hospital with acute pancreatitis. His CT abdomen/pelvis showed increase in size of the head of the pancreas. Further evaluation with MRI of the abdomen at [facility] on 06/01/2019 showed a mixed cystic and solid mass within the head and uncinate process of the pancreas measuring 3.2 x 4.5 cm. As yet he has not had any further evaluation. He has had improvement in his abdominal pain and other GI symptoms. His current laboratory studies show a significant increase in the CEA level, now to 50.8 ng/mL. The CA-19-9 level is also elevated at 108.0 U/mL. In the meantime, a KRAS mutation analysis which was done through [facility] reported the presence of a KRAS G12C mutation. With that finding, he was advised to stop the cetuximab. He continued treatment with pembrolizumab 200 mg by IV infusion every 3 weeks. He then had further liver directed therapy in [place] on 08/03/2019. His restaging PET/CT did show evidence of disease progression in the liver. A left upper lobe pulmonary nodule had increased from 0.3 to 0.5 cm, but with no associated FDG activity. At that time he also started treatment with regorafenib at 160 mg daily. He developed significant side effects with the regorafenib, including vomiting, diarrhea, and fatigue. Those symptoms improved, and he subsequently restarted it at a reduced dosage. As of his follow-up visit on 10/12/2022 regular after he had was again put on hold due to his severe skin eruption in his hands and feet. At the time he had escalated back up to the full dosage. He has had gradual resolution of the skin eruption. During this time there has been a consistent but gradual increase in the CEA level. His repeat CT scan on 10/31/2019, though, showed no obvious progression of metastatic involvement in the liver. The pancreatic head appeared normal. He then continued treatment with pembrolizumab. He also returned to [place] where he underwent another CIPI treatment to the liver and lung lesions on 11/21/2019. Initially he did show some decline in his CEA level following that procedure, but it has since then increased significantly. His clinical status, though, remains stable. Mr Arellano was found to be COVID -19 + on 02/13/2020. He was admitted to [facility]'s viral ICU on 02/21/2020 and diagnosed with acute bilateral pulmonary emboli. He was discharged on 02/23/2020 on Eliquis 10 mg BID x 7 days and is now on 5 mg BID. He also was found to have persistent elevation of his LFTs. Plan: 1. Proceed with cycle 24 of pembrolizumab 200 mg by IV infusion. 2. His last dose of axitinib 5 mg every 12 hours together with capmatinib 400 mg every 12 hours was on 02/13/2020 due to the COVID-19 + report. He has not resumed it since discharge. He was instructed to remain off per Dr Rabago's request due to elevated LFTs and persistent elevation of his tumor markers as well as indications of disease progression from his CT abdomen pelvis/CTA chest. These were compared to CTs from October 2019. His PET/CT from [place] was not on file at the hospital or our clinic. 3. Labs from 03/06/2020 were reviewed in detail and discussed with . Mrs. Arellano and a copy was given to them. WBC 8.7, hemoglobin 12.2, platelets 172,000 potassium 4.4 creatinine 1.0 his ALT is 108 and his AST is 114 alk phos was 274. These are increased from his discharge at which time the AST was 70 and the ALT was 62 the alkaline phosphatase was reported at 311. Per Dr. Rabago's instructions I informed . Mrs. Arellano he needs to remain off of the axitinib and capmatinib. 4. His CA 19-9 was reported at 763.1 it was 498.5 February 14, 2020. His CEA from 03/06/2020 was 478.2 it was reported at 631 on February 14, 2020 and 283 on January 03, 2020. 5. Review of his medication list that he did bring in today included: Eliquis 5 mg twice daily Metformin 1 daily vitamin C at 1000 mg daily vitamin D 25 mcg 2 tablets daily zinc sulfate 220 mg daily atorvastatin 1 daily, curcumin 500 mg daily, quercisorb-SR 2 daily, EOMEGA vitamin E-A-D 1 daily, Centrum Silver 1 daily, low dose ASA daily, Safecell (glutathione) 1 daily, fenbendazole (benzimidazole anthelmintic) 5 days on and off for 3. Mr Arellano was advised to STOP the fenbendazole as it may be contributing to the elevation of his LFTs. He states he has been taking it for 90 days and his LFTs have been intermittently elevated during this time. His CEA and CA 19-9 have continued to flucuate, but remain markedly elevated. 6. He reports so who will be returning to [place] in a few weeks for reassessment there. He suspects that he will have more procedures done at that time. He states he may even need to return to [place] to have more cells built . 7. It is noted that his PET CT report from 01/30/2020 from [facility] reports: impression: 1. liver shows mixed response to therapy with left liver lobe large lesion showing significant decrease in FDG activity compatible with partial metabolic response and many additional liver lesions as detailed above shows stable metabolic activity. There was hypermetabolic progression in the right lobe with one lesion showing 54.7 increase in FDG activity and 2 foci of any increased FDG activity showing about 100% interval increase in FDG activity. 2. lungs show stable findings with no significant increase in FDG activity and interval significant decrease in FDG activity in the right hilum . 8. Mr Arellano will be due for pembrolizumab again in 3 weeks and we will arrange for that infusion once we find out what is schedule is in [place]. I have asked for the standard labs including CBC CMP and TSH. If labs requested from his team in [place] we could add those as well. 9. Mr. Arellano was encouraged to let us know in interim if we could be of any assistance if any questions or problems arise. 10. I did discuss with Mr. Arellano the fact that he has tested positive for COVID-19 and did have some respiratory distress as well as the pulmonary emboli that we do not know what the long-term sequela will be of kristie the Covid 19 virus. He was certainly encouraged him to monitor for any signs of thrombus although he is on the Eliquis. We did discuss that little is known about long-term sequela of the virus but we are obtaining new information on a regular basis. ADDENDUM: Greater than 50 minutes was spent [id number] in review of his interval medical history, discussion of his labs and review of plan of care. Signed By: Efrain Mcintosh-, [facility] George Rabago MD <<Signature on File>>
== END 2020-03-08 05:50 | disposition home or self-care (01) ==
LOC: ONCMED 05:49
PROVIDERS: PCP Nurse Practitioner Family; Visit Provider Nurse Practitioner
DX: Z51.12 Encounter for antineoplastic immunotherapy (principal); C18.4 Malignant neoplasm of transverse colon; C78.7 Secondary malignant neoplasm of liver and intrahepatic bile duct; R79.89 Other specified abnormal findings of blood chemistry; E78.5 Hyperlipidemia, unspecified; I25.10 Atherosclerotic heart disease of native coronary artery without angina pectoris; I25.2 Old myocardial infarction; Z86.19 Personal history of other infectious and parasitic diseases; Z90.49 Acquired absence of other specified parts of digestive tract; Z87.891 Personal history of nicotine dependence; Z86.711 Personal history of pulmonary embolism; Z79.01 Long term (current) use of anticoagulants; Z79.899 Other long term (current) drug therapy; Z80.0 Family history of malignant neoplasm of digestive organs
CPT/HCPCS: 36593; 96375; 96413; 99215; J2997; J7050; J9271

== ENCOUNTER 2020-03-10 16:07 | Inpatient (IN) | payer SELFPAY ==
[2020-03-10] VITALS (8 sets, daily range): BP systolic 77–108; BP diastolic 34–60; PULSE 60–98; RESP 16–36; TEMP 39.2; O2SAT 93–100; BMI 25.1
--- NOTE | 2020-03-10 16:23 | XRR_ITS ---
PROCEDURE INFORMATION: Exam: XR Chest, 1 View Exam date and time: 03/10/2020 4:32 PM Age: 64 years old Clinical indication: Prior surgery; Surgery date: 6+ months; Surgery type: Colon resection; Patient HX: HX of colon CA, PT fever elevated last 24 hrs, PT tested positive for covid x1 month ago; Additional info: Covid 1 month ago, relapsing fever TECHNIQUE: Imaging protocol: XR of the chest Views: 1 view. COMPARISON: CR XR chest 1V portable [id number] 02/21/2020 10:21 AM FINDINGS: Lungs: Unremarkable. No consolidation. Pleural space: Unremarkable. No pleural effusion. No pneumothorax. Heart/Mediastinum: Unremarkable. No cardiomegaly. Bones/joints: Unremarkable. There is a left central line extending into the SVC stable since prior examination XR/XR chest 1V portable [id number] IMPRESSION: No acute findings. Stable left central line in the SVC
[2020-03-10 18:08] LABS: Basophils % 0.1 %; Eosinophils # 0.1 10^3/uL (0.0-0.8); Eosinophils % 0.6 %; Hematocrit 34.9 % (42.0-52.0); Hemoglobin 11.1 g/dL (11.7-16.6); Lymphocytes # 0.4 10^3/uL (0.8-4.8); Lymphocytes % 3.4 %; Mean Corpuscular HGB Conc 31.8 g/dL (30.0-36.0); Mean Corpuscular Hemoglobin 28.4 pg (28.0-34.0); Mean Corpuscular Volume 89.3 fL (80-94); Mean Platelet Volume 11.6 fL (7.4-10.4); Monocytes # 0.8 10^3/uL (0.2-0.9); Monocytes % 7.5 %; Neutrophils # 9.69 10^3/uL (1.8-7.7); Nucleated Red Blood Cells % 0 %; Platelet Count 168 10^3/cmm (130-400); Red Blood Count 3.91 10^6/uL (4.1-5.3); Red Cell Distribution Width 15.8 % (12.1-15.1)
[2020-03-10 18:09] LABS: Fibrinogen 501 mg/dL (174-498)
[2020-03-10] MEDS: acetaminophen 500 mg Tablet 1000 MG PO (18:11)
[2020-03-10] MEDS: sodium chloride 0.9% 1,000 ML 999 ML IV ×2 (18:11→22:50)
[2020-03-10 18:13] LABS: D Dimer 2.35 ug/mIFEU (0-0.59)
[2020-03-10 18:21] LABS: Lactic Sepsis W/Reflex 1.1 mmol/L (0.5-2.2)
[2020-03-10 18:26] LABS: SARS Covid-2 Antigen Negative (Negative)
[2020-03-10 18:27] LABS: Procalcitonin 11.46 ng/mL (0-0.5)
[2020-03-10 18:38] LABS: Alanine Aminotransferase 81 U/L (0-41); Albumin Level 3.4 g/dL (3.5-5.2); Alkaline Phosphatase 248 IU/L (40-130); Aspartate Amino Transferase 100 U/L (0-40); Blood Urea Nitrogen 18 mg/dL (8-23); C Reactive Protein 26.9 mg/L (0.0-4.9); Calcium 9.1 mg/dL (8.5-10.5); Carbon Dioxide 20 mmol/L (22-29); Chloride 99 mmol/L (98-107); Ferritin 449 ng/mL (30-400); Globulin 2.6 g/dL (1.3-4.6); Glucose 94 mg/dL (65-115); Osmolality Calculated 276 mOsm/kg (285-295); Sodium 132 mmol/L (136-145); Total Bilirubin 0.5 mg/dL (0.15-1.2)
[2020-03-10 18:49] LABS: Influenza A by IFA Negative (Negative); Influenza B by IFA Negative (Negative)
--- NOTE | 2020-03-10 20:25 | ED_ITS ---
HPI - Fever General: Chief Complaint: Fever Stated Complaint: COVID+ - RECENTLY TREATED, WORSENING SYMPTOMS Time Seen by Provider: 03/10/20 16:22 History of Present Illness: HPI Narrative: This patient is a 64-year-old male who had a positive Covid test on 12 February. He was hospitalized around day 7 or 8 of his illness. He is undergoing treatments for metastatic colon cancer but is not currently on IV chemotherapy. He is on some oral chemotherapy drugs. He mainly has been getting treatments from [facility] although the actual infusions are done here and he follows with Dr. Rabago as well. He had gotten over his Covid and said he was feeling pretty well. He complained he was still somewhat tired but he was doing better and was not having fever or bad cough. He went out hunting this evening with his grandkids and got extremely cold. When he got home he was noted to have a temperature of 104. He denies any specific complaints other than the fever, chills, malaise. He said his cough is better and his breathing feels fine. He denies abdominal pain or urinary symptoms. He was diagnosed with PEs while he was hospitalized with Covid. He was having some diarrhea at that time but currently is not. Associated symptoms: Deny abdominal pain, flank pain, chills, chest pain, headache(s), nausea or vomiting Review of Systems General: Reports: 10 or more systems reviewed and unremarkable except in HPI and below Const: Denies: fever(s), chills, fatigue or malaise Eyes: Denies: change in vision ENMT: Denies: odynophagia Card: Denies: chest pain or swelling of feet/ankles Resp: Reports: dyspnea and productive cough; Denies: non-productive cough GI: Denies: abdominal pain, nausea or vomiting : Denies: flank pain Musc: Denies: neck pain or back pain Skin/Breast: Denies: rash Neuro: Denies: headache(s), numbness in extremities or weakness in extremities Jigar/Lymph: Denies: easy bruising or easy bleeding PFSH ED PFSH: Medical History CAD (coronary artery disease) -with hx of inferior wall GA s/p stenting of RCA Diabetes type 2, controlled GERD (gastroesophageal reflux disease) Hyperlipidemia -continue statin Ileus Malignant neoplasm of transverse colon Metastatic colon cancer to liver -Known metastatic disease to the liver and lung -s/p chemo immunotherapy percutaneous injection (CIPI) to the liver and lung lesions on 11/21/19 Pancreatitis This suspected to be secondary to cancer related pancreatic duct obstruction. Immunotherapy could also play a role but felt unlikely. Surgical History H/O colectomy -partial transverse colectomy History of heart artery stent -in RCA secondary to inferior wall GA S/P exploratory laparotomy Family History Family/Other Cancer -hx of colon cancer Social History Smoking and tobacco status: former smoker Alcohol intake: never Household members: spouse Marital status: Physical Exam Const: COMMON NORMALS: no acute distress, patient oriented x3, no limitations and alert GENERAL APPEARANCE: cooperative and comfortable HENMT: HEAD & SCALP: normal to inspection FACE & SINUS: normal facial exam Eye: GENERAL EYE: appearance normal, both eyes and all related structures Neck/C-Spine: COMMON NORMALS: supple, no meningeal signs and no JVD Chest: COMMONS NORMALS: normal inspection of the chest Resp: COMMON NORMALS: normal respiratory effort, No use of accessory muscles and clear to auscultation bilaterally AUSCULTATION: clear to auscultation bilaterally Cardio: COMMON NORMALS: no JVD, regular rate, regular rhythm and No murmurs present (Cardio) RATE: regular rate RHYTHM: regular rhythm GI: COMMON NORMALS: Normal to inspection, nondistended, normoactive bowel sounds present, Soft to palpation and non-tender INSPECTION: Yes normal to inspection AUSCULTATION: Yes normoactive bowel sounds PALPATION: Yes Soft to palpation Back/Pelvis: COMMON NORMALS: thoracic and lumbar spine normal to inspection Extremity: COMMON NORMALS: normal to inspection Neuro: COMMON NORMALS: patient oriented x3, moves all extremities, no focal motor deficits and no sensory deficits noted SENSORIUM/ORIENTATION: Yes alert MENINGEAL SIGNS: Yes no meningeal signs Psych: COMMON NORMALS: mental status grossly normal, cooperative and normal affect Skin: COMMON NORMALS: no rashes or lesions noted and turgor normal GENERAL SKIN EXAM: no rashes or lesions noted and turgor normal Course ED course: This patient presents with high fever. He had Covid but should be clear of it at this time. He also has advancing metastatic cancer on his CT. He will require admission for further management of both his issues. Vital Signs: Vital signs: Vital Signs Temperature 97.9 F 03/11/20 08:00 Pulse Rate 60 03/11/20 16:00 Respiratory Rate 4 L 03/11/20 16:00 Blood Pressure 97/55 03/11/20 16:00 Pulse Oximetry 96 03/11/20 16:00 MDM - Fever Lab Data: Labs: Lab Results 03/10/20 03/10/20 03/10/20 Range/Units 17:35 17:35 17:35 WBC 11.0 H (4.0-10.0) 10^3/ uL RBC 3.91 L (4.1-5.3) 10^6/u L Hgb 11.1 L (11.7-16.6) g/dL Hct 34.9 L (42.0-52.0) % MCV 89.3 (80-94) fL MCH 28.4 (28.0-34.0) pg MCHC 31.8 (30.0-36.0) g/dL RDW 15.8 H (12.1-15.1) % Plt Count 168 (130-400) 10^3/c mm MPV 11.6 H (7.4-10.4) fL Neut % (Auto) 88.0 % Lymph % (Auto) 3.4 % [place] % (Auto) 7.5 % Eos % (Auto) 0.6 % Baso % (Auto) 0.1 % Neut # (Auto) 9.69 H (1.8-7.7) 10^3/u L Lymph # (Auto) 0.4 L (0.8-4.8) 10^3/u L [place] # (Auto) 0.8 (0.2-0.9) 10^3/u L Eos # (Auto) 0.1 (0.0-0.8) 10^3/u L Baso # (Auto) 0.0 (0.0-0.1) 10^3/u L Nucleated RBC % (a uto) 0 % Nucleated RBCs # 0.0 /100WBC Fibrinogen 501 H (174-498) mg/dL D-Dimer 2.35 H (0-0.59) ug/mIFE U Sodium 132 L (136-145) mmol/L Potassium 4.0 (3.5-5.1) mmol/L Chloride 99 (98-107) mmol/L Carbon Dioxide 20 L (22-29) mmol/L Anion Gap 17.0 (5-19) BUN 18 (8-23) mg/dL Creatinine 1.2 (0.7-1.2) mg/dL GFR Calculation 61.0 L (90-130) mL/min Glucose 94 (65-115) mg/dL Calculated Osmolal ity 276 L (285-295) mOsm/k g Lactic Acid (0.5-2.2) mmol/L Calcium 9.1 (8.5-10.5) mg/dL Ferritin 449 H (30-400) ng/mL Total Bilirubin 0.5 (0.15-1.2) mg/dL AST 100 H (0-40) U/L ALT 81 H (0-41) U/L Alkaline Phosphata se 248 H (40-130) IU/L C-Reactive Protein 26.9 H (0.0-4.9) mg/L Total Protein 6.0 L (6.6-8.7) g/dL Albumin 3.4 L (3.5-5.2) g/dL Globulin 2.6 (1.3-4.6) g/dL Lipase (13-60) U/L Procalcitonin 11.46 H (0-0.5) ng/mL Urine Color (Yellow) Urine Appearance (CLEAR) Urine pH (5-7) Ur Specific Gravit y (1.005-1.030) Urine Protein (Negative) Urine Glucose (UA) (Normal) Urine Ketones (Negative) Urine Blood (Negative) Urine Nitrate (Negative) Urine Bilirubin (Negative) Urine Urobilinogen (Negative) mg/dL Ur Leukocyte Krystal ase (Negative) Influenza Type A A g (Negative) Influenza Type B A g (Negative) SARS-CoV-2 Ag (Rap id) (Negative) 03/10/20 03/10/20 03/10/20 Range/Units 17:35 17:35 17:42 WBC (4.0-10.0) 10^3/ uL RBC (4.1-5.3) 10^6/u L Hgb (11.7-16.6) g/dL Hct (42.0-52.0) % MCV (80-94) fL MCH (28.0-34.0) pg MCHC (30.0-36.0) g/dL RDW (12.1-15.1) % Plt Count (130-400) 10^3/c mm MPV (7.4-10.4) fL Neut % (Auto) % Lymph % (Auto) % [place] % (Auto) % Eos % (Auto) % Baso % (Auto) % Neut # (Auto) (1.8-7.7) 10^3/u L Lymph # (Auto) (0.8-4.8) 10^3/u L [place] # (Auto) (0.2-0.9) 10^3/u L Eos # (Auto) (0.0-0.8) 10^3/u L Baso # (Auto) (0.0-0.1) 10^3/u L Nucleated RBC % (a uto) % Nucleated RBCs # /100WBC Fibrinogen (174-498) mg/dL D-Dimer (0-0.59) ug/mIFE U Sodium (136-145) mmol/L Potassium (3.5-5.1) mmol/L Chloride (98-107) mmol/L Carbon Dioxide (22-29) mmol/L Anion Gap (5-19) BUN (8-23) mg/dL Creatinine (0.7-1.2) mg/dL GFR Calculation (90-130) mL/min Glucose (65-115) mg/dL Calculated Osmolal ity (285-295) mOsm/k g Lactic Acid 1.1 (0.5-2.2) mmol/L Calcium (8.5-10.5) mg/dL Ferritin (30-400) ng/mL Total Bilirubin (0.15-1.2) mg/dL AST (0-40) U/L ALT (0-41) U/L Alkaline Phosphata se (40-130) IU/L C-Reactive Protein (0.0-4.9) mg/L Total Protein (6.6-8.7) g/dL Albumin (3.5-5.2) g/dL Globulin (1.3-4.6) g/dL Lipase 85 H (13-60) U/L Procalcitonin (0-0.5) ng/mL Urine Color (Yellow) Urine Appearance (CLEAR) Urine pH (5-7) Ur Specific Gravit y (1.005-1.030) Urine Protein (Negative) Urine Glucose (UA) (Normal) Urine Ketones (Negative) Urine Blood (Negative) Urine Nitrate (Negative) Urine Bilirubin (Negative) Urine Urobilinogen (Negative) mg/dL Ur Leukocyte Krystal ase (Negative) Influenza Type A A g (Negative) Influenza Type B A g (Negative) SARS-CoV-2 Ag (Rap id) Negative (Negative) 03/10/20 03/10/20 Range/Units 17:42 20:31 WBC (4.0-10.0) 10^3/ uL RBC (4.1-5.3) 10^6/u L Hgb (11.7-16.6) g/dL Hct (42.0-52.0) % MCV (80-94) fL MCH (28.0-34.0) pg MCHC (30.0-36.0) g/dL RDW (12.1-15.1) % Plt Count (130-400) 10^3/c mm MPV (7.4-10.4) fL Neut % (Auto) % Lymph % (Auto) % [place] % (Auto) % Eos % (Auto) % Baso % (Auto) % Neut # (Auto) (1.8-7.7) 10^3/u L Lymph # (Auto) (0.8-4.8) 10^3/u L [place] # (Auto) (0.2-0.9) 10^3/u L Eos # (Auto) (0.0-0.8) 10^3/u L Baso # (Auto) (0.0-0.1) 10^3/u L Nucleated RBC % (a uto) % Nucleated RBCs # /100WBC Fibrinogen (174-498) mg/dL D-Dimer (0-0.59) ug/mIFE U Sodium (136-145) mmol/L Potassium (3.5-5.1) mmol/L Chloride (98-107) mmol/L Carbon Dioxide (22-29) mmol/L Anion Gap (5-19) BUN (8-23) mg/dL Creatinine (0.7-1.2) mg/dL GFR Calculation (90-130) mL/min Glucose (65-115) mg/dL Calculated Osmolal ity (285-295) mOsm/k g Lactic Acid (0.5-2.2) mmol/L Calcium (8.5-10.5) mg/dL Ferritin (30-400) ng/mL Total Bilirubin (0.15-1.2) mg/dL AST (0-40) U/L ALT (0-41) U/L Alkaline Phosphata se (40-130) IU/L C-Reactive Protein (0.0-4.9) mg/L Total Protein (6.6-8.7) g/dL Albumin (3.5-5.2) g/dL Globulin (1.3-4.6) g/dL Lipase (13-60) U/L Procalcitonin (0-0.5) ng/mL Urine Color Yellow (Yellow) Urine Appearance Clear (CLEAR) Urine pH 5 (5-7) Ur Specific Gravit y 1.015 (1.005-1.030) Urine Protein Neg (Negative) Urine Glucose (UA) Norm (Normal) Urine Ketones 2+ H (Negative) Urine Blood Neg (Negative) Urine Nitrate Negative (Negative) Urine Bilirubin Neg (Negative) Urine Urobilinogen Norm (Negative) mg/dL Ur Leukocyte Krystal ase Negative (Negative) Influenza Type A A g Negative (Negative) Influenza Type B A g Negative (Negative) SARS-CoV-2 Ag (Rap id) (Negative) Discharge Plan Discharge Patient Disposition: Admitted As Inpatient Admit Provider: Sharath Meeks Clinical Impression: Fever of unknown origin Metastatic cancer Qualifiers: Area of secondary neoplastic involvement: unspecified site Qualified Code(s): C79.9 - Secondary malignant neoplasm of unspecified site Condition: Stable Coding Level of Care Code ED Director Of Recruitment And Admissions for Amberly Mariel
[2020-03-10 20:37] LABS: Add Urine Microscopic? NO
[2020-03-10] MEDS: piperacillin-tazobactam 3.375 GM in sodium chloride 0.9% (plus) 50 ML IV (20:50)
[2020-03-10 20:58] LABS: Bilirubin Urine Neg (Negative); Blood Urine Neg (Negative); Glucose Urine UA Norm (Normal); Ketones Urine 2+ (Negative); Leukocyte Esterase Urine Negative (Negative); Nitrate Urine Negative (Negative); Protein Urine Neg (Negative); Specific Gravity, Urine 1.015 (1.005-1.030); Urine Appearance Clear (CLEAR); Urine Color Yellow (Yellow); Urobilinogen Urine Norm (Negative); pH Urine 5 (5-7)
--- NOTE | 2020-03-10 20:59 | CTR_ITS ---
PROCEDURE INFORMATION: Exam: CT Chest With Contrast Exam date and time: 03/10/2020 9:17 PM Age: 64 years old Clinical indication: Fever; Prior surgery; Surgery type: Port, colectomy, stent; Patient HX: HX colon CA with liver mets, currently on chemo; Additional info: Fever unknown origin, covid 02/12, colon cancer on chemo TECHNIQUE: Imaging protocol: Computed tomography of the chest with intravenous contrast. Radiation optimization: All CT scans at this facility use at least one of these dose optimization techniques: automated exposure control; mA and/or kV adjustment per patient size (includes targeted exams where dose is matched to clinical indication); or iterative reconstruction. Contrast material: OMNI 300; Contrast volume: 95 ml; Contrast route: INTRAVENOUS (IV); COMPARISON: CT angio chest w abd pel w con 02/21/2020 12:12 PM RADIATION DOSE METRICS: Total DLP (mGy-cm): 1285.72 FINDINGS: Tubes, catheters and devices: Infusaport catheter tip terminates in the superior vena cava. Lungs: Streaky densities at the lung bases are most consistent with scarring and/or atelectasis. 3 mm noncalcified nodular density along the left oblique fissure is unchanged from the prior study. Patchy opacities in the left lower lobe are less prominent when compared to the prior study. There are pulmonary parenchymal calcifications consistent with remote granulomatous organism exposure. Pleural space: Unremarkable. No pneumothorax. No pleural effusion. Heart: Unremarkable. No cardiomegaly. No pericardial effusion. Aorta: Unremarkable. No aortic aneurysm. Lymph nodes: Unremarkable. No enlarged lymph nodes. Bones/joints: Unremarkable. No acute fracture. Soft tissues: Unremarkable. IMPRESSION: 1. Patchy opacities in the left lower lobe are less prominent when compared to the prior study most consistent with resolving pneumonia/scar tissue. 2. 3 mm noncalcified nodular density along the left oblique fissure is unchanged from the prior study.For patients at low risk (minimal or absent history of smoking and of other known risk factors), no routine follow-up is indicated. For patients at high risk (history of smoking or of other known risk factors), consider optional CT Chest at 12 months. (Reference: Jose) REFERENCES: Jose Randall et al. Guidelines for Management of Incidental Pulmonary Nodules Detected on CT Images: From the Fleischner Society 2017. Radiology. 2017;284(1):228-243. PROCEDURE INFORMATION: Exam: CT Abdomen And Pelvis With Contrast Exam date and time: 03/10/2020 9:17 PM Age: 64 years old Clinical indication: Fever; Prior surgery; Surgery type: Port, colectomy, stent; Patient HX: HX colon CA with liver mets, currently on chemo; Additional info: Fever unknown origin, covid 02/12, colon cancer on chemo TECHNIQUE: Imaging protocol: Computed tomography of the abdomen and pelvis with intravenous contrast. Radiation optimization: All CT scans at this facility use at least one of these dose optimization techniques: automated exposure control; mA and/or kV adjustment per patient size (includes targeted exams where dose is matched to clinical indication); or iterative reconstruction. Contrast material: OMNI 300; Contrast volume: 95 ml; Contrast route: INTRAVENOUS (IV); COMPARISON: CT angio chest w abd pel w con 02/21/2020 12:12 PM RADIATION DOSE METRICS: Total DLP (mGy-cm): 1285.72 FINDINGS: Mediastinal space: There is mucosal thickening of the distal esophagus. Liver: There are multiple heterogeneously enhancing hepatic lesions, consistent with metastatic disease, increased in size and number when compared to the prior study. The largest confluence of lesions is near the liver dome, involves the left and right hepatic lobes, and measures 13.1 cm in the transverse dimension, enlarged when compared to the prior study. Gallbladder and bile ducts: The gallbladder is contracted. Gallbladder wall is not well seen. Pancreas: Pancreatic head and uncinate process are heterogeneous. Pancreatic head cannot be differentiated from the 2nd duodenal segment in regions. There is minimal adjacent stranding. 13 mm cystic lesion in the pancreatic head has increased in size when compared to the prior study. Spleen: Normal. No splenomegaly. Adrenal glands: Normal. No mass. Kidneys and ureters: Normal. No hydronephrosis. Stomach and bowel: There is mucosal thickening of the 1st and 2nd duodenal segments with associated mesenteric stranding. Appendix: No evidence of appendicitis. Intraperitoneal space: Unremarkable. No free air. No significant fluid collection. Vasculature: Unremarkable. No abdominal aortic aneurysm. Lymph nodes: Multiple subcentimeter mesenteric and retroperitoneal lymph nodes. Urinary bladder: Unremarkable as visualized. Reproductive: Unremarkable as visualized. Bones/joints: Unremarkable. No acute fracture. Soft tissues: Tiny fat containing umbilical hernia. Mild edema is present in the subcutaneous soft tissues surrounding the abdomen and pelvis. CT/CT chest abd pel w con* IMPRESSION: 1. Interval worsening of the hepatic metastatic disease as described above. 2. Pancreatic head and uncinate process are heterogeneous and cannot be differentiated from the 2nd duodenal segment in regions. There is mild surrounding stranding. Differential includes metastatic disease versus pancreatitis. Please correlate with pancreatic laboratory values. 3. Interval enlargement of a cystic lesion in the pancreatic head since the prior study, suspicious for metastatic disease. 4. There is mucosal thickening of the proximal duodenum with adjacent inflammatory stranding. Differential includes nonspecific enteritis and metastases. 5. There is mucosal thickening of the distal esophagus. Differential includes nonspecific esophagitis and neoplasm. Radiation Dose CTDIVOL = (mGy): DLP = 1285.72~1285.72 (mGy-cm)
[2020-03-10] MEDS: iohexol 300 mg/mL 100 mL Btl IV (21:28)
[2020-03-10] MEDS: vancomycin 1,000 MG in sodium chloride 0.9% 250 ML 250 MG IV (21:51)
--- NOTE | 2020-03-10 22:21 | P.HP_ITS ---
Providers/Chief Complaint Primary Care Provider: ANKIT Smith Chief Complaint: COVID+ - RECENTLY TREATED, WORSENING SYMPTOMS History of Present Illness Steven Arellano is a 64 year old male with history of colon cancer with meta stases to pancreatic duct, liver and lungs presented today with chief complaint of rigors/chills and fever. Patient is stating that today he went deer hunting, while he was outside he started experiencing rigors, he went back to his cabin took temperature which was 104, he has not noticed any cough, productive sputum, abdominal pain, dysuria, neck pain, headache, blurry vision, chest discomfort, diarrhea. He has been able to eat without any difficulties. He is currently following with Dr. Rabago for chemotherapy(Keytruda). He decided to come to the hospital because he was feeling extremely lethargic, tired and was running high- grade fever. Diagnosis in the ER revealed sepsis, temperature 102.6, he required 2 L normal saline bolus for hypotension, mild leukocytosis noted CT chest abdomen revealed worsening hepatic metastatic lesions especially around pancreatic duct with enteritis, chest metastatic lesion with resolving pneumonia changes. In the ER he received 2 L normal saline bolus, vancomycin and Zosyn. After second bolus his blood pressure was still in 80s, decision was made to admit him to ICU. Review of Systems Const: Reports: fever(s), chills, body aches, fatigue and malaise Eyes: Denies: change in vision ENMT: Denies: throat pain Card: Denies: chest pain or palpitations Resp: Denies: dyspnea or non-productive cough GI: Denies: abdominal pain, coffee ground emesis, diarrhea or constipation : Denies: flank pain or change in urine stream Musc: Denies: neck pain or muscle cramps Skin/Breast: Reports: lesions Neuro: Denies: headache(s) Psych: Denies: anxiety Endo: Denies: polyuria Jigar/Lymph: Denies: easy bruising All/Imm: Denies: urticaria Medications/Allergies Home Medications Medication Instructions Recorded Confirmed Last Taken Type aspirin 81 mg PO DAILY 10/18/19 03/10/20 03/10/20 History Doterra Vitamin E,A,D Complex 1 cap PO DAILY 02/21/20 03/10/20 03/10/20 History Inlyta 5 mg PO BID 1003/10/20 03/10/20 History Keytruda See Rx Instructions .ROUTE .COMPLEX 02/21/20 03/10/20 03/08/20 History Quercetin 1 tab PO DAILY 02/21/20 03/10/20 03/10/20 History Safe Cell Tabs 1 tab PO DAILY 02/21/20 03/10/20 03/09/20 History Tabrecta 200 mg PO BID 02/21/20 03/10/20 03/10/20 History Turmeric Curcumin 1 tab PO DAILY 02/21/20 03/10/20 03/10/20 History Vitamin C 1 tab PO DAILY 02/21/20 03/10/20 03/09/20 History multivitamin [Multiple Vitamins] 1 tab PO DAILY 02/21/20 03/10/20 03/10/20 History nitroglycerin [Nitrostat] 0.4 mg SUBLINGUAL Q5M PRN 02/21/20 03/10/20 02/21/20 History apixaban [Eliquis DVT-PE Treat 30D See Rx Instructions .ROUTE 02/22/20 03/10/20 03/10/20 Rx Start] .COMPLEX #74 each zinc gluconate 50 mg PO DAILY #30 tab 02/22/20 03/10/20 03/09/20 Rx atorvastatin 40 mg tablet 40 mg PO DAILY #30 tab 02/28/20 03/10/20 03/09/20 Rx metformin 1,000 mg tablet 1,000 mg PO DAILY #30 tab 02/28/20 03/10/20 03/09/20 Rx Allergies Allergy/AdvReac Type Severity Reaction Status Date / Time No Known Allergies Allergy Verified 02/21/20 11:35 PFSH Acute PFSH: Medical History (Updated 03/10/20 @ 23:43 by Sharath Meeks MD) CAD (coronary artery disease) -with hx of inferior wall [place] s/p stenting of RCA Diabetes type 2, controlled GERD (gastroesophageal reflux disease) Hyperlipidemia -continue statin Ileus Malignant neoplasm of transverse colon Metastatic colon cancer to liver -Known metastatic disease to the liver and lung -s/p chemo immunotherapy percutaneous injection (CIPI) to the liver and lung lesions on 11/21/19 Pancreatitis This suspected to be secondary to cancer related pancreatic duct obstruction. Immunotherapy could also play a role but felt unlikely. Surgical History H/O colectomy -partial transverse colectomy History of heart artery stent -in RCA secondary to inferior wall [place] S/P exploratory laparotomy Family History Family/Other Cancer -hx of colon cancer Social History Smoking and tobacco status: former smoker Alcohol intake: never Household members: spouse Marital status: Vitals/I&O/Wt Last Vital Signs Temp 102.6 F H 03/10/20 16:16 Pulse 71 03/10/20 21:56 Resp 23 H 03/10/20 21:56 BP 83/50 03/10/20 21:56 Pulse Ox 93 03/10/20 21:56 Weight last 48 hrs Weight 79.379 kg Physical Exam Narrative: EXAM NARRATIVE: Elderly male, appears more than stated age, He was laying in left lateral position Febrile, hypotensive Appears dehydrated No active chest pain or respiratory distress S1, S2, tachycardic Abdomen soft nontender bowel sound present Lower extremity no edema gangrene ulcer Bilateral breath sounds diminished, shallow breathing, basilar crackles Patient depicting low mood Petechia of extremities noted Left upper chest Mediport area without any sensitization EOMI, PERRLA No headache or nuchal rigidity No signs of meningitis Alert oriented x3 GCS 15 Data : 03/10/20 17:35 03/10/20 17:35 Micro: Microbiology 03/10/20 17:35 Blood Culture - Preliminary Blood SPECIMEN COLLECTED 03/10/20 17:35 Blood Culture - Preliminary Blood SPECIMEN COLLECTED A&P Assessment and plan (1) Sepsis: Status: Acute (2) Metastatic cancer: Status: Acute Qualifiers: Area of secondary neoplastic involvement: unspecified site Qualified Code(s): C79.9 - Secondary malignant neoplasm of unspecified site (3) Port-A-Cath in place: Status: Acute (4) Diabetes type 2, controlled: Status: Acute (5) Enteritis: Status: Acute Additional A&P Information Sepsis secondary to enteritis CT abdomen showed mucosal thickening around duodenal area with prominent uncinate pancreatic prominence, worsening hepatic(history of cancer related pancreatic duct obstruction), lipase not significantly high, no signs of panc reatitis No active signs of obstruction Procalcitonin extremely high Sepsis criteria met with fever, tachycardia, leukocytosis, lactic acid normal I will start him on broad-spectrum antibiotics considering immunocompromise state I would initiate vancomycin and Zosyn for now Obtain blood cultures, urine culture, sputum culture, Covid antigen negative CT chest revealed resolving pneumonia Port-A-Cath site not showing any signs of cellulitis or sensitization of the skin Septic shock After 2 L normal saline bolus he still hypotensive, he might require vasopressors, admit to ICU status post 2 L normal saline bolus Initiate broad-spectrum antibiotic High risk for mortality morbidity secondary to immunocompromise state and multiple comorbidities Recent diagnosis of bilateral pulmonary embolism Continue anticoagulation Hemoglobin stable Patient is neither hypoxic nor complaining of chest pain 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 I will hold his chemotherapeutic agents cycle 23 of pembrolizumab 200 mg by IV infusion. axitinib 5 mg every 12 hours together with capmatinib 400 mg every [address] Rabago's consultation in the morning Gastritis/esophagitis: Continue Protonix Goals of care discussed with the patient who is stating DNR/DNI status Cardiac diet No need of DVT prophylaxis as he is currently on Eliquis Attestations Medical Necessity Statement*: Anticipating stay in the hospital course more than 2 midnights for ICU management of septic shock with immunocompromised state Time Spent in Patient Care: (>than 50% of time spent in counselling and/or direct pt care on unit) . 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
--- NOTE | 2020-03-10 22:35 | PC.NURSE ---
Dr notified of pt's hypotension. vo obtained for 1L of NS
[2020-03-10 22:38] LABS: Lipase 85 U/L (13-60)
[2020-03-11] VITALS (53 sets, daily range): BP systolic 69–110; BP diastolic 34–67; PULSE 56–73; RESP 0–30; TEMP 36.6–36.9; O2SAT 91–100
--- NOTE | 2020-03-11 00:30 | PC.PHAR ---
Vancomycin is dosed at 1gm IVPB every 12 hours to produce a predicted trough level of 18.49 (population based pharmacokinetic analysis). A trough level has been ordered from the lab to be obtained before the fourth dose to confirm and adjust if needed. The Zosyn is dosed at 3.375gm IVPB every 8 hours on basis of creatinine clearance of 66.45; each dose to be infused over 4 hours per extended infusion protocol.
[2020-03-11] MEDS: dextrose 5%-lactated ringers 1,000 ML 100 ML IV ×3 (00:45→22:40)
[2020-03-11 05:27] LABS: Basophils % 0.2 %; Eosinophils # 0.6 10^3/uL (0.0-0.8); Eosinophils % 5.2 %; Hematocrit 34.6 % (42.0-52.0); Hemoglobin 10.8 g/dL (11.7-16.6); Lymphocytes # 0.6 10^3/uL (0.8-4.8); Lymphocytes % 6.1 %; Mean Corpuscular HGB Conc 31.2 g/dL (30.0-36.0); Mean Corpuscular Hemoglobin 27.8 pg (28.0-34.0); Mean Corpuscular Volume 89.2 fL (80-94); Mean Platelet Volume 11.9 fL (7.4-10.4); Monocytes # 0.7 10^3/uL (0.2-0.9); Neutrophils # 8.51 10^3/uL (1.8-7.7); Neutrophils % 81.1 %; Nucleated Red Blood Cells % 0 %; Platelet Count 177 10^3/cmm (130-400); Red Blood Count 3.88 10^6/uL (4.1-5.3); Red Cell Distribution Width 15.9 % (12.1-15.1); White Blood Count 10.5 10^3/uL (4.0-10.0)
[2020-03-11 05:52] LABS: Alanine Aminotransferase 76 U/L (0-41); Alkaline Phosphatase 206 IU/L (40-130); Anion Gap 15.3 (5-19); Aspartate Amino Transferase 96 U/L (0-40); Blood Urea Nitrogen 16 mg/dL (8-23); Calcium 8.2 mg/dL (8.5-10.5); Carbon Dioxide 21 mmol/L (22-29); Chloride 103 mmol/L (98-107); Globulin 2.3 g/dL (1.3-4.6); Glomerular Filtration Rate 75.2 mL/min (90-130); Glucose 121 mg/dL (65-115); Osmolality Calculated 284 mOsm/kg (285-295); Potassium 3.3 mmol/L (3.5-5.1); Sodium 136 mmol/L (136-145); Total Bilirubin 0.6 mg/dL (0.15-1.2); Total Protein 5.3 g/dL (6.6-8.7)
[2020-03-11] MEDS: piperacillin-tazobactam 3.375 GM in sodium chloride 0.9% (plus) 50 ML IV ×3 (05:53→20:43)
--- NOTE | 2020-03-11 07:44 | PM.PN ---
Subjective Subjective: Interval history: Patient denies shortness of breath, cough or chest pain. Denies abdominal pain or problems with bowel movement. Denies problems with urination including painful urination. He has complex metastatic to liver/pancreas colon cancer and received Keytruda last with next dose planned 3 weeks after that. He is then planning to travel to [place] for more chemo/immunotherapy along with natural therapy . Patient reports that he was sitting in the [place] for 2 hours and got very cold. There was a concern for possible pneumonia/enteritis. Patient was started on antibiotics as well as IV fluids and admitted to ICU. This morning patient is on Levophed and his blood pressure in the 70s over 30s. Reports that he just had good urinary output this morning. Reports that his usual systolic blood pressure at home in the 90s. Vitals/I&O/Wt Last Vital Signs Temp 97.9 F 03/11/20 02:30 Pulse 72 03/11/20 06:00 Resp 13 03/11/20 06:00 BP 98/56 03/11/20 06:00 Pulse Ox 96 03/11/20 06:00 03/10/20 03/11/20 03/11/20 22:59 06:59 14:59 Intake Total 26.093 / 26.093 Output Total 450 / 450 Balance -423.907 / -423.907 Weight last 48 hrs Weight 79.379 kg Physical Exam Const: COMMON NORMALS: no acute distress and patient oriented x3 Resp: COMMON NORMALS: normal respiratory effort OTHER: Somewhat coarse breath sounds at the bases. No wheezing or rails. Cardio: COMMON NORMALS: regular rate, regular rhythm and S2 normal heart sound present RATE: regular rate RHYTHM: regular rhythm HEART SOUNDS: S2 normal heart sound present OTHER: No lower extremity edema GI: COMMON NORMALS: Normal to inspection, nondistended, normoactive bowel sounds present, Soft to palpation and non-tender PALPATION: Yes Soft to palpation Neuro: COMMON NORMALS: patient oriented x3 and no focal motor deficits Data : 03/11/20 04:00 03/11/20 04:00 Micro: Microbiology 03/10/20 17:35 Blood Culture - Preliminary Blood SPECIMEN COLLECTED 03/10/20 17:35 Blood Culture - Preliminary Blood SPECIMEN COLLECTED A&P Assessment and plan (1) Sepsis: Status: Acute (2) Metastatic cancer: Status: Acute Qualifiers: Area of secondary neoplastic involvement: unspecified site Qualified Code(s): C79.9 - Secondary malignant neoplasm of unspecified site (3) Port-A-Cath in place: Status: Acute (4) Diabetes type 2, controlled: Status: Acute (5) Enteritis: [place] unlikely especially in view of absence of GI symptoms. Imaging findings appear to be secondary to metastatic involvement. Status: Acute (6) Septic shock: Status: Acute (7) Community acquired pneumonia: Left lower lobe. Present on admission. This appears to be the source of sepsis and septic shock. Postobstructive pneumonia is also in differential given evidence of pulmonary nodule and metastatic disease. Status: Acute Additional A&P Information Sepsis secondary to pneumonia. CT abdomen showed mucosal thickening around duodenal area with prominent uncinate pancreatic prominence, worsening hepatic(history of cancer related pancreatic duct obstruction), lipase not significantly high, no signs of pancreatitis No active signs of obstruction Procalcitonin extremely high Sepsis criteria met with fever, tachycardia, leukocytosis, lactic acid normal I will start him on broad-spectrum antibiotics considering immunocompromise state I would initiate vancomycin and Zosyn for now Obtain blood cultures, urine culture, sputum culture, Covid antigen negative CT chest revealed resolving pneumonia Port-A-Cath site not showing any signs of cellulitis or sensitization of the skin Septic and hypovolemic shock. 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 I will hold his chemotherapeutic agents cycle 23 of pembrolizumab 200 mg by IV infusion. axitinib 5 mg every 12 hours together with capmatinib 400 mg every [address] Rabago's consultation in the morning Gastritis/esophagitis: Continue Protonix Goals of care discussed with the patient who is stating DNR/DNI status Cardiac diet No need of DVT prophylaxis as he is currently on Eliquis PLAN: Continue vancomycin and Zosyn and add Levaquin. Patient continues to be clinically dry. Will give 1 L of LR bolus and add vasopressin. Continue Eliquis and Protonix. Change chewable aspirin to enteric-coated. Attestations Medical Necessity Statement*: Patient is critically ill requiring close ICU monitoring and treatment. 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
[2020-03-11] MEDS: lactated ringers 1,000 ML 999 ML IV (08:15)
[2020-03-11] MEDS: aspirin 81 mg EC Tablet PO (09:39)
[2020-03-11] MEDS: apixaban 5 mg Tablet PO ×2 (09:39→17:26)
[2020-03-11] MEDS: atorvastatin 40 mg Tablet PO (09:39)
[2020-03-11] MEDS: sennosides-docusate Tablet 1 TAB PO (09:39)
[2020-03-11] MEDS: levofloxacin-dextrose 5 % 750 MG/150 ML PREMIX 100 MG IV (09:40)
[2020-03-11] MEDS: pantoprazole 40 mg SDV IVP (09:40)
[2020-03-11] MEDS: vancomycin 1,000 MG in sodium chloride 0.9% 250 ML 250 MG IV ×2 (10:53→22:41)
--- NOTE | 2020-03-11 12:07 | PC.CHAP ---
Pastoral Care Encounter/Spiritual Assessment Type of Contact [] Declined primary education professor visit [] Patient/Family/Request visit [] Outpatient visit [] Follow-up visit [] Physician referral [] Code/Alert [X] Routine visit [] Staff referral [] Actively dying [] Patient sleeping [] Family support [] [] Out of room [] Palliative care [] [] Receiving care in room [] Pre-surgical visit [] Trauma [] Long length of stay [X] ICU visit [] Other: Relational/Emotional Strength [X] Patient feels connected with others/family/visitors/staff [] Distress [] Loneliness/isolation [] Abandonment Spirituality of Patient [X] Person of Lillian [] Attends Sabianism of their Lillian [X] Believes in Prayer [X] Reads Bible or Latter-Day materials [] There are Spiritual issues to be addressed Phlebotomy Instructor Interventions [] Prayer [X] Active listening [] Non-anxious presence [] Spiritual/emotional support [] Crisis/trauma care [] Spiritual counseling [] Bereavement support [] Provided bereavement packet [] Provided Bible/devotional materials [] Provided toy/stuffed animal, coloring book to patient or family member [] Provided Communion [] Anointing/[place] [] Salvation [X] Completed spiritual assessment [] Other: Impact on Illness or Injury [] Angry [] Fearful [] Anxious [] Often cries [] Exhaustion [] Unable to work [] Unable to attend islam [] Unable to walk/stand [] Unable to read [] Unable to drive [] Unable to eat/drink [] Unable to sleep [] Unable to be with family [] Patient intubated [] Other: Summary: Pt is a person of strong lillian. He has Stage IV colon cancer for the past two years. He receives chemo + alternative treatments for it and has done very well. Recently, he had COVID, which has set him back. But, his lillian remains strong and he has no complaints. We enjoyed the visit, and I left him to continue reading his Bible, which he was doing when I entered the room. Time spent with patient: 15 mins
--- NOTE | 2020-03-11 17:41 | PC.NURSE ---
weaning off levophed over the day tolerated well at this time ..evening meal served
[2020-03-12] VITALS (33 sets, daily range): BP systolic 79–114; BP diastolic 51–72; PULSE 54–68; RESP 0–27; TEMP 36.4–37; O2SAT 94–99
[2020-03-12 05:25] LABS: Basophils % 0.2 %; Eosinophils # 0.4 10^3/uL (0.0-0.8); Eosinophils % 6.8 %; Hematocrit 32.2 % (42.0-52.0); Hemoglobin 10.2 g/dL (11.7-16.6); Lymphocytes % 18.4 %; Mean Corpuscular HGB Conc 31.7 g/dL (30.0-36.0); Mean Corpuscular Volume 88.5 fL (80-94); Mean Platelet Volume 11.5 fL (7.4-10.4); Monocytes # 0.6 10^3/uL (0.2-0.9); Neutrophils # 3.22 10^3/uL (1.8-7.7); Neutrophils % 62.4 %; Nucleated Red Blood Cells % 0 %; Platelet Count 121 10^3/cmm (130-400); Red Blood Count 3.64 10^6/uL (4.1-5.3); Red Cell Distribution Width 15.5 % (12.1-15.1); White Blood Count 5.2 10^3/uL (4.0-10.0)
[2020-03-12] MEDS: piperacillin-tazobactam 3.375 GM in sodium chloride 0.9% (plus) 50 ML IV ×2 (05:32→13:26)
[2020-03-12 06:00] LABS: Alanine Aminotransferase 68 U/L (0-41); Alkaline Phosphatase 185 IU/L (40-130); Aspartate Amino Transferase 110 U/L (0-40); Blood Urea Nitrogen 9 mg/dL (8-23); Calcium 8.1 mg/dL (8.5-10.5); Carbon Dioxide 24 mmol/L (22-29); Chloride 102 mmol/L (98-107); Globulin 2.1 g/dL (1.3-4.6); Glomerular Filtration Rate 97.3 mL/min (90-130); Glucose 113 mg/dL (65-115); Magnesium 1.8 mg/dL (1.7-2.3); Osmolality Calculated 275 mOsm/kg (285-295); Sodium 133 mmol/L (136-145); Total Bilirubin 0.4 mg/dL (0.15-1.2); Total Protein 5.1 g/dL (6.6-8.7)
[2020-03-12 06:13] LABS: Anion Gap 10.7 (5-19); Potassium 3.7 mmol/L (3.5-5.1)
[2020-03-12] MEDS: atorvastatin 40 mg Tablet PO (09:09)
[2020-03-12] MEDS: levofloxacin-dextrose 5 % 750 MG/150 ML PREMIX 100 MG IV (09:09)
[2020-03-12] MEDS: aspirin 81 mg EC Tablet PO (09:09)
[2020-03-12] MEDS: sennosides-docusate Tablet 1 TAB PO (09:09)
[2020-03-12] MEDS: apixaban 5 mg Tablet PO ×2 (09:09→18:22)
[2020-03-12] MEDS: pantoprazole 40 mg SDV IVP (09:12)
--- NOTE | 2020-03-12 09:32 | PC.CHAP ---
Pastoral Care Encounter/Spiritual Assessment Type of Contact [] Declined animal geneticist visit [] Patient/Family/Request visit [] Outpatient visit [] Follow-up visit [] Physician referral [] Code/Alert [] Routine visit [] Staff referral [] Actively dying [] Patient sleeping [] Family support [] [] Out of room [] Palliative care [] [] Receiving care in room [] Pre-surgical visit [] Trauma [] Long length of stay [] ICU visit [] Other: Relational/Emotional Strength [] Patient feels connected with others/family/visitors/staff [] Distress [] Loneliness/isolation [] Abandonment Spirituality of Patient [] Person of Lillian [] Attends Mormon of their Lillian [] Believes in Prayer [] Reads Bible or Protestant materials [] There are Spiritual issues to be addressed Electrophysiology Scientist Interventions [x] Prayer [] Active listening [] Non-anxious presence [] Spiritual/emotional support [] Crisis/trauma care [] Spiritual counseling [] Bereavement support [] Provided bereavement packet [] Provided Bible/devotional materials [] Provided toy/stuffed animal, coloring book to patient or family member [] Provided Communion [] Anointing/[place] [] Salvation [x] Completed spiritual assessment [] Other: Impact on Illness or Injury [] Angry [] Fearful [] Anxious [] Often cries [] Exhaustion [] Unable to work [] Unable to attend mu-ism [] Unable to walk/stand [] Unable to read [] Unable to drive [] Unable to eat/drink [] Unable to sleep [] Unable to be with family [] Patient intubated [] Other: Summary Time spent with patient
[2020-03-12 09:42] LABS: Vancomycin Trough 6.8 ug/mL (10-15)
[2020-03-12] MEDS: vancomycin 1,000 MG in sodium chloride 0.9% 250 ML 250 MG IV (10:29)
[2020-03-12] MEDS: dextrose 5%-lactated ringers 1,000 ML 100 ML IV (10:30)
--- NOTE | 2020-03-12 13:21 | PM.PN ---
Subjective Subjective: Interval history: Patient reports feeling much better this morning. He denies shortness of breath or chest pain. He denies abdominal pain. His pressors were discontinued this morning at 2 AM. He is still on IV fluids and reports urinating well. His blood pressure normalized and now in the 90s over 60s. He saturates in the mid 90s on room air. Reports good appetite and oral intake. Platelets down to 121. Vitals/I&O/Wt Last Vital Signs Temp 98.6 F 03/12/20 11:30 Pulse 54 L 03/12/20 12:00 Resp 18 03/12/20 12:00 BP 107/63 03/12/20 12:00 Pulse Ox 96 03/12/20 12:00 03/11/20 03/12/20 03/12/20 22:59 06:59 14:59 Intake Total 1927.51 / 4471.977 315.327 / 4787.304 1570 / 1570 Output Total 1875 / 2775 400 / 3175 1100 / 1100 Balance 52.51 / 1696.977 -84.673 / 1612.304 470 / 470 Weight last 48 hrs Weight 79.379 kg Physical Exam Const: COMMON NORMALS: no acute distress and patient oriented x3 Resp: COMMON NORMALS: normal respiratory effort OTHER: Somewhat coarse breath sounds at the bases. No wheezing or rails. Cardio: COMMON NORMALS: regular rate, regular rhythm and S2 normal heart sound present RATE: regular rate RHYTHM: regular rhythm HEART SOUNDS: S2 normal heart sound present OTHER: No lower extremity edema GI: COMMON NORMALS: Normal to inspection, nondistended, normoactive bowel sounds present, Soft to palpation and non-tender PALPATION: Yes Soft to palpation Neuro: COMMON NORMALS: patient oriented x3 and no focal motor deficits Data : 03/12/20 04:28 03/12/20 04:28 Micro: Microbiology 03/10/20 20:31 Urine Culture - Preliminary Urine,Clean Catch 03/10/20 17:35 Blood Culture - Preliminary Blood NEGATIVE TO DATE 03/10/20 17:35 Blood Culture - Preliminary Blood NEGATIVE TO DATE A&P Assessment and plan (1) Sepsis: Status: Acute (2) Metastatic cancer: Status: Acute Qualifiers: Area of secondary neoplastic involvement: unspecified site Qualified Code(s): C79.9 - Secondary malignant neoplasm of unspecified site (3) Port-A-Cath in place: Status: Acute (4) Diabetes type 2, controlled: Status: Acute (5) Enteritis: [place] unlikely especially in view of absence of GI symptoms. Imaging findings appear to be secondary to metastatic involvement. Status: Acute (6) Septic shock: Status: Acute (7) Community acquired pneumonia: Left lower lobe. Present on admission. This appears to be the source of sepsis and septic shock. Postobstructive pneumonia is also in differential given evidence of pulmonary nodule and metastatic disease. Status: Acute Additional A&P Information Sepsis secondary to pneumonia. CT abdomen showed mucosal thickening around duodenal area with prominent uncinate pancreatic prominence, worsening hepatic(history of cancer related pancreatic duct obstruction), lipase not significantly high, no signs of pancreatitis No active signs of obstruction Procalcitonin extremely high Sepsis criteria met with fever, tachycardia, leukocytosis, lactic acid normal I will start him on broad-spectrum antibiotics considering immunocompromise state I would initiate vancomycin and Zosyn for now Obtain blood cultures, urine culture, sputum culture, Covid antigen negative CT chest revealed resolving pneumonia Port-A-Cath site not showing any signs of cellulitis or sensitization of the skin Septic and hypovolemic shock. 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 I will hold his chemotherapeutic agents cycle 23 of pembrolizumab 200 mg by IV infusion. axitinib 5 mg every 12 hours together with capmatinib 400 mg every [address] Rabago's consultation in the morning Gastritis/esophagitis: Continue Protonix Goals of care discussed with the patient who is stating DNR/DNI status Cardiac diet No need of DVT prophylaxis as he is currently on Eliquis PLAN: Will continue Levaquin and discontinue Zosyn and vancomycin and monitor response. Discontinue IV fluids. Encouraged oral intake. Transfer patient out of ICU and continue monitoring CBC. Attestations Medical Necessity Statement*: Immunosuppressed patient with septic shock due to postobstructive pneumonia requires close inpatient monitoring and treatment. Time Spent in Patient Care: 16 - 35 minutes Coding Level of Care Code Acute [employer] [place] for [place] Fwd Diagnoses Sepsis A41.9 Metastatic cancer C79.9 Area of secondary neoplastic involvement: unspecified site Port-A-Cath in place Z95.828 Diabetes type 2, controlled E11.9 Enteritis K52.9 Septic shock A41.9; R65.21 Community acquired pneumonia J18.9
--- NOTE | 2020-03-12 16:51 | PC.NURSE ---
Patient was transferred off unit by this nurse and accompanied by via wheelchair at 1615. All of patients belongings were taken with us and patient tolerated well. Report given to carlos LAWSON.
[2020-03-13 04:00] VITALS: BP 120/70; PULSE 67; RESP 18; TEMP 36.7; O2SAT 97
[2020-03-13 06:19] LABS: Basophils % 0.2 %; Eosinophils # 0.5 10^3/uL (0.0-0.8); Eosinophils % 8.6 %; Hematocrit 36.2 % (42.0-52.0); Hemoglobin 11.4 g/dL (11.7-16.6); Lymphocytes % 18.1 %; Mean Corpuscular HGB Conc 31.5 g/dL (30.0-36.0); Mean Corpuscular Hemoglobin 27.9 pg (28.0-34.0); Mean Corpuscular Volume 88.5 fL (80-94); Mean Platelet Volume 11.9 fL (7.4-10.4); Monocytes # 0.5 10^3/uL (0.2-0.9); Monocytes % 9.5 %; Neutrophils # 3.39 10^3/uL (1.8-7.7); Neutrophils % 63.4 %; Nucleated Red Blood Cells % 0 %; Platelet Count 129 10^3/cmm (130-400); Red Blood Count 4.09 10^6/uL (4.1-5.3); Red Cell Distribution Width 15.5 % (12.1-15.1); White Blood Count 5.4 10^3/uL (4.0-10.0)
[2020-03-13 06:36] LABS: Alanine Aminotransferase 68 U/L (0-41); Albumin Level 3.1 g/dL (3.5-5.2); Alkaline Phosphatase 202 IU/L (40-130); Aspartate Amino Transferase 85 U/L (0-40); Blood Urea Nitrogen 8 mg/dL (8-23); Calcium 8.8 mg/dL (8.5-10.5); Carbon Dioxide 25 mmol/L (22-29); Chloride 107 mmol/L (98-107); Globulin 2.3 g/dL (1.3-4.6); Glomerular Filtration Rate 135.6 mL/min (90-130); Glucose 113 mg/dL (65-115); Magnesium 1.9 mg/dL (1.7-2.3); Osmolality Calculated 289 mOsm/kg (285-295); Sodium 140 mmol/L (136-145); Total Bilirubin 0.3 mg/dL (0.15-1.2); Total Protein 5.4 g/dL (6.6-8.7)
[2020-03-13 07:28] VITALS: BP 107/66; PULSE 68; RESP 16; TEMP 36.4; O2SAT 96
--- NOTE | 2020-03-13 08:00 | PC.NURSE ---
Rcvd verbal order from Dr Lee to stop isolation order
[2020-03-13] MEDS: atorvastatin 40 mg Tablet PO (09:03)
[2020-03-13] MEDS: aspirin 81 mg EC Tablet PO (09:03)
[2020-03-13] MEDS: sennosides-docusate Tablet 1 TAB PO (09:03)
[2020-03-13] MEDS: pantoprazole 40 mg SDV IVP (09:03)
[2020-03-13] MEDS: apixaban 5 mg Tablet PO (09:03)
[2020-03-13] MEDS: levofloxacin-dextrose 5 % 750 MG/150 ML PREMIX 100 MG IV (09:03)
--- NOTE | 2020-03-13 09:14 | P.DS_ITS ---
Discharge Providers Date of Admission: 03/10/20 22:21 Date of Discharge: March 13, 2020 Attending Provider at Admission: Sharath Meeks MD Attending Provider at Discharge: Chandan Lee MD Primary Care Provider: ANKIT Smith Diagnoses at Discharge Discharge Diagnosis (1) Sepsis: Status: Acute (2) Metastatic cancer: Status: Acute Qualifiers: Area of secondary neoplastic involvement: unspecified site Qualified Code(s): C79.9 - Secondary malignant neoplasm of unspecified site (3) Port-A-Cath in place: Status: Acute (4) Diabetes type 2, controlled: Status: Acute (5) Enteritis: Status: Acute (6) Septic shock: Status: Acute (7) Community acquired pneumonia: Status: Acute Reason for Visit Reason for Visit: COVID+ - RECENTLY TREATED, WORSENING SYMPTOMS Hospital Course Hospital Course Patient with metastatic colon cancer presents with community-acquired versus postobstructive pneumonia. He was in septic shock and required initial treatment in ICU with IV fluids and pressors. Approximately 1 week ago he received Keytruda. He initially was treated with Zosyn and vancomycin and this was transitioned to Levaquin yesterday. Patient continued to improve and this morning reports feeling back to his normal baseline. He denies being short of breath or having chest pain. Denies any abdominal pain or problems with bowel movement. Reports that he ambulates without difficulty and wants to go home. He has appointment to see oncologist in [place] on March 29. Patient was told to hold Inlyta for 7 days until he finishes treatment with Levaquin. Patient was recently diagnosed with PE and is on Eliquis. He is slightly thrombocytopenic and I will request repeat CBC and CMP in several days prior to primary care physician follow-up. Patient's mild transaminitis is likely secondary to liver metastasis. Patient is aware that his metastatic disease is worsening but he has high hopes for his oncologist in [place] to help him and prolong his life as much as possible. We will perform home O2 evaluation. Patient was told to present back to ER should his condition worsen. He felt comfortable with plan of treatment. Physical Exam Const: COMMON NORMALS: no acute distress and patient oriented x3 Resp: COMMON NORMALS: normal respiratory effort and clear to auscultation bilaterally AUSCULTATION: clear to auscultation bilaterally Cardio: COMMON NORMALS: regular rate, regular rhythm and S2 normal heart sound present RATE: regular rate RHYTHM: regular rhythm HEART SOUNDS: S2 normal heart sound present OTHER: No lower extremity edema GI: COMMON NORMALS: Normal to inspection, nondistended, normoactive bowel sounds present, Soft to palpation and non-tender PALPATION: Yes Soft to palpation Neuro: COMMON NORMALS: patient oriented x3 and no focal motor deficits Discharge Data Data Completed and Pending: Completed Studies During Hospitalization Category Date Time Status CT chest abd pel w con* Urgent Cat Scan 03/10/20 20:59 Completed XR chest 1V araceli ble [id number] Stat Exams 03/10/20 16:23 Completed Pending at discharge Category Date Time Status Blood Culture Sta t Lab 03/10/20 17:35 Results Complete Blood Co unt w/Auto AM LABS Lab 03/14/20 04:00 Ordered Comprehensive Met abolic Panel AM LA BS Lab 03/14/20 04:00 Ordered Magnesium AM LABS Lab 03/14/20 04:00 Ordered Sputum Culture an d Gram Stain [facility] ne Lab 03/10/20 23:22 Uncollected Labs from last 24 hours 03/13/20 03/13/20 03/12/20 05:46 05:46 09:02 WBC 5.4 RBC 4.09 L Hgb 11.4 L Hct 36.2 L MCV 88.5 MCH 27.9 L MCHC 31.5 RDW 15.5 H Plt Count 129 L MPV 11.9 H Neut % (Auto) 63.4 Lymph % (Auto) 18.1 [place] % (Auto) 9.5 Eos % (Auto) 8.6 Baso % (Auto) 0.2 Neut # (Auto) 3.39 Lymph # (Auto) 1.0 [place] # (Auto) 0.5 Eos # (Auto) 0.5 Baso # (Auto) 0.0 Nucleated RBC % (a uto) 0 Nucleated RBCs # 0.0 Sodium 140 Potassium 4.0 Chloride 107 Carbon Dioxide 25 Anion Gap 12.0 BUN 8 Creatinine 0.6 L GFR Calculation 135.6 H Glucose 113 Calculated Osmolal ity 289 Calcium 8.8 Magnesium 1.9 Total Bilirubin 0.3 AST 85 H ALT 68 H Alkaline Phosphata se 202 H Total Protein 5.4 L Albumin 3.1 L Globulin 2.3 Vancomycin Trough 6.8 L Vitals: Last Vital Signs Temp 97.6 F 03/13/20 07:28 Pulse 68 03/13/20 07:28 Resp 16 03/13/20 07:28 BP 107/66 03/13/20 07:28 Pulse Ox 96 03/13/20 07:28 Discharge Plan Discharge Patient Disposition: Home Condition: Stable Prescriptions: New levofloxacin 750 mg tablet 750 mg PO DAILY 7 Days RF: 0 Continued metformin 1,000 mg tablet 1,000 mg PO DAILY Qty: 30 RF: 0 atorvastatin 40 mg tablet 40 mg PO DAILY Qty: 30 RF: 0 aspirin 81 mg Tablet,Chewable 81 mg PO DAILY RF: 0 multivitamin [Multiple Vitamins] Tablet 1 tab PO DAILY RF: 0 nitroglycerin [Nitrostat] 0.4 mg Tablet, Sublingual 0.4 mg SUBLINGUAL Q5M PRN (Reason: Chest Pain) RF: 0 Inlyta 5 mg Tablet 5 mg PO BID RF: 0 Hold Instructions: Please hold off on resuming this until you follow up with oncology Tabrecta 200 mg Tablet 200 mg PO BID RF: 0 Hold Instructions: Please hold off on continuing this medication until you follow up with oncology Doterra Vitamin E,A,D Complex 1 cap PO DAILY RF: 0 Keytruda See Rx Instructions .ROUTE .COMPLEX RF: 0 Hold Instructions: Please follow up with oncology before resuming medication Quercetin 1 tab PO DAILY RF: 0 Safe Cell Tabs 1 tab PO DAILY RF: 0 Turmeric Curcumin 1 tab PO DAILY RF: 0 Vitamin C 1 tab PO DAILY RF: 0 zinc gluconate 50 mg Tablet 50 mg PO DAILY Qty: 30 RF: 0 Eliquis DVT-PE Treat 30D Start 5 mg (74 tabs) tablets,dose pack See Rx Instructions .ROUTE .COMPLEX Qty: 74 RF: 0 Discharge Orders: Discharge Order (Routine); Ordered 03/13/20 Ordered By: Chandan Lee Other Ambulatory Orders: Complete Blood Count w/Auto (Routine) Timeframe: 3 Days Location: Determined by Patient Ordered By: Chandan Lee Comprehensive Metabolic Panel (Routine) Timeframe: 3 Days Facility: [facility] - Location: Lab - Main Lab Ordered By: Chandan Lee Referrals: Shiloh Sparks FNP [Primary Care Provider] - 4-7 days Discharge Diet: Advance as tolerated Discharge Activity: Increase activity as tolerated Activity Restrictions/Additional Instructions: Please call your doctor or present to emergency department if your condition worsens or you develop diarrhea, lightheadedness, fatigue or see blood in your stool or black stool. Please hold Inlyta for next 1 week until you finish antibiotic for treatment of pneumonia. 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
[2020-03-13 10:08] VITALS: O2SAT 94; O2SAT 98
--- NOTE | 2020-03-13 12:18 | PC.NURSE ---
patient given discharge instructions, patient verbalized understanding of instructions. patient's meds brought to the room by pharmacy. patient taken to private vehicle via wheelchair by staff.
[2020-03-13 12:19] VITALS: BP 107/66; PULSE 68; RESP 16; TEMP 36.4; O2SAT 96
== END 2020-03-13 12:20 | disposition home or self-care (01) | DRG 871 ==
LOC: ER 22:35 → ICU 22:58 → MEDSURG 03-12 16:21
PROVIDERS: Admitting Provider Internal Medicine; Emergency Provider Emergency Medicine; PCP Nurse Practitioner Family; Visit Provider Internal Medicine
DX: A41.9 Sepsis, unspecified organism (principal); R65.21 Severe sepsis with septic shock; K85.90 Acute pancreatitis without necrosis or infection, unspecified; J18.9 Pneumonia, unspecified organism; C18.4 Malignant neoplasm of transverse colon; C78.7 Secondary malignant neoplasm of liver and intrahepatic bile duct; C78.00 Secondary malignant neoplasm of unspecified lung; C78.89 Secondary malignant neoplasm of other digestive organs; D84.821 Immunodeficiency due to drugs; Z79.899 Other long term (current) drug therapy; I95.9 Hypotension, unspecified; I25.10 Atherosclerotic heart disease of native coronary artery without angina pectoris; Z95.5 Presence of coronary angioplasty implant and graft; I25.2 Old myocardial infarction; E11.9 Type 2 diabetes mellitus without complications; K21.9 Gastro-esophageal reflux disease without esophagitis; E78.5 Hyperlipidemia, unspecified; Z90.49 Acquired absence of other specified parts of digestive tract; Z87.891 Personal history of nicotine dependence; T45.1X5A Adverse effect of antineoplastic and immunosuppressive drugs, initial encounter; Z95.828 Presence of other vascular implants and grafts; D69.6 Thrombocytopenia, unspecified; Z79.84 Long term (current) use of oral hypoglycemic drugs; Z79.01 Long term (current) use of anticoagulants; Z79.82 Long term (current) use of aspirin
CPT/HCPCS: 12345; 36415; 36591; 71045; 71260; 74177; 80053; 80202; 81003; 82728; 83605; 83690; 83735; 84145; 85025; 85378; 85384; 86140; 87040; 87086; 87426; 87804; 96375; 99282; C9113; J1956; J2543; J3370; J7030; J7050; Q9967

== ENCOUNTER → 2020-03-20 09:40 | Outpatient (BNVA) | payer SELFPAY | PROVIDERS: PCP Nurse Practitioner Family; Visit Provider Nurse Practitioner Family | DX: C79.9 Secondary malignant neoplasm of unspecified site (principal); E11.9 Type 2 diabetes mellitus without complications; J18.9 Pneumonia, unspecified organism | CPT/HCPCS: 80053; 83036; 83690; 85025 ==

== ENCOUNTER 2020-04-23 08:01 | Outpatient (CLI) | payer MEDICARE, BC, SELFPAY ==
[2020-04-23 09:08] LABS: Basophils % 0.3 %; Eosinophils # 0.7 10^3/uL (0.0-0.8); Hematocrit 36.8 % (42.0-52.0); Hemoglobin 11.3 g/dL (11.7-16.6); Lymphocytes # 1.4 10^3/uL (0.8-4.8); Lymphocytes % 13.6 %; Mean Corpuscular HGB Conc 30.7 g/dL (30.0-36.0); Mean Corpuscular Hemoglobin 27.4 pg (28.0-34.0); Mean Corpuscular Volume 89.1 fL (80-94); Mean Platelet Volume 10.7 fL (7.4-10.4); Monocytes # 1.1 10^3/uL (0.2-0.9); Monocytes % 10.4 %; Neutrophils # 7.07 10^3/uL (1.8-7.7); Nucleated Red Blood Cells % 0 %; Platelet Count 358 10^3/cmm (130-400); Red Blood Count 4.13 10^6/uL (4.1-5.3); Red Cell Distribution Width 15.9 % (12.1-15.1); White Blood Count 10.4 10^3/uL (4.0-10.0)
[2020-04-23 09:56] LABS: Alanine Aminotransferase 74 U/L (0-41); Albumin Level 3.6 g/dL (3.5-5.2); Alkaline Phosphatase 452 IU/L (40-130); Anion Gap 16.3 (5-19); Aspartate Amino Transferase 78 U/L (0-40); Blood Urea Nitrogen 13 mg/dL (8-23); Calcium 9.5 mg/dL (8.5-10.5); Carbon Dioxide 25 mmol/L (22-29); Chloride 101 mmol/L (98-107); Globulin 3.5 g/dL (1.3-4.6); Glomerular Filtration Rate 135.2 mL/min (90-130); Glucose 97 mg/dL (65-115); Osmolality Calculated 286 mOsm/kg (285-295); Potassium 4.3 mmol/L (3.5-5.1); Sodium 138 mmol/L (136-145); Thyroid Stimulating Hormone 2.82 uIU/mL (0.27-4.20); Total Bilirubin 0.4 mg/dL (0.15-1.2); Total Protein 7.1 g/dL (6.6-8.7)
== END 2020-04-23 08:02 | disposition home or self-care (01) ==
LOC: ONCMED 08:06
PROVIDERS: PCP Nurse Practitioner Family; Visit Provider Internal Medicine Medical Oncology
DX: C18.4 Malignant neoplasm of transverse colon (principal); C78.7 Secondary malignant neoplasm of liver and intrahepatic bile duct; E03.9 Hypothyroidism, unspecified
CPT/HCPCS: 36592; 80053; 84443; 85025

== ENCOUNTER 2020-04-25 06:02 | Outpatient (CLI) | payer MEDICARE, BC, SELFPAY ==
--- NOTE | 2020-05-01 09:06 | ONC FU_ITS ---
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 In February 2018 he was referred to Dr. Jay with a one-month history of hematochezia. His colonoscopy showed a mass in the transverse colon. Biopsy showed tubular adenoma with high-grade dysplasia, but the mass did appear malignant. Other findings were limited to an inflammatory type polyp in the proximal descending colon and hyperplastic polyps in the rectum. CT of the abdomen and pelvis showed circumferential thickening in the distal transverse colon proximal to the splenic flexure, suspicious for neoplasm. There were multiple low-attenuation lesions noted in the liver, the largest in the left hepatic lobe measuring 3.2 cm. An additional prominent lesion near the dome measured 2.8 cm. There were numerous low-attenuation circumferential lesions in the right hepatic lobe measuring 1-2 cm. The findings were consistent with metastatic disease. On 03/25/2018 he underwent exploratory laparotomy with partial transverse colectomy and biopsy of a right hepatic lobe lesion. Pathology showed grade 1-2/4 infiltrating adenocarcinoma measuring 3.0 x 2.7 cm. There was penetration through the muscularis propria into serosal connective tissues. There was involvement in one of 12 mesenteric lymph nodes. The liver biopsy showed metastatic adenocarcinoma. Dr Rabago had seen him initially on 04/13/2018. We had discussed the possibility of a trial of palliative chemotherapy with a FOLFOX-based regimen. He subsequently underwent evaluation at [facility] in [facility]. His evaluation there included a next generation sequencing study by liquid biopsy. 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 The KRAS, NRAS, and BRAF mutations were not detected. A trial of palliative chemotherapy was again recommended. Instead, he sought treatment through [facility] in [facility]. Based on their in vitro studies, he apparently then began initial course of chemotherapy with cyclophosphamide, epirubicin, and irinotecan dosed at 2-week intervals for 8 weeks. He also was administered a variety of vitamin and herbal supplements. On 06/11/2018 he underwent a chemoembolization procedure with Quadraspheres loaded with epirubicin. He received a dosage of 60 mg to the right hepatic lobe and 50 mg to the left hepatic lobe. In June 2018, he began treatment with pembrolizumab 200 mg by IV infusion every 3 weeks together with cetuximab 500 mg by IV infusion weekly. He received 2 infusions of cetuximab, which he completed with only minimal reaction. He received pembrolizumab on 08/27/2018. In addition, from 08/03/2018 through 08/05/2018 he underwent AAIT therapy in [place]. His follow-up laboratory studies did show decline in the CEA level from 178.6 ng/mL on 05/07/2018 to 60.9 ng/mL on 07/26/2018. His restaging PET/CT on 07/28/2018 showed interval significant response to treatment with resolution of multiple foci of increased metabolic activity in the liver. His other medical illnesses have been limited to coronary artery disease and dyslipidemia. He had suffered an inferior wall myocardial infarction in February 2017, at which time he underwent angioplasty with stent placement of the right coronary artery. He had no further cardiac problems. He has had no other prior medical illnesses. He had smoked cigars in the past, but only for a few years. He had chewed tobacco for 20 years, but he quit at least 15 years ago. He does not drink alcohol. His family history is significant in that his mother and a brother have also been treated for colon cancer. INTERIM HISTORY: On 08/27/2018 he restarted treatment with pembrolizumab 200 mg IV every 3 weeks together with cetuximab 500 mg IV weekly. He returned here on 08/30/2018 so that he could continue his pembrolizumab and cetuximab infusions closer to home. He had experienced no adverse effects with the initial infusions, and he continued with his day 8 and day 15 cetuximab infusions, also with no adverse effects. His repeat CEA level on 09/08/2018 was down to 9.1 ng/mL compared to 60.9 ng/mL on 07/26/2018. During subsequent follow-up his CEA level continued to decline. As of 12/06/2018 it had stabilized at 1.0 ng/mL. Restaging CT scans of the chest, abdomen, and pelvis on 12/15/2018 showed no evidence of metastatic disease the lungs. A 4 mm left perifussural nodule appeared stable. Numerous hepatic metastatic lesions appeared stable compared to the PET/CT from 10/23/2018. The largest in the left hepatic lobe measured 2.7 x 3.8 cmwith those findings he continued treatment with cetuximab in combination with pembrolizumab. Restaging PET/CT on 02/05/2019 showed improved bilateral hilar lymph nodes compared to the prior PET/CT studies. Multiple hepatic lesions appeared to have resolved, but with unchanged left and right hepatic dome lesions. Overall the findings were consistent with a positive metabolic response. He continued treatment with cetuximab in combination with pembrolizumab. As of 03/23/2019 he began his 11th cycle of treatment. At that point there was a significant increase in the CEA level, 13.9 ng/mL compared to 10.7 ng/mL on 03/02/2019 and to 3.9 ng/mL on 01/17/2019. With that increase and with evidence of residual hepatic involvement in the liver by PET/CT, he had a repeat TACE procedure in March 2019. He was then seen for a follow-up visit on 04/13/2019. At that point he continued treatment with pembrolizumab in combination with cetuximab. A restaging PET/CT on 05/07/2019 reported worsening of hepatic metastatic disease with a central left hepatic lobe lesion measuring 3.6 x 6.7 with SUV 7.2. A lesion in the medial left hepatic lobe showed increased SUV to 4.5. Other subcentimeter lesions appeared unchanged. Also noted was new enlargement of the head of the pancreas with mild FDG uptake, possibly representing pancreatitis. On 05/27/2019 he was admitted to the hospital with a presumptive diagnosis of acute pancreatitis, having presented to the emergency room with nausea/vomiting in association with a dull achy pain in the epigastric area. His serum lipase was elevated at 683 U/L. CT abdomen/pelvis showed increase in the size of the head of the pancreas with numerous low-density lesions, possibly representing acute pancreatitis. Multiple low-density lesions in the liver were noted to have increased in size and number, consistent with worsening metastatic disease. There appeared to be acute gastric retention. Fluid within the small bowel was suggestive of a severe ileus. His symptoms improved with supportive treatment measures. He was discharged home on 05/29/2019. He had further evaluation with MRI of the abdomen at [facility] on 06/01/2019. It showed multiple lesions throughout the bilateral lobes of the liver consistent with hepatic metastases. An additional lesion within the left lobe of the liver appeared to be consistent with a cavernous hemangioma. A mixed cystic and solid mass was noted within the head and uncinate process of the pancreas measuring 3.2 x 4.5 cm. It had indeterminate features by MRI, possibly representing a primary pancreatic neoplasm versus metastatic lesion. We had then made arrangements for an EUS procedure, but he opted instead to return to [place] for a biopsy. When he arrived there, he was told that a would not be able to do the biopsy, so he returned home and he requested a follow-up visit here. In the meantime, his recent studies done through [facility] had included a K-sheila mutation analysis, which detected a G12C KRAS mutation. With that finding, he was recommended to stop treatment with cetuximab. He continued treatment here with pembrolizumab at the standard dosage of 200 mg by IV infusion every 3 weeks. He then had further liver directed therapy in [place] on 08/03/2019. He also had restaging PET/CT which showed multiple FDG avid liver lesions showing significant interval increase in extent and metabolic activity. New FDG avid lesions were compatible with progression of metastatic malignancy. A left upper lobe pulmonary nodule had increased from 0.3 to 0.5 cm, but with no associated FDG activity. At that time he also started treatment with regorafenib at 160 mg daily. At his follow-up visit on 09/02/2019 he reported significant side effects with the regorafenib, and he had stopped taking it. His symptoms were improving, and he was instructed to restart it at a reduced dosage. At his follow-up visit on 10/13/2019 he was again having significant side effects with the regorafenib, but at that time he was back on the full dosage of 160 mg daily. The regorafenib was then stopped permanently, but he continued treatment with pembrolizumab. He had recent followup with [facility] in [place], [place]. He had PET/CT imaging on 04/03/2020. It is reported as metabolic progression: 1. Right liver lobe FDG avid lesion with SUV max of 10.3, previously 8.2 shows about 25.6% increase in FDG activity compatible with metabolic progression. 2. Right liver lobe focus of increased FDG activity with SUV max of 9.3 previously 5.7. 3. Left liver lobe medial segment lesion with SUV 14.3 previously 11.0 shows interval increase of 30% compatible with metabolic progression. 4. focus of marked increased FDG activity in the inferior tip of the right liver with an SUV max of 9.6 previously 6.3 which shows significant metabolic progression and increase in extent of FDG activity. Stable metabolic activity: 1. The left liver lobe lateral segment lesion cannot be from the large medial segment left liver lesion but region of interest drawn at the same location as previously study shows an SUV max of 9.4, previously 9.1. 2. Anterior liver lesions spanning the medial segment of the left lobe in segment 5 on the right lobe with an SUV max of 9.8 previously 9.5. 3. Posterior right liver lobe subcapsular FDG avid lesion with SUV max of 10.2 previously 9.2. 4. Stable mild increased activity in the prostate gland with an SUV max of 2.3 previously 2.6. He reports he had repeat CIPI that really worked the liver over . He reports overall he is doing well. His energy has improved. He denies any fever or chills. He denies mouth sores sore throat or difficulty swallowing. He states his appetite is good. He states he is let up off the no sugar diet . He states that he has been trying to eat better in general. He denies any new concerns. He states the doctors and Ermelinda are inquiring as to his Keytruda dosing. They are inquiring if he can be given Keytruda every 6 weeks. He is currently on compassionate program we will explore this and hopefully build to treat him every 6 weeks. We will plan on a 6-week treatment today. Past Medical History: Coronary artery disease Dyslipidemia Covid-19 in 2019 Past Surgical History: Portacather placement dr. gurrola in 2018 Exploratory laparotomy with partial transverse colectomy and liver biopsy in 2018 Colonoscopy in 2018 - performed by Dr. Jay Coronary angioplasty/stent placement in 2017 Amputation of the distal phalanx of the right middle finger in 2013 Allergies: No Known Allergies. Medications: Aspirin 1 Tablet (of 81 mg) Tablet, enteric coated Oral daily Atorvastatin Calcium 1 Tablet (of 40 mg) Oral at bedtime Curcumin 95 1 Capsule (of 500 mg) Oral daily Eliquis 1 Tablet (of 5 mg) Oral b.i.d. fendendozol Capsule Oral Take as Directed Glutathione 1 Tablet Oral daily Keytruda Intravenous metFORMIN HCl 1 Tablet (of 1000 mg) Oral daily Multivitamin Adults 1 Tablet Oral daily Nitroglycerin 1 (0.4 mg) Tablet, sublingual Sublingual PRN Tie Siding-3 Complex 1 Capsule (of 192-251-11 mg - mg - Units) Oral daily querisorb 2 Capsule Oral daily Vitamin C 2 Capsule (of 500 mg) Oral daily Vitamin D 2 Tablet (of 25 mcg) Oral daily Wheat Dextrin Powder Oral Zinc 1 CA 125 Units/mL (of 50 mg) Capsule Oral daily Family History: Mr. Arellano's mother is alive: colon cancer. Mr. Arellano's father at age 83: alzheimers, and colon mass, and myocardial infarction. His father had dementia and coronary artery disease. He at age 83, apparently from complications of bowel obstruction. His mother still living at age 83. She has been treated for colon cancer in one brother has also been treated for colon cancer. Another brother has coronary artery disease. 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 Mr. Arellano no longer smokes but had smoked for 16 years. He has no history of drinking. Mr. Arellano reports the following support systems: lives with spouse, significant other, family, or friends. Review Of Symptoms: Constitutional Denies fevers, chills, night sweats, excessive fatigue or weight loss. He has had more fatigue since kristie the COVID-19 virus but states he is getting better-a little every day. Allergic/Immunologic No reactions. Eyes Denies significant visual changes. No diplopia. No amaurosis. ENMT Denies changes in hearing, sore throat, mouth sores, difficulty or changes in swallowing ability, and/or sinus drainage. Endocrine No diabetes, thyroid disease or hormone replacement. Denies hot flashes or night sweats. Hematologic/Lymphatic Denies easy bruising or bleeding. The patient denies any tender or palpable lymph nodes. Respiratory Denies dyspnea on exertion, chest pain, cough or hemoptysis. Denies orthopnea. Cardiovascular Denies anginal chest pain, palpitations or orthopnea. Gastrointestinal Denies nausea, vomiting, diarrhea, GI bleeding, or constipation. Denies change in bowel habits and/or stool color, no heartburn or early satiety. Genitourinary (M) Denies hematuria, dysuria, increased frequency, urgency, hesitancy or incontinence. Musculoskeletal Denies joint pain, swelling or redness. No decreased range of motion. Integumentary Denies chronic rashes, inflammation, ulcerations or skin changes. Neurologic Denies headache, blurred vision, and no areas of focal weakness or numbness. Normal gait. No sensory problems. Psychiatric Denies insomnia, depression, becky or mood swings. Vital Signs: Performed on Apr 25, 2020 12:09 Height - 70.00 in Weight - 168.4 lbs (LOW) BSA - 1.94 sq.m BMI - 24.16 Temperature - 98.0 F (LOW) Pulse - 79 /min Respiration - 17 /min BP - 122/70 mm(hg) O2 Sat - 99 % Pain - 1,1 - No physically strenuous activity, but ambulatory and able to carry out light or sedentary work (e.g. office work, light house work). (ECOG) Physical Examination: Constitutional Alert, oriented, no acute distress. Skin pink, warm and dry. Head Normocephalic; atraumatic. Eyes Conjunctivae and sclerae are clear and without icterus. Pupils are reactive and equal. Neck Supple without masses or thyromegaly. No jugular venous distension. Hematologic/Lymphatic No petechiae or purpura. No tender or palpable lymph nodes in the cervical or supraclavicular areas. Respiratory Lungs are clear to auscultation without rhonchi or wheezing. Cardiovascular Regular rate and rhythm of heart without murmurs,clicks, gallops or rubs. Chest Left subclavian venous access device is unremarkable. Abdomen Non-tender, non-distended, no masses, ascites. No guarding or rebound tenderness. No pulsatile masses. Back/Spine Non-tender to palpation. Extremities No visible deformities, no cyanosis, clubbing or edema. Musculoskeletal No tenderness or swelling, normal range of motion without obvious weakness. Integumentary No rashes or lesions. He has grade 3 sloughing of the skin on his hands bilaterally. There are no active open lesions at current but his skin is pale and dry where it is peeling and skin underneath is bright pink but dry. He states it is very tender. Neurologic No sensory or motor deficits, normal cerebellar function, normal gait. Psychiatric Alert and oriented times three. Coherent speech. Verbalizes understanding of our discussions today. Laboratory:Test performed on Apr 23, 2020 08:27 Sodium 138 mmol/L TSH 2.82 uIU/mL Potassium 4.3 mmol/L Chloride 101 mmol/L CO2 25 mmol/L Anion Gap 16.3 BUN 13 mg/dL Creatinine 0.6 mg/dL Cr Clearance (Est) 137.0300 mL/min eGFR 135.2 mL/min Glucose 97 mg/dL Osmolality - Calculated 286 mOsm/kg Calcium 9.5 mg/dL Protein, Total 7.1 g/dL Albumin 3.6 g/dL Globulin 3.5 g/dL Bilirubin, Total 0.4 mg/dL ALT (SGPT) 74 U/L AST (SGOT) 78 U/L Alkaline Phosphatase 452 IU/L WBC 10.4 10 3/uL RBC 4.13 10 6/uL HGB 11.3 g/dL HCT 36.8 % MCV 89.1 fL MCH 27.4 pg MCHC 30.7 g/dL RDW 15.9 % Platelet Count 358 10 3/cmm MPV 10.7 fL Neutrophils 7.07 10 3/uL Lymphocytes 1.4 10 3/uL Monocytes 1.1 10 3/uL Eosinophils 0.7 10 3/uL Basophils 0.0 10 3/uL Neutrophil % 68.0 % Lymphocyte % 13.6 % Monocyte % 10.4 % Eosinophil % 7.0 % Basophils % 0.3 % NRBC % 0 % Test performed on Apr 16, 2020 11:46 Magnesium 2.0 mg/dL Uric Acid 4.8 mg/dL LDH, Total 1233 IU/L Phosphorous 3.6 mg/dL PT 11.8 sec INR 1.1 Manual Lymphocytes 11 % Manual Monocytes 12 % Manual Eosinophils 4 % Manual Basophils 0 % CA 125 126.0 Units/mL CA 19-9 1158 Units/mL CA 15-3 26.6 Units/mL CA 27.29 69.1 Units/mL CEA 1495.0 ng/mL Test performed on Dec 15, 2019 09:43 Est Avg Glucose (eAG) 111 mg/dL Hemoglobin A1C % 5.5 % Test performed on Oct 31, 2019 12:12 CRP, High Sensitivity 0.280 mg/dL Ferritin 156 ng/mL GGT 212 U/L T3, Free 3.5 PG/ML T4, Free 1.04 ng/dL Testosterone, Free 57.0 pg/mL Testosterone, Total 777.4 ng/dL Vitamin D (25-Hydroxy), Total 25 ng/mL ESR (Sed Rate) 25 mm/hr Impression: 1. 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 The tumor was found to be MSI stable. 2. He underwent exploratory laparotomy with partial transverse colectomy and liver biopsy on 03/25/2018. His other medical illnesses include: 3. Dyslipidemia. 4. Coronary artery disease with previous myocardial infarction and angioplasty/stent placement. 5. He has a significant family history of colon cancer. 6. COVID-19 + 02/13/2020 7. Bilateral pulmonary emboli: 02/21/2020 on Eliquis. Subsequent to his initial visit here he was seen at [facility] and his next generation sequencing study showed a wild-type KRAS mutation status. He then sought treatment through the [facility] in [facility]. His subsequent Biocept studies have shown presence of a G12C KRAS mutation, but a BRAF mutation was not detected. He then began initial chemotherapy with cyclophosphamide, epirubicin, and irinotecan dosed every 2 weeks. On 06/11/2017 he underwent chemoembolization to both hepatic lobes utilizing Quadraspheres loaded with epirubicin. In June 2017 he began further treatment with pembrolizumab 200 mg by IV infusion every 3 weeks together with cetuximab 500 mg by IV infusion weekly. His follow-up laboratory studies had shown decline in the CEA level from 178.6 ng/mL on 05/07/2018 to 60.9 ng/mL on 07/26/2018. His restaging PET/CT on 07/28/2018 showed interval significant response to treatment with resolution of multiple foci of increased metabolic activity in the liver. He resumed the pembrolizumab/cetuximab infusions on 08/27/2018. He tolerated the treatment with no significant toxicity. He returned for day 8 and day 15 cetuximab infusions, which he also tolerated well. As of 09/08/2018 there was further decrease in the CEA level to 9.1 ng/mL. His restaging CT abdomen/pelvis did show residual metastatic lesions in the liver. During subsequent follow-up there was further decline in the CEA level. As of 12/06/2018 it had stabilized at 1.0 ng/mL. His restaging CT scans on 12/15/2018 showed numerous hepatic metastatic lesions, the largest in the left hepatic lobe measuring 2.7 x 3.8 cm. They appeared stable compared to the PET/CT from 10/23/2018. He has been showing gradual gradual worsening of his skin eruption, but he is not symptomatic with it, and he has otherwise been tolerating treatment well. Overall he has been feeling better generally. He has had a good response to his treatment, though he did have residual disease in the liver by CT scan. He then continued treatment with cetuximab in combination with pembrolizumab. His restaging PET/CT on 02/05/2019 showed evidence of positive metabolic response, though with residual involvement in the liver. During subsequent follow-up there was a continued increase in his CEA level, consistent with disease progression, and in conjunction with the PET/CT findings, he underwent a repeat TACE procedure in March. At his follow-up visit here on 04/13/2019 he continued treatment with pembrolizumab and cetuximab. A restaging PET/CT on 05/07/2019 reported worsening of hepatic metastatic disease with a central left hepatic lobe lesion measuring 3.6 x 6.7 with SUV 7.2. A lesion in the medial left hepatic lobe showed increased SUV to 4.5. Other subcentimeter lesions appeared unchanged. Also noted was new enlargement of the head of the pancreas with mild FDG uptake, possibly representing pancreatitis. On 05/27/2019 he was admitted to the hospital with acute pancreatitis. His CT abdomen/pelvis showed increase in size of the head of the pancreas. Further evaluation with MRI of the abdomen at [facility] on 06/01/2019 showed a mixed cystic and solid mass within the head and uncinate process of the pancreas measuring 3.2 x 4.5 cm. As yet he has not had any further evaluation. He has had improvement in his abdominal pain and other GI symptoms. His current laboratory studies show a significant increase in the CEA level, now to 50.8 ng/mL. The CA-19-9 level is also elevated at 108.0 U/mL. In the meantime, a KRAS mutation analysis which was done through [employer] reported the presence of a KRAS G12C mutation. With that finding, he was advised to stop the cetuximab. He continued treatment with pembrolizumab 200 mg by IV infusion every 3 weeks. He then had further liver directed therapy in [place] on 08/03/2019. His restaging PET/CT did show evidence of disease progression in the liver. A left upper lobe pulmonary nodule had increased from 0.3 to 0.5 cm, but with no associated FDG activity. At that time he also started treatment with regorafenib at 160 mg daily. He developed significant side effects with the regorafenib, including vomiting, diarrhea, and fatigue. Those symptoms improved, and he subsequently restarted it at a reduced dosage. As of his follow-up visit on 10/12/2022 regular after he had was again put on hold due to his severe skin eruption in his hands and feet. At the time he had escalated back up to the full dosage. He has had gradual resolution of the skin eruption. During this time there has been a consistent but gradual increase in the CEA level. His repeat CT scan on 10/31/2019, though, showed no obvious progression of metastatic involvement in the liver. The pancreatic head appeared normal. He then continued treatment with pembrolizumab. He also returned to [place] where he underwent another CIPI treatment to the liver and lung lesions on 11/21/2019. Initially he did show some decline in his CEA level following that procedure, but it has since then increased significantly. His clinical status, though, remains stable. Mr Arellano was found to be COVID -19 + on 02/13/2020. He was admitted to [facility]'s viral ICU on 02/21/2020 and diagnosed with acute bilateral pulmonary emboli. He was discharged on 02/23/2020 on Eliquis 10 mg BID x 7 days and is now on 5 mg BID. He also was found to have persistent elevation of his LFTs. He had PET/CT imaging on 04/03/2020 via [facility] in [place], [place]. It is reported as metabolic progression: 1. Right liver lobe FDG avid lesion with SUV max of 10.3, previously 8.2 shows about 25.6% increase in FDG activity compatible with metabolic progression. 2. Right liver lobe focus of increased FDG activity with SUV max of 9.3 previously 5.7. 3. Left liver lobe medial segment lesion with SUV 14.3 previously 11.0 shows interval increase of 30% compatible with metabolic progression. 4. focus of marked increased FDG activity in the inferior tip of the right liver with an SUV max of 9.6 previously 6.3 which shows significant metabolic progression and increase in extent of FDG activity. Stable metabolic activity: 1. The left liver lobe lateral segment lesion cannot be from the large medial segment left liver lesion but region of interest drawn at the same location as previously study shows an SUV max of 9.4, previously 9.1. 2. Anterior liver lesions spanning the medial segment of the left lobe in segment 5 on the right lobe with an SUV max of 9.8 previously 9.5. 3. Posterior right liver lobe subcapsular FDG avid lesion with SUV max of 10.2 previously 9.2. 4. Stable mild increased activity in the prostate gland with an SUV max of 2.3 previously 2.6. He reports he had another CIPI that really worked the liver over . Plan: 1. Proceed with cycle 25 of pembrolizumab 400 mg by IV infusion. He will now transition to every 6 weeks if approved by the pharmaceutical compassionate program he is enrolled in. 2. His last dose of axitinib 5 mg every 12 hours together with capmatinib 400 mg every 12 hours was on 02/13/2020 due to the COVID-19 + report. He also had elevated LFTs and disease progression. 3. He reports he will be returning to [place] in a few weeks for reassessment and to have more T- cells built . 4. Labs from 04/23/2020 were reviewed in detail discussed with Mr. Arellano and a copy was given to him. WBC 10.4, hemoglobin 11.3, platelets 3 and 58,000 ANC is 7000 potassium 4.3 creatinine 0.6 his ALT is improved to 74 versus 156 on 04/16/2020 his AST is now 78 compared to 156 on 04/16/2020. His alk phos continues to be elevated at 452 and was 394 on 04/16/2020. His LDH on 04/16/2020 was 1233 it was not repeated today. His tumor markers from 04/16/2020 reported a CA 15-3 of 26.6 CA 19-9 of 1158 CA 27-29 of 69.1 CA-125 of 126 and a CEA of 1495. The last CEA on our records was March 06, 2020 at which time was 478. 5. We will plan to see him back in 6 weeks with CBC CMP and TSH. He will have interim labs drawn as per requested from his team at [facility] in [place], [place]. Signed By: Efrain Mcintosh-, AOCNP George Rabago MD <<Signature on File>>
== END 2020-04-25 06:03 | disposition home or self-care (01) ==
LOC: ONCMED 06:06
PROVIDERS: PCP Nurse Practitioner Family; Visit Provider Nurse Practitioner
DX: Z51.12 Encounter for antineoplastic immunotherapy (principal); C18.4 Malignant neoplasm of transverse colon; C78.7 Secondary malignant neoplasm of liver and intrahepatic bile duct; R79.89 Other specified abnormal findings of blood chemistry; E78.5 Hyperlipidemia, unspecified; I25.2 Old myocardial infarction; Z79.899 Other long term (current) drug therapy; Z86.19 Personal history of other infectious and parasitic diseases; Z86.711 Personal history of pulmonary embolism; Z79.01 Long term (current) use of anticoagulants; Z80.0 Family history of malignant neoplasm of digestive organs
CPT/HCPCS: 96413; 99214; J1642; J7050; J9271

== ENCOUNTER 2020-06-15 08:02 | Outpatient (CLI) | payer MEDICARE, BC, SELFPAY ==
[2020-06-15 08:54] LABS: Basophils % 0.3 %; Eosinophils # 0.1 10^3/uL (0.0-0.8); Eosinophils % 1.4 %; Hematocrit 35.3 % (42.0-52.0); Hemoglobin 10.9 g/dL (11.7-16.6); Lymphocytes # 0.4 10^3/uL (0.8-4.8); Lymphocytes % 6.9 %; Mean Corpuscular HGB Conc 30.9 g/dL (30.0-36.0); Mean Corpuscular Hemoglobin 28.9 pg (28.0-34.0); Mean Corpuscular Volume 93.6 fL (80-94); Mean Platelet Volume 11.5 fL (7.4-10.4); Monocytes # 0.5 10^3/uL (0.2-0.9); Monocytes % 7.4 %; Neutrophils # 5.32 10^3/uL (1.8-7.7); Neutrophils % 83.5 %; Nucleated Red Blood Cells % 0 %; Platelet Count 135 10^3/cmm (130-400); Red Blood Count 3.77 10^6/uL (4.1-5.3); Red Cell Distribution Width 20.1 % (12.1-15.1); White Blood Count 6.4 10^3/uL (4.0-10.0)
[2020-06-15 09:23] LABS: Alanine Aminotransferase 71 U/L (0-41); Albumin Level 3.6 g/dL (3.5-5.2); Alkaline Phosphatase 373 IU/L (40-130); Anion Gap 11.5 (5-19); Aspartate Amino Transferase 76 U/L (0-40); Blood Urea Nitrogen 13 mg/dL (8-23); Calcium 9.1 mg/dL (8.5-10.5); Carbon Dioxide 24 mmol/L (22-29); Chloride 103 mmol/L (98-107); Globulin 2.8 g/dL (1.3-4.6); Glomerular Filtration Rate 166.9 mL/min (90-130); Glucose 110 mg/dL (65-115); Osmolality Calculated 281 mOsm/kg (285-295); Potassium 3.5 mmol/L (3.5-5.1); Sodium 135 mmol/L (136-145); Thyroid Stimulating Hormone 4.88 uIU/mL (0.27-4.20); Total Bilirubin 0.7 mg/dL (0.15-1.2); Total Protein 6.4 g/dL (6.6-8.7)
--- NOTE | 2020-06-16 09:42 | ONC FU_ITS ---
Dr. Rabago Patient Follow-Up Note Patient: Steven Arellano Unit #: [id number]: 1955 Dicatated By: George Rabago M.D.Date of Visit:Jun 15, 2020 Onc Med Follow-up/Prog Note Chief Complaint: Colon cancer. 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 In February 2018 he was referred to Dr. Jay with a one-month history of hematochezia. His colonoscopy showed a mass in the transverse colon. Biopsy showed tubular adenoma with high-grade dysplasia, but the mass did appear malignant. Other findings were limited to an inflammatory type polyp in the proximal descending colon and hyperplastic polyps in the rectum. CT of the abdomen and pelvis showed circumferential thickening in the distal transverse colon proximal to the splenic flexure, suspicious for neoplasm. There were multiple low-attenuation lesions noted in the liver, the largest in the left hepatic lobe measuring 3.2 cm. An additional prominent lesion near the dome measured 2.8 cm. There were numerous low-attenuation circumferential lesions in the right hepatic lobe measuring 1-2 cm. The findings were consistent with metastatic disease. On 03/25/2018 he underwent exploratory laparotomy with partial transverse colectomy and biopsy of a right hepatic lobe lesion. Pathology showed grade 1-2/4 infiltrating adenocarcinoma measuring 3.0 x 2.7 cm. There was penetration through the muscularis propria into serosal connective tissues. There was involvement in one of 12 mesenteric lymph nodes. The liver biopsy showed metastatic adenocarcinoma. I had seen him initially on 04/13/2018. We had discussed the possibility of a trial of palliative chemotherapy with a FOLFOX-based regimen. He subsequently underwent evaluation at [facility] in [facility]. His evaluation there included a next generation sequencing study by liquid biopsy. 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 The KRAS, NRAS, and BRAF mutations were not detected. A trial of palliative chemotherapy was again recommended. Instead, he sought treatment through [facility] in [place]. Based on their in vitro studies, he apparently then began initial course of chemotherapy with cyclophosphamide, epirubicin, and irinotecan dosed at 2-week intervals for 8 weeks. He also was administered a variety of vitamin and herbal supplements. On 06/11/2018 he underwent a chemoembolization procedure with Quadraspheres loaded with epirubicin. He received a dosage of 60 mg to the right hepatic lobe and 50 mg to the left hepatic lobe. In June he began treatment with pembrolizumab 200 mg by IV infusion every 3 weeks together with cetuximab 500 mg by IV infusion weekly. Thus far he has received only 2 infusions of cetuximab, which he completed with only minimal reaction. He received his most recent infusion of pembrolizumab on 08/27/2018. In addition, from 08/03/2018 through 08/05/2018 he underwent AAIT therapy in [place]. His follow-up laboratory studies have shown decline in the CEA level from 178.6 ng/mL on 05/07/2018 to 60.9 ng/mL on 07/26/2018. His restaging PET/CT on 07/28/2018 showed interval significant response to treatment with resolution of multiple foci of increased metabolic activity in the liver. His other medical illnesses have been limited to coronary artery disease and dyslipidemia. He had suffered an inferior wall myocardial infarction in February 2017, at which time he underwent angioplasty with stent placement of the right coronary artery. He had no further cardiac problems. He has had no other prior medical illnesses. He had smoked cigars in the past, but only for a few years. He had chewed tobacco for 20 years, but he quit at least 15 years ago. He does not drink alcohol. His family history is significant in that his mother and a brother have also been treated for colon cancer. INTERIM HISTORY: On 08/27/2018 he restarted treatment with pembrolizumab 200 mg IV every 3 weeks together with cetuximab 500 mg IV weekly. He returned here on 08/30/2018 so that he could continue his pembrolizumab and cetuximab infusions closer to home. He had experienced no adverse effects with the initial infusions, and he continued with his day 8 and day 15 cetuximab infusions, also with no adverse effects. His repeat CEA level on 09/08/2018 was down to 9.1 ng/mL compared to 60.9 ng/mL on 07/26/2018. During subsequent follow-up his CEA level continued to decline. As of 12/06/2018 it had stabilized at 1.0 ng/mL. Restaging CT scans of the chest, abdomen, and pelvis on 12/15/2018 showed no evidence of metastatic disease the lungs. A 4 mm left perifussural nodule appeared stable. Numerous hepatic metastatic lesions appeared stable compared to the PET/CT from 10/23/2018. The largest in the left hepatic lobe measured 2.7 x 3.8 cmwith those findings he continued treatment with cetuximab in combination with pembrolizumab. Restaging PET/CT on 02/05/2019 showed improved bilateral hilar lymph nodes compared to the prior PET/CT studies. Multiple hepatic lesions appeared to have resolved, but with unchanged left and right hepatic dome lesions. Overall the findings were consistent with a positive metabolic response. He continued treatment with cetuximab in combination with pembrolizumab. As of 03/23/2019 he began his 11th cycle of treatment. At that point there was a significant increase in the CEA level, 13.9 ng/mL compared to 10.7 ng/mL on 03/02/2019 and to 3.9 ng/mL on 01/17/2019. With that increase and with evidence of residual hepatic involvement in the liver by PET/CT, he yañez a repeat TACE procedure in March. He was then seen for a follow-up visit on 04/13/2019. At that point he continued treatment with pembrolizumab in combination with cetuximab. A restaging PET/CT on 05/07/2019 reported worsening of hepatic metastatic disease with a central left hepatic lobe lesion measuring 3.6 x 6.7 with SUV 7.2. A lesion in the medial left hepatic lobe showed increased SUV to 4.5. Other subcentimeter lesions appeared unchanged. Also noted was new enlargement of the head of the pancreas with mild FDG uptake, possibly representing pancreatitis. On 05/27/2019 he was admitted to the hospital with a presumptive diagnosis of acute pancreatitis, having presented to the emergency room with nausea/vomiting in association with a dull achy pain in the epigastric area. His serum lipase was elevated at 683 U/L. CT abdomen/pelvis showed increase in the size of the head of the pancreas with numerous low-density lesions, possibly representing acute pancreatitis. Multiple low-density lesions in the liver were noted to have increased in size and number, consistent with worsening metastatic disease. There appeared to be acute gastric retention. Fluid within the small bowel was suggestive of a severe ileus. His symptoms improved with supportive treatment measures. He was discharged home on 05/29/2019. He had further evaluation with MRI of the abdomen at [facility] on 06/01/2019. It showed multiple lesions throughout the bilateral lobes of the liver consistent with hepatic metastases. An additional lesion within the left lobe of the liver appeared to be consistent with a cavernous hemangioma. A mixed cystic and solid mass was noted within the head and uncinate process of the pancreas measuring 3.2 x 4.5 cm. It had indeterminate features by MRI, possibly representing a primary pancreatic neoplasm versus metastatic lesion. We had then made arrangements for an EUS procedure, but he opted instead to return to [place] for a biopsy. When he arrived there, he was told that a would not be able to do the biopsy, so he returned home and he requested a follow-up visit here. In the meantime, his recent studies done through [facility] had included a K-sheila mutation analysis, which detected a G12C KRAS mutation. With that finding, he was recommended to stop treatment with cetuximab. He continued treatment here with pembrolizumab at the standard dosage of 200 mg by IV infusion every 3 weeks. He then had further liver directed therapy in [place] on 08/03/2019. He also had restaging PET/CT which showed multiple FDG avid liver lesions showing significant interval increase in extent and metabolic activity. New FDG avid lesions were compatible with progression of metastatic malignancy. A left upper lobe pulmonary nodule had increased from 0.3 to 0.5 cm, but with no associated FDG activity. At that time he also started treatment with regorafenib at 160 mg daily. At his follow-up visit on 09/02/2019 he reported significant side effects with the regorafenib, and he had stopped taking it. His symptoms were improving, and he was instructed to restart it at a reduced dosage. At his follow-up visit on 10/13/2019 he was again having significant side effects with the regorafenib, but at that time he was back on the full dosage of 160 mg daily. The regorafenib was then stopped permanently, but he continued treatment with pembrolizumab. Restaging CT scans of the chest, abdomen, and pelvis on 10/31/2019 showed stable 4 mm pulmonary nodule along the left fissure. Mediastinal and hilar lymphadenopathy with similar to prior studies. Multiple heterogeneously enhancing low-attenuation hepatic metastatic lesions also appeared similar to the recent PET/CT. The largest lesion was in the left lobe of the liver measuring 8.1 x 6.1 cm. The pancreatic head appeared normal. He continued with cycle 19 of pembrolizumab on 11/03/2019. He then returned to [place] where he underwent a CI PI procedure to the liver and lung lesions on 11/21/2019. At that time he also was recommended to add axitinib 5 mg every 12 hours together with capmatinib 400 mg every 12 hours to his treatment regimen. He returned here for cycle 20 of pembrolizumab on 11/24/2019 and he then continued treatment at 3-week intervals.. As of his follow-up visit on 01/26/2020 he began further treatment with axitinib 5 mg every 12 hours together with capmatinib 400 mg every 12 hours. On 02/13/2020 he was admitted to the hospital with COVID-19 virus infection. He had associated bilateral pulmonary emboli, for which he began on anticoagulation with apixaban. Axitinib and capmatinib were permanently discontinued. He restarted his pembrolizumab treatments on 03/08/2020 and as of 04/25/2020 the pembrolizumab was changed to the 6-week dosing schedule. In April he returned to [place] for further AAIT, and received additional NKT-cell infusions there in May. In the meantime, from 05/10/2020 through 05/22/2020 he underwent radiation to one of the larger metastatic lesions in the liver. The total dose was 3000 cGy. He tolerated the treatment well. During that time, his treatment regimen was also amended to include Sprycel 100 mg daily together with cyclophosphamide 25 mg daily. He is seen now for a follow-up visit. He indicates that he is scheduled to return to [place] and [place] again in June, and at that time he apparently is going to be starting treatment with ipilimumab in addition to the pembrolizumab. He has been feeling pretty good generally. His energy has been okay. He does have somewhat limited activity. ECOG score is 1. His appetite has been good, and he has gained some weight. He has not had fever. He did have some sweating after his last treatment. He has not had sore mouth or sore throat. He has no shortness of breath, cough, or chest pain. He sometimes has heartburn. He has no other GI complaints. He does report urinary frequency and nocturia. He has no significant joint or bone pain. He does not complain of headache or dizziness, and he has no focal neurologic symptoms. Medications: Aspirin 1 Tablet (of 81 mg) Tablet, enteric coated Oral daily, Atorvastatin Calcium 1 Tablet (of 40 mg) Oral at bedtime, Curcumin 95 1 Capsule (of 500 mg) Oral daily, Cyclophosphamide 1 (25 mg) Capsule Oral daily, Eliquis 1 Tablet (of 5 mg) Oral b.i.d., fendendozol Capsule Oral Take as Directed, Glutathione 1 Tablet Oral daily, Keytruda Intravenous, metFORMIN HCl 1 Tablet (of 1000 mg) Oral daily, Multivitamin Adults 1 Tablet Oral daily, Nitroglycerin 1 (0.4 mg) Tablet, sublingual Sublingual PRN, Nicholson-3 Complex 1 Capsule (of 192-251-11 mg - mg - Units) Oral daily, querisorb 2 Capsule Oral daily, Sprycel 1 (100 mg) Tablet Oral daily, Vitamin C 2 Capsule (of 500 mg) Oral daily, Vitamin D 2 Tablet (of 25 mcg) Oral daily, Wheat Dextrin Powder Oral, Zinc 1 CA 125 Units/mL (of 50 mg) Capsule Oral daily Allergies: No Known Allergies. Vital Signs: Performed on Jun 15, 2020 09:42 Height - 70.00 in Weight - 181.0 lbs (HIGH) BSA - 2.00 sq.m BMI - 25.97 Temperature - 99.2 F (HIGH) Pulse - 71 /min Respiration - 16 /min BP - 110/64 mm(hg) O2 Sat - 97 % Pain - 0 Physical Examination: Constitutional - He looks pretty good generally, Eyes - Sclerae nonicteric. Conjunctivae clear, ENMT - No lesions noted in the oral cavity, Hematologic/Lymphatic - No cervical, clavicular, or axillary adenopathy, Respiratory - Lungs are clear with good air movement bilaterally, Cardiovascular - Heart rhythm is regular. There is no murmur, gallop, or rub noted, Abdomen - Soft. Liver is not enlarged or tender. Spleen is not palpable. There is no abdominal mass or ascites noted and there is no inguinal adenopathy, Extremities - No edema, Neurologic - No focal neurologic deficits noted. Lab/Imaging: Test performed on Jun 15, 2020 08:19 Sodium 135 mmol/L TSH 4.88 uIU/mL Potassium 3.5 mmol/L Chloride 103 mmol/L CO2 24 mmol/L Anion Gap 11.5 BUN 13 mg/dL Creatinine 0.5 mg/dL Cr Clearance (Est) 171.05 mL/min eGFR 166.9 mL/min Glucose 110 mg/dL Osmolality - Calculated 281 mOsm/kg Calcium 9.1 mg/dL Protein, Total 6.4 g/dL Albumin 3.6 g/dL Globulin 2.8 g/dL Bilirubin, Total 0.7 mg/dL ALT (SGPT) 71 U/L AST (SGOT) 76 U/L Alkaline Phosphatase 373 IU/L WBC 6.4 10 3/uL RBC 3.77 10 6/uL HGB 10.9 g/dL HCT 35.3 % MCV 93.6 fL MCH 28.9 pg MCHC 30.9 g/dL RDW 20.1 % Platelet Count 135 10 3/cmm MPV 11.5 fL Neutrophils 5.32 10 3/uL Lymphocytes 0.4 10 3/uL Monocytes 0.5 10 3/uL Eosinophils 0.1 10 3/uL Basophils 0.0 10 3/uL Neutrophil % 83.5 % Lymphocyte % 6.9 % Monocyte % 7.4 % Eosinophil % 1.4 % Basophils % 0.3 % NRBC % 0 % CEA 765.0 ng/mL Problem List: 1. Grade1-2/4 infiltrating adenocarcinoma of the transverse colon, stage CLAUDIA (T3, N1a, M1a) with biopsy-proven metastatic involvement in the liver. The tumor was found to be MSI stable. 2. He underwent exploratory laparotomy with partial transverse colectomy and liver biopsy on 03/25/2018. 3. Dyslipidemia. 4. Coronary artery disease with previous myocardial infarction and angioplasty/stent placement. 5. In January 2020 he was admitted to the hospital with COVID-19 virus infection. At that time he was found to have bilateral pulmonary emboli. Remains on anticoagulation with apixaban. Problems Addressed with this Encounter and Plan: 1. Grade1-2/4 infiltrating adenocarcinoma of the transverse colon, stage CLAUDIA (T3, N1a, M1a) with biopsy-proven metastatic involvement in the liver. The tumor was found to be MSI stable. He underwent exploratory laparotomy with partial transverse colectomy and liver biopsy on 03/25/2018. Subsequent to his initial visit here [facility] He then sought treatment through the [facility] in [place]. His subsequent [employer] studies have shown presence of a G12C KRAS mutation, but a BRAF mutation was not detected. His began treatment with nonconventional systemic therapy, which initially included cyclophosphamide, epirubicin, and irinotecan dosed every 2 weeks, followed by liver directed therapy. In June 2017 he began treatment with pembrolizumab in combination with cetuximab. His cetuximab was eventually discontinued with evidence of progression of the metastatic disease in the liver. His subsequent therapies included a trial of regorafenib and a brief course of treatment with axitinib in combination with capmatinib. During this time he has been undergoing immune therapy treatments in [place], which include NKT-cell infusions. He also has continued treatment with pembrolizumab. As of 03/08/2020 he has completed 24 infusions of pembrolizumab at the 3-week dosing schedule. As of 04/25/2020 his treatment was changed to the 6-week schedule. He will continue now with his 2nd cycle of pembrolizumab at the 6-week dosing schedule (400 mg by IV infusion). He also continues Sprycel 100 mg daily together with cyclophosphamide 25 mg daily. He will return in 6 weeks. At that time, I anticipate that we will be adding ipililumab to his regimen. 2. He was diagnosed with bilateral pulmonary emboli in January 2020. He remains on anticoagulation with apixaban. Signed By: George Rabago M.D. <<Signature on File>>
== END 2020-06-15 08:03 | disposition home or self-care (01) ==
PROVIDERS: PCP Nurse Practitioner Family; Visit Provider Internal Medicine Medical Oncology
DX: Z51.12 Encounter for antineoplastic immunotherapy (principal); C18.4 Malignant neoplasm of transverse colon; C78.7 Secondary malignant neoplasm of liver and intrahepatic bile duct; I25.10 Atherosclerotic heart disease of native coronary artery without angina pectoris; I25.2 Old myocardial infarction; Z95.1 Presence of aortocoronary bypass graft; Z95.5 Presence of coronary angioplasty implant and graft; Z86.16 Personal history of COVID-19; Z86.711 Personal history of pulmonary embolism; Z79.01 Long term (current) use of anticoagulants; Z79.899 Other long term (current) drug therapy
CPT/HCPCS: 80053; 82378; 84443; 85025; 96375; 96376; 96413; 99214; J1642; J7050; J9271

== ENCOUNTER 2020-07-23 12:14 | Inpatient (IN) | payer MEDICARE, BC, SELFPAY ==
[2020-07-23] VITALS (7 sets, daily range): BP systolic 112–123; BP diastolic 67–74; PULSE 87–102; RESP 17–18; TEMP 36.7–38.1; O2SAT 88–98; BMI 25.1
--- NOTE | 2020-07-23 13:07 | XRR_ITS ---
PROCEDURE INFORMATION: Exam: XR Chest Exam date and time: 07/23/2020 1:08 PM Age: 65 years old Clinical indication: Cough and fever; Prior surgery; Surgery type: Port; Patient HX: HX of colon and liver cancer. ; Additional info: Feverm cough TECHNIQUE: Imaging protocol: XR of the chest Views: 1 view. COMPARISON: CT chest abd pel w con* 03/10/2020 9:27 PM FINDINGS: Tubes, catheters and devices: Bilateral central venous catheters. Lungs: Hypoinflation with interstitial prominence and mild airspace disease. Pleural spaces: Small pleural effusions. No pneumothorax. Heart/Mediastinum: No cardiomegaly. Bones/joints: Degenerative change. XR/XR chest 1V portable [id number] IMPRESSION: 1. Hypoinflation with interstitial prominence and mild airspace disease. 2. Small pleural effusions.
[2020-07-23 13:21] LABS: Basophils % 0.3 %; Eosinophils # 0.2 10^3/uL (0.0-0.8); Eosinophils % 1.5 %; Hematocrit 24.4 % (42.0-52.0); Hemoglobin 7.6 g/dL (11.7-16.6); Lymphocytes # 1.1 10^3/uL (0.8-4.8); Lymphocytes % 10.4 %; Mean Corpuscular HGB Conc 31.1 g/dL (30.0-36.0); Mean Corpuscular Volume 96.4 fL (80-94); Mean Platelet Volume 11.4 fL (7.4-10.4); Monocytes # 1.5 10^3/uL (0.2-0.9); Neutrophils # 7.81 10^3/uL (1.8-7.7); Nucleated Red Blood Cells % 0 %; Platelet Count 192 10^3/cmm (130-400); Red Blood Count 2.53 10^6/uL (4.1-5.3); Red Cell Distribution Width 22.2 % (12.1-15.1); White Blood Count 10.7 10^3/uL (4.0-10.0)
--- NOTE | 2020-07-23 13:31 | US_ITS ---
WS: [id number] Ultrasound abdomen limited. There is a small amount of ascites throughout all 4 quadrants. Majority of fluid is in the RIGHT lowe r quadrant. US/US abdomen lmt fluid [id number] IMPRESSION: Small amount of ascites.
[2020-07-23 13:36] LABS: Lactate (Lactic Acid level) 1.2 mmol/L (0.5-2.2)
[2020-07-23 13:43] LABS: Procalcitonin 0.39 ng/mL (0-0.5)
[2020-07-23 13:54] LABS: Alanine Aminotransferase 58 U/L (0-41); Albumin Level 2.9 g/dL (3.5-5.2); Anion Gap 13.4 (5-19); Aspartate Amino Transferase 123 U/L (0-40); Blood Urea Nitrogen 15 mg/dL (8-23); C Reactive Protein 59.8 mg/L (0.0-4.9); Calcium 8.8 mg/dL (8.5-10.5); Carbon Dioxide 20 mmol/L (22-29); Chloride 96 mmol/L (98-107); Globulin 2.7 g/dL (1.3-4.6); Glomerular Filtration Rate 135.2 mL/min (90-130); Glucose 92 mg/dL (65-115); Osmolality Calculated 260 mOsm/kg (285-295); Potassium 4.4 mmol/L (3.5-5.1); Sodium 125 mmol/L (136-145); Total Bilirubin 3.3 mg/dL (0.15-1.2); Total Protein 5.6 g/dL (6.6-8.7)
[2020-07-23 13:56] LABS: Creatinine Clr Calc Pharmacy 98.3745
[2020-07-23 13:59] LABS: Alkaline Phosphatase 1074 IU/L (40-130)
--- NOTE | 2020-07-23 14:49 | US_ITS ---
WS: [id number] RIGHT UPPER QUADRANT ULTRASOUND HISTORY: elevated liver enzymes, fever COMPARISON: 05/16/2019 Liver: 17.8 cm in length. Liver is enlarged and there are multiple masses within the liver. Patient h as known metastatic disease. Mixed echogenicity mass in the LEFT lobe of the liver measures at least 9.6 x 4.6 cm. Gallbladder: Not identified. CBD: 0.4 cm Pancreas: Not visualized. Right kidney: 14.2 cm in length. Normal size and echogenicity. No hydronephrosis or mass. Aorta and IVC: Unremarkable abdominal aorta and IVC. Small amount of ascites and perihepatic fluid. US/US gall bladder [id number] IMPRESSION: 1. Patient has known metastatic disease within the liver. Difficult to determi ne if the metastatic disease has progressed or not. 2. Small amount of ascites. 3. Gallbladder not identified.
[2020-07-23 14:57] LABS: Add Urine Microscopic? NO
[2020-07-23] MEDS: sodium chloride 0.9% 1,000 ML 999 ML IV (14:59)
[2020-07-23 15:08] LABS: Bilirubin Urine 2+ (Negative); Blood Urine Neg (Negative); Glucose Urine UA Norm (Normal); Ketones Urine 1+ (Negative); Leukocyte Esterase Urine Negative (Negative); Nitrate Urine Negative (Negative); Protein Urine Neg (Negative); Urine Appearance Clear (CLEAR); Urine Color Dark Yellow (Yellow); Urobilinogen Urine 8 mg/dL (Negative); pH Urine 5 (5-7)
[2020-07-23] MEDS: levofloxacin-dextrose 5 % 750 MG/150 ML PREMIX 100 MG IV (15:43)
[2020-07-23 15:47] LABS: Gamma Glutamyl Transferase 1028 U/L (8-61); Lipase 58 U/L (13-60)
--- NOTE | 2020-07-23 17:58 | P.HP_ITS ---
Providers/Chief Complaint Admitting Physician: Aries Fonseca MD Primary Care Provider: ANKIT Smith Chief Complaint: FEVER/FLUID BUILD UP/ ABD PRESSURE History of Present Illness Steven Arellano is a 65 year old male with past medical history of CAD post stent, Covid, PE on Eliquis , Ca Colon 2018 S/P Resection with metastases to pancreatic duct, liver and lungs s/p immunotherapy completed the last session of the therapy on 07/18 in [place] follows as outpatient, came in today with c/o worsening cough with productive sputum, as well as fever, generalized weakness, loss of appetite, worsening lethargy. Upon arrival in the ER he was worked up for above-mentioned, complaint. Imaging study: X-ray chest: Hypoinflation with interstitial prominence and mild airspace disease. Pleural spaces: Small pleural effusions. No pneumothorax. US abdomen : Small amount of ascites. US gall bladder: Patient has known metastatic disease within the liver. Difficult to determine if the metastatic disease has progressed or not. Small amount of ascites.Gallbladder: Not identified. CBD: 0.4 cm. Pertinent lab: WBC: 10.2, H/H: 7.6/24, PLT: 192, Serum sodium: 125, K: 4.4, BUN/SCR: 15/0.6, serum lactate: 1.2 Total bilirubin: 3.3, GGT: 1028, AST:123, ALT:58, ALP: 1074 , lipase:58 Urine specific gravity: 1.03 ECA medication: Levofloxacin 750 mg IV x1 dose Review of Systems Card: Denies: palpitations Resp: Denies: wheezing or pain on inspiration GI: Denies: abdominal pain, nausea, diarrhea or constipation : Denies: flank pain or difficulty urinating Musc: Denies: back pain, extremity pain or extremity swelling Neuro: Denies: headache(s), difficulty walking or confusion Medications/Allergies Home Medications Medication Instructions Recorded Confirmed Last Taken Type aspirin 81 mg PO DAILY@0700 10/18/19 07/23/20 07/22/20 History Keytruda See Rx Instructions .ROUTE .COMPLEX 02/21/20 07/23/20 03/08/20 History Vitamin C 1 tab PO DAILY@0700 02/21/20 07/23/20 07/22/20 History multivitamin [Multiple Vitamins] 1 tab PO DAILY@0700 02/21/20 07/23/20 07/22/20 History nitroglycerin [Nitrostat] 0.4 mg SUBLINGUAL Q5M PRN 02/21/20 07/23/20 02/21/20 History Jennifer Torres See Rx Instructions .ROUTE .COMPLEX 07/23/20 07/23/20 07/22/20 History Berberacticv 2 cap PO BID@0700,1830 07/23/20 07/23/20 07/22/20 History Biocidin Proflora 1 cap PO DAILY@0700 07/23/20 07/23/20 07/22/20 History Biotics Iag 1 tbsp PO DAILY@0700 07/23/20 07/23/20 07/22/20 History Padmini Salcedo See Rx Instructions .ROUTE .COMPLEX 07/23/20 07/23/20 07/22/20 History Dim Enhanced 2 cap PO DAILY@0700 07/23/20 07/23/20 07/22/20 History Gi Detox 2 cap PO BEDTIME@1830 07/23/20 07/23/20 07/22/20 History Green Tea Liquid Extract See Rx Instructions .ROUTE .COMPLEX 07/23/20 07/23/20 07/22/20 History Samir Agee See Rx Instructions .ROUTE .COMPLEX 07/23/20 07/23/20 07/22/20 History Luis E Medina See Rx Instructions .ROUTE .COMPLEX 07/23/20 07/23/20 07/22/20 History Mercola Fermented Mushroom Complex 3 cap PO DAILY@0700 07/23/20 07/23/20 07/22/20 History Pro Butyrate 2 cap PO BID@0700,1830 07/23/20 07/23/20 07/22/20 History Quercisorb 2 cap PO BID@0700,1830 07/23/20 07/23/20 07/22/20 History Resvirasrt 2 cap PO BID@0700,1830 07/23/20 07/23/20 07/22/20 History Spycel 100 mg PO DAILY@0700 07/23/20 07/23/20 07/22/20 History apixaban [Eliquis] 5 mg PO BID@0700,1830 07/23/20 07/23/20 07/22/20 History atorvastatin 40 mg PO DAILY@0700 07/23/20 07/23/20 07/22/20 History cyclophosphamide 25 mg PO DAILY@0700 07/23/20 07/23/20 Unknown History cyclophosphamide 25 mg PO DAILY@0700 07/23/20 07/23/20 07/22/20 History genistein 2 cap PO BID@0700,1830 07/23/20 07/23/20 07/22/20 History metformin 1,000 mg PO DAILY@0700 07/23/20 07/23/20 07/22/20 History milk thistle 3 cap PO BEDTIME@1830 07/23/20 07/23/20 07/22/20 History omeprazole 20 mg PO DAILY@0700 07/23/20 07/23/20 07/22/20 History ondansetron 8 mg PO Q12H PRN 07/23/20 07/23/20 Unknown History oxycodone-acetaminophen See Rx Instructions .ROUTE .COMPLEX 07/23/20 07/23/20 07/22/20 History prochlorperazine 25 mg [place] Q12H PRN 07/23/20 07/23/20 Unknown History spironolactone 50 mg PO BID@0700,1830 07/23/20 07/23/20 07/22/20 History zinc gluconate 50 mg PO DAILY@0700 07/23/20 07/23/20 07/22/20 History Allergies Allergy/AdvReac Type Severity Reaction Status Date / Time No Known Allergies Allergy Verified 07/23/20 12:29 PFSH Acute PFSH: Medical History CAD (coronary artery disease) -with hx of inferior wall MN s/p stenting of RCA Diabetes type 2, controlled GERD (gastroesophageal reflux disease) Hyperlipidemia -continue statin Ileus Malignant neoplasm of transverse colon Metastatic colon cancer to liver -Known metastatic disease to the liver and lung -s/p chemo immunotherapy percutaneous injection (CIPI) to the liver and lung lesions on 11/21/19 Pancreatitis This suspected to be secondary to cancer related pancreatic duct obstruction. Immunotherapy could also play a role but felt unlikely. Surgical History H/O colectomy -partial transverse colectomy History of heart artery stent -in RCA secondary to inferior wall MN S/P exploratory laparotomy Family History Family/Other Cancer -hx of colon cancer Social History Smoking and tobacco status: former smoker Alcohol intake: never Household members: spouse Marital status: Vitals/I&O/Wt Last Vital Signs Temp 99.7 F H 07/23/20 12:23 Pulse 102 H 07/23/20 12:23 Resp 18 07/23/20 12:23 BP 115/67 07/23/20 12:23 Pulse Ox 94 07/23/20 12:23 07/23/20 07/23/20 07/23/20 06:59 14:59 22:59 Intake Total 1150 / 1150 Balance 1150 / 1150 Weight last 48 hrs Weight 79.379 kg Physical Exam Const: COMMON NORMALS: patient oriented x3 HENMT: COMMON NORMALS: normocephalic and atraumatic HEAD & SCALP: normocephalic and atraumatic Chest: CHEST: Yes Symmetrical chest wall rise Resp: COMMON NORMALS: clear to auscultation bilaterally AUSCULTATION: clear to auscultation bilaterally Cardio: COMMON NORMALS: regular rate, regular rhythm, S1 normal heart sound present, S2 normal heart sound present, No gallops present (Cardio), No murmurs present (Cardio), No rub (Cardio) and Peripheral pulses 2+ throughout RATE: regular rate RHYTHM: regular rhythm HEART SOUNDS: S1 normal heart sound present and S2 normal heart sound present PERIPHERAL PULSES: Peripheral pulses 2+ throughout GI: COMMON NORMALS: Normal to inspection, nondistended, normoactive bowel sounds present, Soft to palpation, non-tender, No hepatosplenomegaly present and no masses AUSCULTATION: Yes normoactive bowel sounds PALPATION: Yes Soft to palpation and Yes No hepatosplenomegaly present RECTAL EXAM: Yes deferred Extremity: COMMON NORMALS: no clubbing, cyanosis or edema and no pedal edema Neuro: COMMON NORMALS: patient oriented x3 Data : 07/24/20 06:01 07/24/20 06:01 Micro: Microbiology 07/23/20 13:00 Blood Culture - Preliminary Blood SPECIMEN COLLECTED 07/23/20 12:36 Blood Culture - Preliminary Blood SPECIMEN COLLECTED A&P Assessment and plan (1) Sepsis: Sepsis secondary to pneumonia: Fever, elevated WBC, tachycardia, x-ray chest: Suggestive of pneumonia, cough, with worsening sputum. Blood culture: Urine culture: Sputum culture: Lactic acid:1.[address] chest abdomen and pelvis without contrast: Continue ceftriaxone 1 g every 24 hours daily for now. Status: Acute (2) Community acquired pneumonia: Status: Acute (3) Transaminitis: Patient has history of metastatic liver disease. Ultrasound abdomen as well as gallbladder: Has failed to show any obstructive pathology. No right upper quadrant pain or tenderness. We will continue to monitor LFT for now. Status: Chronic (4) Hyponatremia: Euvolemic hyponatremia. TSH Cortisol Random urine sodium Urine osmolality Serum osmola Monitor BMP Status: Acute (5) Anemia: Normocytic anemia: Hb/H : 7.6/24.4 Anemia panel B12 Folic acid FOBT Continue to hold Eliquis Monitor CBC Status: Acute (6) Diabetes type 2, controlled: Status: Acute (7) Pulmonary emboli: Status: Acute Qualifiers: Pulmonary embolism type: multiple subsegmental (without acute cor pulmonale) Qualified Code(s): I26.94 - Multiple subsegmental pulmonary emboli without acute cor pulmonale (8) Metastatic cancer: Status: Acute Qualifiers: Area of secondary neoplastic involvement: unspecified site Qualified Code(s): C79.9 - Secondary malignant neoplasm of unspecified site (9) Generalized weakness: Status: Acute Additional A&P Information CODE STATUS: Full code DVT prophylaxis: SCDs Attestations Medical Necessity Statement*: Patient needs to be in hospital for management of sepsis secondary to pneumonia. Anticipated length of stay greater than 2 midnights. Coding Level of Care Code Acute Patient Appointment Coordinator for Chg Fwd Exam Detailed Diagnoses Sepsis A41.9 Community acquired pneumonia J18.9 Transaminitis R74.0 Hyponatremia E87.1 Anemia D64.9 Diabetes type 2, controlled E11.9 Pulmonary emboli I26.94 Pulmonary embolism type: multiple subsegmental (without acute cor pulmonale) Metastatic cancer C79.9 Area of secondary neoplastic involvement: unspecified site Generalized weakness R53.1
[2020-07-23] MEDS: spironolactone 25 mg Tablet 50 MG PO (19:47)
[2020-07-23] MEDS: sodium chloride 0.9% 1,000 ML 75 ML IV (19:49)
--- NOTE | 2020-07-23 20:03 | CTR_ITS ---
PROCEDURE INFORMATION: Exam: CT Chest Without Contrast; Diagnostic Exam date and time: 07/23/2020 9:46 PM Age: 65 years old Clinical indication: Abdominal tenderness; Shortness of breath; Prior surgery; Surgery type: Port, laproscopic; Patient HX: Lower abdominal pain, SOB x 3 weeks; Additional info: Pna/ ascites TECHNIQUE: Imaging protocol: Diagnostic computed tomography of the chest without contrast. Sagittal and coronal reformatted images were created and reviewed. Radiation optimization: All CT scans at this facility use at least one of these dose optimization techniques: automated exposure control; mA and/or kV adjustment per patient size (includes targeted exams where dose is matched to clinical indication); or iterative reconstruction. COMPARISON: 1. CT chest abd pel w con* 03/10/2020 9:27 PM 2. OT PET Scan 04/03/2020 9:31:10 AM RADIATION DOSE METRICS: Total DLP (mGy-cm): 1530.03 FINDINGS: Limitations: Evaluation of the mediastinum and vasculature is limited without intravenous contrast. Tubes, catheters and devices: Interval placement of a right IJ dialysis catheter with the distal tip at the cavoatrial junction. A left IJ Port-A-Cath is stable in position with the tip at the cavoatrial junction. Lungs: Tracheobronchial structures are patent. Ill-defined areas of ground-glass opacification in the periphery of both lungs. Compressive atelectasis in the bilateral lungs posteriorly. Calcified granulomas in both lungs. Interval development of multiple noncalcified nodules in the right lung concerning for metastatic foci, the largest is in the right lower lobe and measures 1.5 x 1.4 cm (series 4, image 30). Pleural spaces: Interval development of moderate bilateral pleural effusions. Heart: Moderate atherosclerotic calcification in the coronary arteries. The heart is normal in size. Mediastinal space: No mediastinal hematoma. No pneumomediastinum. Aorta: Mild atherosclerotic changes in the visualized arteries. No evidence for aortic aneurysm. Lymph nodes: Calcified lymph nodes in the left hilum. No lymphadenopathy. Bones/joints: Multilevel degenerative changes of varying severity in the visualized spine. No lytic or sclerotic bony lesions. Soft tissues: Interval development of mild body wall edema. IMPRESSION: 1. Ill-defined areas of ground-glass opacification in the periphery of both lungs. Imaging features can be seen with COVID-19 pneumonia, though are nonspecific and can occur with a variety of infectious and noninfectious processes. (Reference: Alfa) 2. Interval with compressive. 3. Compressive atelectasis in the bilateral lungs posteriorly. 4. Interval development of multiple noncalcified nodules in the right lung concerning for metastatic foci. Fleischner Society follow up recommendations for incidental nodules are not indicated. Follow up per the patient's medical condition. 5. Interval development of mild body wall edema. 6. Interval placement of a right IJ dialysis catheter with the distal tip at the cavoatrial junction. 7. A left IJ Port-A-Cath is stable in position with the tip at the cavoatrial junction. 8. Incidental/nonacute findings are listed in the report. REFERENCES: Alfa Harris, et al., Radiological Society of [place] Expert Consensus Statement on Reporting Chest CT Findings Related to COVID-19. Endorsed by the Society of Thoracic Radiology, the [place] [employer], and RSNA. Published July 20, 2019. PROCEDURE INFORMATION: Exam: CT Abdomen And Pelvis Without Contrast Exam date and time: 07/23/2020 9:46 PM Age: 65 years old Clinical indication: Abdominal tenderness; Shortness of breath; Prior surgery; Surgery type: Port, laproscopic; Patient HX: Lower abdominal pain, SOB x 3 weeks; Additional info: Pna/ ascites TECHNIQUE: Imaging protocol: Computed tomography of the abdomen and pelvis without contrast. Sagittal and coronal reformatted images were created and reviewed. Radiation optimization: All CT scans at this facility use at least one of these dose optimization techniques: automated exposure control; mA and/or kV adjustment per patient size (includes targeted exams where dose is matched to clinical indication); or iterative reconstruction. COMPARISON: CT chest abd pel w con* 03/10/2020 9:27 PM RADIATION DOSE METRICS: Total DLP (mGy-cm): 1530.03 FINDINGS: Limitations: Evaluation of solid organs and vasculature is limited without intravenous contrast. Liver: A redemonstration of multiple low-density lesions in the liver suspicious for metastatic foci. These are overall stable in size. Several show increasing calcification however, suggesting treated metastatic disease. No new lesions are seen. Mildly nodular contour of the liver, more pronounced compared with the previous study, concerning for possible developing cirrhosis. Gallbladder and bile ducts: The gallbladder is not definitely visualized, this could be due to a contracted state of the gallbladder and associated ascites in the gallbladder fossa. No biliary ductal dilatation. Pancreas: Cystic focus in the head of the pancreas is stable in size measuring 1.5 x 1.8 cm (series 3, image 38). No pancreatic atrophy. No pancreatic ductal dilatation. Spleen: Multiple calcified granulomas in the spleen. Adrenal glands: The right and left adrenal glands are unremarkable. Kidneys and ureters: The right and left kidneys are unremarkable. The right and left ureters are unremarkable. Stomach and bowel: No obstruction. No mucosal thickening. Appendix: The appendix is visualized and is unremarkable. No findings to suggest acute appendicitis. Intraperitoneal space: Large volume ascites and diffuse mesenteric edema. No free intraperitoneal air. No loculated fluid collections to suggest an abscess. There is mild wall of the small bowel in the left abdomen, likely secondary to edema from ascites. Vasculature: Mild atherosclerotic changes in the visualized arteries. No evidence for aortic aneurysm. Lymph nodes: No lymphadenopathy. Urinary bladder: The bladder is incompletely filled, which can limit evaluation. No focal abnormality in the bladder however. Reproductive: Nonspecific parenchymal calcifications in the prostate gland. Bones/joints: Multilevel degenerative changes of varying severity in the visualized spine. No lytic or sclerotic bony lesions. Soft tissues: Interval development of mild body wall edema. CT/CT chest abd pel wo con IMPRESSION: 1. Multiple low-density lesions in the liver suspicious for metastatic foci are overall stable in size. Several show increasing calcification however, suggesting treated metastatic disease. No new lesions are seen. 2. Mildly nodular contour of the liver, more pronounced compared with the previous study, concerning for possible developing cirrhosis. 3. Large volume ascites and mesenteric edema, which may be secondary to portal hypertension versus congestive heart failure, possible malignant ascites cannot be completely ruled out. Recommend clinical correlation. 4. There is mild wall of the small bowel in the left abdomen, likely secondary to edema from ascites. 5. Cystic focus in the head of the pancreas is stable in size.Reimaging every 1 year for 5 years, then every 2 years for 4 years is recommended. Alternatively, EUS/FNA is recommended. (Reference: Genet, 2017) 6. The gallbladder is not definitely visualized, this could be due to a contracted state of the gallbladder and associated ascites in the gallbladder fossa. 7. Interval development of mild body wall edema. 8. Incidental/nonacute findings are listed in the report. REFERENCES: Genet BENNETT, et al. Management of Incidental Pancreatic Cysts: A White Paper of the ACR Incidental Findings Committee. J Am Sacha Radiol. 2017;14(7):911-923. Radiation Dose CTDIVOL = (mGy): DLP = 1530.03~1530.03 (mGy-cm)
[2020-07-23 21:34] LABS: Glucose Point of Care 123 mg/dL (70-110)
[2020-07-23] MEDS: HYDROcodone-acetaminophen 5-325 mg Tablet 1 TAB PO (22:13)
[2020-07-24] VITALS (7 sets, daily range): BP systolic 108–124; BP diastolic 64–75; PULSE 92–110; RESP 16–19; TEMP 36.9–37.7; O2SAT 90–91
--- NOTE | 2020-07-24 00:54 | ED_ITS ---
HPI - Fever General: Chief Complaint: Fever Stated Complaint: FEVER/FLUID BUILD UP/ ABD PRESSURE Source: patient and family Mode of arrival: ambulatory Limitations: no limitations History of Present Illness: HPI Narrative: This is a 65 year old male with a history of metastatic colon cancer with liver mets, who returned from [place] last night where he received some immunotherapy. He also follows with Dr. Rabago locally. The patient has also been getting paracentesis fairly regularly. Today, they noticed he had a fever, as high as 101.5, but he was not worried as he was informed that he should expect a fever with his therapy. However he was also coughing and at his PCP's office, was noted to be hypoxic. He was therefore sent to the ED to be evaluated. He denies any vomiting. MD elicited complaint: fever Onset (ago): hour(s) Context: on chemotherapy and on immunosuppressant(s) Exacerbating factors: nothing Relieving factors: nothing Associated symptoms: Reports cough and myalgias; Deny abdominal pain, flank pain, chills, chest pain, confusion, diarrhea, dysuria, extremity pain, headache(s), nasal congestion, nausea, night sweats, rash, rhinorrhea, short of breath, sinus pain, stiffness, sore throat, vomiting or weight loss Treatments prior to arrival fever: acetaminophen Review of Systems General: Reports: 10 or more systems reviewed and unremarkable except in HPI and below Const: Denies: chills or night sweats ENMT: Denies: nasal congestion or sinus pain Card: Denies: chest pain GI: Denies: abdominal pain, nausea, vomiting or diarrhea : Denies: flank pain or dysuria Musc: Denies: extremity pain Neuro: Denies: headache(s) or confusion PFS ED PFSH: Medical History (Updated 07/31/20 @ 08:44 by Flaco Chandler MD, [facility]) Anemia CAD (coronary artery disease) -with hx of inferior wall GA s/p stenting of RCA Community acquired pneumonia Diabetes type 2, controlled Generalized weakness GERD (gastroesophageal reflux disease) Hyperlipidemia -continue statin Hyponatremia Ileus Malignant neoplasm of transverse colon Metastatic cancer Metastatic colon cancer to liver -Known metastatic disease to the liver and lung -s/p chemo immunotherapy percutaneous injection (CIPI) to the liver and lung lesions on 11/21/19 Pancreatitis This suspected to be secondary to cancer related pancreatic duct obstruction. Immunotherapy could also play a role but felt unlikely. Pulmonary emboli -noted bilateral PE on CT scan of the chest done following elevated D-dimer -Echo: EF=55%, mild LVH, G1DD, no evidence of R heart strain -venous duplex negative for DVT -ontherapeutic dose of Lovenox, switched to Eliquis -No prior history of PE; biggest risk factor is likely underlying malignancy -stable vital signs and respiratory status -Noted hypoxia on ABG Sepsis Transaminitis -Known metastatic disease to the liver Surgical History (Updated 07/26/20 @ 14:57 by Clement Tovar MD) H/O colectomy -partial transverse colectomy History of heart artery stent -in RCA secondary to inferior wall GA Port-A-Cath in place S/P exploratory laparotomy Family History Family/Other Cancer -hx of colon cancer Social History Smoking and tobacco status: former smoker Alcohol intake: never Household members: spouse Marital status: Physical Exam Const: COMMON NORMALS: no acute distress, average body habitus, patient oriented x3, no limitations, healthy appearing, alert and well nourished HENMT: COMMON NORMALS: normocephalic, atraumatic and moist oral mucous membranes HEAD & SCALP: normocephalic and atraumatic Neck/C-Spine: COMMON NORMALS: no meningeal signs and no JVD Chest: COMMONS NORMALS: normal palpation of entire chest wall OTHER: chest central line port noted on the right upper chest wall. No redness or signs of complications. Resp: COMMON NORMALS: normal respiratory effort, No retractions, No use of accessory muscles, clear to auscultation bilaterally and percussion normal AUSCULTATION: clear to auscultation bilaterally PERCUSSION: percussion normal Cardio: COMMON NORMALS: no JVD, regular rate, regular rhythm, S1 normal heart sound present, S2 normal heart sound present, No gallops present (Cardio), No clicks present (Cardio), No murmurs present (Cardio), No rub (Cardio) and Peripheral pulses 2+ throughout RATE: regular rate RHYTHM: regular rhythm HEART SOUNDS: S1 normal heart sound present and S2 normal heart sound present PERIPHERAL PULSES: Peripheral pulses 2+ throughout GI: COMMON NORMALS: Soft to palpation, non-tender, No hepatosplenomegaly present, no masses and no bruits INSPECTION: Yes abdominal distension (mild distension.) PALPATION: Yes Soft to palpation, No Tenderness to palpation present (GI) and Yes No hepatosplenomegaly present Extremity: COMMON NORMALS: normal to inspection, full ROM, capillary refill normal, no calf tenderness and no pedal edema Neuro: COMMON NORMALS: patient oriented x3 SENSORIUM/ORIENTATION: Yes alert MENINGEAL SIGNS: Yes no meningeal signs Skin: COMMON NORMALS: no rashes or lesions noted, no wounds, turgor normal, no jaundice, no petechiae and no mottling GENERAL SKIN EXAM: no rashes or lesions noted and turgor normal Course Reevaluation(s): Reevaluation #1: Discussed his lab and imaging findings with the patient and his - explained his significantly elevated ALP and elevation of other liver enzymes. Imaging is suggestive of pneumonia. Also discussed the conversations with Drs. Woo and Hima. Advised that he be admitted to the hospital for fluids and antibiotics. The patient voiced understanding and was in agreement with the plan. Time: 16:05 Consultations: Consultation #1: Discussed the patient with Dr. Woo, oncologist at [facility] in [place] where the patient received his immunotherapy. Advised her on his symptoms, and she confirmed that he is expected to run fevers with his medications. Expect some elevation of his liver enzymes, monitor his WBC and neutrophils. He may also be hypoalbuminic. She states that he has been getting paracentesis about once a week. Time: 13:30 Consultation #2: Discussed the patient with Dr. Rabago. Discussed his labs and clinical findings. He is concerned about the elevation of ALP which is markedly elevated, even for him and he should be admitted for hydration and monitoring of his liver function. Time: 14:46 Consultation #3: Discussed the patient with Dr. Fonseca, hospitalist and he kindly accepted the patient to his service. Time: 16:01 Vital Signs: Vital signs: Vital Signs Temperature 97.9 F 07/28/20 16:23 Pulse Rate 91 07/28/20 16:23 Respiratory Rate 18 07/28/20 16:23 Blood Pressure 112/70 07/28/20 16:23 Pulse Oximetry 95 07/28/20 16:23 MDM - Fever MDM Narrative: Medical decision making narrative: 65 year old male with metastatic colon cancer with liver metastasis. He recently received immunotherapy and subsequently developed fevers (which were not unexpected). Evaluation in the ED was suggestive of pneumonitis and he also had markedly elevated ALP and bilirubin. He was given IV fluids and antibiotics in the ED and admitted to the hospital for further evaluation and management. His liver enzymes will be monitored. US was negative for ascites or significant ascites. Medical Records: Attestation: I reviewed the patient's medical records. Lab Data: Attestation: I reviewed the patient's lab results. Labs: Lab Results 07/23/20 07/23/20 07/23/20 Range/Units 12:36 12:36 13:09 WBC 10.7 H (4.0-10.0) 10^3/ uL RBC 2.53 L (4.1-5.3) 10^6/u L Hgb 7.6 L (11.7-16.6) g/dL Hct 24.4 L (42.0-52.0) % MCV 96.4 H (80-94) fL MCH 30.0 (28.0-34.0) pg MCHC 31.1 (30.0-36.0) g/dL RDW 22.2 H (12.1-15.1) % Plt Count 192 (130-400) 10^3/c mm MPV 11.4 H (7.4-10.4) fL Neut % (Auto) 73.0 % Lymph % (Auto) 10.4 % [place] % (Auto) 14.0 % Eos % (Auto) 1.5 % Baso % (Auto) 0.3 % Neut # (Auto) 7.81 H (1.8-7.7) 10^3/u L Lymph # (Auto) 1.1 (0.8-4.8) 10^3/u L [place] # (Auto) 1.5 H (0.2-0.9) 10^3/u L Eos # (Auto) 0.2 (0.0-0.8) 10^3/u L Baso # (Auto) 0.0 (0.0-0.1) 10^3/u L Nucleated RBC % (a uto) 0 % Nucleated RBCs # 0.0 /100WBC Sodium 125 L (136-145) mmol/L Potassium 4.4 (3.5-5.1) mmol/L Chloride 96 L (98-107) mmol/L Carbon Dioxide 20 L (22-29) mmol/L Anion Gap 13.4 (5-19) BUN 15 (8-23) mg/dL Creatinine 0.6 L (0.7-1.2) mg/dL GFR Calculation 135.2 H (90-130) mL/min Glucose 92 (65-115) mg/dL Calculated Osmolal ity 260 L (285-295) mOsm/k g Lactate (0.5-2.2) mmol/L Calcium 8.8 (8.5-10.5) mg/dL Total Bilirubin 3.3 H (0.15-1.2) mg/dL GGT 1028 H (8-61) U/L AST 123 H (0-40) U/L ALT 58 H (0-41) U/L Alkaline Phosphata se 1074 H* (40-130) IU/L C-Reactive Protein 59.8 H (0.0-4.9) mg/L Total Protein 5.6 L (6.6-8.7) g/dL Albumin 2.9 L (3.5-5.2) g/dL Globulin 2.7 (1.3-4.6) g/dL Lipase 58 (13-60) U/L Procalcitonin 0.39 (0-0.5) ng/mL Urine Color (Yellow) Urine Appearance (CLEAR) Urine pH (5-7) Ur Specific Gravit y (1.005-1.030) Urine Protein (Negative) Urine Glucose (UA) (Normal) Urine Ketones (Negative) Urine Blood (Negative) Urine Nitrate (Negative) Urine Bilirubin (Negative) Urine Urobilinogen (Negative) mg/dL Ur Leukocyte Krystal ase (Negative) 07/23/20 07/23/20 Range/Units 13:09 14:43 WBC (4.0-10.0) 10^3/ uL RBC (4.1-5.3) 10^6/u L Hgb (11.7-16.6) g/dL Hct (42.0-52.0) % MCV (80-94) fL MCH (28.0-34.0) pg MCHC (30.0-36.0) g/dL RDW (12.1-15.1) % Plt Count (130-400) 10^3/c mm MPV (7.4-10.4) fL Neut % (Auto) % Lymph % (Auto) % [place] % (Auto) % Eos % (Auto) % Baso % (Auto) % Neut # (Auto) (1.8-7.7) 10^3/u L Lymph # (Auto) (0.8-4.8) 10^3/u L [place] # (Auto) (0.2-0.9) 10^3/u L Eos # (Auto) (0.0-0.8) 10^3/u L Baso # (Auto) (0.0-0.1) 10^3/u L Nucleated RBC % (a uto) % Nucleated RBCs # /100WBC Sodium (136-145) mmol/L Potassium (3.5-5.1) mmol/L Chloride (98-107) mmol/L Carbon Dioxide (22-29) mmol/L Anion Gap (5-19) BUN (8-23) mg/dL Creatinine (0.7-1.2) mg/dL GFR Calculation (90-130) mL/min Glucose (65-115) mg/dL Calculated Osmolal ity (285-295) mOsm/k g Lactate 1.2 (0.5-2.2) mmol/L Calcium (8.5-10.5) mg/dL Total Bilirubin (0.15-1.2) mg/dL GGT (8-61) U/L AST (0-40) U/L ALT (0-41) U/L Alkaline Phosphata se (40-130) IU/L C-Reactive Protein (0.0-4.9) mg/L Total Protein (6.6-8.7) g/dL Albumin (3.5-5.2) g/dL Globulin (1.3-4.6) g/dL Lipase (13-60) U/L Procalcitonin (0-0.5) ng/mL Urine Color Dark yellow (Yellow) Urine Appearance Clear (CLEAR) Urine pH 5 (5-7) Ur Specific Gravit y 1.030 (1.005-1.030) Urine Protein Neg (Negative) Urine Glucose (UA) Norm (Normal) Urine Ketones 1+ H (Negative) Urine Blood Neg (Negative) Urine Nitrate Negative (Negative) Urine Bilirubin 2+ H (Negative) Urine Urobilinogen 8 H (Negative) mg/dL Ur Leukocyte Krystal ase Negative (Negative) Imaging Data^: US: Attestation: I personally reviewed and interpreted this imaging study as follows: Radiologist's impression: [facility] [address] [place] [address]. [place] [address] Ultrasound Report Signed Patient: Jaqueline Arellano #: [id number] : 5Acct#:[id number] Age/Sex: 65 / MADM Date: 07/23/20 Loc: ERRoom/Bed: Attending Dr: Ordering Provider/Ordering MD: Flaco Chandler MD, [facility] Date of Service: 07/23/20 Procedure(s): US gall bladder 80855 Accession Number(s): [id number] Report Number: [id number] WS: [id number] RIGHT UPPER QUADRANT ULTRASOUND HISTORY: elevated liver enzymes, fever COMPARISON: 05/16/2019 Liver: 17.8 cm in length. Liver is enlarged and there are multiple masses within the liver. Patient has known metastatic disease. Mixed echogenicity mass in the LEFT lobe of the liver measures at least 9.6 x 4.6 cm. Gallbladder: Not identified. CBD: 0.4 cm Pancreas: Not visualized. Right kidney: 14.2 cm in length. Normal size and echogenicity. No hydronephrosis or mass. Aorta and IVC: Unremarkable abdominal aorta and IVC. Small amount of ascites and perihepatic fluid. US/US gall bladder 10358 IMPRESSION: 1. Patient has known metastatic disease within the liver. Difficult to determine if the metastatic disease has progressed or not. 2. Small amount of ascites. 3. Gallbladder not identified. Dictated By:Jaclyn Sandy DO Signed By:Jaclyn Sandy DOSigned Date/Time:07/23/20 1533 DD/ [address] [facility] [address] [place] [id number] Ultrasound Report Signed Patient: Jaqueline Arellano #: [id number] : 5Acct#:[id number] Age/Sex: 65 / MADM Date: 07/23/20 Loc: ERRoom/Bed: Attending Dr: Ordering Provider/Ordering MD: Flaco Chandler MD, [facility] Date of Service: 07/23/20 Procedure(s): US abdomen lmt fluid 25382 Accession Number(s): [id number] Report Number: [id number] WS: [id number] Ultrasound abdomen limited. There is a small amount of ascites throughout all 4 quadrants. Majority of fluid is in the RIGHT lower quadrant. US/US abdomen lmt fluid [id number] IMPRESSION: Small amount of ascites. Dictated By:Jaclyn Sandy DO Signed By:Jaclyn Sandy DOSigned Date/Time:07/23/201423 DD/ 21 CXR: Attestation: I personally reviewed and interpreted this imaging study as follows: Radiologist's impression: [address] [address] XRay Report Signed Patient: Jaqueline Arellano #: [id number] : 5Acct#:[id number] Age/Sex: 65 / MADM Date: 07/23/20 Loc: ERRoom/Bed: Attending Dr: Ordering Provider/Ordering MD: Flaco Chandler MD, [facility] Date of Service: 07/23/20 Procedure(s): XR chest 1V portable [id number] Accession Number(s): [id number] Report Number: [id number] PROCEDURE INFORMATION: Exam: XR Chest Exam date and time: 07/23/2020 1:08 PM Age: 65 years old Clinical indication: Cough and fever; Prior surgery; Surgery type: Port; Patient HX: HX of colon and liver cancer. ; Additional info: Feverm cough TECHNIQUE: Imaging protocol: XR of the chest Views: 1 view. COMPARISON: CT chest abd pel w con* 03/10/2020 9:27 PM FINDINGS: Tubes, catheters and devices: Bilateral central venous catheters. Lungs: Hypoinflation with interstitial prominence and mild airspace disease. Pleural spaces: Small pleural effusions. No pneumothorax. Heart/Mediastinum: No cardiomegaly. Bones/joints: Degenerative change. XR/XR chest 1V portable 11869 IMPRESSION: 1. Hypoinflation with interstitial prominence and mild airspace disease. 2. Small pleural effusions. Dictated By:Mata Mendez MD Signed By:Mata Mendez MDSigned Date/Time:07/23/20 1353 DD/ 1352 Discharge Plan Discharge Patient Disposition: Admitted As Inpatient Admit Provider: Aries Fonseca Clinical Impression: Transaminitis, Community acquired pneumonia, Sepsis Condition: Stable Discharge Diet: Diabetic Discharge Activity: Resume usual activity Coding Level of Care Code ED [employer] Secretary for Amelia Floyd
[2020-07-24] MEDS: cefTRIAXone 1,000 MG in sodium chloride 0.9% (plus) 50 ML 100 MG IV (06:05)
[2020-07-24] MEDS: atorvastatin 40 mg Tablet PO (06:07)
[2020-07-24] MEDS: multivitamin therapeutic Tablet 1 TAB PO (06:07)
[2020-07-24] MEDS: pantoprazole DR 40 mg Tablet PO (06:07)
[2020-07-24] MEDS: aspirin 81 mg Chew Tablet PO (06:07)
[2020-07-24] MEDS: spironolactone 25 mg Tablet 50 MG PO ×2 (06:11→17:56)
[2020-07-24 06:16] LABS: Basophils % 0.2 %; Eosinophils # 0.1 10^3/uL (0.0-0.8); Hematocrit 24.2 % (42.0-52.0); Hemoglobin 7.3 g/dL (11.7-16.6); Lymphocytes # 0.8 10^3/uL (0.8-4.8); Lymphocytes % 8.5 %; Mean Corpuscular HGB Conc 30.2 g/dL (30.0-36.0); Mean Corpuscular Hemoglobin 30.4 pg (28.0-34.0); Mean Corpuscular Volume 100.8 fL (80-94); Mean Platelet Volume 10.9 fL (7.4-10.4); Monocytes # 1.5 10^3/uL (0.2-0.9); Monocytes % 16.1 %; Neutrophils # 6.79 10^3/uL (1.8-7.7); Nucleated Red Blood Cells % 0 %; Platelet Count 161 10^3/cmm (130-400); Red Cell Distribution Width 22.2 % (12.1-15.1); White Blood Count 9.3 10^3/uL (4.0-10.0)
[2020-07-24 06:31] LABS: Glucose Point of Care 99 mg/dL (70-110)
[2020-07-24 06:39] LABS: Alanine Aminotransferase 61 U/L (0-41); Albumin Level 2.7 g/dL (3.5-5.2); Alkaline Phosphatase 987 IU/L (40-130); Anion Gap 12.4 (5-19); Aspartate Amino Transferase 119 U/L (0-40); Blood Urea Nitrogen 12 mg/dL (8-23); Calcium 8.4 mg/dL (8.5-10.5); Carbon Dioxide 21 mmol/L (22-29); Chloride 100 mmol/L (98-107); Globulin 2.6 g/dL (1.3-4.6); Glomerular Filtration Rate 166.9 mL/min (90-130); Glucose 94 mg/dL (65-115); Osmolality Calculated 268 mOsm/kg (285-295); Potassium 4.4 mmol/L (3.5-5.1); Sodium 129 mmol/L (136-145); Total Bilirubin 3.1 mg/dL (0.15-1.2); Total Protein 5.3 g/dL (6.6-8.7)
[2020-07-24 06:41] LABS: Creatinine Clr Calc Pharmacy 98.3745
[2020-07-24 06:47] LABS: Cortisol Random 22.44 ug/dL (2.47-19.5)
[2020-07-24 06:51] LABS: Procalcitonin 0.36 ng/mL (0-0.5)
[2020-07-24 07:00] LABS: Folate Level 12.8 ng/mL (4.5-32.2)
[2020-07-24 07:02] LABS: Ferritin 559 ng/mL (30-400); Iron 34 ug/dL (59-158); Percent Saturation 13.1 % (20-50); Total Iron Binding Capacity 258 mcg/dl; Transferrin 207 mg/dL (200-360); Unsaturated Iron Binding 224 ug/dL (112-347)
[2020-07-24 07:04] LABS: Vitamin B12 > 2000 pg/mL (232-1245)
[2020-07-24 07:21] LABS: Thyroid Stimulating Hormone 4.52 uIU/mL (0.27-4.20)
[2020-07-24] MEDS: sodium chloride 0.9% 1,000 ML 75 ML IV ×2 (08:20→21:40)
[2020-07-24] MEDS: ondansetron 2 mg/ML SDV 2 mL 4 MG IVP (08:20)
[2020-07-24] MEDS: docusate sodium 100 mg Capsule PO (08:20)
[2020-07-24] MEDS: HYDROcodone-acetaminophen 5-325 mg Tablet 1 TAB PO ×2 (11:23→17:56)
[2020-07-24] MEDS: guaiFENesin-dextromethorphan UDC 10 mL PO ×2 (11:23→17:56)
[2020-07-24 11:29] LABS: Glucose Point of Care 137 mg/dL (70-110)
--- NOTE | 2020-07-24 11:46 | PM.PN ---
Subjective Subjective: Interval history: Patient was seen and examined this morning.He was complaining of cough. T-max: 100.5.His other vitals and labs have been reviewed. Medications: Reviewed: Yes Vitals/I&O/Wt Last Vital Signs Temp 98.9 F 07/24/20 08:00 Pulse 110 H 07/24/20 08:00 Resp 19 H 07/24/20 08:00 BP 108/64 07/24/20 08:00 Pulse Ox 90 07/24/20 07:37 07/23/20 07/24/20 07/24/20 22:59 06:59 14:59 Intake Total 1270 / 1270 50 / 1320 1178.75 / 1178.75 Balance 1270 / 1270 50 / 1320 1178.75 / 1178.75 Weight last 48 hrs Weight 79.379 kg Physical Exam Const: COMMON NORMALS: patient oriented x3 HENMT: COMMON NORMALS: normocephalic and atraumatic HEAD & SCALP: normocephalic and atraumatic Chest: CHEST: Yes Symmetrical chest wall rise Resp: COMMON NORMALS: clear to auscultation bilaterally AUSCULTATION: clear to auscultation bilaterally Cardio: COMMON NORMALS: regular rate, regular rhythm, S1 normal heart sound present, S2 normal heart sound present, No gallops present (Cardio), No murmurs present (Cardio), No rub (Cardio) and Peripheral pulses 2+ throughout RATE: regular rate RHYTHM: regular rhythm HEART SOUNDS: S1 normal heart sound present and S2 normal heart sound present PERIPHERAL PULSES: Peripheral pulses 2+ throughout GI: COMMON NORMALS: Normal to inspection, nondistended, normoactive bowel sounds present, Soft to palpation, non-tender, No hepatosplenomegaly present and no masses AUSCULTATION: Yes normoactive bowel sounds PALPATION: Yes Soft to palpation and Yes No hepatosplenomegaly present RECTAL EXAM: Yes deferred Extremity: COMMON NORMALS: no clubbing, cyanosis or edema and no pedal edema Neuro: COMMON NORMALS: patient oriented x3 Data : 07/24/20 06:01 07/24/20 06:01 Micro: Microbiology 07/23/20 13:00 Blood Culture - Preliminary Blood SPECIMEN COLLECTED 07/23/20 12:36 Blood Culture - Preliminary Blood SPECIMEN COLLECTED A&P Assessment and plan (1) Sepsis: Sepsis secondary to pneumonia: Fever, elevated WBC, tachycardia, x-ray chest: Suggestive of pneumonia, cough, with worsening sputum. Blood culture:NTD Urine culture: Sputum culture: Lactic acid:1.8 Procalcitonin:0.36 CT chest abdomen and pelvis without contrast:Ill-defined areas of ground-glass opacification in the periphery of both lungs.Multiple low-density lesions in the liver suspicious for metastatic foci are overall stable in size.Cystic focus in the head of the pancreas is stable. Continue ceftriaxone 1 g every 24 hours daily for now. Status: Acute (2) Community acquired pneumonia: Plan is 1 Status: Acute (3) Transaminitis: Patient has history of metastatic liver disease. Ultrasound abdomen as well as gallbladder: Has failed to show any obstructive pathology. No right upper quadrant pain or tenderness. We will continue to monitor LFT for now. Status: Chronic (4) Hyponatremia: Hypovolemic hyponatremia. Continue normal saline at the rate of 75 cc an hour. TSH:4.52 Cortisol:22 Random urine sodium Urine osmolality Serum osmola Monitor BMP Status: Acute (5) Anemia: Normocytic anemia: Likely anemia of chronic disease: Hb/H : 7.6/24.4--> 7.3/24 Anemia panel: Serum iron: 34, serum ferritin:559, transferrin saturation:207, TIBC:258, percent saturation:13, B12: >2000 Folic acid: Nl FOBT: Continue to hold Eliquis Monitor CBC: Status: Acute (6) Diabetes type 2, controlled: Status: Acute (7) Pulmonary emboli: Status: Acute Qualifiers: Pulmonary embolism type: multiple subsegmental (without acute cor pulmonale) Qualified Code(s): I26.94 - Multiple subsegmental pulmonary emboli without acute cor pulmonale (8) Metastatic cancer: Status: Acute Qualifiers: Area of secondary neoplastic involvement: unspecified site Qualified Code(s): C79.9 - Secondary malignant neoplasm of unspecified site (9) Generalized weakness: Status: Acute Additional A&P Information CODE STATUS: Full code DVT prophylaxis: SCDs Attestations Medical Necessity Statement*: He needs to hospital management of pneumonia, anemia Coding Level of Care Code Acute Urologic Surgeon for [facility] Fwd Exam Detailed Diagnoses Sepsis A41.9 Community acquired pneumonia J18.9 Transaminitis R74.0 Hyponatremia E87.1 Anemia D64.9 Diabetes type 2, controlled E11.9 Pulmonary emboli I26.94 Pulmonary embolism type: multiple subsegmental (without acute cor pulmonale) Metastatic cancer C79.9 Area of secondary neoplastic involvement: unspecified site Generalized weakness R53.1
--- NOTE | 2020-07-24 12:21 | PC.CHAP ---
Pastoral Care Encounter/Spiritual Assessment Type of Contact [] Declined county coroner visit [] Patient/Family/Request visit [] Outpatient visit [] Follow-up visit [] Physician referral [] Code/Alert [x] Routine visit [] Staff referral [] Actively dying [] Patient sleeping [] Family support [] [] Out of room [] Palliative care [] [] Receiving care in room [] Pre-surgical visit [] Trauma [] Long length of stay [] ICU visit [] Other: Relational/Emotional Strength [x] Patient feels connected with others/family/visitors/staff [] Distress [] Loneliness/isolation [] Abandonment Spirituality of Patient [x] Person of Lillian [x] Attends Hindu of their Lillian [x] Believes in Prayer [x] Reads Bible or Gnosticist materials [] There are Spiritual issues to be addressed [employer] Interventions [x] Prayer [x] Active listening [x] Non-anxious presence [x] Spiritual/emotional support [] Crisis/trauma care [] Spiritual counseling [] Bereavement support [] Provided bereavement packet [] Provided Bible/devotional materials [] Provided toy/stuffed animal, coloring book to patient or family member [] Provided Communion [] Anointing/[place]y [] Salvation [x] Completed spiritual assessment [] Other: Impact on Illness or Injury [] Angry [] Fearful [] Anxious [] Often cries [] Exhaustion [] Unable to work [] Unable to attend jehovah's witness [] Unable to walk/stand [] Unable to read [] Unable to drive [] Unable to eat/drink [] Unable to sleep [] Unable to be with family [] Patient intubated [] Other: Summary patient in pain and coughing Time spent with patient 15 min
[2020-07-24 17:13] LABS: Glucose Point of Care 112 mg/dL (70-110)
[2020-07-24 20:14] LABS: Glucose Point of Care 131 mg/dL (70-110)
[2020-07-25] VITALS (9 sets, daily range): BP systolic 115–124; BP diastolic 62–74; PULSE 91–120; RESP 14–20; TEMP 36.8–38.4; O2SAT 91–94
[2020-07-25] MEDS: guaiFENesin-dextromethorphan UDC 10 mL PO ×3 (00:20→20:35)
[2020-07-25 01:36] LABS: Urine Random Sodium 77 mmol/L
[2020-07-25 05:06] LABS: Basophils % 0.4 %; Eosinophils # 0.2 10^3/uL (0.0-0.8); Eosinophils % 1.8 %; Hematocrit 22.5 % (42.0-52.0); Hemoglobin 6.9 g/dL (11.7-16.6); Lymphocytes # 0.7 10^3/uL (0.8-4.8); Lymphocytes % 8.7 %; Mean Corpuscular HGB Conc 30.7 g/dL (30.0-36.0); Mean Corpuscular Hemoglobin 30.4 pg (28.0-34.0); Mean Corpuscular Volume 99.1 fL (80-94); Mean Platelet Volume 11.4 fL (7.4-10.4); Monocytes # 1.3 10^3/uL (0.2-0.9); Monocytes % 14.8 %; Neutrophils # 6.27 10^3/uL (1.8-7.7); Neutrophils % 73.4 %; Nucleated Red Blood Cells % 0 %; Platelet Count 166 10^3/cmm (130-400); Red Blood Count 2.27 10^6/uL (4.1-5.3); Red Cell Distribution Width 22.1 % (12.1-15.1); White Blood Count 8.5 10^3/uL (4.0-10.0)
[2020-07-25 05:28] LABS: Alanine Aminotransferase 54 U/L (0-41); Albumin Level 2.5 g/dL (3.5-5.2); Alkaline Phosphatase 837 IU/L (40-130); Anion Gap 13.2 (5-19); Aspartate Amino Transferase 114 U/L (0-40); Blood Urea Nitrogen 12 mg/dL (8-23); Calcium 8.3 mg/dL (8.5-10.5); Carbon Dioxide 21 mmol/L (22-29); Chloride 102 mmol/L (98-107); Globulin 2.6 g/dL (1.3-4.6); Glomerular Filtration Rate 166.9 mL/min (90-130); Glucose 93 mg/dL (65-115); Osmolality Calculated 273 mOsm/kg (285-295); Potassium 4.2 mmol/L (3.5-5.1); Sodium 132 mmol/L (136-145); Total Bilirubin 2.9 mg/dL (0.15-1.2); Total Protein 5.1 g/dL (6.6-8.7)
[2020-07-25 05:29] LABS: Creatinine Clr Calc Pharmacy 98.3745
[2020-07-25] MEDS: cefTRIAXone 1,000 MG in sodium chloride 0.9% (plus) 50 ML 100 MG IV (05:57)
[2020-07-25] MEDS: multivitamin therapeutic Tablet 1 TAB PO (06:29)
[2020-07-25] MEDS: atorvastatin 40 mg Tablet PO (06:29)
[2020-07-25] MEDS: aspirin 81 mg Chew Tablet PO (06:29)
[2020-07-25] MEDS: spironolactone 25 mg Tablet 50 MG PO ×2 (06:29→19:42)
[2020-07-25] MEDS: pantoprazole DR 40 mg Tablet PO (06:29)
[2020-07-25] MEDS: HYDROcodone-acetaminophen 5-325 mg Tablet 1 TAB PO ×2 (06:35→20:35)
[2020-07-25 07:06] LABS: Glucose Point of Care 117 mg/dL (70-110)
--- NOTE | 2020-07-25 09:36 | P.PN_ITS ---
Subjective Subjective: Interval history: Patient was seen and examined this morning.Coughing has improved. T-max: 101.1.His other vitals and labs have been reviewed. Medications: Reviewed: Yes Vitals/I&O/Wt Last Vital Signs Temp 99.1 F 07/25/20 07:41 Pulse 91 07/25/20 07:41 Resp 18 07/25/20 07:41 BP 115/62 07/25/20 07:41 Pulse Ox 91 07/25/20 07:41 07/24/20 07/25/20 07/25/20 22:59 06:59 14:59 Intake Total 1240 / 2898.75 170 / 3068.75 360 / 360 Output Total 300 / 300 Balance 940 / 2598.75 170 / 2768.75 360 / 360 Weight last 48 hrs Weight 79.379 kg Physical Exam Const: COMMON NORMALS: patient oriented x3 HENMT: COMMON NORMALS: normocephalic and atraumatic HEAD & SCALP: normocephalic and atraumatic Chest: CHEST: Yes Symmetrical chest wall rise Resp: COMMON NORMALS: clear to auscultation bilaterally AUSCULTATION: clear to auscultation bilaterally Cardio: COMMON NORMALS: regular rate, regular rhythm, S1 normal heart sound present, S2 normal heart sound present, No gallops present (Cardio), No murmurs present (Cardio), No rub (Cardio) and Peripheral pulses 2+ throughout RATE: r egular rate RHYTHM: regular rhythm HEART SOUNDS: S1 normal heart sound present and S2 normal heart sound present PERIPHERAL PULSES: Peripheral pulses 2+ throughout GI: COMMON NORMALS: Normal to inspection, nondistended, normoactive bowel sounds present, Soft to palpation, non-tender, No hepatosplenomegaly present and no masses AUSCULTATION: Yes normoactive bowel sounds PALPATION: Yes Soft to palpation and Yes No hepatosplenomegaly present RECTAL EXAM: Yes deferred Extremity: COMMON NORMALS: no clubbing, cyanosis or edema and no pedal edema Neuro: COMMON NORMALS: patient oriented x3 Data : 07/25/20 04:57 07/25/20 04:57 Micro: Microbiology 07/23/20 13:00 Blood Culture - Preliminary Blood NEGATIVE TO DATE 07/23/20 12:36 Blood Culture - Preliminary Blood NEGATIVE TO DATE A&P Assessment and plan (1) Sepsis: Sepsis secondary to pneumonia: Fever, elevated WBC, tachycardia, x-ray chest: Suggestive of pneumonia, cough, with worsening sputum. Blood culture:NTD Urine culture: Sputum culture: Lactic acid:1.8 Procalcitonin:0.36 CT chest abdomen and pelvis without contrast:Ill-defined areas of ground-glass o pacification in the periphery of both lungs.Multiple low-density lesions in the liver suspicious for metastatic foci are overall stable in size.Cystic focus in the head of the pancreas is stable. Initially on ceftriaxone 1 g every 24 hours daily. Started on Vancomycin and zosyn on 07/25 Status: Acute (2) Community acquired pneumonia: Plan is 1 Status: Acute (3) Transaminitis: Improving Patient has history of metastatic liver disease. Ultrasound abdomen as well as gallbladder: Has failed to show any obstructive pathology. No right upper quadrant pain or tenderness. We will continue to monitor LFT for now. Status: Chronic (4) Hyponatremia: Hypovolemic hyponatremia. Continue normal saline at the rate of 75 cc an hour. TSH:4.52 Cortisol:22 Random urine sodium Urine osmolality Serum osmola Monitor BMP Status: Acute (5) Anemia: Normocytic anemia: Likely anemia of chronic disease: Hb/H : 7.6/24.4--> 7.3/24 --->6.9 Anemia panel: Serum iron: 34, serum ferritin:559, transferrin saturation:207, TIBC:258, percent saturation:13, B12: >2000 Folic acid: Nl FOBT: Continue to hold Eliquis> 2 U PRBC Transfusion on 07/25 Monitor CBC: Status: Acute (6) Diabetes type 2, controlled: Status: Acute (7) Pulmonary emboli: -Will complete 6 months course of eliquis in mid july for provoked P/E Status: Acute Qualifiers: Pulmonary embolism type: multiple subsegmental (without acute cor pulmonale) Qualified Code(s): I26.94 - Multiple subsegmental pulmonary emboli without acute cor pulmonale (8) Metastatic cancer: Status: Acute Qualifiers: Area of secondary neoplastic involvement: unspecified site Qualified Code(s): C79.9 - Secondary malignant neoplasm of unspecified site (9) Generalized weakness: Status: Acute Additional A&P Information # Rt I.J Tunneled catheter removal : surgery was consulted ( ) CODE STATUS: Full code DVT prophylaxis: SCDs Attestations Medical Necessity Statement*: Patient needs to be in hospital for the management of sepsis 2/2 pna. Coding Level of Care Code Acute Link Trainer Mechanic for Chg Fwd Diagnoses Sepsis A41.9 Community acquired pneumonia J18.9 Transaminitis R74.0 Hyponatremia E87.1 Anemia D64.9 Diabetes type 2, controlled E11.9 Pulmonary emboli I26.94 Pulmonary embolism type: multiple subsegmental (without acute cor pulmonale) Metastatic cancer C79.9 Area of secondary neoplastic involvement: unspecified site Generalized weakness R53.1
[2020-07-25 11:34] LABS: Glucose Point of Care 122 mg/dL (70-110)
[2020-07-25] MEDS: vancomycin 1,000 MG in sodium chloride 0.9% 250 ML 250 MG IV ×2 (14:56→23:07)
[2020-07-25 15:48] LABS: Osmolality Serum 271 mOsm/kg (278-305)
[2020-07-25] MEDS: sodium chloride 0.9% (100 ml) 100 ML 10 ML (17:08)
[2020-07-25 17:10] LABS: Glucose Point of Care 223 mg/dL (70-110)
--- NOTE | 2020-07-25 19:31 | PC.NURSE ---
Port in left chest accessed at this time.
--- NOTE | 2020-07-25 19:45 | PC.NURSE ---
THIS NURSE WAS HELPING NURSES ON THE FLOOR AND WAS ASKED TO CHECK ON THE BLOOD THAT WAS RUNNING ON MR. WARREN. THIS NURSE ENTERED THE ROOM FOLLOWED BY KENIA LAWSON. THIS NURSE ALONG WITH KENIA RN NOTICED THAT THE BLOOD WAS RUNNING INTO A TUNNELED CATHETER THROUGH THE CALL CENTER TRAINER. THE BLOOD WAS STOPPED IMMEDIATELY. NIA CORONEL NURSE WHEEL ADJUSTER WAS NOTIFIED ALONG WITH DR. JOHNSON. ORDERS WERE GIVEN TO FLUSH THE TUNNELED CATHETER WITH 20ML OF NORMAL SALINE. PATIENTS PAC WAS THEN ACCESSED AND BLOOD RESTARTED. VITALS BEING PERFORMED Q15M FOR [address] JOHNSON STATED THAT CATHETER IS SCHEDULED TO BE REMOVED TOMORROW.
[2020-07-25] MEDS: FUROsemide 40 mg Tablet PO (20:35)
[2020-07-25 21:34] LABS: Glucose Point of Care 123 mg/dL (70-110)
[2020-07-25] MEDS: piperacillin-tazobactam 3.375 GM in sodium chloride 0.9% (plus) 50 ML IV (21:52)
[2020-07-26] VITALS (10 sets, daily range): BP systolic 103–112; BP diastolic 60–70; PULSE 66–106; RESP 18; TEMP 36.6–37.6; O2SAT 90–97
[2020-07-26] MEDS: guaiFENesin-dextromethorphan UDC 10 mL PO ×2 (01:25→17:18)
[2020-07-26] MEDS: sodium chloride 0.9% (100 ml) 100 ML 125 ML (01:26)
[2020-07-26] MEDS: HYDROcodone-acetaminophen 5-325 mg Tablet 1 TAB PO ×2 (03:15→17:18)
[2020-07-26] MEDS: piperacillin-tazobactam 3.375 GM in sodium chloride 0.9% (plus) 50 ML IV ×3 (05:09→23:32)
[2020-07-26] MEDS: vancomycin 1,000 MG in sodium chloride 0.9% 250 ML 250 MG IV ×3 (05:10→22:20)
[2020-07-26 05:35] LABS: Basophils % 0.3 %; Eosinophils # 0.4 10^3/uL (0.0-0.8); Eosinophils % 4.5 %; Hematocrit 28.5 % (42.0-52.0); Lymphocytes # 0.4 10^3/uL (0.8-4.8); Lymphocytes % 4.4 %; Mean Corpuscular HGB Conc 31.6 g/dL (30.0-36.0); Mean Corpuscular Hemoglobin 30.6 pg (28.0-34.0); Mean Corpuscular Volume 96.9 fL (80-94); Mean Platelet Volume 11.3 fL (7.4-10.4); Monocytes # 1.2 10^3/uL (0.2-0.9); Monocytes % 12.2 %; Neutrophils # 7.46 10^3/uL (1.8-7.7); Neutrophils % 77.9 %; Nucleated Red Blood Cells % 0 %; Platelet Count 168 10^3/cmm (130-400); Red Blood Count 2.94 10^6/uL (4.1-5.3); Red Cell Distribution Width 20.1 % (12.1-15.1); White Blood Count 9.6 10^3/uL (4.0-10.0)
[2020-07-26] MEDS: FUROsemide 10 mg/mL SDV 4mL 40 MG IVP (05:47)
[2020-07-26] MEDS: multivitamin therapeutic Tablet 1 TAB PO (06:31)
[2020-07-26] MEDS: aspirin 81 mg Chew Tablet PO (06:31)
[2020-07-26] MEDS: pantoprazole DR 40 mg Tablet PO (06:31)
[2020-07-26] MEDS: spironolactone 25 mg Tablet 50 MG PO ×2 (06:32→17:19)
[2020-07-26] MEDS: atorvastatin 40 mg Tablet PO (06:32)
[2020-07-26 06:33] LABS: Glucose Point of Care 89 mg/dL (70-110)
[2020-07-26 06:38] LABS: Alanine Aminotransferase 62 U/L (0-41); Albumin Level 2.4 g/dL (3.5-5.2); Alkaline Phosphatase 811 IU/L (40-130); Anion Gap 13.6 (5-19); Aspartate Amino Transferase 129 U/L (0-40); Blood Urea Nitrogen 14 mg/dL (8-23); Calcium 8.1 mg/dL (8.5-10.5); Carbon Dioxide 20 mmol/L (22-29); Chloride 99 mmol/L (98-107); Globulin 2.7 g/dL (1.3-4.6); Glomerular Filtration Rate 166.9 mL/min (90-130); Glucose 88 mg/dL (65-115); Osmolality Calculated 268 mOsm/kg (285-295); Potassium 3.6 mmol/L (3.5-5.1); Sodium 129 mmol/L (136-145); Total Protein 5.1 g/dL (6.6-8.7)
[2020-07-26 06:43] LABS: Creatinine Clr Calc Pharmacy 98.3745
--- NOTE | 2020-07-26 10:28 | P.PN_ITS ---
Subjective Subjective: Interval history: Patient was seen and examined this morning. T- max: 100.0 His other vitals and labs have been reviewed. Rt I.J Tunneled catheter has been removed. Medications: Reviewed: Yes Vitals/I&O/Wt Last Vital Signs Temp 97.8 F 07/26/20 07:26 Pulse 90 07/26/20 07:26 Resp 18 07/26/20 07:26 BP 106/62 07/26/20 07:26 Pulse Ox 93 07/26/20 07:26 07/25/20 07/26/20 07/26/20 22:59 06:59 14:59 Intake Total 840 / 1200 900 / 2100 250 / 250 Output Total 0 / 0 Balance 840 / 1200 900 / 2100 250 / 250 Physical Exam Const: COMMON NORMALS: patient oriented x3 HENMT: COMMON NORMALS: normocephalic and atraumatic HEAD & SCALP: normocephalic and atraumatic Chest: CHEST: Yes Symmetrical chest wall rise Resp: COMMON NORMALS: clear to auscultation bilaterally AUSCULTATION: clear to auscultation bilaterally Cardio: COMMON NORMALS: regular rate, regular rhythm, S1 normal heart sound present, S2 normal heart sound present, No gallops present (Cardio), No murmurs present (Cardio), No rub (Cardio) and Peripheral pulses 2+ throughout RATE: regular rate RHYTHM: regular rhythm HEART SOUNDS: S1 normal heart sound present and S2 normal heart sound present PERIPHERAL PULSES: Peripheral pulses 2+ throughout GI: COMMON NORMALS: Normal to inspection, nondistended, normoactive bowel sounds present, Soft to palpation, non-tender, No hepatosplenomegaly present and no masses AUSCULTATION: Yes normoactive bowel sounds PALPATION: Yes Soft to palpation and Yes No hepatosplenomegaly present RECTAL EXAM: Yes deferred Extremity: COMMON NORMALS: no clubbing, cyanosis or edema and no pedal edema Neuro: COMMON NORMALS: patient oriented x3 Data : 07/26/20 05:17 07/26/20 05:17 A&P Assessment and plan (1) Sepsis: Sepsis secondary to pneumonia: Fever, elevated WBC, tachycardia, x-ray chest: Suggestive of pneumonia, cough, with worsening sputum. Blood culture:NTD Urine culture: Sputum culture: Lactic acid:1.8 Procalcitonin:0.36 CT chest abdomen and pelvis without contrast:Ill-defined areas of ground-glass opacification in the periphery of both lungs.Multiple low-density lesions in the liver suspicious for metastatic foci are overall stable in size.Cystic focus in the head of the pancreas is stable. Initially on ceftriaxone 1 g every 24 hours daily. Started on Vancomycin and zosyn on 07/25 Status: Acute (2) Community acquired pneumonia: Plan is 1 Status: Acute (3) Transaminitis: Patient has history of metastatic liver disease. Ultrasound abdomen as well as gallbladder: Has failed to show any obstructive pathology. No right upper quadrant pain or tenderness. HIDA ( hepatobiliary scintigraphy ) with E.F to further delineate possible Hepatobillary system obstruction. Continue to monitor LFT Status: Chronic (4) Hyponatremia: Hypovolemic hyponatremia. Improving TSH:4.52 Cortisol:22 Random urine sodium Urine osmolality Serum osmola Monitor BMP Status: Acute (5) Anemia: Normocytic anemia: Likely anemia of chronic disease: Hb/H : 7.6/24.4--> 7.3/24 --->6.9 Anemia panel: Serum iron: 34, serum ferritin:559, transferrin saturation:207, TIBC:258, percent saturation:13, B12: >2000 Folic acid: Nl FOBT: Pending Continue to hold Eliquis> 2 U PRBC Transfusion on 07/25 Post Transfusion CBC: 9 Status: Acute (6) Diabetes type 2, controlled: Status: Acute (7) Pulmonary emboli: -Will complete 6 months course of eliquis in mid july for provoked P/E Status: Acute Qualifiers: Pulmonary embolism type: multiple subsegmental (without acute cor pulmonale) Qualified Code(s): I26.94 - Multiple subsegmental pulmonary emboli without acute cor pulmonale (8) Metastatic cancer: Status: Acute Qualifiers: Area of secondary neoplastic involvement: unspecified site Qualified Code(s): C79.9 - Secondary malignant neoplasm of unspecified site (9) Generalized weakness: Status: Acute Additional A&P Information # Rt I.J Tunneled catheter removed CODE STATUS: Full code DVT prophylaxis: SCDs Attestations Medical Necessity Statement*: Patient needs to be in hospital for the manag ement of sepsis 2/2 PNA Coding Level of Care Code Acute Senior Scheduler for [facility] Fwd Exam Detailed Diagnoses Sepsis A41.9 Community acquired pneumonia J18.9 Transaminitis R74.0 Hyponatremia E87.1 Anemia D64.9 Diabetes type 2, controlled E11.9 Pulmonary emboli I26.94 Pulmonary embolism type: multiple subsegmental (without acute cor pulmonale) Metastatic cancer C79.9 Area of secondary neoplastic involvement: unspecified site Generalized weakness R53.1
[2020-07-26 11:09] LABS: Glucose Point of Care 107 mg/dL (70-110)
--- NOTE | 2020-07-26 11:10 | PC.SOCIAL ---
IMM update Pg. 2 of IMM Updated and reviewed with patient and his , who verbalized understanding. Copy provided.
[2020-07-26] MEDS: lidocaine 1% INJ 20 mL INJECTION (14:42)
--- NOTE | 2020-07-26 14:54 | P.CONIM_ITS ---
Providers/Reason For Consult Consulting Physican/Specialty*: Dr. Fonseca Reason for Consult*: Removal of right IJ tunneled venous catheter Attending Physician: Aries Fonseca MD Primary Care Provider: ANKIT Smith History of Present Illness History of Present Illness Steven Arellano is a 65 year old male who was diagnosed with stage IV colon cancer 2-1/2 years ago. Patient appears undergone surgery by Dr. Jay and had been undergoing immunotherapy in [facility]. Patient had his last treatment earlier this year and his tunneled venous catheter was to be removed but due to some miscommunication patient returned to [place] without removal of the catheter. He is currently admitted to the hospital for pneumonia. The catheter had been functioning well. As per the patient there has been no purulent drainage or redness around the catheter site Review of Systems General: Reports: 10 or more systems reviewed and unremarkable except in HPI and below Meds/Allergies Home Medications and Allergies Home Medications Medication Instructions Recorded Confirmed Last Taken Type aspirin 81 mg PO DAILY@0700 10/18/19 07/23/20 07/22/20 History Keytruda See Rx Instructions .ROUTE .COMPLEX 02/21/20 07/23/20 03/08/20 History Vitamin C 1 tab PO DAILY@0700 02/21/20 07/23/20 07/22/20 History multivitamin [Multiple Vitamins] 1 tab PO DAILY@0700 02/21/20 07/23/20 07/22/20 History nitroglycerin [Nitrostat] 0.4 mg SUBLINGUAL Q5M PRN 02/21/20 07/23/20 02/21/20 History Jennifer Torres See Rx Instructions .ROUTE .COMPLEX 07/23/20 07/23/20 07/22/20 History Berberacticv 2 cap PO BID@0700,1830 07/23/20 07/23/20 07/22/20 History Biocidin Proflora 1 cap PO DAILY@0700 07/23/20 07/23/20 07/22/20 History Biotics Iag 1 tbsp PO DAILY@0700 07/23/20 07/23/20 07/22/20 History Di Denisse See Rx Instructions .ROUTE .COMPLEX 07/23/20 07/23/20 07/22/20 History Dim Enhanced 2 cap PO DAILY@0700 07/23/20 07/23/2021 History Gi Detox 2 cap PO BEDTIME@1830 07/23/20 07/23/20 07/22/20 History Green Tea Liquid Extract See Rx Instructions .ROUTE .COMPLEX 07/23/20 07/23/20 0 07/22/20 History Samir Agee See Rx Instructions .ROUTE .COMPLEX 07/23/20 07/23/20 07/22/20 History Luis E Medina See Rx Instructions .ROUTE .COMPLEX 07/23/20 07/23/20 07/22/20 History Mercola Fermented Mushroom Complex 3 cap PO DAILY@0700 07/23/20 07/23/20 07/22/20 History Pro Butyrate 2 cap PO BID@0700,1830 07/23/20 07/23/20 07/22/20 History Quercisorb 2 cap PO BID@0700,1830 07/23/20 07/23/20 07/22/20 History Resvirasrt 2 cap PO BID@0700,1830 07/23/20 07/23/20 07/22/20 History Spycel 100 mg PO DAILY@0700 07/23/20 07/23/20 07/22/20 History apixaban [Eliquis] 5 mg PO BID@0700,1830 07/23/20 07/23/20 07/22/20 History atorvastatin 40 mg PO DAILY@0700 07/23/20 07/23/20 07/22/20 History cyclophosphamide 25 mg PO DAILY@0700 07/23/20 07/23/20 Unknown History cyclophosphamide 25 mg PO DAILY@0700 07/23/20 07/23/20 07/22/20 History genistein 2 cap PO BID@0700,1830 07/23/20 07/23/20 07/22/20 History metformin 1,000 mg PO DAILY@0700 07/23/20 07/23/20 07/22/20 History milk thistle 3 cap PO BEDTIME@1830 07/23/20 07/23/20 07/22/20 History omeprazole 20 mg PO DAILY@0700 07/23/20 07/23/20 07/22/20 History ondansetron 8 mg PO Q12H PRN 07/23/20 07/23/20 Unknown History oxycodone-acetaminophen See Rx Instructions .ROUTE .COMPLEX 07/23/20 07/23/20 07/22/20 History prochlorperazine 25 mg SC Q12H PRN 07/23/20 07/23/20 Unknown History spironolactone 50 mg PO BID@0700,1830 07/23/20 07/23/20 07/22/20 History zinc gluconate 50 mg PO DAILY@0700 07/23/20 07/23/20 07/22/20 History Allergies Allergy/AdvReac Type Severity Reaction Status Date / Time No Known Allergies Allergy Verified 07/23/20 12:29 Current Medications Current Medications Generic Name Dose Route Start Last Admin Trade Name Freq PRN Reason Stop Dose Admin Hydrocodone Bitart/Acetaminophen 1 tab 07/23/20 17:47 07/26/20 03:15 Hydrocodone-Acetaminophen 5-325 Mg Tablet PO 1 tab Q4H PRN Administration MODERATE TO SEVERE PAIN Aspirin 81 mg 07/24/20 07:00 07/26/20 06:31 Aspirin 81 Mg Chew Tablet PO 81 mg DAILY@0700 JUAN JOSE Administration Atorvastatin Calcium 40 mg 07/24/20 07:00 07/26/20 06:32 Atorvastatin 40 Mg Tablet PO 40 mg DAILY@0700 JUAN JOSE Administration Furosemide 40 mg 07/26/20 06:00 07/26/20 05:47 Furosemide 10 Mg/Ml Sdv 4ml IVP 40 mg Q24H JUAN JOSE Administration Guaifenesin/Dextromethorphan 10 ml 07/24/20 11:10 07/26/20 01:25 Guaifenesin-Dextromethorphan Udc 10 Ml PO 10 ml Q4H PRN Administration COUGH Piperacillin Sod/Tazobactam 50 mls @ 12.5 mls/hr 07/25/20 13:30 07/26/20 13:38 Sod 3.375 gm/ Sodium Chloride IV 12.5 mls/hr Q8H JUAN JOSE Administration Protocol Vancomycin HCl 1,000 mg/ 250 mls @ 250 mls/hr 07/25/20 14:00 07/26/20 13:37 Sodium Chloride IV 250 mls/hr Q8H JUAN JOSE Administration Protocol Insulin Aspart 0 unit 07/23/20 21:00 07/26/20 11:13 Insulin Aspart 100 Unit/1 Ml SUBCUT Not Given WM&BEDTIME JUAN JOSE Protocol Multivitamins Therapeutic 1 tab 07/24/20 07:00 07/26/20 06:31 Multivitamin Therapeutic Tablet PO 1 tab DAILY@0700 [facility] Administration Non-Formulary Medication 2 cap 07/23/20 18:30 07/26/20 04:02 Berberacticv PO Not Given BID@0700,1830 [facility] Non-Formulary Medication 1 cap 07/24/20 07:00 07/26/20 04:02 Biocidin Proflora PO Not Given DAILY@0700 [facility] Non-Formulary Medication 1 tbsp 07/24/20 07:00 07/26/20 04:02 Biotics Iag PO Not Given DAILY@0700 [facility] Non-Formulary Medication 25 mg 07/24/20 07:00 07/26/20 04:02 Cyclophosphamide PO Not Given DAILY@0700 [facility] Non-Formulary Medication 2 cap 07/23/20 18:30 07/26/20 04:02 Genistein PO Not Given BID@0700,1830 [facility] Ondansetron HCl 4 mg 07/23/20 17:47 07/24/20 08:20 Ondansetron 2 Mg/Ml Sdv 2 Ml IVP 4 mg Q8H PRN Administration vomiting, or N/V if npo Pantoprazole Sodium 40 mg 07/24/20 07:00 07/26/20 06:[address] 40 Mg Tablet PO 40 mg DAILY@0700 JUAN JOSE Administration Spironolactone 50 mg 07/23/20 18:30 07/26/20 06:32 Spironolactone 25 Mg Tablet PO 50 mg BID@0700,1830 JUAN JOSE Administration PFSH Acute PFSH: Medical History CAD (coronary artery disease) -with hx of inferior wall [place] s/p stenting of RCA Diabetes type 2, controlled GERD (gastroesophageal reflux disease) Hyperlipidemia -continue statin Ileus Malignant neoplasm of transverse colon Metastatic colon cancer to liver -Known metastatic disease to the liver and lung -s/p chemo immunotherapy percutaneous injection (CIPI) to the liver and lung lesions on 11/21/19 Pancreatitis This suspected to be secondary to cancer related pancreatic duct obstruction. Immunotherapy could also play a role but felt unlikely. Surgical History H/O colectomy -partial transverse colectomy History of heart artery stent -in RCA secondary to inferior wall [place] S/P exploratory laparotomy Family History Family/Other Cancer -hx of colon cancer Social History Smoking and tobacco status: former smoker Alcohol intake: never Household members: spouse Marital status: Vitals/I&O/Wt Last Vital Signs Temp 99.0 F 07/26/20 11:30 Pulse 66 07/26/20 11:30 Resp 18 07/26/20 11:30 BP 108/65 07/26/20 11:30 Pulse Ox 95 07/26/20 11:30 07/25/20 07/26/20 07/26/20 22:59 06:59 14:59 Intake Total 840 / 2100 900 / 2100 250 / 250 Output Total 0 / 0 Balance 840 / 2100 900 / 2100 250 / 250 Physical Exam Narrative: EXAM NARRATIVE: HEENT: Normocephalic, right IJ tunneled venous catheter Eye: Sclera /conjunctiva normal Abdomen: Soft to palpation Neurological: Oriented to place person and time Skin: Intact, no lesions appreciated on gross exam Data Micro: Micro: Microbiology 07/23/20 11:43 Sputum Culture - P reliminary Sputum - Expector ated Sputum A&P Assessment and plan (1) Encounter for removal of peripherally inserted central catheter: 65-year-old male with metastatic colon cancer status post immunotherapy who has a tunneled right internal jugular vein catheter that needs to be discontinued. Discussed details of the procedure, risks with the patient wishes to proceed Status: Resolved Coding Level of Care Code Acute Venetian Blind Assembler for Chg Fwd Diagnoses Encounter for removal of peripherally inserted central catheter Z45.2
--- NOTE | 2020-07-26 14:58 | PM.ACPR ---
Procedure/Consent Time out: Time Out Performed: Yes Consent: Consent for Procedure: Consent obtained from patient Procedure Narrative: Preoperative diagnosis: Removal of right internal jugular vein tunneled hemodialysis catheter Postop diagnosis: Same Procedure: Removal of right internal jugular vein tunneled hemodialysis catheter Anesthesia: Local Surgeon: Dr. Tovar Description of the procedure: After the consent was obtained the catheter entry site was prepped and draped in a sterile manner. 10cc of 1% lidocaine was infiltrated around the catheter into the subcutaneous tissue. The catheter was dissected free surgically from the surrounding subcutaneous tissue up to the cuff and it was removed intact. Pressure dressings were applied. Patient tolerated procedure well. Acute Procedures Epistaxis Control: Time out performed: Yes
[2020-07-26 16:44] LABS: Glucose Point of Care 107 mg/dL (70-110)
[2020-07-26 20:48] LABS: Glucose Point of Care 135 mg/dL (70-110)
[2020-07-26 21:34] LABS: Vancomycin Trough 13.7 ug/mL (10-15)
[2020-07-27] VITALS (7 sets, daily range): BP systolic 106–128; BP diastolic 64–73; PULSE 96–104; RESP 17–24; TEMP 36.4–38; O2SAT 90–92
[2020-07-27] MEDS: piperacillin-tazobactam 3.375 GM in sodium chloride 0.9% (plus) 50 ML IV ×3 (05:58→21:17)
[2020-07-27] MEDS: vancomycin 1,000 MG in sodium chloride 0.9% 250 ML 250 MG IV ×3 (05:59→21:34)
[2020-07-27] MEDS: FUROsemide 10 mg/mL SDV 4mL 40 MG IVP (06:02)
[2020-07-27 06:18] LABS: Basophils % 0.4 %; Eosinophils # 0.1 10^3/uL (0.0-0.8); Eosinophils % 1.2 %; Hematocrit 28.4 % (42.0-52.0); Hemoglobin 8.9 g/dL (11.7-16.6); Lymphocytes # 0.8 10^3/uL (0.8-4.8); Lymphocytes % 8.7 %; Mean Corpuscular HGB Conc 31.3 g/dL (30.0-36.0); Mean Corpuscular Hemoglobin 30.3 pg (28.0-34.0); Mean Corpuscular Volume 96.6 fL (80-94); Mean Platelet Volume 11.9 fL (7.4-10.4); Monocytes # 1.1 10^3/uL (0.2-0.9); Monocytes % 12.4 %; Neutrophils # 6.95 10^3/uL (1.8-7.7); Neutrophils % 76.6 %; Nucleated Red Blood Cells % 0 %; Platelet Count 156 10^3/cmm (130-400); Red Blood Count 2.94 10^6/uL (4.1-5.3); Red Cell Distribution Width 20.1 % (12.1-15.1); White Blood Count 9.1 10^3/uL (4.0-10.0)
[2020-07-27 06:37] LABS: Glucose Point of Care 104 mg/dL (70-110)
[2020-07-27 06:47] LABS: Alanine Aminotransferase 63 U/L (0-41); Albumin Level 2.5 g/dL (3.5-5.2); Alkaline Phosphatase 835 IU/L (40-130); Anion Gap 15.6 (5-19); Aspartate Amino Transferase 127 U/L (0-40); Blood Urea Nitrogen 14 mg/dL (8-23); Calcium 8.3 mg/dL (8.5-10.5); Carbon Dioxide 21 mmol/L (22-29); Chloride 97 mmol/L (98-107); Globulin 2.5 g/dL (1.3-4.6); Glomerular Filtration Rate 215.9 mL/min (90-130); Glucose 98 mg/dL (65-115); Osmolality Calculated 270 mOsm/kg (285-295); Potassium 3.6 mmol/L (3.5-5.1); Sodium 130 mmol/L (136-145); Total Bilirubin 2.9 mg/dL (0.15-1.2)
[2020-07-27 06:49] LABS: Creatinine Clr Calc Pharmacy 98.3745
--- NOTE | 2020-07-27 07:00 | NM_ITS ---
WS: [id number] NUCLEAR MEDICINE HIDA SCAN CLINICAL INFORMATION: Derailed LFT TECHNIQUE: Following intravenous administration of 8.7 mCi of technetium 99m mebrofenin, images of th e abdomen were obtained over the course of 60 minutes. Next, gallbladder ejection fraction was determ ined by obtaining preprandial and one-hour postprandial images of the gallbladder following oral elkin stion of Ensure. COMPARISON: July 23, 2020 FINDINGS: Hepatomegaly with diffuse heterogeneous radiotracer activity within the liver compatible with history of metastatic disease. Gallbladder is not visualized by 60 minutes. Imaging has extended to 120 minutes without gallbladder visualization. Common bile duct is visualized. Normal small bowel activity. NM/NM hepatobiliary w phar* [id number] IMPRESSION: 1. Hepatomegaly with diffuse heterogeneous radiotracer activity consistent wit h known metastatic disease. 2. Nonvisualization of the gallbladder at 2 hours. Gallbladder appears small a nd contracted on recent imaging studies and difficult to visualize. Nonfilling typically seen with cystic duct obstruction with cholecystitis however, in this case consider metastatic involvement of the cystic duct and gallbladder with o bstruction and dysfunction. 3. Gallbladder ejection fraction not calculated due to nonvisualization of the gallbladder. 4. Common bile duct and small bowel activity visualized.
[2020-07-27 07:09] LABS: Creatine Phosphokinase 36 U/L (39-308)
[2020-07-27] MEDS: aspirin 81 mg Chew Tablet PO (08:53)
[2020-07-27] MEDS: pantoprazole DR 40 mg Tablet PO (08:54)
[2020-07-27] MEDS: multivitamin therapeutic Tablet 1 TAB PO (08:54)
[2020-07-27] MEDS: atorvastatin 40 mg Tablet PO (08:54)
[2020-07-27] MEDS: spironolactone 25 mg Tablet 50 MG PO ×2 (08:54→18:29)
[2020-07-27] MEDS: bisacodyl 5 mg Tablet 10 MG PO (08:54)
[2020-07-27 10:43] LABS: Glucose Point of Care 126 mg/dL (70-110)
[2020-07-27] MEDS: benzonatate 100 mg Capsule 200 MG PO ×3 (12:27→21:17)
[2020-07-27] MEDS: guaiFENesin-dextromethorphan UDC 10 mL PO ×4 (12:27→21:17)
--- NOTE | 2020-07-27 14:53 | P.PN_ITS ---
Subjective Subjective: Interval history: Patient was seen and examined this morning. T- max: 100.4 His other vitals and labs have been reviewed. Rt I.J Tunneled catheter has been removed. HIDA scan completed.Abdominal ascites is improving with lasix. Medications: Reviewed: Yes Vitals/I&O/Wt Last Vital Signs Temp 98.2 F 07/27/20 11:26 Pulse 99 07/27/20 11:26 Resp 18 07/27/20 11:26 BP 106/67 07/27/20 11:26 Pulse Ox 90 07/27/20 11:26 07/26/20 07/27/20 07/27/20 22:59 06:59 14:59 Intake Total 540 / 790 300 / 1090 660 / 660 Output Total 900 / 900 Balance 540 / 790 300 / 1090 -240 / -240 Physical Exam Const: COMMON NORMALS: patient oriented x3 HENMT: COMMON NORMALS: normocephalic and atraumatic HEAD & SCALP: normocephalic and atraumatic Chest: CHEST: Yes Symmetrical chest wall rise Resp: COMMON NORMALS: clear to auscultation bilaterally AUSCULTATION: clear to auscultation bilaterally Cardio: COMMON NORMALS: regular rate, regular rhythm, S1 normal heart sound present, S2 normal heart sound present, No gallops present (Cardio), No murmurs present (Cardio), No rub (Cardio) and Peripheral pulses 2+ throughout RATE: regular rate RHYTHM: regular rhythm HEART SOUNDS: S1 normal heart sound present and S2 normal heart sound present PERIPHERAL PULSES: Peripheral pulses 2+ throughout GI: COMMON NORMALS: Normal to inspection, nondistended, normoactive bowel sounds present, Soft to palpation, non-tender, No hepatosplenomegaly present and no masses AUSCULTATION: Yes normoactive bowel sounds PALPATION: Yes Soft to palpation and Yes No hepatosplenomegaly present RECTAL EXAM: Yes deferred Extremity: COMMON NORMALS: no clubbing, cyanosis or edema and no pedal edema Neuro: COMMON NORMALS: patient oriented x3 Data : 07/27/20 05:27 07/27/20 05:27 Micro: Microbiology 07/23/20 11:43 Sputum Culture - Final Sputum - Expectorated Sputum A&P Assessment and plan (1) Sepsis: Sepsis secondary to pneumonia: Fever, elevated WBC, tachycardia, x-ray chest: Suggestive of pneumonia, cough, with worsening sputum. Blood culture:NTD Urine culture: Sputum culture::Negative Lactic acid:1.8 Procalcitonin:0.36 CT chest abdomen and pelvis without contrast:Ill-defined areas of ground-glass opacification in the periphery of both lungs.Multiple low-density lesions in the liver suspicious for metastatic foci are overall stable in size.Cystic focus in the head of the pancreas is stable. Initially on ceftriaxone 1 g every 24 hours daily. Started on Vancomycin and zosyn on 07/25 Status: Acute (2) Community acquired pneumonia: Plan is 1 Status: Acute (3) Transaminitis: Patient has history of metastatic liver disease. Ultrasound abdomen as well as gallbladder: Has failed to show any obstructive pathology. No right upper quadrant pain or tenderness. HIDA ( hepatobiliary scintigraphy ):Hepatomegaly with diffuse heterogeneous radiotracer activity consistent with known metastatic disease. Nonvisualization of the gallbladder at 2 hours. Gallbladder appears small and contracted on recent imaging studies and difficult to visualize. Nonfilling typically seen with cystic duct obstruction with cholecystitis however, in this case consider metastatic involvement of the cystic duct and gallbladder with obstruction and dysfunction. Gallbladder ejection fraction not calculated due to nonvisualization of the gallbladder. patient is currently tolerating diet well,has no nusea, vomittimg, low suspicion for ascending chollangitis. Patient will have outpatient MRCP after discharge and will follow on discharge. Continue to monitor LFT for now. Status: Chronic (4) Hyponatremia: Hypovolemic hyponatremia. Improving TSH:4.52 Cortisol:22 Random urine sodium Urine osmolality Serum osmola Monitor BMP Status: Acute (5) Anemia: Normocytic anemia: Likely anemia of chronic disease: Hb/H : 7.6/24.4--> 7.3/24 --->6.9 Anemia panel: Serum iron: 34, serum ferritin:559, transferrin saturation:207, TIBC:258, percent saturation:13, B12: >2000 Folic acid: Nl FOBT: Pending Continue to hold Eliquis> 2 U PRBC Transfusion on 07/25 Post Transfusion CBC: 9 Status: Acute (6) Diabetes type 2, controlled: Status: Acute (7) Pulmonary emboli: -Will complete 6 months course of eliquis in mid july for provoked P/E Status: Acute Qualifiers: Pulmonary embolism type: multiple subsegmental (without acute cor pulmonale) Qualified Code(s): I26.94 - Multiple subsegmental pulmonary emboli without acute cor pulmonale (8) Metastatic cancer: Status: Acute Qualifiers: Area of secondary neoplastic involvement: unspecified site Qualified Code(s): C79.9 - Secondary malignant neoplasm of unspecified site (9) Generalized weakness: Status: Acute Additional A&P Information # Rt I.J Tunneled catheter removed CODE STATUS: Full code DVT prophylaxis: SCDs Attestations Medical Necessity Statement*: Patient needs to be in hospital for the ma nagement of sepsis and deranged LFT. Coding Level of Care Code Acute [employer] for [facility] Fwd Diagnoses Sepsis A41.9 Community acquired pneumonia J18.9 Transaminitis R74.0 Hyponatremia E87.1 Anemia D64.9 Diabetes type 2, controlled E11.9 Pulmonary emboli I26.94 Pulmonary embolism type: multiple subsegmental (without acute cor pulmonale) Metastatic cancer C79.9 Area of secondary neoplastic involvement: unspecified site Generalized weakness R53.1
[2020-07-27 16:51] LABS: Glucose Point of Care 163 mg/dL (70-110)
[2020-07-27 20:07] LABS: Glucose Point of Care 137 mg/dL (70-110)
[2020-07-28] MEDS: guaiFENesin-dextromethorphan UDC 10 mL PO ×4 (02:09→15:12)
[2020-07-28 04:50] VITALS: BP 115/68; PULSE 98; RESP 17; TEMP 36.6; O2SAT 94
[2020-07-28] MEDS: vancomycin 1,000 MG in sodium chloride 0.9% 250 ML 250 MG IV (06:20)
[2020-07-28] MEDS: piperacillin-tazobactam 3.375 GM in sodium chloride 0.9% (plus) 50 ML IV (06:22)
[2020-07-28] MEDS: multivitamin therapeutic Tablet 1 TAB PO (06:23)
[2020-07-28] MEDS: spironolactone 25 mg Tablet 50 MG PO (06:23)
[2020-07-28] MEDS: pantoprazole DR 40 mg Tablet PO (06:23)
[2020-07-28] MEDS: aspirin 81 mg Chew Tablet PO (06:23)
[2020-07-28] MEDS: atorvastatin 40 mg Tablet PO (06:23)
[2020-07-28] MEDS: FUROsemide 10 mg/mL SDV 4mL 40 MG IVP (06:24)
[2020-07-28 06:26] LABS: Basophils % 0.4 %; Eosinophils # 0.2 10^3/uL (0.0-0.8); Eosinophils % 2.6 %; Hematocrit 28.4 % (42.0-52.0); Hemoglobin 8.9 g/dL (11.7-16.6); Lymphocytes # 0.7 10^3/uL (0.8-4.8); Lymphocytes % 8.6 %; Mean Corpuscular HGB Conc 31.3 g/dL (30.0-36.0); Mean Corpuscular Volume 95.6 fL (80-94); Mean Platelet Volume 11.8 fL (7.4-10.4); Monocytes # 1.5 10^3/uL (0.2-0.9); Monocytes % 17.8 %; Neutrophils # 5.76 10^3/uL (1.8-7.7); Nucleated Red Blood Cells % 0 %; Platelet Count 150 10^3/cmm (130-400); Red Blood Count 2.97 10^6/uL (4.1-5.3); White Blood Count 8.2 10^3/uL (4.0-10.0)
[2020-07-28 06:46] LABS: Alanine Aminotransferase 59 U/L (0-41); Albumin Level 2.4 g/dL (3.5-5.2); Alkaline Phosphatase 844 IU/L (40-130); Anion Gap 11.3 (5-19); Aspartate Amino Transferase 124 U/L (0-40); Blood Urea Nitrogen 13 mg/dL (8-23); Calcium 8.4 mg/dL (8.5-10.5); Carbon Dioxide 22 mmol/L (22-29); Chloride 100 mmol/L (98-107); Creatinine Clr Calc Pharmacy 98.3745; Globulin 2.2 g/dL (1.3-4.6); Glomerular Filtration Rate 166.9 mL/min (90-130); Glucose 99 mg/dL (65-115); Osmolality Calculated 270 mOsm/kg (285-295); Potassium 3.3 mmol/L (3.5-5.1); Sodium 130 mmol/L (136-145); Total Bilirubin 3.3 mg/dL (0.15-1.2); Total Protein 4.6 g/dL (6.6-8.7)
[2020-07-28 06:48] LABS: Glucose Point of Care 124 mg/dL (70-110)
[2020-07-28 07:29] VITALS: BP 121/77; PULSE 93; RESP 18; TEMP 36.5; O2SAT 93
--- NOTE | 2020-07-28 09:36 | PC.SOCIAL ---
IMM Updated Updated pt & on Pg 2 IMM. No questions voiced. Provided pt a copy. Signed, dated, & timed copy in chart.
[2020-07-28] MEDS: benzonatate 100 mg Capsule 200 MG PO ×2 (10:09→15:13)
--- NOTE | 2020-07-28 10:52 | P.DES_ITS ---
Discharge Providers DDS Date of Admission: 07/23/20 16:54 Date Summary Completed: 07/28/20 Attending Provider at Admission: Aries Fonseca MD Attending Provider at Discharge: Aries Fonseca MD Primary Care Provider: ANKIT Smith Diagnoses Hospital Diagnoses (1) Sepsis: (2) Community acquired pneumonia: (3) Transaminitis: Problem details: -Known metastatic disease to the liver (4) Hyponatremia: (5) Anemia: (6) Diabetes type 2, controlled: (7) Pulmonary emboli: Problem details: -noted bilateral PE on CT scan of the chest done following elevated D-dimer -Echo: EF=55%, mild LVH, G1DD, no evidence of R heart strain -venous duplex negative for DVT -ontherapeutic dose of Lovenox, switched to Eliquis -No prior history of PE; biggest risk factor is likely underlying malignancy -stable vital signs and respiratory status -Noted hypoxia on ABG Qualifiers: Pulmonary embolism type: multiple subsegmental (without acute cor pulmonale) Qualified Code(s): I26.94 - Multiple subsegmental pulmonary emboli without acute cor pulmonale (8) Metastatic cancer: Qualifiers: Area of secondary neoplastic involvement: unspecified site Qualified Code(s): C79.9 - Secondary malignant neoplasm of unspecified site (9) Generalized weakness: Reason for Visit Reason for Visit: FEVER/FLUID BUILD UP/ ABD PRESSURE Summary Additional Data Advance directives?: No Discharge Plan Discharge Patient Disposition: Home Condition: Stable Prescriptions: New benzonatate [Tessalon Perles] 100 mg capsule 100 mg PO BID PRN (Reason: cough) Qty: 14 RF: 0 Robitussin Cough-Chest Juan Pablo DM 10-200 mg capsule 1 tab-cap PO Q8H PRN (Reason: cough) Qty: 14 RF: 0 furosemide [Lasix] 20 mg tablet 20 mg PO DAILY Qty: 30 RF: 0 levofloxacin 500 mg tablet 500 mg PO DAILY 5 Days RF: 0 Continued ondansetron 8 mg Tablet,Disintegrating 8 mg PO Q12H PRN (Reason: NAUSEA/VOMITING) RF: 0 spironolactone 50 mg tablet 50 mg PO BID@0700,1830 RF: 0 cyclophosphamide 25 mg capsule 25 mg PO DAILY@0700 RF: 0 atorvastatin 40 mg tablet 40 mg PO DAILY@0700 RF: 0 metformin 1,000 mg tablet 1,000 mg PO DAILY@0700 RF: 0 zinc gluconate 50 mg tablet 50 mg PO DAILY@0700 RF: 0 Berberacticv 2 cap PO BID@699,1829 RF: 0 Biocidin Proflora 1 cap PO DAILY@0700 RF: 0 Biotics Iag 1 tbsp PO DAILY@0700 RF: 0 Dim Enhanced 2 cap PO DAILY@0700 RF: 0 Gi Detox 2 cap PO BEDTIME@1830 RF: 0 Mercola Fermented Mushroom Complex 3 cap PO DAILY@0700 RF: 0 Pro Butyrate 2 cap PO BID@699,1829 RF: 0 Quercisorb 2 cap PO BID@699,1829 RF: 0 Resvirasrt 2 cap PO BID@699,1829 RF: 0 genistein 2 cap PO BID@699,1829 RF: 0 milk thistle 3 cap PO BEDTIME@1829 RF: 0 Jennifer Jim Brian See Rx Instructions .ROUTE .COMPLEX RF: 0 Padmini Salcedo See Rx Instructions .ROUTE .COMPLEX RF: 0 Green Tea Liquid Extract See Rx Instructions .ROUTE .COMPLEX RF: 0 Samir Broussard Anuel See Rx Instructions .ROUTE .COMPLEX RF: 0 Luis E Medina See Rx Instructions .ROUTE .COMPLEX RF: 0 oxycodone-acetaminophen 5-325 mg tablet See Rx Instructions .ROUTE .COMPLEX RF: 0 prochlorperazine 25 mg suppository 25 mg NM Q12H PRN (Reason: NAUSEA/VOMITING) RF: 0 omeprazole 20 mg Tablet,Delayed Release (Dr/Ec) 20 mg PO DAILY@0700 RF: 0 cyclophosphamide 25 mg capsule 25 mg PO DAILY@0700 RF: 0 Spycel 100 mg PO DAILY@0700 RF: 0 aspirin 81 mg Tablet,Chewable 81 mg PO DAILY@0700 RF: 0 multivitamin [Multiple Vitamins] Tablet 1 tab PO DAILY@0700 RF: 0 nitroglycerin [Nitrostat] 0.4 mg Tablet, Sublingual 0.4 mg SUBLINGUAL Q5M PRN (Reason: Chest Pain) RF: 0 Keytruda See Rx Instructions .ROUTE .COMPLEX RF: 0 Hold Instructions: Please follow up with oncology before resuming medication Vitamin C 1 tab PO DAILY@0700 RF: 0 Discontinued Eliquis 5 mg tablet 5 mg PO BID@699,1829 RF: 0 Discharge Orders: Discharge Order (Routine); Ordered 07/28/20 Ordered By: Aries Fonseca Referrals: Clement Tovar MD [Physician] - 1 week George Rabago MD [Hospitalist] - 1 week Discharge Diet: Diabetic Discharge Activity: Resume usual activity Activity Restrictions/Additional Instructions: Patient will need outpatient MRCP done next week and will follow with after MRCP is done in a week. DS Attestations Quality - Stroke: Symptom Onset Unknown: No Quality - VTE: Deep Vein Thrombosis/Pulmonary Embolism Present on Admission: N o Coding Level of Care Code Acute [employer] [facility] Fwd Diagnoses Sepsis A41.9 Community acquired pneumonia J18.9 Transaminitis R74.0 Hyponatremia E87.1 Anemia D64.9 Diabetes type 2, controlled E11.9 Pulmonary emboli I26.94 Pulmonary embolism type: multiple subsegmental (without acute cor pulmona le) Metastatic cancer C79.9 Area of secondary neoplastic involvement: unspecified site Generalized weakness R53.1
[2020-07-28 11:22] VITALS: BP 112/70; PULSE 91; RESP 18; TEMP 36.6; O2SAT 95
[2020-07-28 11:58] LABS: Glucose Point of Care 118 mg/dL (70-110)
--- NOTE | 2020-07-28 13:02 | P.DS_ITS ---
Discharge Providers Date of Admission: 07/23/20 16:54 Date of Discharge: July 28, 2020 Attending Provider at Admission: Aries Fonseca MD Attending Provider at Discharge: Aries Fonseca MD Primary Care Provider: ANKIT Smith Diagnoses at Discharge Discharge Diagnosis (1) Sepsis: Status: Resolved (2) Community acquired pneumonia: Status: Resolved (3) Transaminitis: Status: Chronic Permanent problem details: -Known metastatic disease to the liver (4) Hyponatremia: Status: Acute (5) Anemia: Status: Acute (6) Diabetes type 2, controlled: Status: Acute (7) Pulmonary emboli: Status: Acute Permanent problem details: -noted bilateral PE on CT scan of the chest done following elevated D-dimer -Echo: EF=55%, mild LVH, G1DD, no evidence of R heart strain -venous duplex negative for DVT -ontherapeutic dose of Lovenox, switched to Eliquis -No prior history of PE; biggest risk factor is likely underlying malignancy -stable vital signs and respiratory status -Noted hypoxia on ABG Qualifiers: Pulmonary embolism type: multiple subsegmental (without acute cor pulmonale) Qualified Code(s): I26.94 - Multiple subsegmental pulmonary emboli without acute cor pulmonale (8) Metastatic cancer: Status: Acute Qualifiers: Area of secondary neoplastic involvement: unspecified site Qualified Code(s): C79.9 - Secondary malignant neoplasm of unspecified site (9) Generalized weakness: Status: Acute Reason for Visit Reason for Visit: FEVER/FLUID BUILD UP/ ABD PRESSURE Hospital Course Hospital Course Steven Arellano is a 65 year old male with past medical history of CAD post stent, Covid, PE on Eliquis , Ca Colon 2018 S/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 Upon arrival in the ER he was worked up for above-mentioned, complaint. Imaging study: X-ray chest: Hypoinflation with interstitial prominence and mild airspace disease. Pleural spaces: Small pleural effusions. No pneumothorax. US abdomen : Small amount of ascites. US gall bladder: Patient has known metastatic disease within the liver. Difficult to determine if the metastatic disease has progressed or not. Small amount of ascites.Gallbladder: Not identified. CBD: 0.4 cm. Pertinent lab: WBC: 10.2, H/H: 7.6/24, PLT: 192, Serum sodium: 125, K: 4.4, BUN/SCR: 15/0.6, serum lactate: 1.2 Total bilirubin: 3.3, GGT: 1028, AST:123, ALT:58, ALP: 1074 , lipase:58 Urine specific gravity: 1.03 ECA medication: Levofloxacin 750 mg IV x1 dose.He was admitted for the management of sepsis 2/2 PNa. Blood culture:Neagive Sputum culture::Negative, Lactic acid:1.8, Procalcitonin:0.36 CT chest abdomen and pelvis without contrast:Ill-defined areas of ground-glass opacification in the periphery of both lungs.Multiple low-density lesions in the liver suspicious for metastatic foci are overall stable in size.Cystic focus in the head of the pancreas is stable. Initially on ceftriaxone 1 g every 24 hours daily. Later switched to Vancomycin and zosyn and was discharged on levofloxacin fo additional 5 days.At the time of discharge fresh home oxygen evaluation was done as and he qualified for He was also managed for transaminitis,likely 2/2 to metastatic disease v/s possible metastatic involvement of the cystic duct and gallbladder with obstruction and dysfunction. His LFT was monitored and it was stable, patient was able to eat,had no nausea or vomiting, clinical suspicion for ascending cholangitis was low.HIDA scan was done:Hepatomegaly with diffuse heterogeneous radiotracer activity consistent with known metastatic disease.Nonvisualization of the gallbladder at 2 hours. Gallbladder appears small and contracted on recent imaging studies and difficult to visualize. Nonfilling typically seen with cystic duct obstruction with cholecystitis however, in this case consider metastatic involvement of the cystic duct and gallbladder with obstruction and dysfunction. Gallbladder ejection fraction not calculated due to nonvisualization of the gallbladder. Common bile duct and small bowel activity visualized. Patient will have outpatient MRCP after discharge and will follow on discharge. He was also managed for hypovolemic Hyponatremia and responded well o I.V Hydration with normal saline. For his Anemia: Normocytic anemia: Likely anemia of chronic disease:He received 2 U PRBC Transfusion on 07/25as his hb has dropped to 6.9 .Post transfusion his Hb remained stable. For his prior h/o p/e post COVID.He completed 6 months course of eliquis and hence it was stopped. Patient Rt I.J tunneled catheter which was placed for immunotherapy was also removed during this hospital stay. Patient responded well o the above medical management and is being discharged in stable condition.He will coninue to follow as an outpatient. Physical Exam Const: COMMON NORMALS: patient oriented x3 HENMT: COMMON NORMALS: normocephalic and atraumatic HEAD & SCALP: normocephalic and atraumatic Chest: CHEST: Yes Symmetrical chest wall rise Resp: COMMON NORMALS: clear to auscultation bilaterally AUSCULTATION: clear to auscultation bilaterally Cardio: COMMON NORMALS: regular rate, regular rhythm, S1 normal heart sound present, S2 normal heart sound present, No gallops present (Cardio), No murmurs present (Cardio), No rub (Cardio) and Peripheral pulses 2+ throughout RATE: regular rate RHYTHM: regular rhythm HEART SOUNDS: S1 normal heart sound present and S2 normal heart sound present PERIPHERAL PULSES: Peripheral pulses 2+ throughout GI: COMMON NORMALS: Normal to inspection, nondistended, normoactive bowel sounds present, Soft to palpation, non-tender, No hepatosplenomegaly present and no masses AUSCULTATION: Yes normoactive bowel sounds PALPATION: Yes Soft t o palpation and Yes No hepatosplenomegaly present RECTAL EXAM: Yes deferred Extremity: COMMON NORMALS: no clubbing, cyanosis or edema and no pedal edema Neuro: COMMON NORMALS: patient oriented x3 Discharge Data Data Completed and Pending: Completed Studies During Hospitalization Category Date Time Status CT chest abd pel wo con Routine Cat Scan 07/23/20 20:03 Completed XR chest 1V araceli ble [id number] Urgent Exams 07/23/20 13:07 Completed NM hepatobiliary w phar* [id number] Rout ine Nuc Med 07/27/20 07:00 [place] [id number] Urgent Ultrasound 07/23/20 13:31 Completed US gall bladder 7 0081 Urgent Ultrasound 07/23/20 14:49 Completed Pending at discharge Category Date Time Status Blood Culture Sta t Lab 07/23/20 13:00 Results Complete Blood Co unt w/Auto AM LABS Lab 07/29/20 04:00 Ordered Comprehensive Met abolic Panel AM LA BS Lab 07/29/20 04:00 Ordered Miscellaneous Kathy t Routine Lab 07/25/20 00:25 Received Osmolality Urine Routine Lab 07/25/20 00:25 Received Vancomycin Trough Timed Lab 07/28/20 21:00 Ordered Labs from last 24 hours 07/28/20 07/28/20 07/28/20 11:20 06:14 05:48 WBC RBC Hgb Hct MCV MCH MCHC RDW Plt Count MPV Neut % (Auto) Lymph % (Auto) Bullock % (Auto) Eos % (Auto) Baso % (Auto) Neut # (Auto) Lymph # (Auto) Bullock # (Auto) Eos # (Auto) Baso # (Auto) Nucleated RBC % (a uto) Nucleated RBCs # Sodium 130 L Potassium 3.3 L Chloride 100 Carbon Dioxide 22 Anion Gap 11.3 BUN 13 Creatinine 0.5 L GFR Calculation 166.9 H Glucose 99 POC Glucose 118 H 124 H Calculated Osmolal ity 270 L Calcium 8.4 L Total Bilirubin 3.3 H AST 124 H ALT 59 H Alkaline Phosphata se 844 H Total Protein 4.6 L Albumin 2.4 L Globulin 2.2 07/28/20 07/27/20 07/27/20 05:48 19:30 16:43 WBC 8.2 RBC 2.97 L Hgb 8.9 L Hct 28.4 L MCV 95.6 H MCH 30.0 MCHC 31.3 RDW 20.0 H Plt Count 150 MPV 11.8 H Neut % (Auto) 70.0 Lymph % (Auto) 8.6 Bullock % (Auto) 17.8 Eos % (Auto) 2.6 Baso % (Auto) 0.4 Neut # (Auto) 5.76 Lymph # (Auto) 0.7 L Bullock # (Auto) 1.5 H Eos # (Auto) 0.2 Baso # (Auto) 0.0 Nucleated RBC % (a uto) 0 Nucleated RBCs # 0.0 Sodium Potassium Chloride Carbon Dioxide Anion Gap BUN Creatinine GFR Calculation Glucose POC Glucose 137 H 163 H Calculated Osmolal ity Calcium Total Bilirubin AST ALT Alkaline Phosphata se Total Protein Albumin Globulin Vitals: Last Vital Signs Temp 97.9 F 07/28/20 11:22 Pulse 91 07/28/20 11:22 Resp 18 07/28/20 11:22 BP 112/70 07/28/20 11:22 Pulse Ox 95 07/28/20 11:22 Discharge Plan Discharge Patient Disposition: Home Condition: Stable Prescriptions: New Lasix 20 mg tablet 20 mg PO DAILY Qty: 30 RF: 0 Robitussin Cough-Chest Juan Pablo DM 10-200 mg capsule 1 tab-cap PO Q8H PRN (Reason: cough) Qty: 14 RF: 0 Tessalon Perles 100 mg capsule 100 mg PO BID PRN (Reason: cough) Qty: 14 RF: 0 levofloxacin 500 mg tablet 500 mg PO DAILY 5 Days RF: 0 Continued ondansetron 8 mg Tablet,Disintegrating 8 mg PO Q12H PRN (Reason: NAUSEA/VOMITING) RF: 0 spironolactone 50 mg tablet 50 mg PO BID@0700,1830 RF: 0 cyclophosphamide 25 mg capsule 25 mg PO DAILY@0700 RF: 0 atorvastatin 40 mg tablet 40 mg PO DAILY@0700 RF: 0 metformin 1,000 mg tablet 1,000 mg PO DAILY@0700 RF: 0 zinc gluconate 50 mg tablet 50 mg PO DAILY@0700 RF: 0 Berberacticv 2 cap PO BID@0700,1830 RF: 0 Biocidin Proflora 1 cap PO DAILY@0700 RF: 0 Biotics Iag 1 tbsp PO DAILY@0700 RF: 0 Dim Enhanced 2 cap PO DAILY@0700 RF: 0 Gi Detox 2 cap PO BEDTIME@1830 RF: 0 Mercola Fermented Mushroom Complex 3 cap PO DAILY@0700 RF: 0 Pro Butyrate 2 cap PO BID@0700,1830 RF: 0 Quercisorb 2 cap PO BID@0700,1830 RF: 0 Resvirasrt 2 cap PO BID@0700,1830 RF: 0 genistein 2 cap PO BID@0700,1830 RF: 0 milk thistle 3 cap PO BEDTIME@1830 RF: 0 Jennifer Jim Brian See Rx Instructions .ROUTE .COMPLEX RF: 0 Padmini Salcedo See Rx Instructions .ROUTE .COMPLEX RF: 0 Green Tea Liquid Extract See Rx Instructions .ROUTE .COMPLEX RF: 0 Samir Agee See Rx Instructions .ROUTE .COMPLEX RF: 0 Luis E Medina See Rx Instructions .ROUTE .COMPLEX RF: 0 oxycodone-acetaminophen 5-325 mg tablet See Rx Instructions .ROUTE .COMPLEX RF: 0 prochlorperazine 25 mg suppository 25 mg DC Q12H PRN (Reason: NAUSEA/VOMITING) RF: 0 omeprazole 20 mg Tablet,Delayed Release (Dr/Ec) 20 mg PO DAILY@0700 RF: 0 cyclophosphamide 25 mg capsule 25 mg PO DAILY@0700 RF: 0 Spycel 100 mg PO DAILY@0700 RF: 0 aspirin 81 mg Tablet,Chewable 81 mg PO DAILY@0700 RF: 0 multivitamin [Multiple Vitamins] Tablet 1 tab PO DAILY@0700 RF: 0 nitroglycerin [Nitrostat] 0.4 mg Tablet, Sublingual 0.4 mg SUBLINGUAL Q5M PRN (Reason: Chest Pain) RF: 0 Keytruda See Rx Instructions .ROUTE .COMPLEX RF: 0 Hold Instructions: Please follow up with oncology before resuming medication Vitamin C 1 tab PO DAILY@0700 RF: 0 Discontinued Eliquis 5 mg tablet 5 mg PO BID@0700,1830 RF: 0 Discharge Orders: Discharge Order (Routine); Ordered 07/28/20 Ordered By: Aries Fonseca Referrals: Clement Tovar MD [Physician] - 1 week ([facility] will call you Thursday to set up an appointment.) George Rabago MD [Hospitalist] - 1 week ([facility] will call you Thursday to set up an appintment.) Discharge Diet: Diabetic Discharge Activity: Resume usual activity Patient Instructions: Benzonatate (By mouth), Furosemide (By mouth), Levofloxacin (By mouth) Activity Restrictions/Additional Instructions: Patient will need outpatient MRCP done next week and will follow with after MRCP is done in a week. Discharge Attestations Time Spent in Discharge Care*: less than 30 min Specific Discharge Activities: educating patient, discussing with pcp/other providers, discussing with case management manager/social workers/dc planners, documenting/other paperwork and evaluating patient/reviewing data Status at Discharge: Cognitive status at discharge: cognitively intact , Behavioral status at discharge: cooperative and independent in ADL's , Quality Metrics Clinical Quality Measures During this hospital stay, did patient experience: None Coding Level of Care Code Acute [facility] DC note Diagnoses Sepsis A41.9 Community acquired pneumonia J18.9 Transaminitis R74.0 Hyponatremia E87.1 Anemia D64.9 Diabetes type 2, controlled E11.9 Pulmonary emboli I26.94 Pulmonary embolism type: multiple subsegmental (without acute cor pulmonale) Metastatic cancer C79.9 Area of secondary neoplastic involvement: unspecified site Generalized weakness R53.1
[2020-07-28 13:27] VITALS: O2SAT 87; O2SAT 94
[2020-07-28 16:23] VITALS: BP 112/70; PULSE 91; RESP 18; TEMP 36.6; O2SAT 95
== END 2020-07-28 15:00 | disposition home or self-care (01) | DRG 871 ==
LOC: ER 13:01 → MEDSURG 17:38
PROVIDERS: Admitting Provider Internal Medicine; Emergency Provider Family Medicine; PCP Nurse Practitioner Family; Visit Provider Internal Medicine
DX: A41.9 Sepsis, unspecified organism (principal); J18.9 Pneumonia, unspecified organism; E87.1 Hypo-osmolality and hyponatremia; I27.82 Chronic pulmonary embolism; C78.7 Secondary malignant neoplasm of liver and intrahepatic bile duct; C78.89 Secondary malignant neoplasm of other digestive organs; C78.00 Secondary malignant neoplasm of unspecified lung; D84.821 Immunodeficiency due to drugs; R18.8 Other ascites; R74.01 Elevation of levels of liver transaminase levels; D63.8 Anemia in other chronic diseases classified elsewhere; R53.1 Weakness; E11.9 Type 2 diabetes mellitus without complications; I25.10 Atherosclerotic heart disease of native coronary artery without angina pectoris; K21.9 Gastro-esophageal reflux disease without esophagitis; E78.5 Hyperlipidemia, unspecified; Z79.01 Long term (current) use of anticoagulants; Z79.82 Long term (current) use of aspirin; Z79.84 Long term (current) use of oral hypoglycemic drugs; Z79.891 Long term (current) use of opiate analgesic; Z86.16 Personal history of COVID-19; Z95.5 Presence of coronary angioplasty implant and graft; Z85.038 Personal history of other malignant neoplasm of large intestine; Z92.21 Personal history of antineoplastic chemotherapy; Z90.49 Acquired absence of other specified parts of digestive tract; I25.2 Old myocardial infarction; Z87.891 Personal history of nicotine dependence
CPT/HCPCS: 36415; 36416; 36430; 36591; 36592; 71045; 71250; 74176; 76705; 78227; 80053; 80202; 81003; 82533; 82550; 82607; 82728; 82746; 82962; 82977; 83540; 83550; 83605; 83690; 83930; 83935; 84145; 84300; 84311; 84443; 84466; 85025; 86140; 86850; 86900; 86920; 87040; 87070; 96365; 96372; 96375; 99285; A9537; J0696; J1815; J1940; J1956; J2405; J2543; J3370; J7030; J7050; P9016

== ENCOUNTER 2020-08-01 08:31 | Outpatient (CLI) | payer MEDICARE, BC, SELFPAY ==
--- NOTE | 2020-08-01 08:46 | MR_ITS ---
WS: [id number] MRCP (MAGNET[facility]ONANCE CHOLANGIOPANCREATOGRAPHY) HISTORY: ELEVATED TRANSAMINASE MEASUREMENT COMPARISON: 06/01/2019 and 07/23/2020 TECHNIQUE: Multiple sequences are performed to evaluate the intra and extrahepatic ducts. Common bile duct is small size measuring 3 to 4 mm. No intrahepatic duct dilatation. Pancreatic duct and the common bile duct at the pancreatic head are normal. Overall the study quality is limited by m otion artifact. Numerous sequences are nondiagnostic. Gallbladder is not relatively visible. Small amount of ascites surrounding the distal organs of the upper abdomen. Patient has known metastatic disease. There are multiple masses scattered throughout an enlarged live r. Masses have variable signal intensity on the T2 sequences. As indicated on a recent CT these may b e treated metastatic static lesions. MR/MR MRCP [id number] IMPRESSION: 1. Normal size common bile duct. No intrahepatic duct dilatation. 2. Gallbladder is not visualized. 3. Small amount of ascites. 4. Enlarged liver with numerous metastatic sites. Variable signal within these metastatic sites suggesting treated metastasis.
== END 2020-08-01 08:32 | disposition home or self-care (01) ==
LOC: RADWPI 08:42
PROVIDERS: PCP Nurse Practitioner Family; Visit Provider Internal Medicine
DX: R74.01 Elevation of levels of liver transaminase levels (principal); R18.8 Other ascites; R16.0 Hepatomegaly, not elsewhere classified
CPT/HCPCS: 74181

== ENCOUNTER 2020-08-06 11:30 | Outpatient (CLI) | payer MEDICARE, BC, SELFPAY ==
[2020-08-06 12:50] LABS: Basophils # 0.1 10^3/uL (0.0-0.1); Basophils % 0.5 %; Eosinophils # 0.3 10^3/uL (0.0-0.8); Eosinophils % 3.3 %; Hematocrit 35.5 % (42.0-52.0); Hemoglobin 11.2 g/dL (11.7-16.6); Lymphocytes # 1.3 10^3/uL (0.8-4.8); Lymphocytes % 12.2 %; Mean Corpuscular HGB Conc 31.5 g/dL (30.0-36.0); Mean Corpuscular Hemoglobin 30.6 pg (28.0-34.0); Mean Platelet Volume 10.8 fL (7.4-10.4); Monocytes # 2.2 10^3/uL (0.2-0.9); Monocytes % 21.2 %; Neutrophils # 6.49 10^3/uL (1.8-7.7); Nucleated Red Blood Cells % 0 %; Platelet Count 251 10^3/cmm (130-400); Red Blood Count 3.66 10^6/uL (4.1-5.3); White Blood Count 10.5 10^3/uL (4.0-10.0)
[2020-08-06 13:05] LABS: INR 0.97 (0.8-1.2)
[2020-08-06 13:11] LABS: Alanine Aminotransferase 81 U/L (0-41); Albumin Level 2.8 g/dL (3.5-5.2); Anion Gap 11.3 (5-19); Aspartate Amino Transferase 126 U/L (0-40); Blood Urea Nitrogen 19 mg/dL (8-23); Calcium 11.3 mg/dL (8.5-10.5); Carbon Dioxide 27 mmol/L (22-29); Chloride 98 mmol/L (98-107); Ferritin 405 ng/mL (30-400); Globulin 2.6 g/dL (1.3-4.6); Glomerular Filtration Rate 135.2 mL/min (90-130); Glucose 124 mg/dL (65-115); Iron 46 ug/dL (59-158); Osmolality Calculated 278 mOsm/kg (285-295); Percent Saturation 16.7 % (20-50); Potassium 4.3 mmol/L (3.5-5.1); Sodium 132 mmol/L (136-145); Total Bilirubin 2.6 mg/dL (0.15-1.2); Total Iron Binding Capacity 274 mcg/dl; Total Protein 5.4 g/dL (6.6-8.7); Unsaturated Iron Binding 228 ug/dL (112-347)
[2020-08-06 13:25] LABS: Alkaline Phosphatase 1331 IU/L (40-130)
[2020-08-06 13:35] LABS: Erythrocyte Sedimentation Rate 69 mm/hr (0-10)
--- NOTE | 2020-08-07 19:19 | ONC FU_ITS ---
Dr. Rabago Patient Follow-Up Note Patient: Steven Arellano Unit #: [id number]: 1955 Dicatated By: George Rabago M.D.Date of Visit:Aug 06, 2020 Onc Med Follow-up/Prog Note Chief Complaint: Colon cancer. 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 In February 2018 he was referred to Dr. Jay with a one-month history of hematochezia. His colonoscopy showed a mass in the transverse colon. Biopsy showed tubular adenoma with high-grade dysplasia, but the mass did appear malignant. Other findings were limited to an inflammatory type polyp in the proximal descending colon and hyperplastic polyps in the rectum. CT of the abdomen and pelvis showed circumferential thickening in the distal transverse colon proximal to the splenic flexure, suspicious for neoplasm. There were multiple low-attenuation lesions noted in the liver, the largest in the left hepatic lobe measuring 3.2 cm. An additional prominent lesion near the dome measured 2.8 cm. There were numerous low-attenuation circumferential lesions in the right hepatic lobe measuring 1-2 cm. The findings were consistent with metastatic disease. On 03/25/2018 he underwent exploratory laparotomy with partial transverse colectomy and biopsy of a right hepatic lobe lesion. Pathology showed grade 1-2/4 infiltrating adenocarcinoma measuring 3.0 x 2.7 cm. There was penetration through the muscularis propria into serosal connective tissues. There was involvement in one of 12 mesenteric lymph nodes. The liver biopsy showed metastatic adenocarcinoma. I had seen him initially on 04/13/2018. We had discussed the possibility of a trial of palliative chemotherapy with a FOLFOX-based regimen. He subsequently underwent evaluation at [facility] in [facility]. His evaluation there included a next generation sequencing study by liquid biopsy. 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 The KRAS, NRAS, and BRAF mutations were not detected. A trial of palliative chemotherapy was again recommended. Instead, he sought treatment through [facility] in [facility]. Based on their in vitro studies, he apparently then began initial course of chemotherapy with cyclophosphamide, epirubicin, and irinotecan dosed at 2-week intervals for 8 weeks. He also was administered a variety of vitamin and herbal supplements. On 06/11/2018 he underwent a chemoembolization procedure with Quadraspheres loaded with epirubicin. He received a dosage of 60 mg to the right hepatic lobe and 50 mg to the left hepatic lobe. In June he began treatment with pembrolizumab 200 mg by IV infusion every 3 weeks together with cetuximab 500 mg by IV infusion weekly. Thus far he has received only 2 infusions of cetuximab, which he completed with only minimal reaction. He received his most recent infusion of pembrolizumab on 08/27/2018. In addition, from 08/03/2018 through 08/05/2018 he underwent AAIT therapy in [place]. His follow-up laboratory studies have shown decline in the CEA level from 178.6 ng/mL on 05/07/2018 to 60.9 ng/mL on 07/26/2018. His restaging PET/CT on 07/28/2018 showed interval significant response to treatment with resolution of multiple foci of increased metabolic activity in the liver. His other medical illnesses have been limited to coronary artery disease and dyslipidemia. He had suffered an inferior wall myocardial infarction in February 2017, at which time he underwent angioplasty with stent placement of the right coronary artery. He had no further cardiac problems. He has had no other prior medical illnesses. He had smoked cigars in the past, but only for a few years. He had chewed tobacco for 20 years, but he quit at least 15 years ago. He does not drink alcohol. His family history is significant in that his mother and a brother have also been treated for colon cancer. INTERIM HISTORY: On 08/27/2018 he restarted treatment with pembrolizumab 200 mg IV every 3 weeks together with cetuximab 500 mg IV weekly. He returned here on 08/30/2018 so that he could continue his pembrolizumab and cetuximab infusions closer to home. He had experienced no adverse effects with the initial infusions, and he continued with his day 8 and day 15 cetuximab infusions, also with no adverse effects. His repeat CEA level on 09/08/2018 was down to 9.1 ng/mL compared to 60.9 ng/mL on 07/26/2018. During subsequent follow-up his CEA level continued to decline. As of 12/06/2018 it had stabilized at 1.0 ng/mL. Restaging CT scans of the chest, abdomen, and pelvis on 12/15/2018 showed no evidence of metastatic disease the lungs. A 4 mm left perifussural nodule appeared stable. Numerous hepatic metastatic lesions appeared stable compared to the PET/CT from 10/23/2018. The largest in the left hepatic lobe measured 2.7 x 3.8 cmwith those findings he continued treatment with cetuximab in combination with pembrolizumab. Restaging PET/CT on 02/05/2019 showed improved bilateral hilar lymph nodes compared to the prior PET/CT studies. Multiple hepatic lesions appeared to have resolved, but with unchanged left and right hepatic dome lesions. Overall the findings were consistent with a positive metabolic response. He continued treatment with cetuximab in combination with pembrolizumab. As of 03/23/2019 he began his 11th cycle of treatment. At that point there was a significant increase in the CEA level, 13.9 ng/mL compared to 10.7 ng/mL on 03/02/2019 and to 3.9 ng/mL on 01/17/2019. With that increase and with evidence of residual hepatic involvement in the liver by PET/CT, he yañez a repeat TACE procedure in March. He was then seen for a follow-up visit on 04/13/2019. At that point he continued treatment with pembrolizumab in combination with cetuximab. A restaging PET/CT on 05/07/2019 reported worsening of hepatic metastatic disease with a central left hepatic lobe lesion measuring 3.6 x 6.7 with SUV 7.2. A lesion in the medial left hepatic lobe showed increased SUV to 4.5. Other subcentimeter lesions appeared unchanged. Also noted was new enlargement of the head of the pancreas with mild FDG uptake, possibly representing pancreatitis. On 05/27/2019 he was admitted to the hospital with a presumptive diagnosis of acute pancreatitis, having presented to the emergency room with nausea/vomiting in association with a dull achy pain in the epigastric area. His serum lipase was elevated at 683 U/L. CT abdomen/pelvis showed increase in the size of the head of the pancreas with numerous low-density lesions, possibly representing acute pancreatitis. Multiple low-density lesions in the liver were noted to have increased in size and number, consistent with worsening metastatic disease. There appeared to be acute gastric retention. Fluid within the small bowel was suggestive of a severe ileus. His symptoms improved with supportive treatment measures. He was discharged home on 05/29/2019. He had further evaluation with MRI of the abdomen at [facility] on 06/01/2019. It showed multiple lesions throughout the bilateral lobes of the liver consistent with hepatic metastases. An additional lesion within the left lobe of the liver appeared to be consistent with a cavernous hemangioma. A mixed cystic and solid mass was noted within the head and uncinate process of the pancreas measuring 3.2 x 4.5 cm. It had indeterminate features by MRI, possibly representing a primary pancreatic neoplasm versus metastatic lesion. We had then made arrangements for an EUS procedure, but he opted instead to return to [place] for a biopsy. When he arrived there, he was told that a would not be able to do the biopsy, so he returned home and he requested a follow-up visit here. In the meantime, his recent studies done through [facility] had included a K-sheila mutation analysis, which detected a G12C KRAS mutation. With that finding, he was recommended to stop treatment with cetuximab. He continued treatment here with pembrolizumab at the standard dosage of 200 mg by IV infusion every 3 weeks. He then had further liver directed therapy in [place] on 08/03/2019. He also had restaging PET/CT which showed multiple FDG avid liver lesions showing significant interval increase in extent and metabolic activity. New FDG avid lesions were compatible with progression of metastatic malignancy. A left upper lobe pulmonary nodule had increased from 0.3 to 0.5 cm, but with no associated FDG activity. At that time he also started treatment with regorafenib at 160 mg daily. At his follow-up visit on 09/02/2019 he reported significant side effects with the regorafenib, and he had stopped taking it. His symptoms were improving, and he was instructed to restart it at a reduced dosage. At his follow-up visit on 10/13/2019 he was again having significant side effects with the regorafenib, but at that time he was back on the full dosage of 160 mg daily. The regorafenib was then stopped permanently, but he continued treatment with pembrolizumab. Restaging CT scans of the chest, abdomen, and pelvis on 10/31/2019 showed stable 4 mm pulmonary nodule along the left fissure. Mediastinal and hilar lymphadenopathy with similar to prior studies. Multiple heterogeneously enhancing low-attenuation hepatic metastatic lesions also appeared similar to the recent PET/CT. The largest lesion was in the left lobe of the liver measuring 8.1 x 6.1 cm. The pancreatic head appeared normal. He continued with cycle 19 of pembrolizumab on 11/03/2019. He then returned to [place] where he underwent a CI PI procedure to the liver and lung lesions on 11/21/2019. At that time he also was recommended to add axitinib 5 mg every 12 hours together with capmatinib 400 mg every 12 hours to his treatment regimen. He returned here for cycle 20 of pembrolizumab on 11/24/2019 and he then continued treatment at 3-week intervals.. As of his follow-up visit on 01/26/2020 he began further treatment with axitinib 5 mg every 12 hours together with capmatinib 400 mg every 12 hours. On 02/13/2020 he was admitted to the hospital with COVID-19 virus infection. He had associated bilateral pulmonary emboli, for which he began on anticoagulation with apixaban. Axitinib and capmatinib were permanently discontinued. He restarted his pembrolizumab treatments on 03/08/2020 and as of 04/25/2020 the pembrolizumab was changed to the 6-week dosing schedule. In April he returned to [place] for further AAIT, and received additional NKT-cell infusions there in May. In the meantime, from 05/10/2020 through 05/22/2020 he underwent radiation to one of the larger metastatic lesions in the liver. The total dose was 3000 cGy. He tolerated the treatment well. During that time, his treatment regimen was also amended to include Sprycel 100 mg daily together with cyclophosphamide 25 mg daily. At his follow-up visit on 06/15/2020 he was still feeling pretty good generally. He has liver enzymes were just mildly to moderately elevated. He continued with his second infusion of pembrolizumab at the 6-week interval dosage (400 mg). On 07/23/2020 he was admitted to the hospital after presenting to the emergency room with fever. He also complained of cough and he was noted to be hypoxic. His chest CT showed ill-defined areas of groundglass opacification in the periphery of both lungs, felt to be nonspecific. There was associated compressive atelectasis in both lungs and there was interval development of multiple noncalcified nodules in the right lung concerning for metastatic foci. The abdomen/pelvis showed multiple low-density lesions in the liver which overall appeared stable in size. There were no new lesions identified. The liver had a more nodular contour concerning for possible developing cirrhosis. The gallbladder was not definitely visualized. A cystic focus in the head of the pancreas appeared stable measuring 1.5 x 1.8 cm. There was noted to be a large volume ascites with diffuse mesenteric edema. There was no lymphadenopathy. He was taken off the Sprycel and the cyclophosphamide. He began antibiotic coverage with Levaquin, subsequently transitioned to vancomycin/Zosyn. Blood and sputum cultures remain negative. Further evaluation with ultrasound and a HIDA scan continue to show nonvisualization of the gallbladder. During the hospitalization no significant further increase in the bilirubin and alkaline phosphatase level. He also became anemic, requiring PRBC transfusion. At discharge on 07/28/2020 his bilirubin remained elevated at 3.3 mg/dL with alkaline phosphatase 844 IUs/L. He remained oxygen dependent, and he continued antibiotic coverage with Levaquin. He had outpatient follow-up with Dr. Tovar. Further evaluation with MRCP showed no evidence of bile duct obstruction. The gallbladder was not visualized. The liver was enlarged with numerous metastatic sites. He is seen for a follow-up visit. He remains very weak with almost no activity. ECOG score is 3. His appetite is getting a little better. He has lost weight. He has had just slight fever. He has not been having night sweating. He has shortness of breath with activity. He has just occasional cough now. He does not complain of chest pain. He has not been having nausea. He has mild acid reflux, adequately managed with Pepcid. He has no complaints with bowel function, but he is still having pain occasionally in the mid abdominal area. His stool Hemoccult was found to be positive. He has urinary frequency and nocturia. He has no significant joint or bone pain. He does not complain of headache or dizziness. He has no focal neurologic symptoms. Medications: Aspirin 1 Tablet (of 81 mg) Tablet, enteric coated Oral daily, Eliquis 1 Tablet (of 5 mg) Oral b.i.d., metFORMIN HCl 1 Tablet (of 1000 mg) Oral daily, Multivitamin Adults 1 Tablet Oral daily, Nitroglycerin 1 (0.4 mg) Tablet, sublingual Sublingual PRN Allergies: No Known Allergies. Vital Signs: Performed on Aug 06, 2020 11:46 Height - 70.00 in Weight - 161.2 lbs (LOW) BSA - 1.90 sq.m BMI - 23.13 Temperature - 97.6 F (LOW) Pulse - 99 /min Respiration - 18 /min BP - 119/75 mm(hg) O2 Sat - 96 % Pain - 0 Fatigue - 6 Physical Examination: Constitutional - He appears very weak generally and he has had obvious muscle wasting, Eyes - Sclerae nonicteric. Conjunctivae clear, ENMT - No lesions noted in the oral cavity, Hematologic/Lymphatic - No cervical, clavicular, or axillary adenopathy, Respiratory - Lungs show markedly diminished air movement bilaterally. There is no wheezing, Cardiovascular - Heart rhythm is regular. There is no murmur, gallop, or rub noted, Abdomen - Mildly distended and soft. There does appear to be some ascites. Liver is not enlarged or tender. Spleen is not palpable. There is no abdominal mass noted and there is no inguinal adenopathy, Extremities - No edema, Integumentary - There is no skin eruption, Neurologic - He does not appear to have any focal neurologic deficit. Lab/Imaging: Test performed on Aug 06, 2020 12:28 Ferritin 405 ng/mL Iron 46 mcg/dL Sodium 132 mmol/L Iron Binding Capacity (TIBC) 274 mcg/dl Potassium 4.3 mmol/L % Iron Saturation 16.7 % Chloride 98 mmol/L CO2 27 mmol/L UIBC 228 mcg/dL Anion Gap 11.3 BUN 19 mg/dL Creatinine 0.6 mg/dL Cr Clearance (Est) 126.9500 mL/min eGFR 135.2 mL/min Glucose 124 mg/dL Osmolality - Calculated 278 mOsm/kg Calcium 11.3 mg/dL Protein, Total 5.4 g/dL Albumin 2.8 g/dL Globulin 2.6 g/dL Bilirubin, Total 2.6 mg/dL ALT (SGPT) 81 U/L AST (SGOT) 126 U/L Alkaline Phosphatase 1331 IU/L ESR (Sed Rate) 69 mm/hr PT 13.20 SECONDS WBC 10.5 10 3/uL INR 0.97 RBC 3.66 10 6/uL HGB 11.2 g/dL HCT 35.5 % MCV 97.0 fL MCH 30.6 pg MCHC 31.5 g/dL RDW 19.0 % Platelet Count 251 10 3/cmm MPV 10.8 fL Neutrophils 6.49 10 3/uL Lymphocytes 1.3 10 3/uL Monocytes 2.2 10 3/uL Eosinophils 0.3 10 3/uL Basophils 0.1 10 3/uL Neutrophil % 62.0 % Lymphocyte % 12.2 % Monocyte % 21.2 % Eosinophil % 3.3 % Basophils % 0.5 % NRBC % 0 % Problem List: 1. Grade1-2/4 infiltrating adenocarcinoma of the transverse colon, stage CLAUDIA (T3, N1a, M1a) with biopsy-proven metastatic involvement in the liver. The tumor was found to be MSI stable. 2. He underwent exploratory laparotomy with partial transverse colectomy and liver biopsy on 03/25/2018. 3. Dyslipidemia. 4. Coronary artery disease with previous myocardial infarction and angioplasty/stent placement. 5. In January 2020 he was admitted to the hospital with COVID-19 virus infection. At that time he was found to have bilateral pulmonary emboli. Problems Addressed with this Encounter and Plan: 1. 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 The tumor was found to be MSI stable. He underwent exploratory laparotomy with partial transverse colectomy and liver biopsy on 03/25/2018. Subsequent to his initial visit here he was seen at [facility]. He then sought treatment through the [facility] in [facility]. His subsequent [employer] studies have shown presence of a G12C KRAS mutation, but a BRAF mutation was not detected. His began treatment with nonconventional systemic therapy, which initially included cyclophosphamide, epirubicin, and irinotecan dosed every 2 weeks, followed by liver directed therapy. In June 2017 he began treatment with pembrolizumab in combination with cetuximab. His cetuximab was eventually discontinued with evidence of progression of the metastatic disease in the liver. His subsequent therapies included a trial of regorafenib and a brief course of treatment with axitinib in combination with capmatinib. During this time he has been undergoing immune therapy treatments in [place], which include NKT-cell infusions. He also continued treatment with pembrolizumab. As of 03/08/2020 he had completed 24 infusions of pembrolizumab at the 3-week dosing schedule. As of 04/25/2020 his treatment was changed to the 6-week schedule. He continued with his 2nd cycle of pembrolizumab at the 6-week dosing schedule (400 mg by IV infusion) on 06/15/2020. In the meantime, in April 2020 he had returned to [place] for further AAIT in May he received additional NKT-cell infusions. He also began treatment with Sprycel and low-dose cyclophosphamide. 2. On 07/23/2020 he was admitted to the hospital with fever, cough, and hypoxia. Chest CT showed ill-defined areas of groundglass opacification in the periphery of both lungs. He was treated empirically for pneumonia, and the blood and sputum cultures remain negative. His laboratory studies showed significant increase in the bilirubin and alkaline phosphatase levels. He also became significantly anemic, requiring PRBC transfusion. During this time his GI evaluation included CT abdomen/pelvis, gallbladder ultrasound, HIDA scan, and MRCP demonstrating multiple liver metastases but without obvious progression, no evidence of bile duct obstruction, and nonvisualization of the gallbladder. During this time he has had a dramatic decline in his performance status and he remains oxygen dependent. It is uncertain to what extent his decline is attributable to infection, to treatment related toxicity, and or to progression of the colon cancer. His Sprycel and cyclophosphamide have been permanently discontinued, and for my part I will not be planning any further immunotherapy. He will be scheduled for ultrasound directed paracentesis, though I am not certain if there will be sufficient volume of ascites to warrant the procedure. He will otherwise continue close observation and supportive care measures. 3. During the hospitalization he became significantly anemic, requiring PRBC transfusion. He was found to have positive stool Hemoccult. His blood counts will be monitored closely and he will be transfused again as needed. He has been seeing Dr. Tovar for GI evaluation. 4. He has developed mild hypercalcemia. This also will require close monitoring. He will have treatment for it as indicated. 5. In January 2020 he was admitted to the hospital with COVID-19 virus infection. At that time he was found to have bilateral pulmonary emboli. He was started on anticoagulation with apixaban. It has now been discontinued. Signed By: George Rabago M.D. <<Signature on File>>
== END 2020-08-06 11:31 | disposition home or self-care (01) ==
PROVIDERS: PCP Nurse Practitioner Family; Visit Provider Internal Medicine Medical Oncology
DX: C18.4 Malignant neoplasm of transverse colon (principal); C78.7 Secondary malignant neoplasm of liver and intrahepatic bile duct; D63.0 Anemia in neoplastic disease; R91.8 Other nonspecific abnormal finding of lung field; E83.52 Hypercalcemia; R19.5 Other fecal abnormalities; Z92.21 Personal history of antineoplastic chemotherapy; Z86.16 Personal history of COVID-19; Z99.81 Dependence on supplemental oxygen; Z92.3 Personal history of irradiation; Z86.711 Personal history of pulmonary embolism
CPT/HCPCS: 36591; 80053; 82728; 83540; 83550; 85025; 85610; 85651; 99215

== ENCOUNTER 2020-08-13 08:26 | Outpatient (CLI) | payer MEDICARE, BC, SELFPAY ==
--- NOTE | 2020-08-13 08:30 | US_ITS ---
WS: [id number] INDICATION: Paracentesis TECHNIQUE: Ultrasound abdomen limited FINDINGS/IMPRESSION: Small amount of ascites. Not enough fluid to safely perform paracentesis.
== END 2020-08-13 08:27 | disposition home or self-care (01) ==
PROVIDERS: PCP Nurse Practitioner Family; Visit Provider Surgery
DX: R18.8 Other ascites (principal)
CPT/HCPCS: 76705

== ENCOUNTER 2020-08-13 09:23 | Outpatient (CLI) | payer MEDICARE, BC, SELFPAY ==
[2020-08-13 10:19] LABS: Basophils % 0.4 %; Eosinophils # 0.1 10^3/uL (0.0-0.8); Eosinophils % 0.9 %; Hematocrit 39.3 % (42.0-52.0); Lymphocytes # 1.1 10^3/uL (0.8-4.8); Mean Corpuscular HGB Conc 30.5 g/dL (30.0-36.0); Mean Corpuscular Hemoglobin 30.1 pg (28.0-34.0); Mean Corpuscular Volume 98.5 fL (80-94); Mean Platelet Volume 10.7 fL (7.4-10.4); Monocytes # 1.6 10^3/uL (0.2-0.9); Neutrophils % 73.1 %; Nucleated Red Blood Cells % 0 %; Platelet Count 206 10^3/cmm (130-400); Red Blood Count 3.99 10^6/uL (4.1-5.3); Red Cell Distribution Width 17.8 % (12.1-15.1); White Blood Count 10.7 10^3/uL (4.0-10.0)
[2020-08-13 10:50] LABS: Alanine Aminotransferase 114 U/L (0-41); Albumin Level 3.1 g/dL (3.5-5.2); Anion Gap 14.2 (5-19); Aspartate Amino Transferase 162 U/L (0-40); Blood Urea Nitrogen 23 mg/dL (8-23); Calcium 10.6 mg/dL (8.5-10.5); Carbon Dioxide 27 mmol/L (22-29); Chloride 98 mmol/L (98-107); Glomerular Filtration Rate 135.2 mL/min (90-130); Glucose 94 mg/dL (65-115); Osmolality Calculated 283 mOsm/kg (285-295); Potassium 4.2 mmol/L (3.5-5.1); Sodium 135 mmol/L (136-145); Total Bilirubin 2.8 mg/dL (0.15-1.2); Total Protein 6.1 g/dL (6.6-8.7)
[2020-08-13 11:08] LABS: Alkaline Phosphatase 1431 IU/L (40-130)
== END 2020-08-13 09:24 | disposition home or self-care (01) ==
PROVIDERS: Nurse Practitioner; PCP Nurse Practitioner Family; Visit Provider Internal Medicine Medical Oncology
DX: C18.4 Malignant neoplasm of transverse colon (principal); C78.7 Secondary malignant neoplasm of liver and intrahepatic bile duct
CPT/HCPCS: 36591; 80053; 85025

== ENCOUNTER 2020-08-14 06:00 | Outpatient (CLI) | payer MEDICARE, BC, SELFPAY ==
--- NOTE | 2020-08-26 23:46 | ONC FU_ITS ---
Steven Amador Patient Note Patient: Steven Arellano Unit #: [id number]: 1955 Dictated By: Efrain McintoshDate of Visit: Aug 14, 2020 Onc MED Follow-Up/Prog Note Chief Complaint: Colon cancer. 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 In February 2018 he was referred to Dr. Jay with a one-month history of hematochezia. His colonoscopy showed a mass in the transverse colon. Biopsy showed tubular adenoma with high-grade dysplasia, but the mass did appear malignant. Other findings were limited to an inflammatory type polyp in the proximal descending colon and hyperplastic polyps in the rectum. CT of the abdomen and pelvis showed circumferential thickening in the distal transverse colon proximal to the splenic flexure, suspicious for neoplasm. There were multiple low-attenuation lesions noted in the liver, the largest in the left hepatic lobe measuring 3.2 cm. An additional prominent lesion near the dome measured 2.8 cm. There were numerous low-attenuation circumferential lesions in the right hepatic lobe measuring 1-2 cm. The findings were consistent with metastatic disease. On 03/25/2018 he underwent exploratory laparotomy with partial transverse colectomy and biopsy of a right hepatic lobe lesion. Pathology showed grade 1-2/4 infiltrating adenocarcinoma measuring 3.0 x 2.7 cm. There was penetration through the muscularis propria into serosal connective tissues. There was involvement in one of 12 mesenteric lymph nodes. The liver biopsy showed metastatic adenocarcinoma. Dr Rabago had seen him initially on 04/13/2018. We had discussed the possibility of a trial of palliative chemotherapy with a FOLFOX-based regimen. He subsequently underwent evaluation at [facility] in [facility]. His evaluation there included a next generation sequencing study by liquid biopsy. 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 The KRAS, NRAS, and BRAF mutations were not detected. A trial of palliative chemotherapy was again recommended. Instead, he sought treatment through [facility] in [place], [place]. Based on their in vitro studies, he apparently then began initial course of chemotherapy with cyclophosphamide, epirubicin, and irinotecan dosed at 2-week intervals for 8 weeks. He also was administered a variety of vitamin and herbal supplements. On 06/11/2018 he underwent a chemoembolization procedure with Quadraspheres loaded with epirubicin. He received a dosage of 60 mg to the right hepatic lobe and 50 mg to the left hepatic lobe. In June he began treatment with pembrolizumab 200 mg by IV infusion every 3 weeks together with cetuximab 500 mg by IV infusion weekly. Thus far he has received only 2 infusions of cetuximab, which he completed with only minimal reaction. He received his most recent infusion of pembrolizumab on 08/27/2018. In addition, from 08/03/2018 through 08/05/2018 he underwent AAIT therapy in [place]. His follow-up laboratory studies have shown decline in the CEA level from 178.6 ng/mL on 05/07/2018 to 60.9 ng/mL on 07/26/2018. His restaging PET/CT on 07/28/2018 showed interval significant response to treatment with resolution of multiple foci of increased metabolic activity in the liver. His other medical illnesses have been limited to coronary artery disease and dyslipidemia. He had suffered an inferior wall myocardial infarction in February 2017, at which time he underwent angioplasty with stent placement of the right coronary artery. He had no further cardiac problems. He has had no other prior medical illnesses. He had smoked cigars in the past, but only for a few years. He had chewed tobacco for 20 years, but he quit at least 15 years ago. He does not drink alcohol. His family history is significant in that his mother and a brother have also been treated for colon cancer. INTERIM HISTORY: On 08/27/2018 he restarted treatment with pembrolizumab 200 mg IV every 3 weeks together with cetuximab 500 mg IV weekly. He returned here on 08/30/2018 so that he could continue his pembrolizumab and cetuximab infusions closer to home. He had experienced no adverse effects with the initial infusions, and he continued with his day 8 and day 15 cetuximab infusions, also with no adverse effects. His repeat CEA level on 09/08/2018 was down to 9.1 ng/mL compared to 60.9 ng/mL on 07/26/2018. During subsequent follow-up his CEA level continued to decline. As of 12/06/2018 it had stabilized at 1.0 ng/mL. Restaging CT scans of the chest, abdomen, and pelvis on 12/15/2018 showed no evidence of metastatic disease the lungs. A 4 mm left perifussural nodule appeared stable. Numerous hepatic metastatic lesions appeared stable compared to the PET/CT from 10/23/2018. The largest in the left hepatic lobe measured 2.7 x 3.8 cmwith those findings he continued treatment with cetuximab in combination with pembrolizumab. Restaging PET/CT on 02/05/2019 showed improved bilateral hilar lymph nodes compared to the prior PET/CT studies. Multiple hepatic lesions appeared to have resolved, but with unchanged left and right hepatic dome lesions. Overall the findings were consistent with a positive metabolic response. He continued treatment with cetuximab in combination with pembrolizumab. As of 03/23/2019 he began his 11th cycle of treatment. At that point there was a significant increase in the CEA level, 13.9 ng/mL compared to 10.7 ng/mL on 03/02/2019 and to 3.9 ng/mL on 01/17/2019. With that increase and with evidence of residual hepatic involvement in the liver by PET/CT, he yañez a repeat TACE procedure in March. He was then seen for a follow-up visit on 04/13/2019. At that point he continued treatment with pembrolizumab in combination with cetuximab. A restaging PET/CT on 05/07/2019 reported worsening of hepatic metastatic disease with a central left hepatic lobe lesion measuring 3.6 x 6.7 with SUV 7.2. A lesion in the medial left hepatic lobe showed increased SUV to 4.5. Other subcentimeter lesions appeared unchanged. Also noted was new enlargement of the head of the pancreas with mild FDG uptake, possibly representing pancreatitis. On 05/27/2019 he was admitted to the hospital with a presumptive diagnosis of acute pancreatitis, having presented to the emergency room with nausea/vomiting in association with a dull achy pain in the epigastric area. His serum lipase was elevated at 683 U/L. CT abdomen/pelvis showed increase in the size of the head of the pancreas with numerous low-density lesions, possibly representing acute pancreatitis. Multiple low-density lesions in the liver were noted to have increased in size and number, consistent with worsening metastatic disease. There appeared to be acute gastric retention. Fluid within the small bowel was suggestive of a severe ileus. His symptoms improved with supportive treatment measures. He was discharged home on 05/29/2019. He had further evaluation with MRI of the abdomen at [facility] on 06/01/2019. It showed multiple lesions throughout the bilateral lobes of the liver consistent with hepatic metastases. An additional lesion within the left lobe of the liver appeared to be consistent with a cavernous hemangioma. A mixed cystic and solid mass was noted within the head and uncinate process of the pancreas measuring 3.2 x 4.5 cm. It had indeterminate features by MRI, possibly representing a primary pancreatic neoplasm versus metastatic lesion. We had then made arrangements for an EUS procedure, but he opted instead to return to [place] for a biopsy. When he arrived there, he was told that a would not be able to do the biopsy, so he returned home and he requested a follow-up visit here. In the meantime, his recent [facility] had included a K-sheila mutation analysis, which detected a G12C KRAS mutation. With that finding, he was recommended to stop treatment with cetuximab. He continued treatment here with pembrolizumab at the standard dosage of 200 mg by IV infusion every 3 weeks. He then had further liver directed therapy in [place] on 08/03/2019. He also had restaging PET/CT which showed multiple FDG avid liver lesions showing significant interval increase in extent and metabolic activity. New FDG avid lesions were compatible with progression of metastatic malignancy. A left upper lobe pulmonary nodule had increased from 0.3 to 0.5 cm, but with no associated FDG activity. At that time he also started treatment with regorafenib at 160 mg daily. At his follow-up visit on 09/02/2019 he reported significant side effects with the regorafenib, and he had stopped taking it. His symptoms were improving, and he was instructed to restart it at a reduced dosage. At his follow-up visit on 10/13/2019 he was again having significant side effects with the regorafenib, but at that time he was back on the full dosage of 160 mg daily. The regorafenib was then stopped permanently, but he continued treatment with pembrolizumab. Restaging CT scans of the chest, abdomen, and pelvis on 10/31/2019 showed stable 4 mm pulmonary nodule along the left fissure. Mediastinal and hilar lymphadenopathy with similar to prior studies. Multiple heterogeneously enhancing low-attenuation hepatic metastatic lesions also appeared similar to the recent PET/CT. The largest lesion was in the left lobe of the liver measuring 8.1 x 6.1 cm. The pancreatic head appeared normal. He continued with cycle 19 of pembrolizumab on 11/03/2019. He then returned to [place] where he underwent a CI PI procedure to the liver and lung lesions on 11/21/2019. At that time he also was recommended to add axitinib 5 mg every 12 hours together with capmatinib 400 mg every 12 hours to his treatment regimen. He returned here for cycle 20 of pembrolizumab on 11/24/2019 and he then continued treatment at 3-week intervals.. As of his follow-up visit on 01/26/2020 he began further treatment with axitinib 5 mg every 12 hours together with capmatinib 400 mg every 12 hours. On 02/13/2020 he was admitted to the hospital with COVID-19 virus infection. He had associated bilateral pulmonary emboli, for which he began on anticoagulation with apixaban. Axitinib and capmatinib were permanently discontinued. He restarted his pembrolizumab treatments on 03/08/2020 and as of 04/25/2020 the pembrolizumab was changed to the 6-week dosing schedule. In April he returned to [place] for further AAIT, and received additional NKT-cell infusions there in May. In the meantime, from 05/10/2020 through 05/22/2020 he underwent radiation to one of the larger metastatic lesions in the liver. The total dose was 3000 cGy. He tolerated the treatment well. During that time, his treatment regimen was also amended to include Sprycel 100 mg daily together with cyclophosphamide 25 mg daily. At his follow-up visit on 06/15/2020 he was still feeling pretty good generally. He has liver enzymes were just mildly to moderately elevated. He continued with his second infusion of pembrolizumab at the 6-week interval dosage (400 mg). On 07/23/2020 he was admitted to the hospital after presenting to the emergency room with fever. He also complained of cough and he was noted to be hypoxic. His chest CT showed ill-defined areas of groundglass opacification in the periphery of both lungs, felt to be nonspecific. There was associated compressive atelectasis in both lungs and there was interval development of multiple noncalcified nodules in the right lung concerning for metastatic foci. The abdomen/pelvis showed multiple low-density lesions in the liver which overall appeared stable in size. There were no new lesions identified. The liver had a more nodular contour concerning for possible developing cirrhosis. The gallbladder was not definitely visualized. A cystic focus in the head of the pancreas appeared stable measuring 1.5 x 1.8 cm. There was noted to be a large volume ascites with diffuse mesenteric edema. There was no lymphadenopathy. He was taken off the Sprycel and the cyclophosphamide. He began antibiotic coverage with Levaquin, subsequently transitioned to vancomycin/Zosyn. Blood and sputum cultures remain negative. Further evaluation with ultrasound and a HIDA scan continue to show nonvisualization of the gallbladder. During the hospitalization no significant further increase in the bilirubin and alkaline phosphatase level. He also became anemic, requiring PRBC transfusion. At discharge on 07/28/2020 his bilirubin remained elevated at 3.3 mg/dL with alkaline phosphatase 844 IUs/L. He remained oxygen dependent, and he continued antibiotic coverage with Levaquin. He had outpatient follow-up with Dr. Tovar. Further evaluation with MRCP showed no evidence of bile duct obstruction. The gallbladder was not visualized. The liver was enlarged with numerous metastatic sites. Mr. Arellano had follow-up with Dr. Tovar on August 03, 2020. Dr. Tovar's note indicates that some Mr. Arellano's abdominal pain could be related to capsular stretching for metastatic disease as well gallbladder disease. He has high risk from a surgical standpoint. Mr. Elder is currently on a low-fat diet and will possibly avoid surgical intervention if at all possible. He had felt that his ascites was worsening and was scheduled for ultrasound-guided paracentesis on August 14, 2019 when he presented for paracentesis ultrasound-guided but there was a small amount of ascites noted and not enough fluid to safely perform paracentesis per Dr. Santo's report. Mr Arellano Was here today for follow-up. He states overall he is feeling better than his previous follow-up with Dr. Rabago. He has no new concerns today. His appetite is slowly improving. He denies any fever or chills. His energy is still marginal but has been getting out and doing some things with the grandkids recently and has tolerated this well. He denies any nausea or vomiting. His abdominal pain is currently controlled. He denies any urinary changes. He has had no peripheral neuropathy symptoms. He denies any cough, hemoptysis or trouble swallowing. He denies any blood in his bowels or urine. His ECOG is 2. Past Medical History: Coronary artery disease Dyslipidemia Covid-19 in 2019 Past Surgical History: Portacather placement dr. gurrola in 2018 Exploratory laparotomy with partial transverse colectomy and liver biopsy in 2017 Colonoscopy in 2018 - performed by Dr. Jay Coronary angioplasty/stent placement in 2016 Amputation of the distal phalanx of the right middle finger in 2013 Allergies: No Known Allergies. Medications: Aspirin 1 Tablet (of 81 mg) Tablet, enteric coated Oral daily Eliquis 1 Tablet (of 5 mg) Oral b.i.d. metFORMIN HCl 1 Tablet (of 1000 mg) Oral daily Multivitamin Adults 1 Tablet Oral daily Nitroglycerin 1 (0.4 mg) Tablet, sublingual Sublingual PRN Family History: Mr. Arellano's mother is alive: colon cancer. Mr. Arellano's father at age 83: alzheimers, and colon mass, and myocardial infarction. His father had dementia and coronary artery disease. He at age 83, apparently from complications of bowel obstruction. His mother still living at age 83. She has been treated for colon cancer in one brother has also been treated for colon cancer. Another brother has coronary artery disease. 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 Mr. Arellano no longer smokes but had smoked for 16 years. He has no history of drinking. Mr. Arellano reports the following support systems: lives with spouse, significant other, family, or friends. Review Of Symptoms: see above Vital Signs: Performed on Aug 14, 2020 15:06 Height - 70.00 in Weight - 154.8 lbs (LOW) BSA - 1.87 sq.m BMI - 22.21 Temperature - 98.9 F (HIGH) Pulse - 96 /min Respiration - 18 /min BP - 108/68 mm(hg) O2 Sat - 98 % Pain - 0 Fatigue - 6,2 - Ambulatory/capable of all self-care, unable to perform any work activities. Up and about more than 50% of waking hours. (ECOG) Physical Examination: Constitutional Alert, oriented, no acute distress. Skin pink, warm and dry. Head Normocephalic; atraumatic. Eyes Conjunctivae and sclerae are clear and without icterus. Pupils are reactive and equal. Neck Supple without masses or thyromegaly. No jugular venous distension. Respiratory Lungs are clear to auscultation without rhonchi or wheezing. Cardiovascular Regular rate and rhythm of heart without murmurs,clicks, gallops or rubs. Chest Left subclavian venous access device is unremarkable. Back/Spine Non-tender to palpation. Extremities No visible deformities, no cyanosis, clubbing or edema. Musculoskeletal No tenderness or swelling, normal range of motion without obvious weakness. Neurologic No sensory or motor deficits, normal cerebellar function, normal gait. Psychiatric Alert and oriented times three. Coherent speech. Verbalizes understanding of our discussions today. Laboratory:Test performed on Aug 06, 2020 12:28 Ferritin 405 ng/mL Iron 46 mcg/dL Sodium 132 mmol/L Iron Binding Capacity (TIBC) 274 mcg/dl Potassium 4.3 mmol/L % Iron Saturation 16.7 % Chloride 98 mmol/L CO2 27 mmol/L UIBC 228 mcg/dL Anion Gap 11.3 BUN 19 mg/dL Creatinine 0.6 mg/dL Cr Clearance (Est) 126.9500 mL/min eGFR 135.2 mL/min Glucose 124 mg/dL Osmolality - Calculated 278 mOsm/kg Calcium 11.3 mg/dL Protein, Total 5.4 g/dL Albumin 2.8 g/dL Globulin 2.6 g/dL Bilirubin, Total 2.6 mg/dL ALT (SGPT) 81 U/L AST (SGOT) 126 U/L Alkaline Phosphatase 1331 IU/L ESR (Sed Rate) 69 mm/hr PT 13.20 SECONDS WBC 10.5 10 3/uL INR 0.97 RBC 3.66 10 6/uL HGB 11.2 g/dL HCT 35.5 % MCV 97.0 fL MCH 30.6 pg MCHC 31.5 g/dL RDW 19.0 % Platelet Count 251 10 3/cmm MPV 10.8 fL Neutrophils 6.49 10 3/uL Lymphocytes 1.3 10 3/uL Monocytes 2.2 10 3/uL Eosinophils 0.3 10 3/uL Basophils 0.1 10 3/uL Neutrophil % 62.0 % Lymphocyte % 12.2 % Monocyte % 21.2 % Eosinophil % 3.3 % Basophils % 0.5 % NRBC % 0 % Impression: 1. Grade1-2/4 infiltrating adenocarcinoma of the transverse colon, stage CLAUDIA (T3, N1a, M1a) with biopsy-proven metastatic involvement in the liver. The tumor was found to be MSI stable. 2. He underwent exploratory laparotomy with partial transverse colectomy and liver biopsy on 03/25/2018. 3. Dyslipidemia. 4. Coronary artery disease with previous myocardial infarction and angioplasty/stent placement. 5. In January 2020 he was admitted to the hospital with COVID-19 virus infection. At that time he was found to have bilateral pulmonary emboli. Plan: 1. 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 The tumor was found to be MSI stable. He underwent exploratory laparotomy with partial transverse colectomy and liver biopsy on 03/25/2018. Subsequent to his initial visit here he was seen at [facility]. He then sought treatment through the [facility] in [facility]. His subsequent Biocept studies have shown presence of a G12C KRAS mutation, but a BRAF mutation was not detected. His began treatment with nonconventional systemic therapy, which initially included cyclophosphamide, epirubicin, and irinotecan dosed every 2 weeks, followed by liver directed therapy. In June 2017 he began treatment with pembrolizumab in combination with cetuximab. His cetuximab was eventually discontinued with evidence of progression of the metastatic disease in the liver. His subsequent therapies included a trial of regorafenib and a brief course of treatment with axitinib in combination with capmatinib. During this time he has been undergoing immune therapy treatments in [place], which include NKT-cell infusions. He also continued treatment with pembrolizumab. As of 03/08/2020 he had completed 24 infusions of pembrolizumab at the 3-week dosing schedule. As of 04/25/2020 his treatment was changed to the 6-week schedule. He continued with his 2nd cycle of pembrolizumab at the 6-week dosing schedule (400 mg by IV infusion) on 06/15/2020. In the meantime, in April 2020 he had returned to [place] for further AAIT in May he received additional NKT-cell infusions. He also began treatment with Sprycel and low-dose cyclophosphamide. ments are currently on hold. 2. On 07/23/2020 he was admitted to the hospital with fever, cough, and hypoxia. Chest CT showed ill-defined areas of groundglass opacification in the periphery of both lungs. He was treated empirically for pneumonia, and the blood and sputum cultures remain negative. His laboratory studies showed significant increase in the bilirubin and alkaline phosphatase levels. He also became significantly anemic, requiring PRBC transfusion. During this time his GI evaluation included CT abdomen/pelvis, gallbladder ultrasound, HIDA scan, and MRCP demonstrating multiple liver metastases but without obvious progression, no evidence of bile duct obstruction, and nonvisualization of the gallbladder. During this time he has had a dramatic decline in his performance status and he remains oxygen dependent. It is uncertain to what extent his decline is attributable to infection, to treatment related toxicity, and or to progression of the colon cancer. His Sprycel and cyclophosphamide have been permanently discontinued, and as per Dr Rabago, we will not be planning any further immunotherapy. A. He will remain off any further treatment as he slowly recovers. B. Labs from August 13, 2020 were reviewed in detail and discussed with . Mrs. Arellano and a copy was given to them. WBC 10.7, hemoglobin is 12, platelets 206,000, ANC is 7800. Sodium 135 calcium 10.6 which is improved from last week at 11.3. Creatinine 0.6 random glucose 94 ALT is 114 AST is 162 his CEA on July 10, 2020 was 810, CA 27-29 was 53.4 and CA 19-9 was 1113. 3. During the hospitalization he became significantly anemic, requiring PRBC transfusion. He was found to have positive stool Hemoccult. His blood counts will be monitored closely and he will be transfused again as needed. He has been seeing Dr. Tovar for GI evaluation. His hemoglobin today is 10.7. 4. He has developed mild hypercalcemia. This also will require close monitoring. He will have treatment for it as indicated. 5. In January 2020 he was admitted to the hospital with COVID-19 virus infection. At that time he was found to have bilateral pulmonary emboli. He was started on anticoagulation with apixaban. It has now been discontinued. 6. Follow-up plan A. He will continue on observation in regards to his cancer. B. He received supportive care as needed including hydration and or paracentesis???ultrasound-guided if the ascites increases. C. We will plan to see him back in 2 weeks at which time he had a CBC CMP. D. Mr. Mrs. Arellano were instructed to contact us in interim should questions or problems arise. A. He was given a prescription/statement for disabled license plates for temporary tag to in February 13, 2021. Signed By: Efrain Mcintosh-, CNP George Rabago MD <<Signature on File>>
== END 2020-08-14 06:01 | disposition home or self-care (01) ==
LOC: ONCMED 06:01
PROVIDERS: PCP Nurse Practitioner Family; Visit Provider Nurse Practitioner
DX: C18.4 Malignant neoplasm of transverse colon (principal); C78.7 Secondary malignant neoplasm of liver and intrahepatic bile duct; E78.5 Hyperlipidemia, unspecified; I25.10 Atherosclerotic heart disease of native coronary artery without angina pectoris; I50.9 Heart failure, unspecified; Z95.5 Presence of coronary angioplasty implant and graft; Z86.16 Personal history of COVID-19; Z86.711 Personal history of pulmonary embolism; Z79.899 Other long term (current) drug therapy
CPT/HCPCS: 99214

== ENCOUNTER 2020-08-30 08:26 | Outpatient (CLI) | payer MEDICARE, BC, SELFPAY ==
--- NOTE | 2020-08-30 09:05 | ONC FU_ITS ---
Dr. Rabago Patient Follow-Up Note Patient: Steven Arellano Unit #: [id number]: 1955 Dicatated By: George Rabago M.D.Date of Visit:August 30, 2020 Onc Med Follow-up/Prog Note Chief Complaint: Colon cancer. 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 In February 2018 he was referred to Dr. Jay with a one-month history of hematochezia. His colonoscopy showed a mass in the transverse colon. Biopsy showed tubular adenoma with high-grade dysplasia, but the mass did appear malignant. Other findings were limited to an inflammatory type polyp in the proximal descending colon and hyperplastic polyps in the rectum. CT of the abdomen and pelvis showed circumferential thickening in the distal transverse colon proximal to the splenic flexure, suspicious for neoplasm. There were multiple low-attenuation lesions noted in the liver, the largest in the left hepatic lobe measuring 3.2 cm. An additional prominent lesion near the dome measured 2.8 cm. There were numerous low-attenuation circumferential lesions in the right hepatic lobe measuring 1-2 cm. The findings were consistent with metastatic disease. On 03/25/2018 he underwent exploratory laparotomy with partial transverse colectomy and biopsy of a right hepatic lobe lesion. Pathology showed grade 1-2/4 infiltrating adenocarcinoma measuring 3.0 x 2.7 cm. There was penetration through the muscularis propria into serosal connective tissues. There was involvement in one of 12 mesenteric lymph nodes. The liver biopsy showed metastatic adenocarcinoma. I had seen him initially on 04/13/2018. We had discussed the possibility of a trial of palliative chemotherapy with a FOLFOX-based regimen. He subsequently underwent evaluation at [facility] in [facility]. His evaluation there included a next generation sequencing study by liquid biopsy. 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 The KRAS, NRAS, and BRAF mutations were not detected. A trial of palliative chemotherapy was again recommended. Instead, he sought treatment through [facility] in [facility]. Based on their in vitro studies, he apparently then began initial course of chemotherapy with cyclophosphamide, epirubicin, and irinotecan dosed at 2-week intervals for 8 weeks. He also was administered a variety of vitamin and herbal supplements. On 06/11/2018 he underwent a chemoembolization procedure with Quadraspheres loaded with epirubicin. He received a dosage of 60 mg to the right hepatic lobe and 50 mg to the left hepatic lobe. In June he began treatment with pembrolizumab 200 mg by IV infusion every 3 weeks together with cetuximab 500 mg by IV infusion weekly. Thus far he has received only 2 infusions of cetuximab, which he completed with only minimal reaction. He received his most recent infusion of pembrolizumab on 08/27/2018. In addition, from 08/03/2018 through 08/05/2018 he underwent AAIT therapy in [place]. His follow-up laboratory studies have shown decline in the CEA level from 178.6 ng/mL on 05/07/2018 to 60.9 ng/mL on 07/26/2018. His restaging PET/CT on 07/28/2018 showed interval significant response to treatment with resolution of multiple foci of increased metabolic activity in the liver. His other medical illnesses have been limited to coronary artery disease and dyslipidemia. He had suffered an inferior wall myocardial infarction in February 2017, at which time he underwent angioplasty with stent placement of the right coronary artery. He had no further cardiac problems. He has had no other prior medical illnesses. He had smoked cigars in the past, but only for a few years. He had chewed tobacco for 20 years, but he quit at least 15 years ago. He does not drink alcohol. His family history is significant in that his mother and a brother have also been treated for colon cancer. INTERIM HISTORY: On 08/27/2018 he restarted treatment with pembrolizumab 200 mg IV every 3 weeks together with cetuximab 500 mg IV weekly. He returned here on 08/30/2018 so that he could continue his pembrolizumab and cetuximab infusions closer to home. He had experienced no adverse effects with the initial infusions, and he continued with his day 8 and day 15 cetuximab infusions, also with no adverse effects. His repeat CEA level on 09/08/2018 was down to 9.1 ng/mL compared to 60.9 ng/mL on 07/26/2018. During subsequent follow-up his CEA level continued to decline. As of 12/06/2018 it had stabilized at 1.0 ng/mL. Restaging CT scans of the chest, abdomen, and pelvis on 12/15/2018 showed no evidence of metastatic disease the lungs. A 4 mm left perifussural nodule appeared stable. Numerous hepatic metastatic lesions appeared stable compared to the PET/CT from 10/23/2018. The largest in the left hepatic lobe measured 2.7 x 3.8 cmwith those findings he continued treatment with cetuximab in combination with pembrolizumab. Restaging PET/CT on 02/05/2019 showed improved bilateral hilar lymph nodes compared to the prior PET/CT studies. Multiple hepatic lesions appeared to have resolved, but with unchanged left and right hepatic dome lesions. Overall the findings were consistent with a positive metabolic response. He continued treatment with cetuximab in combination with pembrolizumab. As of 03/23/2019 he began his 11th cycle of treatment. At that point there was a significant increase in the CEA level, 13.9 ng/mL compared to 10.7 ng/mL on 03/02/2019 and to 3.9 ng/mL on 01/17/2019. With that increase and with evidence of residual hepatic involvement in the liver by PET/CT, he yañez a repeat TACE procedure in March. He was then seen for a follow-up visit on 04/13/2019. At that point he continued treatment with pembrolizumab in combination with cetuximab. A restaging PET/CT on 05/07/2019 reported worsening of hepatic metastatic disease with a central left hepatic lobe lesion measuring 3.6 x 6.7 with SUV 7.2. A lesion in the medial left hepatic lobe showed increased SUV to 4.5. Other subcentimeter lesions appeared unchanged. Also noted was new enlargement of the head of the pancreas with mild FDG uptake, possibly representing pancreatitis. On 05/27/2019 he was admitted to the hospital with a presumptive diagnosis of acute pancreatitis, having presented to the emergency room with nausea/vomiting in association with a dull achy pain in the epigastric area. His serum lipase was elevated at 683 U/L. CT abdomen/pelvis showed increase in the size of the head of the pancreas with numerous low-density lesions, possibly representing acute pancreatitis. Multiple low-density lesions in the liver were noted to have increased in size and number, consistent with worsening metastatic disease. There appeared to be acute gastric retention. Fluid within the small bowel was suggestive of a severe ileus. His symptoms improved with supportive treatment measures. He was discharged home on 05/29/2019. He had further evaluation with MRI of the abdomen at [facility] on 06/01/2019. It showed multiple lesions throughout the bilateral lobes of the liver consistent with hepatic metastases. An additional lesion within the left lobe of the liver appeared to be consistent with a cavernous hemangioma. A mixed cystic and solid mass was noted within the head and uncinate process of the pancreas measuring 3.2 x 4.5 cm. It had indeterminate features by MRI, possibly representing a primary pancreatic neoplasm versus metastatic lesion. We had then made arrangements for an EUS procedure, but he opted instead to return to [place] for a biopsy. When he arrived there, he was told that a would not be able to do the biopsy, so he returned home and he requested a follow-up visit here. In the meantime, his recent studies done through [email or web address] had included a K-sheila mutation analysis, which detected a G12C KRAS mutation. With that finding, he was recommended to stop treatment with cetuximab. He continued treatment here with pembrolizumab at the standard dosage of 200 mg by IV infusion every 3 weeks. He then had further liver directed therapy in [place] on 08/03/2019. He also had restaging PET/CT which showed multiple FDG avid liver lesions showing significant interval increase in extent and metabolic activity. New FDG avid lesions were compatible with progression of metastatic malignancy. A left upper lobe pulmonary nodule had increased from 0.3 to 0.5 cm, but with no associated FDG activity. At that time he also started treatment with regorafenib at 160 mg daily. At his follow-up visit on 09/02/2019 he reported significant side effects with the regorafenib, and he had stopped taking it. His symptoms were improving, and he was instructed to restart it at a reduced dosage. At his follow-up visit on 10/13/2019 he was again having significant side effects with the regorafenib, but at that time he was back on the full dosage of 160 mg daily. The regorafenib was then stopped permanently, but he continued treatment with pembrolizumab. Restaging CT scans of the chest, abdomen, and pelvis on 10/31/2019 showed stable 4 mm pulmonary nodule along the left fissure. Mediastinal and hilar lymphadenopathy with similar to prior studies. Multiple heterogeneously enhancing low-attenuation hepatic metastatic lesions also appeared similar to the recent PET/CT. The largest lesion was in the left lobe of the liver measuring 8.1 x 6.1 cm. The pancreatic head appeared normal. He continued with cycle 19 of pembrolizumab on 11/03/2019. He then returned to [place] where he underwent a CI PI procedure to the liver and lung lesions on 11/21/2019. At that time he also was recommended to add axitinib 5 mg every 12 hours together with capmatinib 400 mg every 12 hours to his treatment regimen. He returned here for cycle 20 of pembrolizumab on 11/24/2019 and he then continued treatment at 3-week intervals.. As of his follow-up visit on 01/26/2020 he began further treatment with axitinib 5 mg every 12 hours together with capmatinib 400 mg every 12 hours. On 02/13/2020 he was admitted to the hospital with COVID-19 virus infection. He had associated bilateral pulmonary emboli, for which he began on anticoagulation with apixaban. Axitinib and capmatinib were permanently discontinued. He restarted his pembrolizumab treatments on 03/08/2020 and as of 04/25/2020 the pembrolizumab was changed to the 6-week dosing schedule. In April he returned to [place] for further AAIT, and received additional NKT-cell infusions there in May. In the meantime, from 05/10/2020 through 05/22/2020 he underwent radiation to one of the larger metastatic lesions in the liver. The total dose was 3000 cGy. He tolerated the treatment well. During that time, his treatment regimen was also amended to include Sprycel 100 mg daily together with cyclophosphamide 25 mg daily. At his follow-up visit on 06/15/2020 he was still feeling pretty good generally. He has liver enzymes were just mildly to moderately elevated. He continued with his second infusion of pembrolizumab at the 6-week interval dosage (400 mg). On 07/23/2020 he was admitted to the hospital after presenting to the emergency room with fever. He also complained of cough and he was noted to be hypoxic. His chest CT showed ill-defined areas of groundglass opacification in the periphery of both lungs, felt to be nonspecific. There was associated compressive atelectasis in both lungs and there was interval development of multiple noncalcified nodules in the right lung concerning for metastatic foci. The abdomen/pelvis showed multiple low-density lesions in the liver which overall appeared stable in size. There were no new lesions identified. The liver had a more nodular contour concerning for possible developing cirrhosis. The gallbladder was not definitely visualized. A cystic focus in the head of the pancreas appeared stable measuring 1.5 x 1.8 cm. There was noted to be a large volume ascites with diffuse mesenteric edema. There was no lymphadenopathy. He was taken off the Sprycel and the cyclophosphamide. He began antibiotic coverage with Levaquin, subsequently transitioned to vancomycin/Zosyn. Blood and sputum cultures remain negative. Further evaluation with ultrasound and a HIDA scan continue to show nonvisualization of the gallbladder. During the hospitalization no significant further increase in the bilirubin and alkaline phosphatase level. He also became anemic, requiring PRBC transfusion. At discharge on 07/28/2020 his bilirubin remained elevated at 3.3 mg/dL with alkaline phosphatase 844 IUs/L. He remained oxygen dependent, and he continued antibiotic coverage with Levaquin. He had outpatient follow-up with Dr. Tovar. Further evaluation with MRCP showed no evidence of bile duct obstruction. The gallbladder was not visualized. The liver was enlarged with numerous metastatic sites. I had seen him for a follow-up visit on 08/06/2020. At that point he was still very weak generally, but he did appear to be showing some recovery. I opted to just continue with observation/symptomatic management. He is seen for a follow-up visit. He is still pretty weak generally, but he has had some improvement in his activity tolerance. He is able to do some walking now, though he is still mostly sedentary. His ECOG score is 3. Appetite is not good. He says his mouth tastes like salt and it is hard for him to eat. He does not have fever or night sweats. He still has shortness of breath, but his breathing is getting better. He is using oxygen just part-time now. He does not complain of cough and he has not been having chest pain. He occasionally has nausea. He sometimes has acid reflux. He is having some pain in the mid abdominal area, and he also has some constipation. It is managed adequately with a laxative. Bladder function has been okay. He has no significant joint or bone pain. He does not complain of headache or dizziness. He has no focal neurologic symptoms. Medications: Aspirin 1 Tablet (of 81 mg) Tablet, enteric coated Oral daily, Eliquis 1 Tablet (of 5 mg) Oral b.i.d., metFORMIN HCl 1 Tablet (of 1000 mg) Oral daily, Multivitamin Adults 1 Tablet Oral daily, Nitroglycerin 1 (0.4 mg) Tablet, sublingual Sublingual PRN Allergies: No Known Allergies. Vital Signs: Performed on August 30, 2020 08:35 Height - 70.00 in Weight - 160.2 lbs (HIGH) BSA - 1.90 sq.m BMI - 22.99 Temperature - 98.0 F (LOW) Pulse - 86 /min Respiration - 18 /min BP - 106/71 mm(hg) O2 Sat - 98 % Pain - 0 Fatigue - 10 Physical Examination: Constitutional - He appears generally weak, Eyes - Sclerae nonicteric. Conjunctivae clear, ENMT - No lesions noted in the oral cavity, Hematologic/Lymphatic - No cervical, clavicular, or axillary adenopathy, Respiratory - Lungs sound clear at this time, Cardiovascular - Heart rhythm is regular. There is no murmur, gallop, or rub noted, Abdomen - Moderately distended but soft. There does appear to be some ascites. Liver is not enlarged or tender. Spleen is not palpable. There is no abdominal mass noted and there is no inguinal adenopathy, Extremities - No edema, Integumentary - No skin eruption, Neurologic - No focal neurologic deficits noted. Lab/Imaging: CBC shows hemoglobin 12.3 g, white blood cell count 9000, and platelet count 209,000. Comprehensive metabolic profile shows normal renal function with BUN 13 and creatinine 0.5 mg/dL. Bilirubin is now just slightly elevated at 1.7 mg/dL. The alkaline phosphatase has come down to 828 IU/mL compared to 1431 IU/L on 08/13/2020. The SGOT and SGPT are just mildly elevated and also improving. The calcium is down to 9.7 mg/dL with albumin 3.1 g/dL. Problem List: 1. Grade1-2/4 infiltrating adenocarcinoma of the transverse colon, stage CLAUDIA (T3, N1a, M1a) with biopsy-proven metastatic involvement in the liver. The tumor was found to be MSI stable. 2. He underwent exploratory laparotomy with partial transverse colectomy and liver biopsy on 03/25/2018. 3. Dyslipidemia. 4. Coronary artery disease with previous myocardial infarction and angioplasty/stent placement. 5. In January 2020 he was admitted to the hospital with COVID-19 virus infection. At that time he was found to have bilateral pulmonary emboli. Problems Addressed with this Encounter and Plan: 1. 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 The tumor was found to be MSI stable. He underwent exploratory laparotomy with partial transverse colectomy and liver biopsy on 03/25/2018. Subsequent to his initial visit here he was seen at [facility]. He then sought treatment through the [facility] in [facility]. His subsequent Bio[employer] studies have shown presence of a G12C KRAS mutation, but a BRAF mutation was not detected. His began treatment with nonconventional systemic therapy, which initially included cyclophosphamide, epirubicin, and irinotecan dosed every 2 weeks, followed by liver directed therapy. In June 2017 he began treatment with pembrolizumab in combination with cetuximab. His cetuximab was eventually discontinued with evidence of progression of the metastatic disease in the liver. His subsequent therapies included a trial of regorafenib and a brief course of treatment with axitinib in combination with capmatinib. During this time he has been undergoing immune therapy treatments in [place], which include NKT-cell infusions. He also continued treatment with pembrolizumab. As of 03/08/2020 he had completed 24 infusions of pembrolizumab at the 3-week dosing schedule. As of 04/25/2020 his treatment was changed to the 6-week schedule. He continued with his 2nd cycle of pembrolizumab at the 6-week dosing schedule (400 mg by IV infusion) on 06/15/2020. In the meantime, in April 2020 he had returned to [place] for further AAIT in May he received additional NKT-cell infusions. He also began treatment with Sprycel and low-dose cyclophosphamide. 2. On 07/23/2020 he was admitted to the hospital with fever, cough, and hypoxia. Chest CT showed ill-defined areas of groundglass opacification in the periphery of both lungs. He was treated empirically for pneumonia, and the blood and sputum cultures remain negative. His laboratory studies showed significant increase in the bilirubin and alkaline phosphatase levels. He also became significantly anemic, requiring PRBC transfusion. During this time his GI evaluation included CT abdomen/pelvis, gallbladder ultrasound, HIDA scan, and MRCP demonstrating multiple liver metastases but without obvious progression, no evidence of bile duct obstruction, and nonvisualization of the gallbladder. As of his follow-up visit on 08/06/2020 he was still very weak generally and he was completely oxygen dependent. At that point his cyclophosphamide and Sprycel were permanently discontinued. His immunotherapy also remained on hold. He has since then been showing some improvement in his general condition and performance status. There has been some improvement in his liver function studies. It is still uncertain to what extent his liver disease is due to progression of the colon cancer versus treatment related toxicity. To that end, I am going to schedule him for restaging PET/CT. He will have further evaluation as indicated. 3. He developed mild hypercalcemia, but it does appear to be improving now. Signed By: George Rabago M.D. <<Signature on File>>
== END 2020-08-30 08:27 | disposition home or self-care (01) ==
LOC: ONCMED 08:27
PROVIDERS: PCP Nurse Practitioner Family; Visit Provider Nurse Practitioner
DX: C18.4 Malignant neoplasm of transverse colon (principal); C78.7 Secondary malignant neoplasm of liver and intrahepatic bile duct; E78.5 Hyperlipidemia, unspecified; I25.10 Atherosclerotic heart disease of native coronary artery without angina pectoris; I25.2 Old myocardial infarction; Z95.5 Presence of coronary angioplasty implant and graft; I26.99 Other pulmonary embolism without acute cor pulmonale; Z86.16 Personal history of COVID-19; Z79.899 Other long term (current) drug therapy
CPT/HCPCS: 80053; 85025; 96523; 99214

== ENCOUNTER 2020-09-10 05:57 | Outpatient (CLI) | payer MEDICARE, BC, SELFPAY ==
--- NOTE | 2020-09-11 07:10 | ONC FU_ITS ---
Dr. Rabago Patient Follow-Up Note Patient: Steven Arellano Unit #: [id number]: 1955 Dicatated By: George Rabago M.D.Date of Visit:September 10, 2020 Onc Med Follow-up/Prog Note Chief Complaint: Colon cancer. 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 In February 2018 he was referred to Dr. Jay with a one-month history of hematochezia. His colonoscopy showed a mass in the transverse colon. Biopsy showed tubular adenoma with high-grade dysplasia, but the mass did appear malignant. Other findings were limited to an inflammatory type polyp in the proximal descending colon and hyperplastic polyps in the rectum. CT of the abdomen and pelvis showed circumferential thickening in the distal transverse colon proximal to the splenic flexure, suspicious for neoplasm. There were multiple low-attenuation lesions noted in the liver, the largest in the left hepatic lobe measuring 3.2 cm. An additional prominent lesion near the dome measured 2.8 cm. There were numerous low-attenuation circumferential lesions in the right hepatic lobe measuring 1-2 cm. The findings were consistent with metastatic disease. On 03/25/2018 he underwent exploratory laparotomy with partial transverse colectomy and biopsy of a right hepatic lobe lesion. Pathology showed grade 1-2/4 infiltrating adenocarcinoma measuring 3.0 x 2.7 cm. There was penetration through the muscularis propria into serosal connective tissues. There was involvement in one of 12 mesenteric lymph nodes. The liver biopsy showed metastatic adenocarcinoma. I had seen him initially on 04/13/2018. We had discussed the possibility of a trial of palliative chemotherapy with a FOLFOX-based regimen. He subsequently underwent evaluation at [facility] in [facility]. His evaluation there included a next generation sequencing study by liquid biopsy. 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 The KRAS, NRAS, and BRAF mutations were not detected. A trial of palliative chemotherapy was again recommended. Instead, he sought treatment through [facility] in [facility]. Based on their in vitro studies, he apparently then began initial course of chemotherapy with cyclophosphamide, epirubicin, and irinotecan dosed at 2-week intervals for 8 weeks. He also was administered a variety of vitamin and herbal supplements. On 06/11/2018 he underwent a chemoembolization procedure with Quadraspheres loaded with epirubicin. He received a dosage of 60 mg to the right hepatic lobe and 50 mg to the left hepatic lobe. In June he began treatment with pembrolizumab 200 mg by IV infusion every 3 weeks together with cetuximab 500 mg by IV infusion weekly. Thus far he has received only 2 infusions of cetuximab, which he completed with only minimal reaction. He received his most recent infusion of pembrolizumab on 08/27/2018. In addition, from 08/03/2018 through 08/05/2018 he underwent AAIT therapy in [place]. His follow-up laboratory studies have shown decline in the CEA level from 178.6 ng/mL on 05/07/2018 to 60.9 ng/mL on 07/26/2018. His restaging PET/CT on 07/28/2018 showed interval significant response to treatment with resolution of multiple foci of increased metabolic activity in the liver. His other medical illnesses have been limited to coronary artery disease and dyslipidemia. He had suffered an inferior wall myocardial infarction in February 2017, at which time he underwent angioplasty with stent placement of the right coronary artery. He had no further cardiac problems. He has had no other prior medical illnesses. He had smoked cigars in the past, but only for a few years. He had chewed tobacco for 20 years, but he quit at least 15 years ago. He does not drink alcohol. His family history is significant in that his mother and a brother have also been treated for colon cancer. INTERIM HISTORY: On 08/27/2018 he restarted treatment with pembrolizumab 200 mg IV every 3 weeks together with cetuximab 500 mg IV weekly. He returned here on 08/30/2018 so that he could continue his pembrolizumab and cetuximab infusions closer to home. He had experienced no adverse effects with the initial infusions, and he continued with his day 8 and day 15 cetuximab infusions, also with no adverse effects. His repeat CEA level on 09/08/2018 was down to 9.1 ng/mL compared to 60.9 ng/mL on 07/26/2018. During subsequent follow-up his CEA level continued to decline. As of 12/06/2018 it had stabilized at 1.0 ng/mL. Restaging CT scans of the chest, abdomen, and pelvis on 12/15/2018 showed no evidence of metastatic disease the lungs. A 4 mm left perifussural nodule appeared stable. Numerous hepatic metastatic lesions appeared stable compared to the PET/CT from 10/23/2018. The largest in the left hepatic lobe measured 2.7 x 3.8 cmwith those findings he continued treatment with cetuximab in combination with pembrolizumab. Restaging PET/CT on 02/05/2019 showed improved bilateral hilar lymph nodes compared to the prior PET/CT studies. Multiple hepatic lesions appeared to have resolved, but with unchanged left and right hepatic dome lesions. Overall the findings were consistent with a positive metabolic response. He continued treatment with cetuximab in combination with pembrolizumab. As of 03/23/2019 he began his 11th cycle of treatment. At that point there was a significant increase in the CEA level, 13.9 ng/mL compared to 10.7 ng/mL on 03/02/2019 and to 3.9 ng/mL on 01/17/2019. With that increase and with evidence of residual hepatic involvement in the liver by PET/CT, he yañez a repeat TACE procedure in March. He was then seen for a follow-up visit on 04/13/2019. At that point he continued treatment with pembrolizumab in combination with cetuximab. A restaging PET/CT on 05/07/2019 reported worsening of hepatic metastatic disease with a central left hepatic lobe lesion measuring 3.6 x 6.7 with SUV 7.2. A lesion in the medial left hepatic lobe showed increased SUV to 4.5. Other subcentimeter lesions appeared unchanged. Also noted was new enlargement of the head of the pancreas with mild FDG uptake, possibly representing pancreatitis. On 05/27/2019 he was admitted to the hospital with a presumptive diagnosis of acute pancreatitis, having presented to the emergency room with nausea/vomiting in association with a dull achy pain in the epigastric area. His serum lipase was elevated at 683 U/L. CT abdomen/pelvis showed increase in the size of the head of the pancreas with numerous low-density lesions, possibly representing acute pancreatitis. Multiple low-density lesions in the liver were noted to have increased in size and number, consistent with worsening metastatic disease. There appeared to be acute gastric retention. Fluid within the small bowel was suggestive of a severe ileus. His symptoms improved with supportive treatment measures. He was discharged home on 05/29/2019. He had further evaluation with MRI of the abdomen at [facility] on 06/01/2019. It showed multiple lesions throughout the bilateral lobes of the liver consistent with hepatic metastases. An additional lesion within the left lobe of the liver appeared to be consistent with a cavernous hemangioma. A mixed cystic and solid mass was noted within the head and uncinate process of the pancreas measuring 3.2 x 4.5 cm. It had indeterminate features by MRI, possibly representing a primary pancreatic neoplasm versus metastatic lesion. We had then made arrangements for an EUS procedure, but he opted instead to return to [place] for a biopsy. When he arrived there, he was told that a would not be able to do the biopsy, so he returned home and he requested a follow-up visit here. In the meantime, his recent studies done through [facility] had included a K-sheila mutation analysis, which detected a G12C KRAS mutation. With that finding, he was recommended to stop treatment with cetuximab. He continued treatment here with pembrolizumab at the standard dosage of 200 mg by IV infusion every 3 weeks. He then had further liver directed therapy in [place] on 08/03/2019. He also had restaging PET/CT which showed multiple FDG avid liver lesions showing significant interval increase in extent and metabolic activity. New FDG avid lesions were compatible with progression of metastatic malignancy. A left upper lobe pulmonary nodule had increased from 0.3 to 0.5 cm, but with no associated FDG activity. At that time he also started treatment with regorafenib at 160 mg daily. At his follow-up visit on 09/02/2019 he reported significant side effects with the regorafenib, and he had stopped taking it. His symptoms were improving, and he was instructed to restart it at a reduced dosage. At his follow-up visit on 10/13/2019 he was again having significant side effects with the regorafenib, but at that time he was back on the full dosage of 160 mg daily. The regorafenib was then stopped permanently, but he continued treatment with pembrolizumab. Restaging CT scans of the chest, abdomen, and pelvis on 10/31/2019 showed stable 4 mm pulmonary nodule along the left fissure. Mediastinal and hilar lymphadenopathy with similar to prior studies. Multiple heterogeneously enhancing low-attenuation hepatic metastatic lesions also appeared similar to the recent PET/CT. The largest lesion was in the left lobe of the liver measuring 8.1 x 6.1 cm. The pancreatic head appeared normal. He continued with cycle 19 of pembrolizumab on 11/03/2019. He then returned to [place] where he underwent a CI PI procedure to the liver and lung lesions on 11/21/2019. At that time he also was recommended to add axitinib 5 mg every 12 hours together with capmatinib 400 mg every 12 hours to his treatment regimen. He returned here for cycle 20 of pembrolizumab on 11/24/2019 and he then continued treatment at 3-week intervals.. As of his follow-up visit on 01/26/2020 he began further treatment with axitinib 5 mg every 12 hours together with capmatinib 400 mg every 12 hours. On 02/13/2020 he was admitted to the hospital with COVID-19 virus infection. He had associated bilateral pulmonary emboli, for which he began on anticoagulation with apixaban. Axitinib and capmatinib were permanently discontinued. He restarted his pembrolizumab treatments on 03/08/2020 and as of 04/25/2020 the pembrolizumab was changed to the 6-week dosing schedule. In April he returned to [place] for further AAIT, and received additional NKT-cell infusions there in May. In the meantime, from 05/10/2020 through 05/22/2020 he underwent radiation to one of the larger metastatic lesions in the liver. The total dose was 3000 cGy. He tolerated the treatment well. During that time, his treatment regimen was also amended to include Sprycel 100 mg daily together with cyclophosphamide 25 mg daily. At his follow-up visit on 06/15/2020 he was still feeling pretty good generally. He has liver enzymes were just mildly to moderately elevated. He continued with his second infusion of pembrolizumab at the 6-week interval dosage (400 mg). On 07/23/2020 he was admitted to the hospital after presenting to the emergency room with fever. He also complained of cough and he was noted to be hypoxic. His chest CT showed ill-defined areas of groundglass opacification in the periphery of both lungs, felt to be nonspecific. There was associated compressive atelectasis in both lungs and there was interval development of multiple noncalcified nodules in the right lung concerning for metastatic foci. The abdomen/pelvis showed multiple low-density lesions in the liver which overall appeared stable in size. There were no new lesions identified. The liver had a more nodular contour concerning for possible developing cirrhosis. The gallbladder was not definitely visualized. A cystic focus in the head of the pancreas appeared stable measuring 1.5 x 1.8 cm. There was noted to be a large volume ascites with diffuse mesenteric edema. There was no lymphadenopathy. He was taken off the Sprycel and the cyclophosphamide. He began antibiotic coverage with Levaquin, subsequently transitioned to vancomycin/Zosyn. Blood and sputum cultures remain negative. Further evaluation with ultrasound and a HIDA scan continue to show nonvisualization of the gallbladder. During the hospitalization no significant further increase in the bilirubin and alkaline phosphatase level. He also became anemic, requiring PRBC transfusion. At discharge on 07/28/2020 his bilirubin remained elevated at 3.3 mg/dL with alkaline phosphatase 844 IUs/L. He remained oxygen dependent, and he continued antibiotic coverage with Levaquin. He had outpatient follow-up with Dr. Tovar. Further evaluation with MRCP showed no evidence of bile duct obstruction. The gallbladder was not visualized. The liver was enlarged with numerous metastatic sites. I had seen him for a follow-up visit on 08/06/2020. At that point he was still very weak generally, but he did appear to be showing some recovery. I opted to just continue with observation/symptomatic management. During follow-up he did show some gradual improvement in his performance status. Restaging PET/CT on 09/01/2020 reported progression of hepatic metastatic disease and development of new pulmonary metastases compared to her previous study from April 2019. He is seen for a follow-up visit. He has been feeling a little better generally. He is now walking up to 1/2 mile. He is not yet doing any work activities. ECOG score is 2. He has altered taste and he has early satiety. He does not have fever or night sweats. He does have some shortness of breath with activity. He does not complain of cough and he has not been having chest pain. He has been having some heartburn, but no nausea. He still has some pain in the lower abdomen. Bowel and bladder function remain adequate. He has no significant joint or bone pain. He does not complain of headache or dizziness, and he has no focal neurologic symptoms. Medications: Aspirin 1 Tablet (of 81 mg) Tablet, enteric coated Oral daily, Eliquis 1 Tablet (of 5 mg) Oral b.i.d., metFORMIN HCl 1 Tablet (of 1000 mg) Oral daily, Multivitamin Adults 1 Tablet Oral daily, Nitroglycerin 1 (0.4 mg) Tablet, sublingual Sublingual PRN Allergies: No Known Allergies. Vital Signs: Performed on September 10, 2020 14:37 Height - 70.00 in Weight - 158.8 lbs (LOW) BSA - 1.89 sq.m BMI - 22.79 Temperature - 97.0 F (LOW) Pulse - 90 /min Respiration - 17 /min BP - 124/77 mm(hg) O2 Sat - 97 % Pain - 0 Physical Examination: Constitutional - He appears generally weak, Eyes - Sclerae nonicteric. Conjunctivae clear, ENMT - No lesions noted in the oral cavity, Hematologic/Lymphatic - No cervical, clavicular, or axillary adenopathy, Respiratory - Lungs show diminished air movement at the bases, Cardiovascular - Heart rhythm is regular. There is no murmur, gallop, or rub noted, Abdomen - Moderately distended with ascites. Liver does not appear overtly enlarged. Spleen is not palpable. There is no abdominal mass noted and there is no inguinal adenopathy, Extremities - No edema, Integumentary - No skin eruption, Neurologic - No focal neurologic deficits noted. Lab/Imaging: Test performed on Aug 06, 2020 12:28 Ferritin 405 ng/mL Iron 46 mcg/dL Sodium 132 mmol/L Iron Binding Capacity (TIBC) 274 mcg/dl Potassium 4.3 mmol/L % Iron Saturation 16.7 % Chloride 98 mmol/L CO2 27 mmol/L UIBC 228 mcg/dL Anion Gap 11.3 BUN 19 mg/dL Creatinine 0.6 mg/dL Cr Clearance (Est) 126.9500 mL/min eGFR 135.2 mL/min Glucose 124 mg/dL Osmolality - Calculated 278 mOsm/kg Calcium 11.3 mg/dL Protein, Total 5.4 g/dL Albumin 2.8 g/dL Globulin 2.6 g/dL Bilirubin, Total 2.6 mg/dL ALT (SGPT) 81 U/L AST (SGOT) 126 U/L Alkaline Phosphatase 1331 IU/L ESR (Sed Rate) 69 mm/hr PT 13.20 SECONDS WBC 10.5 10 3/uL INR 0.97 RBC 3.66 10 6/uL HGB 11.2 g/dL HCT 35.5 % MCV 97.0 fL MCH 30.6 pg MCHC 31.5 g/dL RDW 19.0 % Platelet Count 251 10 3/cmm MPV 10.8 fL Neutrophils 6.49 10 3/uL Lymphocytes 1.3 10 3/uL Monocytes 2.2 10 3/uL Eosinophils 0.3 10 3/uL Basophils 0.1 10 3/uL Neutrophil % 62.0 % Lymphocyte % 12.2 % Monocyte % 21.2 % Eosinophil % 3.3 % Basophils % 0.5 % NRBC % 0 % Problem List: 1. Grade1-2/4 infiltrating adenocarcinoma of the transverse colon, stage CLAUDIA (T3, N1a, M1a) with biopsy-proven metastatic involvement in the liver. The tumor was found to be MSI stable. 2. He underwent exploratory laparotomy with partial transverse colectomy and liver biopsy on 03/25/2018. 3. Dyslipidemia. 4. Coronary artery disease with previous myocardial infarction and angioplasty/stent placement. 5. In January 2020 he was admitted to the hospital with COVID-19 virus infection. At that time he was found to have bilateral pulmonary emboli. 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 The tumor was found to be MSI stable. He underwent exploratory laparotomy with partial transverse colectomy and liver biopsy on 03/25/2018. Subsequent to his initial visit here [facility]. He then sought treatment through the [facility] in [facility]. His subsequent [employer] studies have shown presence of a G12C KRAS mutation, but a BRAF mutation was not detected. His began treatment with nonconventional systemic therapy, which initially included cyclophosphamide, epirubicin, and irinotecan dosed every 2 weeks, followed by liver directed therapy. In June 2017 he began treatment with pembrolizumab in combination with cetuximab. His cetuximab was eventually discontinued with evidence of progression of the metastatic disease in the liver. His subsequent therapies included a trial of regorafenib and a brief course of treatment with axitinib in combination with capmatinib. During this time he has been undergoing immune therapy treatments in [place], which include NKT-cell infusions. He also continued treatment with pembrolizumab. As of 03/08/2020 he had completed 24 infusions of pembrolizumab at the 3-week dosing schedule. As of 04/25/2020 his treatment was changed to the 6-week schedule. He continued with his 2nd cycle of pembrolizumab at the 6-week dosing schedule (400 mg by IV infusion) on 06/15/2020. In the meantime, in April 2020 he had returned to [place] for further AAIT in May he received additional NKT-cell infusions. He also began treatment with Sprycel and low-dose cyclophosphamide. On 07/23/2020 he was admitted to the hospital with fever, cough, and hypoxia. Chest CT showed ill-defined areas of groundglass opacification in the periphery of both lungs. He was treated empirically for pneumonia, and the blood and sputum cultures remain negative. His laboratory studies showed significant increase in the bilirubin and alkaline phosphatase levels. He also became significantly anemic, requiring PRBC transfusion. During this time his GI evaluation included CT abdomen/pelvis, gallbladder ultrasound, HIDA scan, and MRCP demonstrating multiple liver metastases but without obvious progression, no evidence of bile duct obstruction, and nonvisualization of the gallbladder. As of his follow-up visit on 08/06/2020 he was still very weak generally and he was completely oxygen dependent. At that point his cyclophosphamide and Sprycel were permanently discontinued. His immunotherapy also remained on hold. During follow-up he had gradual improvement in his performance status, though his activity remains limited. His restaging PET/CT reported progression of hepatic metastatic disease and development of new pulmonary metastases compared to a prior study from April 2019. I reviewed the scan independently with the patient and compared to his more recent outside PET/CT from March 2020. In comparison to the more recent study, the liver has not changed significantly, but there are multiple small pulmonary metastatic lesions which are new. Given that finding, he is offered the option to undergo further systemic therapy with a standard FOLFOX chemotherapy regimen in combination with Avastin. He is going to be contacting his oncologist in [place] before making a decision about further treatment. In the meantime, he will be scheduled for repeat paracentesis and for right thoracentesis, assess PET/CT also show significant ascites and right pleural effusion. Signed By: George Rabago M.D. <<Signature on File>>
== END 2020-09-10 05:58 | disposition home or self-care (01) ==
LOC: ONCMED 06:00
PROVIDERS: PCP Nurse Practitioner Family; Visit Provider Internal Medicine Medical Oncology
DX: C18.4 Malignant neoplasm of transverse colon (principal); C78.7 Secondary malignant neoplasm of liver and intrahepatic bile duct; E78.5 Hyperlipidemia, unspecified; I25.10 Atherosclerotic heart disease of native coronary artery without angina pectoris; Z95.5 Presence of coronary angioplasty implant and graft; I26.99 Other pulmonary embolism without acute cor pulmonale; Z79.01 Long term (current) use of anticoagulants; Z79.899 Other long term (current) drug therapy
CPT/HCPCS: 99214

== ENCOUNTER → 2020-09-18 09:44 | Day surgery (SDC) | payer MEDICARE, BC, SELFPAY ==
--- NOTE | 2020-09-18 09:58 | US_ITS ---
WS: [id number] ULTRASOUND-GUIDED THERAPEUTIC PARACENTESIS Procedure, risks, and complications have been explained to the patient. Consent is obtained. Utilizing aseptic technique and 1% buffered lidocaine, a small dermatome was made through which a 5 F rench Yueh catheter was inserted. Approximately 3500 ml of clear peritoneal fluid was obtained witho ut difficulty. No complications encountered. Note: Patient is scheduled to return for thoracentesis in 2 days. Pleural spaces were evaluated today and there is no significant amount of pleural fluid. Patient will not return for thoracentesis. US/US paracentesis abd w [id number] IMPRESSION: Uncomplicated paracentesis yielding 3500 ml of peritoneal fluid.
[2020-09-18 10:15] VITALS: BP 105/71; PULSE 78; RESP 18; TEMP 36.5; O2SAT 96
[2020-09-18 10:22] VITALS: BMI 21.8
[2020-09-18 11:08] LABS: INR 1.03 (0.8-1.2)
== END ==
LOC: RAD 09:47 → GILAB 09:48
PROVIDERS: Radiology Diagnostic Radiology; PCP Nurse Practitioner Family; Visit Provider Internal Medicine Medical Oncology
DX: R18.8 Other ascites (principal); C18.9 Malignant neoplasm of colon, unspecified; C78.7 Secondary malignant neoplasm of liver and intrahepatic bile duct
CPT/HCPCS: 49083; 85610

== ENCOUNTER → 2020-10-03 06:34 | Day surgery (SDC) | payer MEDICARE, BC, SELFPAY ==
--- NOTE | 2020-10-03 06:46 | US_ITS ---
WS: [id number] ULTRASOUND-GUIDED THERAPEUTIC PARACENTESIS Procedure, risks, and complications have been explained to the patient. Consent is obtained. Utilizing aseptic technique and 1% buffered lidocaine, a small dermatome was made through which a 5 F rench Yueh catheter was inserted. Approximately 7200 ml of clear peritoneal fluid was obtained witho ut difficulty. No complications encountered. US/US paracentesis abd w [id number] IMPRESSION: Uncomplicated paracentesis yielding 7200 ml of peritoneal fluid.
[2020-10-03 06:57] VITALS: BP 110/74; PULSE 82; RESP 18; TEMP 36.6; O2SAT 96
[2020-10-03 08:56] VITALS: BP 115/71; PULSE 80; RESP 16; O2SAT 95
== END ==
PROVIDERS: PCP Nurse Practitioner Family; Visit Provider Internal Medicine Medical Oncology
DX: R18.8 Other ascites (principal); C18.9 Malignant neoplasm of colon, unspecified; C79.9 Secondary malignant neoplasm of unspecified site
CPT/HCPCS: 49083

== ENCOUNTER → 2020-10-08 10:04 | Outpatient (BNVA) | payer MEDICARE, BC, SELFPAY | PROVIDERS: PCP Nurse Practitioner Family; Visit Provider Nurse Practitioner Family | DX: C18.9 Malignant neoplasm of colon, unspecified (principal); C79.9 Secondary malignant neoplasm of unspecified site; I25.10 Atherosclerotic heart disease of native coronary artery without angina pectoris; E83.52 Hypercalcemia; E87.5 Hyperkalemia | CPT/HCPCS: 80053; 82378; 83880; 85007; 85027; 86301 ==

== ENCOUNTER → 2020-10-15 11:04 | Day surgery (SDC) | payer MEDICARE, BC, SELFPAY ==
[2020-10-15 11:36] VITALS: BP 121/79; PULSE 87; RESP 28; TEMP 36.4; O2SAT 97; BMI 24.5
--- NOTE | 2020-10-15 11:56 | US_ITS ---
WS: [id number] ULTRASOUND-GUIDED THERAPEUTIC PARACENTESIS Procedure, risks, and complications have been explained to the patient. Consent is obtained. Utilizing aseptic technique and 1% buffered lidocaine, a small dermatome was made through which a 5 F rench Yueh catheter was inserted. Approximately 9600 ml of clear peritoneal fluid was obtained witho ut difficulty. No complications encountered. US/US paracentesis abd w [id number] IMPRESSION: Uncomplicated paracentesis yielding 9600 ml of peritoneal fluid.
[2020-10-15 12:09] LABS: INR 1.02 (0.8-1.2)
[2020-10-15 13:59] VITALS: BP 117/71; PULSE 84; RESP 28; O2SAT 95
== END ==
PROVIDERS: Radiology Diagnostic Radiology; PCP Nurse Practitioner Family; Visit Provider Internal Medicine Medical Oncology
DX: R18.8 Other ascites (principal)
CPT/HCPCS: 36415; 49083; 85610

== ENCOUNTER → 2020-10-23 11:29 | Day surgery (SDC) | payer MEDICARE, BC, SELFPAY ==
--- NOTE | 2020-10-23 11:58 | US_ITS ---
WS: [id number] ULTRASOUND-GUIDED PARACENTESIS CLINICAL INFORMATION: malignant neoplasam of colon COMPARISON: None. Procedure Informed consent: The risks, benefits, and alternatives of the procedure were discussed with the stacy ent. Verbal and written consent was obtained. Timeout: A timeout was performed to confirm the correct patient, procedure, and site. Preparation: A suitable skin site was identified. The patient was prepped and draped in usual sterile fashion. Lidocaine 1% was used for local anesthesia. Catheter: 4 Micronesian One-step Yueh catheter. Side: Left Lower quadrant. Fluid Volume: 7700 ml Color: Katrin DISPOSITION: Discarded safely. Complications: None. Patient disposition: Discharged from the department in stable condition. US/US paracentesis abd w [id number] IMPRESSION: Uncomplicated ultrasound-guided paracentesis. Removal of 7700 cc
[2020-10-23 12:00] VITALS: BP 117/82; PULSE 84; RESP 18; TEMP 36.9; O2SAT 98
== END ==
PROVIDERS: PCP Nurse Practitioner Family; Visit Provider Internal Medicine Medical Oncology
DX: C18.9 Malignant neoplasm of colon, unspecified (principal)
CPT/HCPCS: 49083

== ENCOUNTER 2020-11-05 17:46 | Emergency (ER) | payer MEDICARE, BC, SELFPAY ==
[2020-11-05 17:50] VITALS: BP 118/86; PULSE 115; RESP 18; TEMP 36.7; O2SAT 94; BMI 24.5
[2020-11-05 20:44] VITALS: BP 131/95; PULSE 114; RESP 15; TEMP 36.6; O2SAT 95
--- NOTE | 2020-11-05 20:44 | US_ITS ---
WS: [id number] INDICATION: Ascites TECHNIQUE: Ultrasound abdomen 4 quadrant FINDINGS: 4 quadrant moderate to large volume ascites. US/US abdomen lmt fluid [id number] IMPRESSION: Moderate to large volume ascites
[2020-11-05 21:47] VITALS: BP 118/73; RESP 15; O2SAT 95
[2020-11-05] MEDS: oxyCODONE 5 mg IR Tab/Cap PO (21:47)
--- NOTE | 2020-11-05 22:21 | ED_ITS ---
HPI - General Adult General: Chief complaint: General Medical Stated complaint: needs fluid drained Time Seen by Provider: 11/05/20 20:07 Source: patient, RN notes reviewed and old records reviewed Mode of arrival: ambulatory Limitations: no limitations History of Present Illness: HPI narrative: This unfortunate gentleman has a history of metastatic colon cancer with liver and possibly pulmonary metastases. He has malignant ascites and has had multiple abdominal paracentesis. He usually gets it about every 2 weeks. His next appointment is in 5 days, however he is having increasing pain and difficulty breathing from the ascites and he states he cannot wait for another 5 days. No nausea or vomiting. No fever. No urinary symptoms. No constipation or diarrhea. Associated symptoms: Reports short of breath and weakness; Deny chest pain, confusion, cough, diaphoresis, decreased appetite, dyspnea, fevers/chills, headache(s), malaise, nausea, rash, palpitations, seizures, syncope or vomiting Treatments prior to arrival: none Review of Systems General: Reports: 10 or more systems reviewed and unremarkable except in HPI and below Const: Denies: malaise or diaphoresis Card: Denies: chest pain, palpitations or syncope Resp: Denies: dyspnea GI: Denies: nausea or vomiting Skin/Breast: Denies: rash Neuro: Denies: headache(s) or confusion PFSH ED PFSH: Medical History Anemia CAD (coronary artery disease) -with hx of inferior wall ID s/p stenting of RCA Community acquired pneumonia Diabetes type 2, controlled Generalized weakness GERD (gastroesophageal reflux disease) Hyperlipidemia -continue statin Hyponatremia Ileus Malignant neoplasm of transverse colon Metastatic cancer Metastatic colon cancer to liver -Known metastatic disease to the liver and lung -s/p chemo immunotherapy percutaneous injection (CIPI) to the liver and lung lesions on 11/21/19 Pancreatitis This suspected to be secondary to cancer related pancreatic duct obstruction. Immunotherapy could also play a role but felt unlikely. Pulmonary emboli -noted bilateral PE on CT scan of the chest done following elevated D-dimer -Echo: EF=55%, mild LVH, G1DD, no evidence of R heart strain -venous duplex negative for DVT -ontherapeutic dose of Lovenox, switched to Eliquis -No prior history of PE; biggest risk factor is likely underlying malignancy -stable vital signs and respiratory status -Noted hypoxia on ABG Sepsis Transaminitis -Known metastatic disease to the liver Surgical History H/O colectomy -partial transverse colectomy History of heart artery stent -in RCA secondary to inferior wall ID Port-A-Cath in place S/P exploratory laparotomy Family History Family/Other Cancer -hx of colon cancer Social History Smoking and tobacco status: former smoker Alcohol intake: never Household members: spouse Marital status: Physical Exam Const: COMMON NORMALS: no acute distress, average body habitus, patient oriented x3, no limitations, alert and well nourished NUTRITIONAL APPEARANCE: cachectic HENMT: COMMON NORMALS: normocephalic, atraumatic and moist oral mucous membranes HEAD & SCALP: normocephalic and atraumatic Neck/C-Spine: COMMON NORMALS: no meningeal signs and no JVD Resp: COMMON NORMALS: normal respiratory effort, No retractions, No use of accessory muscles, clear to auscultation bilaterally and percussion normal AUSCULTATION: clear to auscultation bilaterally PERCUSSION: percussion normal Cardio: COMMON NORMALS: no JVD, regular rate, regular rhythm, S1 normal heart sound present, S2 normal heart sound present, No gallops present (Cardio), No clicks present (Cardio), No murmurs present (Cardio), No rub (Cardio) and Peripheral pulses 2+ throughout RATE: regular rate RHYTHM: regular rhythm HEART SOUNDS: S1 normal heart sound present and S2 normal heart sound present PERIPHERAL PULSES: Peripheral pulses 2+ throughout GI: COMMON NORMALS: Soft to palpation, non-tender, No hepatosplenomegaly present, no masses and no bruits INSPECTION: Yes abdominal distension PALPATION: Yes Soft to palpation and Yes No hepatosplenomegaly present Extremity: COMMON NORMALS: normal to inspection, full ROM, capillary refill normal, no calf tenderness and no pedal edema Neuro: COMMON NORMALS: patient oriented x3 SENSORIUM/ORIENTATION: Yes alert MENINGEAL SIGNS: Yes no meningeal signs Procedures Paracentesis Time Out Performed: Yes Indication: Ascites Procedure: therapeutic paracentesis Location: LLQ Local Anesthetic: lidocaine 1% Amount of anesthesia used (mL): 10 Bedside Ultrasound Used: yes, Ascites confirmed and location marked Preparation: sterile prep and drape Amount of fluid obtained (mL): 8,000 Fluid: clear Post Procedure Exam: awake, alert, normal BP, normal HR and normal SpO2 Patient Tolerated Procedure: well and no complications Complications: none Course Reevaluation(s): Reevaluation #1: Patient feels much better. Distention has resolved. Abdomen is flat and soft and nontender. We will discharge him home with no new orders. He voiced understanding and is in agreement with the plan. Time: 22:22 Vital Signs: Vital signs: Vital Signs Temperature 97.8 F 11/05/20 20:44 Pulse Rate 94 11/05/20 22:34 Respiratory Rate 16 11/05/20 22:34 Blood Pressure 130/84 11/05/20 22:34 Pulse Oximetry 95 11/05/20 22:34 MDM - General Adult MDM Narrative: Medical decision making narrative: 65-year-old male with malignant ascites. He was pretty uncomfortable and had severe abdominal distention. Ultrasound-guided abdominal paracentesis was performed and 8 L of clear ascitic fluid drained. Patient symptoms improved following the procedure. He is discharged home with no new orders. Medical Records: Attestation: I reviewed the patient's medical records. Lab Data: Attestation: I reviewed the patient's lab results. Discharge Plan Discharge Patient Disposition: Home Clinical Impression: Ascites, malignant Condition: Stable Prescriptions: Continued furosemide [Lasix] 20 mg tablet 20 mg PO DAILY PRN (Reason: Edema) Qty: 30 RF: 1 spironolactone 50 mg tablet 50 mg PO DAILY Qty: 90 RF: 1 ondansetron 8 mg Tablet,Disintegrating 8 mg PO Q12H PRN (Reason: NAUSEA/VOMITING) RF: 0 metformin 1,000 mg tablet 1,000 mg PO DAILY@0700 RF: 0 omeprazole 20 mg Tablet,Delayed Release (Dr/Ec) 20 mg PO DAILY@0700 RF: 0 amino acids Powder See Rx Instructions .ROUTE .COMPLEX RF: 0 Iron (ferrous sulfate) 325 mg (65 mg iron) Tablet 325 mg PO DAILY RF: 0 oxycodone 5 mg tablet 5 mg PO DAILY RF: 0 multivitamin [Multiple Vitamins] Tablet 1 tab PO DAILY@0700 RF: 0 nitroglycerin [Nitrostat] 0.4 mg Tablet, Sublingual 0.4 mg SUBLINGUAL Q5M PRN (Reason: Chest Pain) RF: 0 Discharge Orders: Discharge ED (Routine); Ordered 11/05/20 Ordered By: Flaco Chandler Referrals: Shiloh Sparks FNP [Primary Care Provider] - 1-3 days Discharge Diet: Usual diet Discharge Activity: Increase activity as tolerated Patient Instructions: Malignant Ascites, Ascites (ED) Activity Restrictions/Additional Instructions: Return for any new or worsening symptoms. Follow-up with your primary care provider within 3 days. Continue home medications. Follow-up with oncology as scheduled. Coding Level of Care Code ED Car Shunter for Amelia Floyd
[2020-11-05 22:34] VITALS: BP 130/84; PULSE 94; RESP 16; O2SAT 95
== END 2020-11-05 22:37 | disposition home or self-care (01) ==
PROVIDERS: Emergency Provider Family Medicine; PCP Nurse Practitioner Family
DX: C18.9 Malignant neoplasm of colon, unspecified (principal); C78.7 Secondary malignant neoplasm of liver and intrahepatic bile duct; R18.0 Malignant ascites; I25.10 Atherosclerotic heart disease of native coronary artery without angina pectoris; E11.9 Type 2 diabetes mellitus without complications; E78.5 Hyperlipidemia, unspecified; Z87.891 Personal history of nicotine dependence
CPT/HCPCS: 76705; 99283

== ENCOUNTER 2020-11-12 10:35 | Emergency (ER) | payer MEDICARE, BC, SELFPAY ==
[2020-11-12] VITALS (9 sets, daily range): BP systolic 108–124; BP diastolic 61–97; PULSE 95–108; RESP 16–18; TEMP 36.6; O2SAT 93–98; BMI 24.2
--- NOTE | 2020-11-12 11:20 | W.ED.ABDPA2 ---
HPI - Abdominal Pain General: Chief Complaint: Abdominal Pain Stated Complaint: Paracentesis/LOWER ABD PAIN Time Seen by Provider: 11/12/20 11:08 History of Present Illness: HPI narrative: The patient is a 65-year-old male with past medical history metastatic colon cancer that is spread to liver and lungs comes to the ER with gross ascites asking for a paracentesis. He has been getting it drained about every other week set up by Dr. Rabago however he got drained a week ago here in the ED because his belly feels up too quick and they are unable to change the scheduling. Dr. Rabago is trying to arrange once a week drains going forward. His belly is distended and firm and he is complaining it is making him short of breath. Severity: severe Quality: fullness Associated Symptoms: Reports no associated symptoms and other (Gross ascites); Denies GI cramping and diarrhea Review of Systems General: Reports: 10 or more systems reviewed and unremarkable except in HPI and below Const: Denies: fatigue Eyes: Denies: change in vision, blurry vision or eye redness ENMT: Denies: throat pain, swelling of lips/tongue, ear or mastoid pain or nasal congestion Card: Denies: chest pain, palpitations, irregular heart rhythm, edema, dyspnea on exertion or orthopnea Resp: Denies: dyspnea, productive cough or non-productive cough GI: Reports: other (Gross ascites); Denies: abdominal pain, diarrhea or GI cramping : Denies: flank pain, urinary frequency or urinary urgency Musc: Denies: neck pain, back pain, extremity pain, joint pain, joint redness, limited range of motion or muscle weakness Skin/Breast: Denies: rash, pruritus, erythema, skin pain or skin tenderness Neuro: Denies: headache(s), numbness in extremities, weakness in extremities, sensory changes, difficulty walking, dizziness, confusion or Slurred speech present Psych: Denies: anxiety or depression Endo: Denies: polyuria All/Imm: Denies: urticaria, throat swelling or tongue swelling PFS ED PFSH: Medical History (Reviewed 11/05/20 @ 22:54 by Flaco Chandler [place] [facility] [facility] [place] Anemia CAD (coronary artery disease) -with hx of inferior wall [place] s/p stenting of RCA Community acquired pneumonia Diabetes type 2, controlled Generalized weakness GERD (gastroesophageal reflux disease) Hyperlipidemia -continue statin Hyponatremia Ileus Malignant neoplasm of transverse colon Metastatic cancer Metastatic colon cancer to liver -Known metastatic disease to the liver and lung -s/p chemo immunotherapy percutaneous injection (CIPI) to the liver and lung lesions on 11/21/19 Pancreatitis This suspected to be secondary to cancer related pancreatic duct obstruction. Immunotherapy could also play a role but felt unlikely. Pulmonary emboli -noted bilateral PE on CT scan of the chest done following elevated D-dimer -Echo: EF=55%, mild LVH, G1DD, no evidence of R heart strain -venous duplex negative for DVT -ontherapeutic dose of Lovenox, switched to Eliquis -No prior history of PE; biggest risk factor is likely underlying malignancy -stable vital signs and respiratory status -Noted hypoxia on ABG Sepsis Transaminitis -Known metastatic disease to the liver Surgical History (Reviewed 11/05/20 @ 22:54 by Flaco Chandler [place] [facility] [place] H/O colectomy -partial transverse colectomy History of heart artery stent -in RCA secondary to inferior wall [place] Port-A-Cath in place S/P exploratory laparotomy Family History (Reviewed 11/05/20 @ 22:54 by Flaco Chandler [place] [facility] [place] Family/Other Cancer -hx of colon cancer Social History (Reviewed 11/05/20 @ 22:54 by Flaco Chandler [place], [facility] Smoking and tobacco status: former smoker Alcohol intake: never Household members: spouse Marital status: Physical Exam Const: COMMON NORMALS: no acute distress, average body habitus, patient oriented x3, no limitations, healthy appearing, alert and well nourished GENERAL APPEARANCE: cooperative, comfortable, well kempt and well developed ORIENTATION/CONSCIOUSNESS: Yes awake, Yes oriented to person, Yes oriented to place and Yes oriented to time HENMT: COMMON NORMALS: normocephalic, external ears normal and Normal external nose present HEAD & SCALP: normal to inspection and normocephalic NOSE: Normal external nose present EXTERNAL EAR: Yes external ears normal MOUTH: Normal oral and palatal mucosa present THROAT: posterior oropharynx normal Eye: COMMON NORMALS: Equal, round and reactive pupils present and EOMs intact bilaterally GENERAL EYE: appearance normal, both eyes and all related structures PUPIL: Yes Equal, round and reactive pupils present Neck/C-Spine: COMMON NORMALS: full ROM, no lymphadenopathy, no meningeal signs and no JVD GENERAL: Yes normal visual inspection Lymph: LYMPHATIC: no lymphadenopathy noted Chest: COMMONS NORMALS: normal inspection of the chest and normal palpation of entire chest wall Resp: COMMON NORMALS: normal respiratory effort, No retractions, No use of accessory muscles, clear to auscultation bilaterally and percussion normal EFFORT & INSPECTION: Yes able to speak in complete sentences AUSCULTATION: clear to auscultation bilaterally PERCUSSION: percussion normal Cardio: COMMON NORMALS: no JVD, regular rate, regular rhythm, S1 normal heart sound present, S2 normal heart sound present and Peripheral pulses 2+ throughout RATE: regular rate RHYTHM: regular rhythm HEART SOUNDS: S1 normal heart sound present and S2 normal heart sound present PERIPHERAL PULSES: Peripheral pulses 2+ throughout GI: COMMON NORMALS: non-tender and no masses OTHER: gross ascites. : COMMON NORMALS: Yes no CVA tenderness BLADDER/KIDNEY EXAM: Yes no CVA tenderness Back/Pelvis: COMMON NORMALS: no CVA tenderness, thoracic and lumbar spine normal to inspection, no thoracic nor lumbar tenderness and thoraco-lumbar ROM normal Extremity: COMMON NORMALS: normal to inspection, full ROM, capillary refill normal, no joint enlargement and no pedal edema GENERAL: Yes normal exam except as noted Neuro: COMMON NORMALS: patient oriented x3, CN's II-XII intact bilaterally, moves all extremities, no focal motor deficits, no sensory deficits noted and gait normal SENSORIUM/ORIENTATION: Yes alert, Yes oriented to person, Yes oriented to place and Yes oriented to time MENINGEAL SIGNS: Yes no meningeal signs Psych: COMMON NORMALS: mental status grossly normal, Normal thought process present, cooperative, normal affect and speech normal APPEARANCE: Yes well kempt ATTITUDE: Yes calm SPEECH: Yes normal speech THOUGHT PROCESS: Normal thought process present Skin: COMMON NORMALS: no rashes or lesions noted GENERAL SKIN EXAM: no rashes or lesions noted Course Vital Signs: Vital signs: Vital Signs Temperature 97.9 F 11/12/20 10:40 Pulse Rate 102 H 11/12/20 15:56 Respiratory Rate 16 11/12/20 15:49 Blood Pressure 112/81 11/12/20 15:56 Pulse Oximetry 93 11/12/20 15:56 MDM - Abdominal Pain MDM Narrative: Medical decision making narrative: Interventional radiology drained 8 L from his abdomen. The patient reports improved distention and looks visibly better. He is asking for discharge. He was sent home and recommended he follow-up with his primary care physician in a couple days and schedule the paracentesis weekly. He knows how to do this and who to call. Return to the ER with worsening symptoms at any time for reevaluation. Lab Data: Labs: Lab Results 11/12/20 11/12/20 Range/Units 12:02 12:02 WBC 10.3 H (4.0-10.0) 10^3/ uL RBC 5.49 H (4.1-5.3) 10^6/u L Hgb 14.3 (11.7-16.6) g/dL Hct 45.6 (42.0-52.0) % MCV 83.1 (80-94) fL MCH 26.0 L (28.0-34.0) pg MCHC 31.4 (30.0-36.0) g/dL RDW 19.7 H (12.1-15.1) % Plt Count 308 (130-400) 10^3/c mm MPV 9.9 (7.4-10.4) fL Neut % (Auto) 83.1 % Lymph % (Auto) 5.4 % [place] % (Auto) 10.2 % Eos % (Auto) 0.4 % Baso % (Auto) 0.4 % Neut # (Auto) 8.56 H (1.8-7.7) 10^3/u L Lymph # (Auto) 0.6 L (0.8-4.8) 10^3/u L [place] # (Auto) 1.1 H (0.2-0.9) 10^3/u L Eos # (Auto) 0.0 (0.0-0.8) 10^3/u L Baso # (Auto) 0.0 (0.0-0.1) 10^3/u L Nucleated RBC % (a uto) 0 % Nucleated RBCs # 0.0 /100WBC Sodium 132 L (136-145) mmol/L Potassium 4.3 (3.5-5.1) mmol/L Chloride 98 (98-107) mmol/L Carbon Dioxide 24 (22-29) mmol/L Anion Gap 14.3 (5-19) BUN 13 (8-23) mg/dL Creatinine 0.4 L (0.7-1.2) mg/dL GFR Calculation 215.9 H (90-130) mL/min Glucose 110 (65-115) mg/dL Calculated Osmolal ity 275 L (285-295) mOsm/k g Calcium 8.8 (8.5-10.5) mg/dL Total Bilirubin 1.6 H (0.15-1.2) mg/dL AST 136 H (0-40) U/L ALT 69 H (0-41) U/L Alkaline Phosphata se 883 H (40-130) IU/L Total Protein 6.4 L (6.6-8.7) g/dL Albumin 2.8 L (3.5-5.2) g/dL Globulin 3.6 (1.3-4.6) g/dL Lipase 57 (13-60) U/L Discharge Plan Discharge Patient Disposition: Home Clinical Impression: Ascites, malignant Condition: Stable Prescriptions: No Action furosemide [Lasix] 20 mg tablet 20 mg PO DAILY PRN (Reason: Edema) Qty: 30 RF: 1 spironolactone 50 mg tablet 50 mg PO DAILY Qty: 90 RF: 1 ondansetron 8 mg Tablet,Disintegrating 8 mg PO Q12H PRN (Reason: NAUSEA/VOMITING) RF: 0 omeprazole 20 mg Tablet,Delayed Release (Dr/Ec) 20 mg PO DAILY@0700 RF: 0 amino acids Powder See Rx Instructions .ROUTE .COMPLEX RF: 0 ferrous sulfate [Iron (ferrous sulfate)] 325 mg (65 mg iron) Tablet 325 mg PO DAILY RF: 0 oxycodone 5 mg tablet 5 mg PO DAILY RF: 0 multivitamin [Multiple Vitamins] Tablet 1 tab PO DAILY@0700 RF: 0 nitroglycerin [Nitrostat] 0.4 mg Tablet, Sublingual 0.4 mg SUBLINGUAL Q5M PRN (Reason: Chest Pain) RF: 0 Discharge Orders: Discharge ED (Routine); Ordered 11/12/20 Ordered By: Dillon Guthrie Referrals: Shiloh Sparks FNP [Primary Care Provider] - Discharge Diet: Advance as tolerated Discharge Activity: Resume usual activity Patient Instructions: Malignant Ascites, Ascites (ED), Opioid Safety Activity Restrictions/Additional Instructions: You have ascites and have had 8 L drained from your belly. You have done quite well. Please follow-up with your primary care physician tomorrow to discuss scheduling weekly paracentesis as it seems you are requiring it more often. Return to the ER with worsening symptoms at any time otherwise follow-up with your primary care physician tomorrow and also called the person who drains your belly to discuss scheduling the paracentesis weekly. Coding Level of Care Code ED Soaker Soda Worker for Amelia 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
--- NOTE | 2020-11-12 11:25 | US_ITS ---
WS: [id number] ULTRASOUND-GUIDED THERAPEUTIC PARACENTESIS Procedure, risks, and complications have been explained to the patient. Consent is obtained. Utilizing aseptic technique and 1% buffered lidocaine, a small dermatome was made through which a 5 F rench Yueh catheter was inserted. Approximately 8000 ml of clear peritoneal fluid was obtained witho ut difficulty. No complications encountered. US/US paracentesis abd w [id number] IMPRESSION: Uncomplicated paracentesis yielding 8000 ml of peritoneal fluid.
[2020-11-12 12:26] LABS: Basophils % 0.4 %; Eosinophils % 0.4 %; Hematocrit 45.6 % (42.0-52.0); Hemoglobin 14.3 g/dL (11.7-16.6); Lymphocytes # 0.6 10^3/uL (0.8-4.8); Lymphocytes % 5.4 %; Mean Corpuscular HGB Conc 31.4 g/dL (30.0-36.0); Mean Corpuscular Volume 83.1 fL (80-94); Mean Platelet Volume 9.9 fL (7.4-10.4); Monocytes # 1.1 10^3/uL (0.2-0.9); Monocytes % 10.2 %; Neutrophils # 8.56 10^3/uL (1.8-7.7); Neutrophils % 83.1 %; Nucleated Red Blood Cells % 0 %; Platelet Count 308 10^3/cmm (130-400); Red Blood Count 5.49 10^6/uL (4.1-5.3); Red Cell Distribution Width 19.7 % (12.1-15.1); White Blood Count 10.3 10^3/uL (4.0-10.0)
[2020-11-12 13:25] LABS: Alanine Aminotransferase 69 U/L (0-41); Albumin Level 2.8 g/dL (3.5-5.2); Alkaline Phosphatase 883 IU/L (40-130); Anion Gap 14.3 (5-19); Aspartate Amino Transferase 136 U/L (0-40); Blood Urea Nitrogen 13 mg/dL (8-23); Calcium 8.8 mg/dL (8.5-10.5); Carbon Dioxide 24 mmol/L (22-29); Chloride 98 mmol/L (98-107); Globulin 3.6 g/dL (1.3-4.6); Glomerular Filtration Rate 215.9 mL/min (90-130); Glucose 110 mg/dL (65-115); Lipase 57 U/L (13-60); Osmolality Calculated 275 mOsm/kg (285-295); Potassium 4.3 mmol/L (3.5-5.1); Sodium 132 mmol/L (136-145); Total Bilirubin 1.6 mg/dL (0.15-1.2); Total Protein 6.4 g/dL (6.6-8.7)
--- NOTE | 2020-11-12 14:25 | PC.NURSE ---
patient has total of 8L of yellow fluid output
[2020-11-12] MEDS: oxyCODONE-APAP 5-325 mg Tablet 1 TAB PO (15:49)
== END 2020-11-12 15:58 | disposition home or self-care (01) ==
PROVIDERS: Emergency Provider Family Medicine; PCP Nurse Practitioner Family
DX: C78.00 Secondary malignant neoplasm of unspecified lung (principal); R18.0 Malignant ascites; I25.10 Atherosclerotic heart disease of native coronary artery without angina pectoris; E11.9 Type 2 diabetes mellitus without complications; E78.5 Hyperlipidemia, unspecified; Z85.038 Personal history of other malignant neoplasm of large intestine; Z85.05 Personal history of malignant neoplasm of liver; Z86.711 Personal history of pulmonary embolism; Z87.891 Personal history of nicotine dependence
CPT/HCPCS: 49083; 80053; 83690; 85025; 99283

== ENCOUNTER 2020-11-19 08:16 | Emergency (ER) | payer MEDICARE, BC, SELFPAY ==
[2020-11-19 08:34] VITALS: BP 121/86; PULSE 92; RESP 16; TEMP 36.8; O2SAT 96; BMI 24.0
--- NOTE | 2020-11-19 09:02 | US_ITS ---
WS: [id number] US paracentesis abd w [id number] REASON FOR EXAM: ascites FINDINGS: Limited imaging of the abdomen demonstrates a very large amount of ascitic fluid to be present. IMPRE SSION: Large volume ascites. 8000 mL was subsequently removed.
--- NOTE | 2020-11-19 09:03 | W.ED.ABDPA2 ---
HPI - Abdominal Pain General: Chief Complaint: Abdominal Pain Stated Complaint: Possible fluid in ABD, Nausea, SOB Time Seen by Provider: 11/19/20 08:19 History of Present Illness: HPI narrative: Patient with end-stage cancer. Has ascites has been coming almost on a weekly basis have it drained. He is here again because of discomfort nausea making difficulty. MD elicited complaint: other (Ascites) Pertinent past history: other (Cancer) Associated Symptoms: Denies chills, fever(s), nausea and vomiting Review of Systems Const: Denies: fever(s), chills or body aches Eyes: Denies: change in vision or blurry vision ENMT: Denies: throat pain or nasal congestion Card: Denies: chest pain or dyspnea on exertion Resp: Denies: dyspnea, productive cough or non-productive cough GI: Reports: abdominal pain (Swelling of the abdomen and decreased appetite); Denies: nausea or vomiting : Denies: difficulty urinating Musc: Denies: extremity pain Skin/Breast: Denies: rash Neuro: Denies: headache(s) Psych: Denies: anxiety or depression Jigar/Lymph: Denies: easy bruising PFSH ED PFSH: Medical History Anemia CAD (coronary artery disease) -with hx of inferior wall [place] s/p stenting of RCA Community acquired pneumonia Diabetes type 2, controlled Generalized weakness GERD (gastroesophageal reflux disease) Hyperlipidemia -continue statin Hyponatremia Ileus Malignant neoplasm of transverse colon Metastatic cancer Metastatic colon cancer to liver -Known metastatic disease to the liver and lung -s/p chemo immunotherapy percutaneous injection (CIPI) to the liver and lung lesions on 11/21/19 Pancreatitis This suspected to be secondary to cancer related pancreatic duct obstruction. Immunotherapy could also play a role but felt unlikely. Pulmonary emboli -noted bilateral PE on CT scan of the chest done following elevated D-dimer -Echo: EF=55%, mild LVH, G1DD, no evidence of R heart strain -venous duplex negative for DVT -ontherapeutic dose of Lovenox, switched to Eliquis -No prior history of PE; biggest risk factor is likely underlying malignancy -stable vital signs and respiratory status -Noted hypoxia on ABG Sepsis Transaminitis -Known metastatic disease to the liver Surgical History H/O colectomy -partial transverse colectomy History of heart artery stent -in RCA secondary to inferior wall [place] Port-A-Cath in place S/P exploratory laparotomy Family History Family/Other Cancer -hx of colon cancer Social History Smoking and tobacco status: former smoker Alcohol intake: never Household members: spouse Marital status: Physical Exam Const: COMMON NORMALS: no acute distress, average body habitus and patient oriented x3 HENMT: COMMON NORMALS: normocephalic HEAD & SCALP: normal to inspection and normocephalic FACE & SINUS: normal facial exam Eye: COMMON NORMALS: conjunctivae normal GENERAL EYE: appearance normal, both eyes and all related structures CONJUNCTIVA: Yes conjunctivae normal Neck/C-Spine: COMMON NORMALS: no JVD Chest: COMMONS NORMALS: normal inspection of the chest Resp: COMMON NORMALS: normal respiratory effort and clear to auscultation bilaterally AUSCULTATION: clear to auscultation bilaterally Cardio: COMMON NORMALS: no JVD, regular rate and regular rhythm RATE: regular rate RHYTHM: regular rhythm GI: INSPECTION: Yes abdominal distension Extremity: COMMON NORMALS: normal to inspection and full ROM Neuro: COMMON NORMALS: patient oriented x3 Course Vital Signs: Vital signs: Vital Signs Temperature 97.7 F 11/19/20 12:12 Pulse Rate 84 11/19/20 12:12 Respiratory Rate 24 H 11/19/20 12:12 Blood Pressure 113/79 11/19/20 12:12 Pulse Oximetry 97 11/19/20 12:12 MDM - Abdominal Pain MDM Narrative: Medical decision making narrative: Patient requiring weekly ascites drainage. Patient is scheduling a by weekly basis through Dr. Rabago's office for outpatient procedure. Patient requesting to see if they can get that changed. I supposedly ultrasound does not have staff to be able to do it weekly that they were told. Patient referred from general surgery to see about a tunneling peritoneal ascites drainage permit placement. Surgeons were contacted and referred to Dr. Sawyer's office for evaluation for this procedure Discharge Plan Discharge Patient Disposition: Home Clinical Impression: Abdominal ascites Qualifiers: Ascites type: malignant Qualified Code(s): R18.0 - Malignant ascites Condition: Stable Prescriptions: No Action furosemide [Lasix] 20 mg tablet 20 mg PO DAILY PRN (Reason: Edema) Qty: 30 RF: 1 spironolactone 50 mg tablet 50 mg PO DAILY Qty: 90 RF: 1 ondansetron 8 mg Tablet,Disintegrating 8 mg PO Q12H PRN (Reason: NAUSEA/VOMITING) RF: 0 omeprazole 20 mg Tablet,Delayed Release (Dr/Ec) 20 mg PO DAILY@0700 RF: 0 amino acids Powder See Rx Instructions .ROUTE .COMPLEX RF: 0 ferrous sulfate [Iron (ferrous sulfate)] 325 mg (65 mg iron) Tablet 325 mg PO DAILY RF: 0 oxycodone 5 mg tablet 5 mg PO DAILY RF: 0 multivitamin [Multiple Vitamins] Tablet 1 tab PO DAILY@0700 RF: 0 nitroglycerin [Nitrostat] 0.4 mg Tablet, Sublingual 0.4 mg SUBLINGUAL Q5M PRN (Reason: Chest Pain) RF: 0 Discharge Orders: Discharge ED (Routine); Ordered 11/19/20 Ordered By: Manfred Bess Referrals: Shiloh Sparks FNP [Primary Care Provider] - Discharge Diet: Usual diet Discharge Activity: Increase activity as tolerated Activity Restrictions/Additional Instructions: Follow-up Dr. Rabago office as scheduled and keep appointments for outpatient peritoneal ascites drainage. Appointment 1:[address] Sawyer here at the hospital at his office. Coding Level of Care Code ED Senior Clinical Research Associate for 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
[2020-11-19 09:36] VITALS: BP 108/76; PULSE 84; O2SAT 97
--- NOTE | 2020-11-19 12:02 | DCPLANNER ---
Addendum entered by Fani Gray 11/19/20 12:13: General Surgery contacted lead case manager stating that patient would need to be referred to Dr. Sawyer. mortgage sales manager called the office of Dr. Sawyer, spoke with Rita, gave clinic patients information. A follow up appointment was scheduled for October at 1:[address] Sawyer. mortgage sales manager informed ER physician of the scheduled appointment. Original Note: mortgage sales manager was asked to refer patient to general surgery for a catheter placement for ascites. mortgage sales manager emailed patients information to both Catalina and Megan at [facility] General Surgery. Patients information will be printed and reviewed. Clinic will call patient with appointment information.
[2020-11-19 12:12] VITALS: BP 113/79; PULSE 84; RESP 24; TEMP 36.5; O2SAT 97
--- NOTE | 2020-12-14 13:31 | DCPLANNER ---
Patient had a follow up appointment scheduled for 11.22.[address] Sawyer - patient did attend appointment.
== END 2020-11-19 12:31 | disposition home or self-care (01) ==
PROVIDERS: Emergency Provider Nurse Practitioner Family; PCP Nurse Practitioner Family
DX: R18.0 Malignant ascites (principal); C18.9 Malignant neoplasm of colon, unspecified; C78.7 Secondary malignant neoplasm of liver and intrahepatic bile duct; C78.00 Secondary malignant neoplasm of unspecified lung; I25.10 Atherosclerotic heart disease of native coronary artery without angina pectoris; I25.2 Old myocardial infarction; E11.9 Type 2 diabetes mellitus without complications; E78.5 Hyperlipidemia, unspecified; Z95.5 Presence of coronary angioplasty implant and graft; Z90.49 Acquired absence of other specified parts of digestive tract; Z80.0 Family history of malignant neoplasm of digestive organs
CPT/HCPCS: 49083; 99283

== ENCOUNTER 2020-11-23 09:17 | Outpatient (CLI) | payer MEDICARE, BC, SELFPAY ==
--- NOTE | 2020-11-23 09:37 | US_ITS ---
WS: [id number] ULTRASOUND-GUIDED PARACENTESIS CLINICAL INFORMATION: abdominal ascites COMPARISON: None. Procedure Informed consent: The risks, benefits, and alternatives of the procedure were discussed with the stacy ent. Verbal and written consent was obtained. Timeout: A timeout was performed to confirm the correct patient, procedure, and site. Preparation: A suitable skin site was identified. The patient was prepped and draped in usual sterile fashion. Lidocaine 1% was used for local anesthesia. Catheter: 4 Persian One-step Yueh catheter. Side: Left Lower quadrant. Fluid Volume: 7850 ml Color: Katrin DISPOSITION: Discarded safely. Complications: None. Patient disposition: Discharged from the department in stable condition. US/US paracentesis abd w [id number] IMPRESSION: Uncomplicated ultrasound-guided paracentesis. Removal of 7850 cc
[2020-11-23 09:40] VITALS: BP 113/84; PULSE 88; RESP 22; TEMP 36.8; O2SAT 96
[2020-11-23 09:50] VITALS: BMI 23.1
[2020-11-23 11:28] VITALS: BP 106/70; PULSE 84; RESP 20; O2SAT 96
== END 2020-11-23 09:18 | disposition home or self-care (01) ==
PROVIDERS: PCP Nurse Practitioner Family; Visit Provider Internal Medicine Medical Oncology
DX: C18.4 Malignant neoplasm of transverse colon (principal); C78.7 Secondary malignant neoplasm of liver and intrahepatic bile duct; R18.8 Other ascites
CPT/HCPCS: 49083

== ENCOUNTER → 2020-11-30 11:02 | Day surgery (SDC) | payer MEDICARE, BC, SELFPAY ==
[2020-11-30 11:23] VITALS: BP 117/86; PULSE 83; RESP 18; TEMP 36.2; O2SAT 96
--- NOTE | 2020-11-30 11:25 | US_ITS ---
WS: [id number] Abdominal ultrasound, limited. History: Evaluate for ascites. Comparison: None. All 4 quadrants are imaged by ultrasound to evaluate for ascites. Large amount of ascites throughout 4 quadrants of the abdomen. US/US abdomen limited [id number] IMPRESSION: Large amount of ascites.
--- NOTE | 2020-11-30 12:28 | PM.ACPR ---
Acute Procedures Paracentesis: Time out performed: Yes Indication: Ascites Procedure: therapeutic paracentesis Location: LLQ Local anesthetic used: lidocaine 1% Amount of anesthesia used (ml): 10 Bedside ultrasound used: yes, Ascites confirmed and location marked Preparation: sterile prep and drape and 11 blade used to make don in skin Amount of fluid obtained (ml): 9,000 Fluid: clear Post procedure exam: awake, alert Patient tolerated procedure: well and no complications Complications: none
[2020-11-30 12:36] VITALS: BP 104/64; PULSE 78; RESP 18; O2SAT 97
== END ==
PROVIDERS: PCP Nurse Practitioner Family; Visit Provider Internal Medicine
DX: R18.8 Other ascites (principal)
CPT/HCPCS: 76705

== ENCOUNTER → 2020-12-04 10:14 | Outpatient (BNVA) | payer MEDICARE, BC, SELFPAY | PROVIDERS: PCP Nurse Practitioner Family; Referring Provider Internal Medicine; Visit Provider Surgery | DX: Z20.822 Contact with and (suspected) exposure to COVID-19 (principal); R18.0 Malignant ascites; R18.8 Other ascites | CPT/HCPCS: 87635 ==

== ENCOUNTER 2020-12-06 06:33 | Day surgery (SDC) | payer MEDICARE, BC, SELFPAY ==
[2020-12-05 14:30] VITALS: BMI 22.9
[2020-12-06] VITALS (7 sets, daily range): BP systolic 103–123; BP diastolic 70–82; PULSE 66–82; RESP 14–20; TEMP 36.2–37.3; O2SAT 95–100
--- NOTE | 2020-12-06 07:02 | W.PM.OPSUD ---
Surgery/Procedure H&P Update DATE OF PROCEDURE: December 06, 2020 DATE H&P PERFORMED: 12/04/20 H&P UPDATE INFORMATION: I have reviewed H&P completed within last 30 days, I have examined patient prior to procedure and No changes to prior documentation PREOP DIAGNOSIS: Malignant ascites PLANNED PROCEDURE: Operation Date: 12/06/20 08:05 Proposed Procedures p Peritoneal Catheter Insertion [id number] R18(Not Applicable) - Clement Tovar MD
[2020-12-06] MEDS: sodium chloride 0.9% 1,000 ML 30 ML IV (07:07)
--- NOTE | 2020-12-06 07:09 | P.ANESASSM_ITS ---
Pre-Anesthetic Assessment Pre-Anesthetic Assessment: Height/Weight: Height 1.78 m Weight 72.575 kg Temp Pulse Resp BP Pulse Ox 99.1 F 82 20 H 123/82 95 12/06/20 06:50 12/06/20 06:50 12/06/20 06:50 12/06/20 06:50 12/06/20 06:50 Preop Diagnosis: Malignant ascites Proposed Procedure: Operation Date: 12/06/20 08:05 Proposed Procedures p Peritoneal Catheter Insertion [id number] R18(Not Applicable) - Clement Tovar MD Was Beta Shivam taken within 24 hours: N/A Was Clonidine taken within 24 hours: N/A Last intake: Intake Last Liquid Date 12/05/20 Last Liquid Time 23:30 Last Solid Date 12/05/20 Last Solid Time 17:00 Social: Social History: No alcohol and No tobacco Exam: Pre-Anes Outpt Exam: alert, oriented x 3, clear to auscultation bilat erally and regular rate & rhythm Airway: Submandibular: WNL Cervical ROM: WNL MP: 2 Dentition: Chipped Additional comments: Poor dentition CV/HEM: CV/HEM: Anemia, CAD (stent) and [place] Hepatic: Hepatic: Cirrohsis GI: GI: GERD Comments: Metastatic colon CA/ascites, pancreatitis Metabolic: Metabolic: DM Anesthetic Plan: ASA status: 3 Anesthesia: MAC Risk of > 500 ml blood loss (7ml/kg in children): No Meds/Allergies Current Medications: Current Medications Generic Name Dose Route Start Last Admin Trade Name Freq PRN Reason Stop Dose Admin Sodium Chloride 1,000 mls @ 30 ml s/hr 12/06/20 06:45 12/06/20 07:07 Sodium Chloride 0.9% IV 12/07/20 06:44 30 mls/hr .Q24H JUAN JOSE Administration PFSH Anesthesia PFSH: Medical History Anemia CAD (coronary artery disease) -with hx of inferior wall [place] s/p stenting of RCA Community acquired pneumonia Diabetes type 2, controlled Generalized weakness GERD (gastroesophageal reflux disease) Hyperlipidemia -continue statin Hyponatremia Ileus Malignant neoplasm of transverse colon Metastatic cancer Metastatic colon cancer to liver -Known metastatic disease to the liver and lung -s/p chemo immunotherapy percutaneous injection (CIPI) to the liver and lung lesions on 11/21/19 Pancreatitis This suspected to be secondary to cancer related pancreatic duct obstruction. Immunotherapy could also play a role but felt unlikely. Pulmonary emboli -noted bilateral PE on CT scan of the chest done following elevated D-dimer -Echo: EF=55%, mild LVH, G1DD, no evidence of R heart strain -venous duplex negative for DVT -ontherapeutic dose of Lovenox, switched to Eliquis -No prior history of PE; biggest risk factor is likely underlying malignancy -stable vital signs and respiratory status -Noted hypoxia on ABG Sepsis Transaminitis -Known metastatic disease to the liver Surgical History H/O colectomy -partial transverse colectomy History of heart artery stent -in RCA secondary to inferior wall [place] Port-A-Cath in place S/P exploratory laparotomy Family History Family/Other Cancer -hx of colon cancer Social History Alcohol intake: never Household members: spouse Marital status: Data Anesthesia Cardiac Studies: No Data to Display
--- NOTE | 2020-12-06 07:40 | PM.OP ---
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 The abdomen was prepped and draped in a sterile manner. Under ultrasound guidance the site of planned entry was marked in the right lower quadrant after ensuring that there was no adjacent bowel. 1% lidocaine with 0.5% Marcaine was infiltrated at the catheter entry site. Introducer needle was advanced under ultrasound guidance to access the peritoneal cavity, acetic fluid was aspirated a guidewire was passed into the introducer needle as it was removed. The skin incision was extended using 11 blade and dilator sheath was passed over the guidewire and the inner dilator and guidewire was removed. A double cuff peritoneal catheter was introduced into the peritoneal cavity as the peel-away sheath was removed. The proximal end of the catheter was attached to the tunneler and passed laterally subcutaneously to exit about 5 cm from the site of entry into the peritoneal cavity. The skin incision was closed using 4-0 Monocryl and Dermabond. The ascites was drained, sterile dressings placed and the patient was transferred to recovery room in stable condition.
--- NOTE | 2020-12-06 14:35 | ANE.PACU2 ---
Inpatient post-anesthesia follow up: Airway intact: Yes Vital signs: Temperature 97.7 F Pulse Rate 72 Respiratory Rate 17 Blood Pressure 112/70 Pulse Oximetry 97 Oxygen Delivery Me thod Room Air Oxygen Flow Rate 8 Fraction of Inspir ed Oxygen Hydration adequate: Yes Nausea and vomiting: No Pain level: 2 Mental status: Baseline
== END 2020-12-06 09:32 | disposition home or self-care (01) ==
PROVIDERS: PCP Nurse Practitioner Family; Visit Provider Surgery
PROC: (CPT 49406; principal; 2020-12-06 07:55)
DX: R18.8 Other ascites (principal); C18.4 Malignant neoplasm of transverse colon; I25.10 Atherosclerotic heart disease of native coronary artery without angina pectoris; Z95.5 Presence of coronary angioplasty implant and graft; I25.2 Old myocardial infarction; K21.9 Gastro-esophageal reflux disease without esophagitis; E11.9 Type 2 diabetes mellitus without complications
CPT/HCPCS: 49406; C1750; J0690; J2704; J3490; J7030